=== PATIENT | male | born 1950 | race Caucasian/White ===

== ENCOUNTER 2016-08-27 07:52 | Inpatient (IN) | payer MEDICARE, MEDICAID ==
[2016-08-20 10:53] LABS: HEMATOCRIT 43.2 % (37.9-51.0); HEMOGLOBIN 13.9 g/dL (13.5-17.0); HGB HCT DIFFERENCE -1.5; MEAN CORPUSCULAR HEMOGLOBIN 24.1 pg (27.0-33.4); MEAN CORPUSCULAR HGB CONC 32.1 g/dL (32.0-36.0); MEAN CORPUSCULAR VOLUME 75 fl (80-97); RED BLOOD COUNT 5.76 10^6/uL (4.35-5.55); WHITE BLOOD COUNT 10.9 10^3/uL (4.0-10.5)
[2016-08-20 11:17] LABS: ALANINE AMINOTRANSFERASE 30 U/L (21-72); ALBUMIN 4.1 g/dL (3.5-5.0); ALKALINE PHOSPHATASE 130 U/L (38-126); ANION GAP 13 (5-19); ASPARTATE AMINO TRANSFERASE 19 U/L (17-59); BILIRUBIN,TOTAL 0.9 mg/dL (0.2-1.3); BLOOD UREA NITROGEN 13 mg/dL (7-20); CALCIUM 9.9 mg/dL (8.4-10.2); CARBON DIOXIDE 27 mmol/L (22-30); CHLORIDE 101 mmol/L (98-107); CREATININE RESULT 0.76 mg/dL (0.52-1.25); GLUCOSE 312 mg/dL (75-110); POTASSIUM 4.5 mmol/L (3.6-5.0); SODIUM 140.5 mmol/L (137-145)
[2016-08-20 11:37] LABS: CARCINOEMBRYONIC ANTIGEN 1.6 ng/mL (<3.0)
--- NOTE | 2016-08-20 12:02 | EKG REPORT ---
SEVERITY:- ABNORMAL ECG - SINUS RHYTHM NONSPECIFIC IVCD WITH LAD INFERIOR INFARCT, AGE INDETERMINATE : Confirmed by: Samantha Arndt MD 20-Aug-2016 12:00:49
[~2016-08-27 07:52] MED LIST: ERTAPENEM SODIUM 1 GM in NORMAL SALINE 50 ML IV PRN; LIDOCAINE 0.5% INJ-PF (5 MG/ML) 50 ML SDV INJ PRN; NORMAL SALINE 1000 ML 1,000 ML IV PRN
[2016-08-27] MEDS ORDERED: GLYCOPYRROLATE INJ 0.4 MG/2 ML VIAL ONE (08:18)
[2016-08-27] MEDS ORDERED: PHENYLEPHRINE HCL INJ/PF 10 MG/1 ML SDV ONE (08:18)
[2016-08-27] MEDS ORDERED: DEXAMETHASONE SOD PHOSPHATE INJ 4 MG/1 ML VIAL ONE (08:18)
[2016-08-27] MEDS ORDERED: VECURONIUM BROMIDE INJ 10 MG VIAL IV ONE (08:18)
[2016-08-27] MEDS ORDERED: NEOSTIGMINE METHYLSULFATE 10 MG/10 ML VIAL ONE (08:18)
[2016-08-27] MEDS ORDERED: ONDANSETRON HCL INJ/PF 4 MG/2 ML SDV ONE (08:18)
[2016-08-27] MEDS ORDERED: METOCLOPRAMIDE HCL INJ/PF 10 MG/2 ML SDV ONE (08:18)
[2016-08-27] MEDS ORDERED: LIDOCAINE 2% INJ-PF (20 MG/ML) 10 ML AMPUL ONE (08:18)
[2016-08-27] MEDS ORDERED: SUCCINYLCHOLINE CHLORIDE INJ 200 MG/10 ML VIAL ONE (08:18)
[2016-08-27] MEDS ORDERED: BUPIVACAINE HCL 0.25 % INJ/PF (2.5 MG/1 ML) 30 ML VIAL ONE (08:23)
[2016-08-27] MEDS ORDERED: GLUCAGON,HUMAN RECOMB 1 MG INJ ONE (08:23)
[2016-08-27 09:38] LABS: PROTHROMBIN TIME 12.9 SEC (11.4-15.4)
[2016-08-27 09:39] LABS: PARTIAL THROMBOPLASTIN TIME 27.7 SEC (23.5-35.8)
[2016-08-27] MEDS ORDERED: METOPROLOL TARTRATE 25 MG TABLET PO ONE (10:00)
[2016-08-27] MEDS ORDERED: FENTANYL CITRATE INJ/PF 250 MCG/5 ML AMPULE ONE (10:16)
[2016-08-27] MEDS ORDERED: MIDAZOLAM 2 MG/2 ML INJ ONE (10:17)
[2016-08-27] MEDS ORDERED: EPHEDRINE SULFATE INJ 50 MG/1 ML AMPULE ONE (10:17)
[2016-08-27] MEDS ORDERED: PROPOFOL INJ 200 MG/20 ML VIAL IV ONE (10:17)
[2016-08-27] MEDS ORDERED: ASPIRIN 81 MG TABLET, CHEWABLE PO ONE (11:00)
[2016-08-27] MEDS ORDERED: OXYCODONE-ACETAMINOPHEN 5-325 MG TABLET PO PRN ×2 (12:19)
[2016-08-27] MEDS ORDERED: MEPERIDINE HCL/PF INJ 25 MG/1 ML DISP.SYRIN IV PRN (12:19)
[2016-08-27] MEDS ORDERED: MORPHINE SULFATE 10 MG/ML INJ IV PRN (12:19)
[2016-08-27] MEDS ORDERED: FENTANYL CITRATE INJ/PF 100 MCG/2 ML AMPUL IV PRN ×3 (12:19)
[2016-08-27] MEDS ORDERED: ONDANSETRON HCL INJ/PF 4 MG/2 ML SDV IV PRN (12:19)
[2016-08-27] MEDS ORDERED: PROMETHAZINE HCL INJ 25 MG/1 ML VIAL IV PRN ×2 (12:19)
[2016-08-27] MEDS ORDERED: DIPHENHYDRAMINE HCL 50 MG/ML VIAL IV PRN (12:19)
[2016-08-27] MEDS ORDERED: HYDROMORPHONE HCL INJ/PF 2 MG/ML AMPULE ONE (13:45)
[2016-08-27] MEDS: NALOXONE HCL INJ/PF 0.4 MG/1 ML SDV ONE ×2 (15:02→15:35)
[2016-08-27] MEDS: METOPROLOL TARTRATE PF/INJ 5 MG/5 ML SDV IV ONE ×3 (15:42→16:09)
[2016-08-27] MEDS: CARBIDOPA/LEVODOPA 25-100 MG TABLET PO SCH (18:03)
[2016-08-27] MEDS: MORPHINE SULFATE 10 MG/ML INJ IV PRN ×2 (18:03→21:51)
[2016-08-27] MEDS: NORMAL SALINE 1000 ML 1,000 ML IV PRN (18:09)
[2016-08-27 19:28] LABS: HEMATOCRIT 41.6 % (37.9-51.0); HEMOGLOBIN 13.3 g/dL (13.5-17.0); HGB HCT DIFFERENCE -1.7; MEAN CORPUSCULAR HEMOGLOBIN 24.1 pg (27.0-33.4); MEAN CORPUSCULAR HGB CONC 31.9 g/dL (32.0-36.0); MEAN CORPUSCULAR VOLUME 75 fl (80-97); RED BLOOD COUNT 5.53 10^6/uL (4.35-5.55); RED CELL DISTRIBUTION WIDTH 17.4 % (11.5-14.0); WHITE BLOOD COUNT 22.4 10^3/uL (4.0-10.5)
[2016-08-27 19:39] LABS: ANION GAP 14 (5-19); BLOOD UREA NITROGEN 12 mg/dL (7-20); CALCIUM 9.2 mg/dL (8.4-10.2); CARBON DIOXIDE 24 mmol/L (22-30); CHLORIDE 103 mmol/L (98-107); CREATININE RESULT 0.84 mg/dL (0.52-1.25); GLUCOSE 224 mg/dL (75-110); POTASSIUM 5.1 mmol/L (3.6-5.0); SODIUM 140.8 mmol/L (137-145)
--- NOTE | 2016-08-27 19:41 | PDOC CONSULTATION ---
Consultation Consult Date: 08/27/16 Attending physician:: TAISHA KUHN Consult reason:: Preop cardiovascular clearance History of Present Illness Admission Date/PCP: 08/27/16 08:39 YOSEF DEL REAL MD Patient complains of: No complaints, patient for colon cancer surgery. History of Present Illness: AMI YOUSIF is a 66 year old male, with history of coronary artery disease , history of prior myocardial infarction, history of coronary intervention, cerebrovascular accident, resident of assisted living, who was admitted to the pre-op unit for undergoing colon cancer surgery. Patient has a complicated cardiac history. He underwent a heart catheterization and stent placement with bare metal approximately 2-3 months ago. Patient has completed 6 weeks of dual antiplatelet therapy. Patient's family claims that the circumflex artery was noted to be totally occluded and could not be revascularized. Patient has limited activity but is able to walk to the dining room without any significant symptoms. Patient denied any chest pain or any shortness of breath. Patient preop EKG shows sinus rhythm, abnormal Q waves in lead 3 and aVF suggestive of prior inferior myocardial infarction, but no acute ST-T wave changes noted. I was asked to evaluate patient and cleared him from cardiac standpoint. Past Medical History Cardiac Medical History: Reports: Myocardial Infarction - 1988, Hyperlipidema, Hypertension Denies: Atrial Fibrillation, Congestive Heart Failure, Coronary Artery Disease, Peripheral Vascular Disease, Heart Murmur Neurological Medical History: Denies: Seizures Endocrine Medical History: Reports: Diabetes Mellitus Type 2 Renal/ Medical History: Denies: End Stage Renal Disease GI Medical History: Reports: Gastroesophageal Reflux Disease - HX PEPCID Denies: Crohn's Disease, Hiatal Hernia Musculoskeltal Medical History: Denies: Arthritis, Fibromyalgia Psychiatric Medical History: Denies: Dementia Past Surgical History Past Surgical History: Reports: Cardiac Catheterization, Coronary Stent, Tonsillectomy Denies: Appendectomy, Cholecystectomy, Colostomy, Coronary Artery Bypass Graft, Gastric Bypass Surgery, Herniorrhaphy, Pacemaker Social History Information Source: Patient Smoking Status: Former Smoker Frequency of Alcohol Use: Rare Hx Recreational Drug Use: No Hx Prescription Drug Abuse: No - Advance Directive Resuscitation Status: Full Code Surrogate healthcare decision maker:: Patient's sister is the surrogate decision maker Family History Family History: Reviewed & Not Pertinent Parental Family History Reviewed: Yes Children Family History Reviewed: Yes Sibling(s) Family History Reviewed.: Yes Medication/Allergy Home Medications: Amlodipine Besylate 2.5 mg PO DAILY 01/12/15 Atorvastatin Calcium 40 mg PO DAILY 01/12/15 Alfuzosin HCl [Alfuzosin HCl ER] 1 tab PO DAILY 08/20/16 Aspirin [Aspirin 81 mg Chewable Tablet] 1 tab PO DAILY 08/20/16 Carbidopa/Levodopa [Sinemet 25-100 mg Tablet] 1 tab PO TID 08/20/16 Finasteride [Proscar 5 mg Tablet] 1 tab PO DAILY 08/20/16 Metoprolol Succinate 25 mg PO DAILY 08/20/16 Ranitidine HCl [Zantac] 1 tab PO DAILY 08/20/16 Allergies/Adverse Reactions: No Known Allergies Allergy (Verified 08/20/16 08:55) Review of Systems Review of Systems: Please see history of present illness and past medical history as wall. Constitutional: No fever or chills reported. Head : No recent chronic headaches, recent head injury. Eyes: No recent eye pain, diplopia, redness, discharge, acute visual changes. Ears: No recent chronic ear pain, acute hearing loss, ear discharge. Oral cavity: No recent ulcerations, bleeding, oral cavity discomfort. Neck: No recent acute neck pain reported. Hematologic: No recent easy bruising or bleeding or hematologic malignancy reported. Lymphatic: No recent lymphatic malignancy, chronic lymphadenopathy reported yet Cardiovascular system review: See history of present illness. Respiratory system review: No recent chronic cough, hemoptysis, blood clots in the lungs reported. Mild Shortness of breath on exertion Gastrointestinal system review: Active for recent hematemesis, melena, recent change in bowel habits. Elevation does have history of colon cancer and is going to have surgery today. Genitourinary system review: No recent acute or chronic hematuria, flank pain, UTI etc. reported. Skin system review: Negative for any recent abnormal bruising, no rash, no pruritus reported. Neurologic: No prior history of strokes, mini strokes, seizure disorder. Psychologic: No history of major psychosis or major depression reported. History of minor depression. Musculoskeletal: Minor aches and pains reported. No acute joint swelling reported. Endocrine: No recent polyuria, polydipsia, recent heat or cold intolerance. Physical Exam Vital Signs: Temp Pulse Resp BP Pulse Ox 97.4 F 83 16 151/82 H 93 08/27/16 08:45 08/27/16 08:45 08/27/16 08:45 08/27/16 08:45 08/27/16 08:45 Intake & Output 08/26/16 08/27/16 08/28/16 06:59 06:59 06:59 Intake Total 50 Output Total 0 Balance 50 Exam: GENERAL: well-nourished and in no acute distress. Alert and oriented x3 HEAD: Atraumatic, normocephalic. EYES: Pupils equal round and reactive to light, extraocular movements intact, sclera anicteric, conjunctiva are normal. ENT: TMs normal, nares patent, oropharynx clear without exudates. Moist mucous membranes. No oral ulcerations or bleeding gums noted NECK: supple without lymphadenopathy. Trachea is central. No cervical or axillary lymphadenopathy noted. Carotids are 2+, JVD WNL LUNGS: Respiration seems nonlabored, no significant accessory muscle action noted. Breath sounds clear to auscultation bilaterally and equal noted. No wheezes rales or rhonchi noted. No significant dullness noted on percussion. CHEST: Palpation of the chest wall shows no significant chest wall tenderness. No other significant abnormalities noted. HEART: [place] [employer], No PSH, 1/6 NAZIA aortic area, 1/6 younger systolic murmur mitral area, no rubs, no gallops. ABDOMEN: Soft, no significant tenderness appreciated, normoactive bowel sounds. No guarding, no rebound. No rigidity noted . No masses appreciated. EXTREMITIES: Pedal pulses are 1-2+, no calf tenderness noted. No clubbing or cyanosis.trace to 1+ pedal edema noted NEUROLOGICAL: Focused neurological exam showed no significant neurologic deficit , except for mild motor weakness left side. Normal speech, no facial asymmetry appreciated. PSYCH: Normal mood, normal affect. Judgment and insight within normal limits. SKIN: No significant ecchymosis, rash, ulcerations or signs of pruritus noted. MUSCULOSKELETAL EXAM: No significant joint swelling noted. Results Laboratory Results: 08/20/16 09:28 08/27/16 09:10 08/27/16 09:10 Glucose 164 H EKG Comments: Chest x-ray, pre-op from August 20 showed sinus rhythm, abnormal Q waves indicative of prior inferior myocardial infarction, no new changes when compared to prior EKG. Preop chest x-ray showed possible fluid in the major fissure. Impressions: Chest X-Ray 08/20/16 10:12 IMPRESSION: NO SIGNIFICANT RADIOGRAPHIC FINDING IN THE CHEST. Assessment & Plan - Diagnosis (1) Coronary artery disease Qualifiers: Coronary Disease-Associated Artery/Lesion type: [place] artery [place] vs. transplanted heart: [place] heart Associated angina: angina presence unspecified Qualified Code(s): I25.10 - Atherosclerotic heart disease of [place] coronary artery without angina pectoris Is this a current diagnosis for this admission?: Yes (2) Abnormal EKG Is this a current diagnosis for this admission?: Yes (3) CVA (cerebral infarction) Qualifiers: Laterality of affected vessel: unspecified Is this a current diagnosis for this admission?: Yes (4) Hypertension Qualifiers: Hypertension type: essential hypertension Qualified Code(s): I10 - Essential (primary) hypertension Is this a current diagnosis for this admission?: Yes (5) Hyperlipidemia Qualifiers: Hyperlipidemia type: other hyperlipidemia Qualified Code(s): E78.4 - Other hyperlipidemia Is this a current diagnosis for this admission?: Yes (6) Diabetes Qualifiers: Diabetes mellitus type: type 2 Diabetes mellitus complication status: with unspecified complications - Notes Notes: Patient was seen earlier this morning in preop evaluation. Coronary artery disease: Symptomatically stable. Resume aspirin, beta nic, HODAN inhibitor, statin. These can be resumed when feasible from surgical standpoint and when allowed by mouth. In the meantime may use intermittent IV beta nic, HODAN inhibitor etc. Abnormal electrocardiogram: This is unchanged from before. Suggest prior inferior myocardial infarction. Cerebrovascular accident: This is old. No new evidence. Hypertension: Currently stable. Continue to monitor blood pressure. Dyslipidemia: Recommend statin therapy, resume when stable. Diabetes: Recommend good control of blood sugar but avoid any hypo-or hyperglycemia. Preop cardiovascular evaluation: Patient was cleared from cardiac standpoint because of no new EKG changes, no clinical CHF and patient not having chest pain. Patient in need for colon surgery. - Time Time Spent: 30 to 50 Minutes - CODE STATUS was discussed, patient remains full code. Surrogate decision-maker patient's sister. Multiple medical problems were addressed.More than 50% of the time spent coordinating care, discussing management plans with involved caregivers. Management plans discussed with involved personnels. Medical decision making was of moderate complexity.
[2016-08-27] MEDS ORDERED: DEXTROSE 50%-WATER 25 GM/50 ML DISP.SYRIN IV PRN ×2 (19:47)
[2016-08-27] MEDS ORDERED: GLUCAGON,HUMAN RECOMB 1 MG INJ IM PRN (19:47)
[2016-08-27] MEDS ORDERED: DEXTROSE 40% GEL 15 GM TUBE PO PRN ×2 (19:47)
[2016-08-27] MEDS ORDERED: NORMAL SALINE 500 ML IV PRN (19:52)
--- NOTE | 2016-08-27 19:57 | PDOC PROGRESS REPORT ---
Subjective Progress Note for:: 08/27/16 Subjective:: poor pain control Physical Exam Vital Signs: Temp Pulse Resp BP Pulse Ox 97.5 F 99 13 141/103 H 96 08/27/16 18:13 08/27/16 18:13 08/27/16 19:00 08/27/16 18:57 08/27/16 19:00 Intake & Output 08/26/16 08/27/16 08/28/16 06:59 06:59 06:59 Intake Total 4150 Output Total 1425 Balance 2725 Weight 97.5 kg General appearance: PRESENT: no acute distress, cooperative Respiratory exam: PRESENT: clear to auscultation shelly Cardiovascular exam: PRESENT: tachycardia - hr 108 GI/Abdominal exam: PRESENT: other - distended, diffuse moderate tenderness. Results Laboratory Results: 08/27/16 19:20 08/27/16 19:20 08/27/16 08/27/16 08/27/16 09:10 19:20 19:20 WBC 22.4 H RBC 5.53 Hgb 13.3 L Hct 41.6 MCV 75 L MCH 24.1 L MCHC 31.9 L RDW 17.4 H Plt Count 457 H Sodium 140.8 Potassium 5.1 H Chloride 103 Carbon Dioxide 24 Anion Gap 14 BUN 12 Creatinine 0.84 Est GFR ( Amer) > 60 Est GFR (Non-Af Amer) > 60 Glucose 164 H 224 H Calcium 9.2 Impressions: Chest X-Ray 08/20/16 10:12 IMPRESSION: NO SIGNIFICANT RADIOGRAPHIC FINDING IN THE CHEST. Assessment & Plan - Diagnosis (1) Colonic mass Is this a current diagnosis for this admission?: YesPlan: s/p segmental resection of tx colon. poor pain control. will give additional morphine dose. restart all anti-htn meds. urine output ok but concentrated. will give small ivf bolus. start insulin ss.
[2016-08-27] MEDS ORDERED: MORPHINE SULFATE 10 MG/ML INJ IV ONE (20:30)
[2016-08-27] MEDS: FAMOTIDINE INJ/PF 20 MG/2 ML SDV IV SCH (20:38)
[2016-08-27] MEDS ORDERED: AMLODIPINE BESYLATE 2.5 MG TABLET PO ONE (20:45)
[2016-08-27] MEDS: ATORVASTATIN CALCIUM 40 MG TABLET PO SCH (21:34)
[2016-08-28] MEDS: MORPHINE SULFATE 10 MG/ML INJ IV PRN ×6 (00:39→23:42)
[2016-08-28 04:14] LABS: HEMATOCRIT 37.9 % (37.9-51.0); HGB HCT DIFFERENCE -1.9; MEAN CORPUSCULAR HEMOGLOBIN 23.7 pg (27.0-33.4); MEAN CORPUSCULAR HGB CONC 31.6 g/dL (32.0-36.0); MEAN CORPUSCULAR VOLUME 75 fl (80-97); RED BLOOD COUNT 5.06 10^6/uL (4.35-5.55); RED CELL DISTRIBUTION WIDTH 17.6 % (11.5-14.0); WHITE BLOOD COUNT 17.4 10^3/uL (4.0-10.5)
[2016-08-28 04:30] LABS: ANION GAP 13 (5-19); BLOOD UREA NITROGEN 12 mg/dL (7-20); CALCIUM 8.5 mg/dL (8.4-10.2); CARBON DIOXIDE 21 mmol/L (22-30); CHLORIDE 106 mmol/L (98-107); CREATININE RESULT 0.88 mg/dL (0.52-1.25); GLUCOSE 206 mg/dL (75-110); POTASSIUM 5.5 mmol/L (3.6-5.0); SODIUM 139.8 mmol/L (137-145)
[2016-08-28] MEDS ORDERED: METOPROLOL SUCCINATE 50 MG TAB.SR.24H PO SCH (10:00)
[2016-08-28] MEDS ORDERED: ATORVASTATIN CALCIUM 40 MG TABLET PO SCH (10:00)
[2016-08-28] MEDS ORDERED: ALFUZOSIN HCL PO SCH (10:00)
[2016-08-28] MEDS ORDERED: METOPROLOL SUCCINATE 25 MG TAB.SR.24H PO SCH (10:00)
[2016-08-28] MEDS ORDERED: AMLODIPINE BESYLATE 10 MG TABLET PO SCH (10:00)
[2016-08-28] MEDS: NORMAL SALINE 1000 ML 1,000 ML IV PRN ×2 (11:04→17:16)
--- NOTE | 2016-08-28 11:34 | Operative Report ---
Operative Report DATE OF SURGERY: 08/27/16 PREOPERATIVE DIAGNOSIS: Distal transverse colon mass POSTOPERATIVE DIAGNOSIS: Distal transverse colon mass OPERATION: Distal transverse colon segmental resection SURGEON: TAISHA KUHN ANESTHESIA: GA TISSUE REMOVED OR ALTERED: Distal transverse colon segment COMPLICATIONS: Splenic capsular tear ESTIMATED BLOOD LOSS: 300 mL INTRAOPERATIVE FINDINGS: Submucosal mass of the colon at the distal transverse colon. PROCEDURE: Informed consent was obtained. Patient was brought to the operating room placed on the operating room table in supine position. After satisfactory induction of general anesthesia patient's abdomen was prepped and draped in usual sterile fashion. A upper midline incision was made dissection carried out through the fascia and the peritoneal cavity entered without difficulty. A wound protractor was used during the case. Exploratory laparotomy was performed first. The liver felt smooth with no palpable masses the peritoneal surface felt smooth with no palpable masses the small bowel was run from the ligament of Treitz down to the ileocecal junction and it felt normal with the no masses. The right colon felt normal. The transverse colon demonstrated a palpable mass at the distal transverse colon. The mass felt the smooth about 4 cm in size. The sigmoid colon was devoid of any masses. The left colon felt normal as well. The anterior surface of the stomach felt normal. NG tube confirmation was made with palpation. Patient's the omentum was markedly fatty with the adhesions laterally making the procedure very difficult. The left colon was mobilized at the line of T[place]t with the mobilization progressing toward the splenic flexure. The splenic flexure was high and very deep making exposure extremely difficult. The transverse colon was dissected off of the fatty omentum extending the dissection toward the splenic flexure. The splenic flexure was approached from 2 sides. Again the posterior and high location of the splenic flexure made the the dissection extremely difficult. A small capsular tear was noted at the inferior edge of the spleen with some bleeding. The bleeding was controlled the with Surgicel. Bleeding appeared to have stopped at the end of the case. The splenic flexure of the colon was adhered to the spleen at this location. The mass laid several centimeters proximal to the splenic flexure therefore dissection was stopped at this point. The transverse colon was mobilized further proximally toward the hepatic flexure. This allowed sufficient mobility of the transverse colon to allow resection with anastomosis. The transverse colon was divided couple centimeters distal to the palpable mass using a EVETTE stapling device. And also divided couple centimeters proximal to the palpable mass. The mesentery of the resected the segment was taken using a LigaSure device taking the mesentery very close to the bowel. The 2 remaining ends of the bowel appear well vascularized with the triphasic Doppler signals. The specimen was submitted to pathology and pathology confirmed that the mass was excised with good margins. The mass appeared to be submucosal. Bowel continuity was then re-created performing a [id number] functional end-to-end anastomosis between the 2 ends of the transverse colon. The anastomosis came together well without tension. The enterotomies made to introduce the stapling device was closed with a TA stapling device. Anastomosis appeared secure. Omentum was draped over the anastomosis and the small bowel. Sponge needle instrument counts were all correct. Fascia was closed with running PDS suture. Skin was closed with tamia. Marcaine was injected at the operative site. Patient tolerated procedure well and was taken to the recovery area in stable condition.
--- NOTE | 2016-08-28 11:41 | PDOC PROGRESS REPORT ---
Subjective Progress Note for:: 08/28/16 Subjective:: abdominal pain. goes to sleep after morphine then wakes up with pain, stable from last night Physical Exam Vital Signs: Temp Pulse Resp BP Pulse Ox 97.5 F 119 H 17 145/84 H 94 08/28/16 11:00 08/28/16 08:00 08/28/16 11:00 08/28/16 10:58 08/28/16 11:00 Intake & Output 08/27/16 08/28/16 08/29/16 06:59 06:59 06:59 Intake Total 6205 Output Total 1875 175 Balance 4330 -175 Weight 98.8 kg General appearance: PRESENT: no acute distress, cooperative Respiratory exam: PRESENT: clear to auscultation shelly Cardiovascular exam: PRESENT: tachycardia GI/Abdominal exam: PRESENT: other - distended with moderate diffuse tenderness without peritoneal signs. Extremities exam: PRESENT: other - no swelling Results Laboratory Results: 08/28/16 03:40 08/28/16 03:40 08/27/16 08/27/16 08/28/16 19:20 19:20 03:40 WBC 22.4 H 17.4 H RBC 5.53 5.06 Hgb 13.3 L 12.0 L Hct 41.6 37.9 MCV 75 L 75 L MCH 24.1 L 23.7 L MCHC 31.9 L 31.6 L RDW 17.4 H 17.6 H Plt Count 457 H 412 Sodium 140.8 Potassium 5.1 H Chloride 103 Carbon Dioxide 24 Anion Gap 14 BUN 12 Creatinine 0.84 Est GFR ( Amer) > 60 Est GFR (Non-Af Amer) > 60 Glucose 224 H Calcium 9.2 08/28/16 03:40 WBC RBC Hgb Hct MCV MCH MCHC RDW Plt Count Sodium 139.8 Potassium 5.5 H Chloride 106 Carbon Dioxide 21 L Anion Gap 13 BUN 12 Creatinine 0.88 Est GFR ( Amer) > 60 Est GFR (Non-Af Amer) > 60 Glucose 206 H Calcium 8.5 Impressions: Chest X-Ray 08/20/16 10:12 IMPRESSION: NO SIGNIFICANT RADIOGRAPHIC FINDING IN THE CHEST. KUB X-Ray 08/28/16 00:00 IMPRESSION: Nasogastric tube noted with tip at the distal esophagus. The tube should be advanced approximately 10 to 12 cm to ensure that the sideholes within the lumen of the stomach. Overall position of the nasogastric tube is not significantly changed from the prior study. Assessment & Plan - Diagnosis (1) Colonic mass Is this a current diagnosis for this admission?: YesPlan: s/p segmental resection of tx colon. tachycardia and leukocytosis concerning. but good urine output and no peritoneal signs and wbc down from last night and no fever and pt does not appear toxic. cont close observation. try more frequent morphine at lower dose.
[2016-08-28] MEDS ORDERED: KETOROLAC TROMETHAMINE INJ/PF 30 MG/1 ML SDV ONE (12:39)
[2016-08-28] MEDS: AMLODIPINE BESYLATE 2.5 MG TABLET PO SCH (12:42)
[2016-08-28] MEDS: FAMOTIDINE INJ/PF 20 MG/2 ML SDV IV SCH ×2 (12:46→21:48)
[2016-08-28] MEDS: CARBIDOPA/LEVODOPA 25-100 MG TABLET PO SCH ×3 (14:14→17:08)
[2016-08-28] MEDS: FINASTERIDE 5 MG TABLET PO SCH (14:14)
[2016-08-28] MEDS: TAMSULOSIN HCL 0.4 MG CAP.SR.24H PO SCH (14:14)
[2016-08-28] MEDS ORDERED: KETOROLAC TROMETHAMINE INJ/PF 30 MG/1 ML SDV IV ONE (14:15)
--- NOTE | 2016-08-28 16:52 | PDOC PROGRESS REPORT ---
Subjective Progress Note for:: 08/28/16 Subjective:: pain better controlled on toradol. Physical Exam Vital Signs: Temp Pulse Resp BP Pulse Ox 98.8 F 78 15 145/117 H 92 08/28/16 12:00 08/28/16 12:00 08/28/16 14:28 08/28/16 14:28 08/28/16 14:28 Intake & Output 08/27/16 08/28/16 08/29/16 06:59 06:59 06:59 Intake Total 6205 Output Total 1875 425 Balance 4330 -425 Weight 98.8 kg General appearance: PRESENT: no acute distress Respiratory exam: PRESENT: clear to auscultation shelly Cardiovascular exam: PRESENT: tachycardia GI/Abdominal exam: PRESENT: other - distended, diffuse tenderness without peritoneal signs, less tender. Results Laboratory Results: 08/28/16 03:40 08/28/16 03:40 08/27/16 08/27/16 08/28/16 19:20 19:20 03:40 WBC 22.4 H 17.4 H RBC 5.53 5.06 Hgb 13.3 L 12.0 L Hct 41.6 37.9 MCV 75 L 75 L MCH 24.1 L 23.7 L MCHC 31.9 L 31.6 L RDW 17.4 H 17.6 H Plt Count 457 H 412 Sodium 140.8 Potassium 5.1 H Chloride 103 Carbon Dioxide 24 Anion Gap 14 BUN 12 Creatinine 0.84 Est GFR ( Amer) > 60 Est GFR (Non-Af Amer) > 60 Glucose 224 H Calcium 9.2 08/28/16 03:40 WBC RBC Hgb Hct MCV MCH MCHC RDW Plt Count Sodium 139.8 Potassium 5.5 H Chloride 106 Carbon Dioxide 21 L Anion Gap 13 BUN 12 Creatinine 0.88 Est GFR ( Amer) > 60 Est GFR (Non-Af Amer) > 60 Glucose 206 H Calcium 8.5 Impressions: Chest X-Ray 08/20/16 10:12 IMPRESSION: NO SIGNIFICANT RADIOGRAPHIC FINDING IN THE CHEST. KUB X-Ray 08/28/16 00:00 IMPRESSION: NG tube with its tip at the approximate level of the GE junction which should be advanced. Assessment & Plan - Diagnosis (1) Colonic mass Is this a current diagnosis for this admission?: YesPlan: s/p segmental resection of tx colon. pain better controlled. tachycardia less ( currently 114, hr 78 that was recorded above is in error). not sure that he is absorbing po anti hypertensives. d/w Dr Tao who has agreed to see him tomorrow. advised labetolol. will start iv.
[2016-08-28] MEDS: LABETALOL HCL INJ 20 MG/4 ML DISP.SYRIN IV PRN (17:13)
[2016-08-28] MEDS: KETOROLAC TROMETHAMINE INJ/PF 30 MG/1 ML SDV IV PRN (17:13)
[2016-08-28] MEDS ORDERED: ERTAPENEM SODIUM INJ 1 GM VIAL IV ONE (17:34)
[2016-08-28] MEDS: ERTAPENEM SODIUM 1 GM in NORMAL SALINE 50 ML IV SCH (20:14)
[2016-08-28] MEDS: ATORVASTATIN CALCIUM 40 MG TABLET PO SCH (21:48)
[2016-08-28] MEDS: ONDANSETRON HCL INJ/PF 4 MG/2 ML SDV IV PRN (22:12)
[2016-08-29] MEDS: NORMAL SALINE 1000 ML 1,000 ML IV PRN ×2 (02:56→14:27)
[2016-08-29] MEDS: MORPHINE SULFATE 10 MG/ML INJ IV PRN ×4 (03:02→23:09)
[2016-08-29 04:56] LABS: ANION GAP 10 (5-19); BLOOD UREA NITROGEN 12 mg/dL (7-20); CALCIUM 7.9 mg/dL (8.4-10.2); CARBON DIOXIDE 25 mmol/L (22-30); CHLORIDE 109 mmol/L (98-107); CREATININE RESULT 0.84 mg/dL (0.52-1.25); GLUCOSE 165 mg/dL (75-110); POTASSIUM 4.3 mmol/L (3.6-5.0); SODIUM 143.7 mmol/L (137-145)
[2016-08-29 06:11] LABS: ABSOLUTE BASOPHILS # (AUTO) 0.1 10^3/uL (0.0-0.2); ABSOLUTE EOSINOPHILS # (AUTO) 0.4 10^3/uL (0.0-0.6); ABSOLUTE LYMPHOCYTES (AUTO) 2.5 10^3/uL (0.5-4.7); ABSOLUTE MONOCYTES (AUTO) 1.7 10^3/uL (0.1-1.4); ABSOLUTE NEUT (AUTO) 8.2 10^3/uL (1.7-8.2); BASOPHILS % (AUTO) 0.5 % (0-2); EOSINOPHILS % (AUTO) 2.9 % (0-6); HEMATOCRIT 30.2 % (37.9-51.0); HGB HCT DIFFERENCE -0.8; LYMPHOCYTES % (AUTO) 19.4 % (13-45); MEAN CORPUSCULAR HEMOGLOBIN 24.5 pg (27.0-33.4); MEAN CORPUSCULAR HGB CONC 32.3 g/dL (32.0-36.0); MEAN CORPUSCULAR VOLUME 76 fl (80-97); MONOCYTES % (AUTO) 13.5 % (3-13); RED BLOOD COUNT 3.98 10^6/uL (4.35-5.55); RED CELL DISTRIBUTION WIDTH 17.7 % (11.5-14.0); SEGMENTED NEUTROPHILS % (AUTO) 63.7 % (42-78); WHITE BLOOD COUNT 12.8 10^3/uL (4.0-10.5)
[2016-08-29 06:21] LABS: HEMOGLOBIN 9.8 g/dL (13.5-17.0)
--- NOTE | 2016-08-29 07:38 | PDOC PROGRESS REPORT ---
Subjective Progress Note for:: 08/29/16 Subjective:: denies pain & dyspnea Physical Exam Vital Signs: Temp Pulse Resp BP Pulse Ox 99.2 F 107 H 17 148/89 H 95 08/29/16 06:00 08/28/16 20:00 08/29/16 06:00 08/29/16 05:38 08/29/16 06:00 Intake & Output 08/27/16 08/28/16 08/29/16 07:59 07:59 07:59 Intake Total 6205 1232 Output Total 1875 1250 Balance 4330 -18 Weight 217 lb 13.067 oz 218 lb 11.177 oz General appearance: PRESENT: no acute distress Respiratory exam: PRESENT: rhonchi Cardiovascular exam: PRESENT: +S1, +S2, tachycardia. ABSENT: clicks, diastolic murmur, gallop, irregular rhythm, systolic murmur GI/Abdominal exam: PRESENT: diminished bowel sounds, distended - nurse says slightly more than yesterday. ABSENT: guarding, mass, organolmegaly, tenderness Extremities exam: ABSENT: pedal edema Neurological exam: PRESENT: altered - lethargic after morphine Results Laboratory Results: 08/29/16 06:03 08/29/16 03:58 08/29/16 08/29/16 08/29/16 03:58 03:58 06:03 WBC Cancelled 12.8 H RBC Cancelled 3.98 L Hgb Cancelled 9.8 L D Hct Cancelled 30.2 L MCV Cancelled 76 L MCH Cancelled 24.5 L MCHC Cancelled 32.3 RDW Cancelled 17.7 H Plt Count Cancelled 349 Seg Neutrophils % Cancelled 63.7 Lymphocytes % Cancelled 19.4 Monocytes % Cancelled 13.5 H Eosinophils % Cancelled 2.9 Basophils % Cancelled 0.5 Absolute Neutrophils Cancelled 8.2 Absolute Lymphocytes Cancelled 2.5 Absolute Monocytes Cancelled 1.7 H Absolute Eosinophils Cancelled 0.4 Absolute Basophils Cancelled 0.1 Sodium 143.7 Potassium 4.3 Chloride 109 H Carbon Dioxide 25 Anion Gap 10 BUN 12 Creatinine 0.84 Est GFR ( Amer) > 60 Est GFR (Non-Af Amer) > 60 Glucose 165 H Calcium 7.9 L Impressions: Chest X-Ray 08/20/16 10:12 IMPRESSION: NO SIGNIFICANT RADIOGRAPHIC FINDING IN THE CHEST. KUB X-Ray 08/28/16 00:00 IMPRESSION: NG tube with its tip at the approximate level of the GE junction which should be advanced. Assessment & Plan - Diagnosis (1) Type 2 diabetes mellitus without complications Qualifiers: Diabetes mellitus halfway insulin use: without halfway use Qualified Code(s): E11.9 - Type 2 diabetes mellitus without complications Is this a current diagnosis for this admission?: YesPlan: continue sliding scale for now (2) Hypertension Qualifiers: Hypertension type: essential hypertension Qualified Code(s): I10 - Essential (primary) hypertension Is this a current diagnosis for this admission?: YesPlan: has scheduled metoprolol succinate & prn labetalol. Rate 110s. K was high. Will avoid IV hydralazine because of tachycardia and IV vasotec because of K. (3) Anemia, blood loss Is this a current diagnosis for this admission?: YesPlan: hct down from 38 to 30. BP ok. Observe. (4) Panlobular emphysema Is this a current diagnosis for this admission?: YesPlan: nov fev1=76%=mild. No wheeze now but has rhonchi from ineffective cough & lethargy. Consider holding morphine until more alert. (5) Colonic mass Is this a current diagnosis for this admission?: YesPlan: 8cm polyp gone. Suspect ileus. (6) Leukocytosis Qualifiers: Leukocytosis type: other Qualified Code(s): D72.828 - Other elevated white blood cell count Is this a current diagnosis for this admission?: YesPlan: down from 17 to 13. Afebrile on eripenem.
--- NOTE | 2016-08-29 08:31 | EKG REPORT ---
SEVERITY:- ABNORMAL ECG - SINUS TACHYCARDIA NONSPECIFIC INTRAVENTRICULAR CONDUCTION DELAY PROBABLE INFERIOR INFARCT, AGE INDETERMINATE : Confirmed by: Luis Jeffery MD 29-Aug-2016 08:29:47
[2016-08-29] MEDS: FAMOTIDINE INJ/PF 20 MG/2 ML SDV IV SCH ×2 (09:58→21:39)
[2016-08-29] MEDS: CARBIDOPA/LEVODOPA 25-100 MG TABLET PO SCH ×3 (10:00→16:59)
[2016-08-29] MEDS: AMLODIPINE BESYLATE 2.5 MG TABLET PO SCH (10:00)
[2016-08-29] MEDS: TAMSULOSIN HCL 0.4 MG CAP.SR.24H PO SCH (10:00)
[2016-08-29] MEDS: FINASTERIDE 5 MG TABLET PO SCH (10:00)
--- NOTE | 2016-08-29 15:04 | PROGRESS NOTE E ---
Progress Note NAME: AMI YOUSIF : 1950 AGE: 66Y DATE: 08/29/2016 ROOM: 607 SUBJECTIVE: Note that the patient was seen by Dr. Lindquist on 08/27/2016 for preoperative clearance for removal of left colonic mass, for which the patient did have surgery. The patient since yesterday has been having tachycardia and hypertension, and hence Cardiology consulted. The patient has slow mentation but can answer very slowly. He denies any chest pain or discomfort. He denies any palpitations. There is no PND or orthopnea. There is no leg edema. There is no recurrence of TIA or CVA symptoms. The patient denies any weakness or any anginal symptoms. OBJECTIVE: GENERAL: The patient is mildly obese but well groomed, in no acute distress. VITAL SIGNS: Patient is afebrile with a temperature of 98.7 degrees Fahrenheit. Pulse is 106 beats per minute. Earlier yesterday, it was 117 beats per minute. Blood pressure is 131/82. Respirations 15 per minute. O2 saturations are 95% on 5 L nasal cannula. HEENT: Head is atraumatic and normocephalic. Eyes: Pupils are equal, round, regular, reactive to light and accommodation. Extraocular movements are normal. There is no scleral icterus. There is mild conjunctival pallor. ENT is negative. Tongue is dry. Mucous membranes in the mouth are dry. There are no ulcers in the mouth. NECK: Supple. There is no JVD. Carotids are equal. There is no bruit. Trachea is central. LUNGS: Clear to auscultation and percussion. HEART: S1 and S2 are heard. There is no S3 gallop. There is no S4 gallop. There is systolic murmur at left sternal border and the apex. There is no rub. ABDOMEN: Soft. Bowel sounds are absent. The surgical dressing site is clean and dry. There is no hepatosplenomegaly. EXTREMITIES: Femorals are diminished. There are no femoral bruits. Leg pulses are slightly diminished. There is no pedal edema. There is no DVT or cellulitis. CENTRAL NERVOUS SYSTEM: The patient is of very slow mentation but does answer after awhile. He has no focal deficits. PSYCHIATRIC: The patient has a withdrawn affect, but the patient is not agitated. DIAGNOSTIC TEST RESULTS: The patient's EKG shows sinus tachycardia, nonspecific IVCD, old inferior wall TN. The patient's white count is 12,800. Hemoglobin is 9.8. Hematocrit is 30.2. His platelet count is 349,000. The patient's sodium is 143.7, potassium 4.3, chloride 109. His CO2 is 25. Patient's BUN is 12. Creatinine is 0.84. GFR is greater than 60. His glucose is 165. Calcium is 7.9. His lipase is less than 10. ASSESSMENT: 1. SINUS TACHYCARDIA SECONDARY TO DEHYDRATION AND POSTOPERATIVE PAIN. The patient has been transitioned to morphine now, and the pain control is better. His heart rate is coming down. 2. STATUS POST SURGERY FOR LEFT COLON MASS. 3. 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 4. ABNORMAL EKG SUGGESTIVE OF OLD INFERIOR WALL TN. 5. 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 6. HYPERTENSION. Blood pressure seems to be stable. 7. HYPERLIPIDEMIA. 8. DIABETES MELLITUS TYPE 2 WITH NO COMPLICATIONS WHICH SEEMS TO BE DIET CONTROLLED. RECOMMENDATIONS: Note that the patient's heart rate is coming down with hydration. Would continue hydrating the patient gently. Will recheck the patient's hemoglobin since it is 9.8. With hydration, it might fall down further. Also agree with giving the patient labetalol 10 mg IV q. 8 hours p.r.n. Note that the patient's medications have been reviewed. Discussed the patient with other caregiving providers on the case. Note that the patient is a FULL CODE. His sister, Tierra Gunter, is his surrogate healthcare decision maker. Note: Thirty minutes spent on this patient including reviewing the patient's medications and his old records, and also more than 50% of the time was spent in direct patient care. Will order hemoglobin in the morning. Will follow with you. The sinus tachycardia should resolve once the patient is back on his metoprolol by mouth, but the problem is that the patient removed his NG tube 3 times and it has been difficult to put the NG tube back in. Hence to continue labetalol until the time the patient is able to take by mouth. Note: More than 50% of the time was spent in direct patient care. DICTATING PHYSICIAN: FREDDY ALEXIS M.D. [id number] PHY#: [id number] ID: [id number] JOB#: [id number] ACCT: [id number] cc: >
--- NOTE | 2016-08-29 16:10 | PDOC PROGRESS REPORT ---
Subjective Progress Note for:: 08/29/16 Subjective:: much less pain today Physical Exam Vital Signs: Temp Pulse Resp BP Pulse Ox 99.5 F 107 H 17 148/89 H 95 08/29/16 08:00 08/28/16 20:00 08/29/16 06:00 08/29/16 05:38 08/29/16 06:00 Intake & Output 08/28/16 08/29/16 08/30/16 06:59 06:59 06:59 Intake Total 6205 1232 Output Total 1875 1250 275 Balance 4330 -18 -275 Weight 98.8 kg 99.2 kg General appearance: PRESENT: no acute distress, cooperative, disheveled Respiratory exam: PRESENT: clear to auscultation shelly Cardiovascular exam: PRESENT: tachycardia GI/Abdominal exam: PRESENT: other - Distended, soft, diffuse abdominal tenderness but less so than yesterday without peritoneal signs. Active bowel sounds heard. Extremities exam: PRESENT: other - No swelling and no tenderness. Results Laboratory Results: 08/29/16 06:03 08/29/16 03:58 08/29/16 08/29/16 08/29/16 03:58 03:58 06:03 WBC Cancelled 12.8 H RBC Cancelled 3.98 L Hgb Cancelled 9.8 L D Hct Cancelled 30.2 L MCV Cancelled 76 L MCH Cancelled 24.5 L MCHC Cancelled 32.3 RDW Cancelled 17.7 H Plt Count Cancelled 349 Seg Neutrophils % Cancelled 63.7 Lymphocytes % Cancelled 19.4 Monocytes % Cancelled 13.5 H Eosinophils % Cancelled 2.9 Basophils % Cancelled 0.5 Absolute Neutrophils Cancelled 8.2 Absolute Lymphocytes Cancelled 2.5 Absolute Monocytes Cancelled 1.7 H Absolute Eosinophils Cancelled 0.4 Absolute Basophils Cancelled 0.1 Sodium 143.7 Potassium 4.3 Chloride 109 H Carbon Dioxide 25 Anion Gap 10 BUN 12 Creatinine 0.84 Est GFR ( Amer) > 60 Est GFR (Non-Af Amer) > 60 Glucose 165 H Calcium 7.9 L Impressions: Chest X-Ray 08/20/16 10:12 IMPRESSION: NO SIGNIFICANT RADIOGRAPHIC FINDING IN THE CHEST. KUB X-Ray 08/28/16 00:00 IMPRESSION: NG tube with its tip at the approximate level of the GE junction which should be advanced. Assessment & Plan - Diagnosis (1) Colonic mass Is this a current diagnosis for this admission?: YesPlan: s/p segmental resection of tx colon. Patient still with tachycardia but he has less pain and less tenderness and decreased leukocytosis and good urine output. Patient with no chest pain. However we'll check EKG and the obtain consultation from cardiology. Will stop his Toradol in light of his decreased hematocrit. Continue to hold his Lovenox. Will try to get the patient out of bed today. NG tube output was minimal yesterday despite his distention. With the patient pulling out the NG tube on at least couple of occasions will not reinsert NG tube for now.
[2016-08-29] MEDS: ATORVASTATIN CALCIUM 40 MG TABLET PO SCH (21:44)
[2016-08-29] MEDS: ERTAPENEM SODIUM 1 GM in NORMAL SALINE 50 ML IV SCH (21:52)
[2016-08-30] MEDS: NORMAL SALINE 1000 ML 1,000 ML IV PRN (01:09)
[2016-08-30] MEDS: LABETALOL HCL INJ 20 MG/4 ML DISP.SYRIN IV PRN ×2 (01:13→09:32)
[2016-08-30 03:53] LABS: ABSOLUTE BASOPHILS # (AUTO) 0.1 10^3/uL (0.0-0.2); ABSOLUTE EOSINOPHILS # (AUTO) 0.5 10^3/uL (0.0-0.6); ABSOLUTE LYMPHOCYTES (AUTO) 1.8 10^3/uL (0.5-4.7); ABSOLUTE MONOCYTES (AUTO) 1.3 10^3/uL (0.1-1.4); ABSOLUTE NEUT (AUTO) 7.4 10^3/uL (1.7-8.2); BASOPHILS % (AUTO) 0.5 % (0-2); EOSINOPHILS % (AUTO) 4.2 % (0-6); HEMATOCRIT 33.4 % (37.9-51.0); HEMOGLOBIN 10.5 g/dL (13.5-17.0); HGB HCT DIFFERENCE -1.9; LYMPHOCYTES % (AUTO) 16.3 % (13-45); MEAN CORPUSCULAR HEMOGLOBIN 23.6 pg (27.0-33.4); MEAN CORPUSCULAR HGB CONC 31.3 g/dL (32.0-36.0); MEAN CORPUSCULAR VOLUME 76 fl (80-97); MONOCYTES % (AUTO) 12.1 % (3-13); RED BLOOD COUNT 4.42 10^6/uL (4.35-5.55); RED CELL DISTRIBUTION WIDTH 17.5 % (11.5-14.0); SEGMENTED NEUTROPHILS % (AUTO) 66.9 % (42-78)
[2016-08-30 04:16] LABS: ANION GAP 9 (5-19); BLOOD UREA NITROGEN 9 mg/dL (7-20); CALCIUM 8.3 mg/dL (8.4-10.2); CARBON DIOXIDE 25 mmol/L (22-30); CHLORIDE 110 mmol/L (98-107); GLUCOSE 148 mg/dL (75-110); POTASSIUM 4.2 mmol/L (3.6-5.0); SODIUM 144.4 mmol/L (137-145)
[2016-08-30] MEDS: MORPHINE SULFATE 10 MG/ML INJ IV PRN ×5 (06:34→20:45)
--- NOTE | 2016-08-30 07:30 | PDOC PROGRESS REPORT ---
Subjective Progress Note for:: 08/30/16 Subjective:: feels better. passing a little bit of flatus. much less pain. Physical Exam Vital Signs: Temp Pulse Resp BP Pulse Ox 98.3 F 81 16 165/92 H 98 08/30/16 04:00 08/29/16 20:00 08/30/16 06:09 08/30/16 06:09 08/30/16 06:09 Intake & Output 08/29/16 08/30/16 08/31/16 06:59 06:59 06:59 Intake Total 1232 3794 Output Total 1250 3160 Balance -18 634 Weight 99.2 kg 95.1 kg General appearance: PRESENT: no acute distress, cooperative Respiratory exam: PRESENT: clear to auscultation shelly Cardiovascular exam: PRESENT: RRR GI/Abdominal exam: PRESENT: other - soft, protruberant (pts body habitus was like this preop), mild diffuse tenderness continues to improve each day. active bs's Extremities exam: PRESENT: other - no swelling. Results Laboratory Results: 08/30/16 03:36 08/30/16 03:36 08/29/16 08/30/16 08/30/16 03:58 03:36 03:36 WBC 11.0 H RBC 4.42 Hgb 10.5 L Hct 33.4 L MCV 76 L MCH 23.6 L MCHC 31.3 L RDW 17.5 H Plt Count 385 Seg Neutrophils % 66.9 Lymphocytes % 16.3 Monocytes % 12.1 Eosinophils % 4.2 Basophils % 0.5 Absolute Neutrophils 7.4 Absolute Lymphocytes 1.8 Absolute Monocytes 1.3 Absolute Eosinophils 0.5 Absolute Basophils 0.1 Sodium 144.4 Potassium 4.2 Chloride 110 H Carbon Dioxide 25 Anion Gap 9 BUN 9 Creatinine 0.70 Est GFR ( Amer) > 60 Est GFR (Non-Af Amer) > 60 Glucose 148 H Calcium 8.3 L Lipase < 10.0 L Impressions: Chest X-Ray 08/20/16 10:12 IMPRESSION: NO SIGNIFICANT RADIOGRAPHIC FINDING IN THE CHEST. KUB X-Ray 08/28/16 00:00 IMPRESSION: NG tube with its tip at the approximate level of the GE junction which should be advanced. Assessment & Plan - Diagnosis (1) Colonic mass Is this a current diagnosis for this admission?: YesPlan: s/p segmental resection of tx colon. looks much better. tachycardia resolved, wbc decreased and hct increased, excellent urine output amd active bowel sounds. transfer to floor.PT consult for ambulation. continue cortez until better mobility. may start diet tomorrow.
[2016-08-30] MEDS: DEXTROSE 5%-1/2 NORMAL SALINE 1,000 ML IV PRN ×2 (07:47→20:39)
[2016-08-30] MEDS: FAMOTIDINE INJ/PF 20 MG/2 ML SDV IV SCH ×2 (09:31→21:11)
[2016-08-30] MEDS: CARBIDOPA/LEVODOPA 25-100 MG TABLET PO SCH ×3 (09:54→17:06)
[2016-08-30] MEDS: TAMSULOSIN HCL 0.4 MG CAP.SR.24H PO SCH (09:54)
[2016-08-30] MEDS: AMLODIPINE BESYLATE 2.5 MG TABLET PO SCH (09:54)
[2016-08-30] MEDS: FINASTERIDE 5 MG TABLET PO SCH (09:54)
--- NOTE | 2016-08-30 15:04 | PDOC PROGRESS REPORT ---
Subjective Progress Note for:: 08/30/16 Subjective:: better. No pain or dyspnea Physical Exam Vital Signs: Temp Pulse Resp BP Pulse Ox 98.3 F 94 16 147/77 H 94 08/30/16 12:00 08/30/16 08:00 08/30/16 14:25 08/30/16 14:25 08/30/16 14:25 Intake & Output 08/29/16 08/30/16 08/31/16 07:59 07:59 07:59 Intake Total 1232 3794 Output Total 1250 3160 580 Balance -18 634 -580 Weight 218 lb 11.177 oz 209 lb 10.554 oz General appearance: PRESENT: no acute distress Respiratory exam: PRESENT: rhonchi Cardiovascular exam: ABSENT: diastolic murmur, irregular rhythm, systolic murmur GI/Abdominal exam: ABSENT: hypoactive bowel sounds, mass, organolmegaly, tenderness Extremities exam: ABSENT: pedal edema Neurological exam: PRESENT: oriented to situation Psychiatric exam: PRESENT: appropriate affect Results Laboratory Results: 08/30/16 03:36 08/30/16 03:36 08/30/16 08/30/16 03:36 03:36 WBC 11.0 H RBC 4.42 Hgb 10.5 L Hct 33.4 L MCV 76 L MCH 23.6 L MCHC 31.3 L RDW 17.5 H Plt Count 385 Seg Neutrophils % 66.9 Lymphocytes % 16.3 Monocytes % 12.1 Eosinophils % 4.2 Basophils % 0.5 Absolute Neutrophils 7.4 Absolute Lymphocytes 1.8 Absolute Monocytes 1.3 Absolute Eosinophils 0.5 Absolute Basophils 0.1 Sodium 144.4 Potassium 4.2 Chloride 110 H Carbon Dioxide 25 Anion Gap 9 BUN 9 Creatinine 0.70 Est GFR ( Amer) > 60 Est GFR (Non-Af Amer) > 60 Glucose 148 H Calcium 8.3 L Impressions: Chest X-Ray 08/20/16 10:12 IMPRESSION: NO SIGNIFICANT RADIOGRAPHIC FINDING IN THE CHEST. KUB X-Ray 08/28/16 00:00 IMPRESSION: NG tube with its tip at the approximate level of the GE junction which should be advanced. 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 Continue incentive spirometry (5) Colonic mass Is this a current diagnosis for this admission?: YesPlan: benign lipoma (6) Leukocytosis Qualifiers: Leukocytosis type: other Qualified Code(s): D72.828 - Other elevated white blood cell count Is this a current diagnosis for this admission?: YesPlan: improving
[2016-08-30] MEDS ORDERED: CLONIDINE 0.2 MG/24 HR PATCH.TDWK TD ONE (16:00)
[2016-08-30] MEDS: ERTAPENEM SODIUM 1 GM in NORMAL SALINE 50 ML IV SCH (20:39)
[2016-08-30] MEDS: ATORVASTATIN CALCIUM 40 MG TABLET PO SCH (21:11)
[2016-08-31] MEDS: MORPHINE SULFATE 10 MG/ML INJ IV PRN ×5 (00:02→22:14)
[2016-08-31 05:37] LABS: ABSOLUTE BASOPHILS # (AUTO) 0.1 10^3/uL (0.0-0.2); ABSOLUTE EOSINOPHILS # (AUTO) 0.9 10^3/uL (0.0-0.6); ABSOLUTE LYMPHOCYTES (AUTO) 1.8 10^3/uL (0.5-4.7); ABSOLUTE MONOCYTES (AUTO) 1.6 10^3/uL (0.1-1.4); BASOPHILS % (AUTO) 0.5 % (0-2); EOSINOPHILS % (AUTO) 7.7 % (0-6); HEMATOCRIT 32.7 % (37.9-51.0); HEMOGLOBIN 10.3 g/dL (13.5-17.0); HGB HCT DIFFERENCE -1.8; LYMPHOCYTES % (AUTO) 15.5 % (13-45); MEAN CORPUSCULAR HEMOGLOBIN 23.4 pg (27.0-33.4); MEAN CORPUSCULAR HGB CONC 31.4 g/dL (32.0-36.0); MEAN CORPUSCULAR VOLUME 74 fl (80-97); MONOCYTES % (AUTO) 13.9 % (3-13); RED BLOOD COUNT 4.39 10^6/uL (4.35-5.55); RED CELL DISTRIBUTION WIDTH 17.6 % (11.5-14.0); SEGMENTED NEUTROPHILS % (AUTO) 62.4 % (42-78); WHITE BLOOD COUNT 11.3 10^3/uL (4.0-10.5)
[2016-08-31 06:03] LABS: ANION GAP 8 (5-19); BLOOD UREA NITROGEN 7 mg/dL (7-20); CALCIUM 8.6 mg/dL (8.4-10.2); CARBON DIOXIDE 27 mmol/L (22-30); CHLORIDE 107 mmol/L (98-107); GLUCOSE 171 mg/dL (75-110); POTASSIUM 4.2 mmol/L (3.6-5.0); SODIUM 142.3 mmol/L (137-145)
--- NOTE | 2016-08-31 08:03 | PDOC PROGRESS REPORT ---
Subjective Progress Note for:: 08/31/16 Subjective:: hungry. No pain, flatus Physical Exam Vital Signs: Temp Pulse Resp BP Pulse Ox 98.2 F 90 16 151/69 H 98 08/31/16 07:43 08/31/16 07:43 08/31/16 07:43 08/31/16 07:43 08/31/16 07:43 Intake & Output 08/30/16 08/31/16 09/01/16 07:59 07:59 07:59 Intake Total 3794 967 Output Total 3160 1420 Balance 634 -453 Weight 209 lb 10.554 oz General appearance: PRESENT: no acute distress Respiratory exam: PRESENT: clear to auscultation hselly Cardiovascular exam: ABSENT: diastolic murmur, irregular rhythm, systolic murmur GI/Abdominal exam: PRESENT: tenderness - mild. ABSENT: guarding, mass, organolmegaly Extremities exam: ABSENT: pedal edema Psychiatric exam: PRESENT: appropriate affect Results Laboratory Results: 08/31/16 04:56 08/31/16 04:56 08/31/16 08/31/16 04:56 04:56 WBC 11.3 H RBC 4.39 Hgb 10.3 L Hct 32.7 L MCV 74 L MCH 23.4 L MCHC 31.4 L RDW 17.6 H Plt Count 468 H Seg Neutrophils % 62.4 Lymphocytes % 15.5 Monocytes % 13.9 H Eosinophils % 7.7 H Basophils % 0.5 Absolute Neutrophils 7.0 Absolute Lymphocytes 1.8 Absolute Monocytes 1.6 H Absolute Eosinophils 0.9 H Absolute Basophils 0.1 Sodium 142.3 Potassium 4.2 Chloride 107 Carbon Dioxide 27 Anion Gap 8 BUN 7 Creatinine 0.60 Est GFR ( Amer) > 60 Est GFR (Non-Af Amer) > 60 Glucose 171 H Calcium 8.6 Impressions: Chest X-Ray 08/20/16 10:12 IMPRESSION: NO SIGNIFICANT RADIOGRAPHIC FINDING IN THE CHEST. KUB X-Ray 08/28/16 00:00 IMPRESSION: NG tube with its tip at the approximate level of the GE junction which should be advanced. Assessment & Plan - Diagnosis (1) Type 2 diabetes mellitus without complications Qualifiers: Diabetes mellitus mcfp insulin use: without terminal operator use Qualified Code(s): E11.9 - Type 2 diabetes mellitus without complications Is this a current diagnosis for this admission?: Yes (2) Hypertension Qualifiers: Hypertension type: essential hypertension Qualified Code(s): I10 - Essential (primary) hypertension Is this a current diagnosis for this admission?: YesPlan: add vasotec iv (3) Anemia, blood loss Is this a current diagnosis for this admission?: Yes (4) Panlobular emphysema Is this a current diagnosis for this admission?: Yes (5) Colonic mass Is this a current diagnosis for this admission?: Yes (6) Leukocytosis Qualifiers: Leukocytosis type: other Qualified Code(s): D72.828 - Other elevated white blood cell count Is this a current diagnosis for this admission?: Yes (7) Dysphagia Qualifiers: Dysphagia type: oral phase Qualified Code(s): R13.11 - Dysphagia, oral phase Is this a current diagnosis for this admission?: YesPlan: failed 2 evals. Related to cva & dementia. Continue NPO
--- NOTE | 2016-08-31 08:17 | PDOC PROGRESS REPORT ---
Subjective Progress Note for:: 08/31/16 Subjective:: Still not ambulating well. Patient has passed some gas. No nausea or vomiting. Physical Exam Vital Signs: Temp Pulse Resp BP Pulse Ox 98.2 F 90 16 151/69 H 98 08/31/16 07:43 08/31/16 07:43 08/31/16 07:43 08/31/16 07:43 08/31/16 07:43 Intake & Output 08/30/16 08/31/16 09/01/16 06:59 06:59 06:59 Intake Total 3794 967 Output Total 3160 1420 Balance 634 -453 Weight 95.1 kg General appearance: PRESENT: no acute distress, cooperative Respiratory exam: PRESENT: clear to auscultation shelly Cardiovascular exam: PRESENT: RRR GI/Abdominal exam: PRESENT: other - Soft with the active bowel sounds. Still protuberant. Mild diffuse tenderness. No peritoneal signs. Extremities exam: PRESENT: other - No swelling and no tenderness. Results Laboratory Results: 08/31/16 04:56 08/31/16 04:56 08/31/16 08/31/16 04:56 04:56 WBC 11.3 H RBC 4.39 Hgb 10.3 L Hct 32.7 L MCV 74 L MCH 23.4 L MCHC 31.4 L RDW 17.6 H Plt Count 468 H Seg Neutrophils % 62.4 Lymphocytes % 15.5 Monocytes % 13.9 H Eosinophils % 7.7 H Basophils % 0.5 Absolute Neutrophils 7.0 Absolute Lymphocytes 1.8 Absolute Monocytes 1.6 H Absolute Eosinophils 0.9 H Absolute Basophils 0.1 Sodium 142.3 Potassium 4.2 Chloride 107 Carbon Dioxide 27 Anion Gap 8 BUN 7 Creatinine 0.60 Est GFR ( Amer) > 60 Est GFR (Non-Af Amer) > 60 Glucose 171 H Calcium 8.6 Impressions: Chest X-Ray 08/20/16 10:12 IMPRESSION: NO SIGNIFICANT RADIOGRAPHIC FINDING IN THE CHEST. KUB X-Ray 08/28/16 00:00 IMPRESSION: NG tube with its tip at the approximate level of the GE junction which should be advanced. Assessment & Plan - Diagnosis (1) Colonic mass Is this a current diagnosis for this admission?: YesPlan: s/p segmental resection of tx colon. Looks okay. Bowel function appears to be returning. However concerned about the aspiration with the patient failing bedside swallow couple of times in the ICU. Will decrease his morphine and ambulate the patient more will hold off diet until patient's strength returns and there is better bowel function and reevaluate his swallow capability. Continue Miranda until he is able to get out of bed more.
[2016-08-31] MEDS ORDERED: BISACODYL 10 MG SUPP.RECT PR ONE (08:18)
[2016-08-31] MEDS: KETOROLAC TROMETHAMINE INJ/PF 30 MG/1 ML SDV IV PRN ×2 (08:39→23:16)
[2016-08-31] MEDS: TAMSULOSIN HCL 0.4 MG CAP.SR.24H PO SCH (09:56)
[2016-08-31] MEDS: CARBIDOPA/LEVODOPA 25-100 MG TABLET PO SCH ×3 (09:56→17:58)
[2016-08-31] MEDS: AMLODIPINE BESYLATE 2.5 MG TABLET PO SCH (09:56)
[2016-08-31] MEDS: FAMOTIDINE INJ/PF 20 MG/2 ML SDV IV SCH ×2 (09:57→21:24)
[2016-08-31] MEDS: DEXTROSE 5%-1/2 NORMAL SALINE 1,000 ML IV PRN (11:16)
[2016-08-31] MEDS: FINASTERIDE 5 MG TABLET PO SCH (11:35)
[2016-08-31] MEDS: ENALAPRILAT DIHYDRATE INJ/PF 2.5 MG/2 ML SDV IV SCH ×2 (11:35→17:58)
[2016-08-31] MEDS: ERTAPENEM SODIUM 1 GM in NORMAL SALINE 50 ML IV SCH (18:38)
[2016-08-31] MEDS: ATORVASTATIN CALCIUM 40 MG TABLET PO SCH (21:23)
[2016-09-01] MEDS: ENALAPRILAT DIHYDRATE INJ/PF 2.5 MG/2 ML SDV IV SCH ×4 (00:28→18:26)
--- NOTE | 2016-09-01 05:57 | PDOC PROGRESS REPORT ---
Subjective Progress Note for:: 09/01/16 Subjective:: hungry. Thinks cva was L hemiparesis. Physical Exam Vital Signs: Temp Pulse Resp BP Pulse Ox 98.8 F 68 18 141/66 H 97 09/01/16 04:00 09/01/16 04:00 09/01/16 04:00 09/01/16 04:00 09/01/16 04:00 Intake & Output 08/30/16 08/31/16 09/01/16 07:59 07:59 07:59 Intake Total 3794 967 1080 Output Total 3160 1420 350 Balance 634 -453 730 Weight 209 lb 10.554 oz 209 lb 7.026 oz General appearance: PRESENT: no acute distress Eye exam: PRESENT: EOMI Respiratory exam: PRESENT: clear to auscultation shelly Cardiovascular exam: ABSENT: diastolic murmur, irregular rhythm, systolic murmur GI/Abdominal exam: ABSENT: mass, organolmegaly, tenderness Extremities exam: ABSENT: pedal edema Neurological exam: PRESENT: altered, CN II-XII grossly intact, other - Follows commands slowly. OK cn2-12, ftn, hts. No dtr. R barre'+. [id number]. Cant heel to egan. PERRLA. Results Laboratory Results: 08/31/16 04:56 08/31/16 04:56 08/31/16 08/31/16 04:56 04:56 WBC 11.3 H RBC 4.39 Hgb 10.3 L Hct 32.7 L MCV 74 L MCH 23.4 L MCHC 31.4 L RDW 17.6 H Plt Count 468 H Seg Neutrophils % 62.4 Lymphocytes % 15.5 Monocytes % 13.9 H Eosinophils % 7.7 H Basophils % 0.5 Absolute Neutrophils 7.0 Absolute Lymphocytes 1.8 Absolute Monocytes 1.6 H Absolute Eosinophils 0.9 H Absolute Basophils 0.1 Sodium 142.3 Potassium 4.2 Chloride 107 Carbon Dioxide 27 Anion Gap 8 BUN 7 Creatinine 0.60 Est GFR ( Amer) > 60 Est GFR (Non-Af Amer) > 60 Glucose 171 H Calcium 8.6 Impressions: Chest X-Ray 08/20/16 10:12 IMPRESSION: NO SIGNIFICANT RADIOGRAPHIC FINDING IN THE CHEST. KUB X-Ray 08/28/16 00:00 IMPRESSION: NG tube with its tip at the approximate level of the GE junction which should be advanced. 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: without local company intermodal truck driver use Qualified Code(s): E11.9 - Type 2 diabetes mellitus without complications Is this a current diagnosis for this admission?: Yes (2) Hypertension Qualifiers: Hypertension type: essential hypertension Qualified Code(s): I10 - Essential (primary) hypertension Is this a current diagnosis for this admission?: YesPlan: better on vasotec & clonidine (3) Anemia, blood loss Is this a current diagnosis for this admission?: Yes (4) Panlobular emphysema Is this a current diagnosis for this admission?: Yes (5) Colonic mass Is this a current diagnosis for this admission?: Yes (6) Leukocytosis Qualifiers: Leukocytosis type: other Qualified Code(s): D72.828 - Other elevated white blood cell count Is this a current diagnosis for this admission?: Yes (7) Dysphagia Qualifiers: Dysphagia type: oral phase Qualified Code(s): R13.11 - Dysphagia, oral phase Is this a current diagnosis for this admission?: YesPlan: 2015 stroke with listing to Jesse Had B basal ganglia & R cerebellar infarcts old & new. History of dementia. Will consult speech therapy for swallowing evaluation.
[2016-09-01] MEDS: MORPHINE SULFATE 10 MG/ML INJ IV PRN ×4 (06:57→22:44)
[2016-09-01] MEDS: KETOROLAC TROMETHAMINE INJ/PF 30 MG/1 ML SDV IV PRN ×2 (06:57→18:25)
[2016-09-01] MEDS: DEXTROSE 5%-1/2 NORMAL SALINE 1,000 ML IV PRN ×2 (10:30→22:44)
[2016-09-01] MEDS: FINASTERIDE 5 MG TABLET PO SCH (11:29)
[2016-09-01] MEDS: TAMSULOSIN HCL 0.4 MG CAP.SR.24H PO SCH (11:29)
[2016-09-01] MEDS: FAMOTIDINE INJ/PF 20 MG/2 ML SDV IV SCH ×2 (11:29→21:34)
[2016-09-01] MEDS: CARBIDOPA/LEVODOPA 25-100 MG TABLET PO SCH ×3 (11:30→18:26)
[2016-09-01] MEDS: AMLODIPINE BESYLATE 2.5 MG TABLET PO SCH (11:30)
--- NOTE | 2016-09-01 11:48 | PROGRESS NOTE E ---
Progress Note NAME: AMI YOUSIF : 1950 AGE: 66Y DATE: 09/01/2016 ROOM: 416 SUBJECTIVE: The patient is status post distal transverse colon segmental resection on 08/27/2016. The patient has been transferred out of the ICU; however, today, he has a very obvious distention with ileus postoperatively. His mental status seems to be baseline. He is communicative and is able to understand the respiratory therapy instructions for the incentive spirometer and flutter valve, which I ordered this morning. OBJECTIVE: The patient's breath sounds are diminished in the bases and he has difficulty with chest expansion because of the marked distention of his abdomen. He is protuberant, tympanitic, and with increasing abdominal girth based upon reports from yesterday. Bowel sounds are few. He is not having a bowel movement, but yesterday did have one small response to Dulcolax suppository. Extremities are with mild edema. IMPRESSION: POSTOP ILEUS. PLAN: Recommend passage of a nasogastric tube to prevent vomiting and aspiration. This is being undertaken. Once the nasogastric tube is in place, Physical Therapy will continue to assist in trying to ambulate the patient and at least get the patient up out of bed and around the room. DICTATING PHYSICIAN: ANASTASIA PRUITT M.D. [id number] ADRIÁNY#: [id number] ID: [id number] JOB#: [id number] ACCT: [id number] cc: >
--- NOTE | 2016-09-01 12:53 | PROGRESS NOTE E ---
Progress Note NAME: AMI YOUSIF : 1950 AGE: 66Y DATE: 09/01/2016 ROOM: 416 SUBJECTIVE: Note that the patient's mentation is alright, but he still has difficulty swallowing. He also has distention of the abdomen with *------*, but denies any nausea or vomiting. He has not passed any flatus since yesterday. He has no abdominal pain. Note, that due to his abdominal distention, he is not able to expand his chest well for respiration, although his saturations are 98% on 2 L. There are also diminished breath sounds in the bases, most likely secondary to atelectasis. He denies any cough and there is no fever. There is no chest pain or discomfort. The patient remains in sinus rhythm at a rate of 91 beats per minute with a stable blood pressure. OBJECTIVE: GENERAL: On examination the patient is mildly obese, in some distress due to his inability to take a deep breath. VITAL SIGNS: He is afebrile with a temperature of 97.4 degrees Fahrenheit, pulse is 95 beats per minute, blood pressure is 135/74, respirations are 20 per minute, O2 sats are 98% on 2 L nasal cannula. HEENT: Head is atraumatic and normocephalic. Eyes: Pupils are equal, round, regular, reactive to light and accommodation. There is no conjunctival pallor. There is no scleral icterus. ENT is negative. NECK: Supple. There is no JVD. Carotids are equal. There is no bruit. There is no goiter. There is no lymphadenopathy. Trachea is central. LUNGS: There are diminished breath sounds in the bases and also, inadequate expansion of the lungs with each respiration. There are a few scattered rhonchi, but no rales of CHF. CARDIOVASCULAR: S1, S2 is heard. There is no S3 gallop. There is no S4 gallop. There is a systolic murmur in the left sternal border and the apex. There is no rub. ABDOMEN: Soft. Distended. Bowel sounds are absent. There is no hepatosplenomegaly. EXTREMITIES: Femorals are diminished. There are no femoral bruits. Leg pulses are slightly diminished. There is no pedal edema. There is no DVT or cellulitis. CENTRAL NERVOUS SYSTEM: The patient is conscious, awake, alert. His mentation is back to normal. He has no focal deficits. PSYCHIATRIC: The patient does not appear to be agitated. His affect today is normal. INTAKE/OUTPUT: His 24-hour intake is 2,070 mL and out is 350 mL. DIAGNOSTIC DATA: His blood sugars are 186 and 173. IMPRESSION: 1. SINUS TACHYCARDIA SECONDARY TO DEHYDRATION AND POSTOPERATIVE PAIN. THIS HAS NOW RESOLVED AND THE PATIENT IS IN SINUS RHYTHM. 2. STATUS POST SURGERY FOR LEFT COLON MASS. 3. MOST LIKELY, THE PATIENT HAS POSTOPERATIVE ILEUS WITH ABDOMINAL DISTENTION. 4. INADEQUATE EXPANSION OF THE LUNGS IN SPITE OF GOOD O2 SATURATION ON 2 L NASAL CANNULA. 5. CORONARY ARTERY DISEASE WITH HISTORY OF MA's IN THE PAST AND STENTS WITH NO ANGINAL SYMPTOMS. 6. ABNORMAL EKG SUGGESTIVE OF OLD INFERIOR WALL MA. 7. CVA WITH LEFT-SIDED WEAKNESS, WHICH IS VERY MILD. 8. HYPERTENSION, WHICH IS WELL CONTROLLED. 9. HYPERLIPIDEMIA. 10. DIABETES MELLITUS TYPE 2 WITH NO COMPLICATIONS, WHICH SEEMS TO BE DIET CONTROLLED. THE PATIENT WAS NOT ON ANY ANTIDIABETICS AT HOME. RECOMMENDATIONS: Note that his medications have been reviewed. The case was discussed with Dr. Pitt, the surgicalist following the patient. In view the patient's inability to swallow, would recommend to continue IV fluids, but would decrease the rate of IV fluids. Also, since the urine output is only 350, would recommend that he can an SMA-7 today, a magnesium level, and also CBC levels. Also, an NG tube has been ordered by the surgicalist, which I agree, but it was difficult to pass the NG tube as per the discussions with the ICU nurses when he was down there, and also he has a habit of pulling out the NG tubes, also agree with the inspiratory treatments. At present, I see no reason to start the patient on Xopenex or albuterol nebulizer treatments, since this may drive the heart rate up. I would continue the patient with clonidine 0.2 mg q. weekly patch since this seems to be working on his blood pressure control and especially in view of the patient's inability to swallow. Later, the patient should have a repeat swallow test analysis. We will order labs today. TIME SPENT: Note, 35 minutes were spent on this patient with more than 50% of the time spent on direct patient care, reviewing the patient's medications, and also ordering lab values on the patient for today, also discussions with the surgicalist, and also coordinating care. This is moderate complexity medical decision making. We will follow with you. Thanking you. DICTATING PHYSICIAN: FREDDY ALEXIS M.D. [id number] PHY#: [id number] ID: [id number] JOB#: [id number] ACCT: [id number] cc: >
[2016-09-01] MEDS ORDERED: BISACODYL 10 MG SUPP.RECT PR ONE (13:00)
[2016-09-01 14:47] LABS: ABSOLUTE BASOPHILS # (AUTO) 0.1 10^3/uL (0.0-0.2); ABSOLUTE EOSINOPHILS # (AUTO) 0.5 10^3/uL (0.0-0.6); ABSOLUTE LYMPHOCYTES (AUTO) 1.6 10^3/uL (0.5-4.7); ABSOLUTE MONOCYTES (AUTO) 1.7 10^3/uL (0.1-1.4); ABSOLUTE NEUT (AUTO) 9.3 10^3/uL (1.7-8.2); BASOPHILS % (AUTO) 0.5 % (0-2); EOSINOPHILS % (AUTO) 3.7 % (0-6); HEMATOCRIT 30.3 % (37.9-51.0); HEMOGLOBIN 9.8 g/dL (13.5-17.0); HGB HCT DIFFERENCE -0.9; LYMPHOCYTES % (AUTO) 12.1 % (13-45); MEAN CORPUSCULAR HEMOGLOBIN 23.9 pg (27.0-33.4); MEAN CORPUSCULAR HGB CONC 32.3 g/dL (32.0-36.0); MEAN CORPUSCULAR VOLUME 74 fl (80-97); MONOCYTES % (AUTO) 13.1 % (3-13); RED BLOOD COUNT 4.09 10^6/uL (4.35-5.55); RED CELL DISTRIBUTION WIDTH 17.2 % (11.5-14.0); SEGMENTED NEUTROPHILS % (AUTO) 70.6 % (42-78); WHITE BLOOD COUNT 13.1 10^3/uL (4.0-10.5)
[2016-09-01 15:07] LABS: ANION GAP 9 (5-19); BLOOD UREA NITROGEN 9 mg/dL (7-20); CALCIUM 8.3 mg/dL (8.4-10.2); CARBON DIOXIDE 25 mmol/L (22-30); CHLORIDE 106 mmol/L (98-107); CREATININE RESULT 0.63 mg/dL (0.52-1.25); GLUCOSE 177 mg/dL (75-110); MAGNESIUM 1.8 mg/dL (1.6-2.3); POTASSIUM 3.7 mmol/L (3.6-5.0); SODIUM 139.5 mmol/L (137-145)
[2016-09-01] MEDS: ERTAPENEM SODIUM 1 GM in NORMAL SALINE 50 ML IV SCH (18:27)
[2016-09-01] MEDS: ATORVASTATIN CALCIUM 40 MG TABLET PO SCH (21:34)
[2016-09-02] MEDS: ENALAPRILAT DIHYDRATE INJ/PF 2.5 MG/2 ML SDV IV SCH ×4 (00:19→20:00)
[2016-09-02] MEDS: KETOROLAC TROMETHAMINE INJ/PF 30 MG/1 ML SDV IV PRN (03:31)
--- NOTE | 2016-09-02 07:00 | PDOC PROGRESS REPORT ---
Subjective Progress Note for:: 09/02/16 Subjective:: pain in nose from NG Physical Exam Vital Signs: Temp Pulse Resp BP Pulse Ox 98.3 F 90 21 H 133/71 H 98 09/02/16 03:24 09/02/16 03:24 09/02/16 03:24 09/02/16 03:24 09/02/16 03:51 Intake & Output 08/31/16 09/01/16 09/02/16 07:59 07:59 07:59 Intake Total 967 2070 3151 Output Total 1420 350 125 Balance -453 1720 3026 Weight 209 lb 7.026 oz 207 lb 7.28 oz General appearance: PRESENT: no acute distress Respiratory exam: PRESENT: clear to auscultation shelly Cardiovascular exam: ABSENT: diastolic murmur, irregular rhythm, systolic murmur GI/Abdominal exam: PRESENT: diminished bowel sounds, distended, tenderness - moderate diffuse. ABSENT: mass, organolmegaly Extremities exam: ABSENT: pedal edema Neurological exam: PRESENT: altered - lethargic Psychiatric exam: PRESENT: appropriate affect Results Laboratory Results: 09/01/16 14:37 09/01/16 14:37 09/01/16 09/01/16 14:37 14:37 WBC 13.1 H RBC 4.09 L Hgb 9.8 L Hct 30.3 L MCV 74 L MCH 23.9 L MCHC 32.3 RDW 17.2 H Plt Count 467 H Seg Neutrophils % 70.6 Lymphocytes % 12.1 L Monocytes % 13.1 H Eosinophils % 3.7 Basophils % 0.5 Absolute Neutrophils 9.3 H Absolute Lymphocytes 1.6 Absolute Monocytes 1.7 H Absolute Eosinophils 0.5 Absolute Basophils 0.1 Sodium 139.5 Potassium 3.7 Chloride 106 Carbon Dioxide 25 Anion Gap 9 BUN 9 Creatinine 0.63 Est GFR ( Amer) > 60 Est GFR (Non-Af Amer) > 60 Glucose 177 H Calcium 8.3 L Magnesium 1.8 Impressions: Chest X-Ray 08/20/16 10:12 IMPRESSION: NO SIGNIFICANT RADIOGRAPHIC FINDING IN THE CHEST. KUB X-Ray 09/01/16 00:00 IMPRESSION: Nasogastric tube tip and side port in the stomach Assessment & Plan - Diagnosis (1) Type 2 diabetes mellitus without complications Qualifiers: Diabetes mellitus superintendent terminal insulin use: without superintendent terminal use Qualified Code(s): E11.9 - Type 2 diabetes mellitus without complications Is this a current diagnosis for this admission?: Yes (2) Hypertension Qualifiers: Hypertension type: essential hypertension Qualified Code(s): I10 - Essential (primary) hypertension Is this a current diagnosis for this admission?: Yes (3) Anemia, blood loss Is this a current diagnosis for this admission?: YesPlan: hct down2 to 30 (4) Panlobular emphysema Is this a current diagnosis for this admission?: Yes (5) Colonic mass Is this a current diagnosis for this admission?: Yes (6) Leukocytosis Qualifiers: Leukocytosis type: other Qualified Code(s): D72.828 - Other elevated white blood cell count Is this a current diagnosis for this admission?: Yes (7) Dysphagia Qualifiers: Dysphagia type: oral phase Qualified Code(s): R13.11 - Dysphagia, oral phase Is this a current diagnosis for this admission?: YesPlan: speech therapy pending (8) Paralytic ileus Is this a current diagnosis for this admission?: YesPlan: More distended. Air fluid levels throughout. NG 150 out. Cancelled plan for lovenox in case needs a procedure.
[2016-09-02] MEDS ORDERED: BISACODYL 10 MG SUPP.RECT PR ONE (08:00)
[2016-09-02] MEDS ORDERED: ENOXAPARIN SODIUM INJ 40 MG/0.4 ML DISP.SYRIN SUBCUT SCH (08:00)
[2016-09-02] MEDS: MORPHINE SULFATE 10 MG/ML INJ IV PRN ×3 (08:53→22:57)
--- NOTE | 2016-09-02 08:54 | PDOC PROGRESS REPORT ---
Subjective Progress Note for:: 09/02/16 Subjective:: irritable. alert and awake and cooperative but cannot promise that he wont remove ng. its irritating his nose he states Physical Exam Vital Signs: Temp Pulse Resp BP Pulse Ox 98.3 F 76 21 H 133/71 H 98 09/02/16 03:24 09/02/16 07:00 09/02/16 03:24 09/02/16 03:24 09/02/16 03:51 Intake & Output 09/01/16 09/02/16 09/03/16 06:59 06:59 06:59 Intake Total 2070 3151 Output Total 350 125 Balance 1720 3026 Weight 95 kg 94.1 kg General appearance: PRESENT: cooperative, disheveled Respiratory exam: PRESENT: clear to auscultation shelly Cardiovascular exam: PRESENT: RRR GI/Abdominal exam: PRESENT: other - distended, tight with mild diffuse tenderness. bowel sounds heard Results Laboratory Results: 09/01/16 14:37 09/01/16 14:37 09/01/16 09/01/16 14:37 14:37 WBC 13.1 H RBC 4.09 L Hgb 9.8 L Hct 30.3 L MCV 74 L MCH 23.9 L MCHC 32.3 RDW 17.2 H Plt Count 467 H Seg Neutrophils % 70.6 Lymphocytes % 12.1 L Monocytes % 13.1 H Eosinophils % 3.7 Basophils % 0.5 Absolute Neutrophils 9.3 H Absolute Lymphocytes 1.6 Absolute Monocytes 1.7 H Absolute Eosinophils 0.5 Absolute Basophils 0.1 Sodium 139.5 Potassium 3.7 Chloride 106 Carbon Dioxide 25 Anion Gap 9 BUN 9 Creatinine 0.63 Est GFR ( Amer) > 60 Est GFR (Non-Af Amer) > 60 Glucose 177 H Calcium 8.3 L Magnesium 1.8 Impressions: Chest X-Ray 08/20/16 10:12 IMPRESSION: NO SIGNIFICANT RADIOGRAPHIC FINDING IN THE CHEST. Assessment & Plan - Diagnosis (1) Colonic mass Is this a current diagnosis for this admission?: YesPlan: abdominal distension. check abdomen and pelvic ct. soft restraints to protect ng for now.
[2016-09-02] MEDS: AMLODIPINE BESYLATE 2.5 MG TABLET PO SCH (09:08)
[2016-09-02] MEDS: CARBIDOPA/LEVODOPA 25-100 MG TABLET PO SCH ×3 (09:09→19:55)
[2016-09-02] MEDS: FAMOTIDINE INJ/PF 20 MG/2 ML SDV IV SCH ×2 (09:10→21:41)
[2016-09-02] MEDS: DEXTROSE 5%-1/2 NORMAL SALINE 1,000 ML IV PRN ×2 (10:32→21:42)
[2016-09-02] MEDS: FINASTERIDE 5 MG TABLET PO SCH (10:34)
[2016-09-02] MEDS: TAMSULOSIN HCL 0.4 MG CAP.SR.24H PO SCH (10:34)
--- NOTE | 2016-09-02 12:45 | PROGRESS NOTE E ---
Progress Note NAME: AMI YOUSIF : 1950 AGE: 66Y DATE: 08/31/2016 ROOM: 416 THIS IS A DUPLICATE,THERE IS A SIGNED PN OF 08/31/16.DISCARD THIS. SUBJECTIVE: Note that the patient is much more alert and awake and oriented x3 today but still has difficulty swallowing. The patient remains in sinus rhythm. There is no chest pain or discomfort. There is no PND or orthopnea. OBJECTIVE: GENERAL: On examination, the patient is mildly obese, in no acute distress. He is well groomed. VITAL SIGNS: He is afebrile with a temperature of 97.4 degrees Fahrenheit. Pulse is 87 beats per minute, blood pressure is 154/74, respirations are 16 per minute, O2 saturations are 97% on 2 L nasal cannula. HEENT: Head is atraumatic and normocephalic. Eyes, pupils are equal, round, regular, reactive to light and accommodation. Extraocular movements are normal. There is no scleral icterus. There is mild conjunctival pallor. ENT negative. Tongue is moist and mucous membranes are moist. There are no ulcers in the mouth. DICTATING PHYSICIAN: FREDDY AELXIS M.D. [id number] Y#: [id number] ID: [id number] JOB#: [id number] ACCT: [id number] cc: > MTDD
--- NOTE | 2016-09-02 12:47 | PROGRESS NOTE E ---
Progress Note NAME: AMI YOUSIF : 1950 AGE: 66Y DATE: 08/30/2016 ROOM: 416 SUBJECTIVE: The patient is more verbal, but still has dysphagia and is not able to swallow. He denies any chest pain or discomfort. There is no PND or orthopnea. He has had no more tachycardia. His tongue at present is moist. There are no TIA or CVA symptoms. There are no arrhythmias seen on the monitor. OBJECTIVE: GENERAL: On examination, the patient is mildly obese, but seems to be well groomed in no acute distress. VITAL SIGNS: He is afebrile with a temperature of 98.4 degrees orally, pulse is 89 beats per minute, blood pressure is 166/88, respirations are 15 per minute, O2 saturation 95% on 1L nasal cannula. HEENT: Head is atraumatic and normocephalic. Eyes, pupils are equal, round, regular, reactive to light and accommodation. Extraocular movements are normal. There is no conjunctival pallor. There is no scleral icterus. ENT negative. NECK: Supple. There is no JVD. Carotids are equal. There is no bruit. There is no lymphadenopathy. There is no goiter. Trachea is central. LUNGS: Clear to auscultation and percussion. HEART: S1 and S2 are heard. There is no S3 gallop. There is no S4 gallop. There is a systolic murmur at the left sternal border at the apex. There is no rub. There are no gallops. ABDOMEN: Soft. Dressing is dry. There is no hepatosplenomegaly. Bowel sounds are absent. EXTREMITIES: Femorals are diminished. There are no femoral bruits. Leg pulses are diminished. There is no pedal edema. There is no DVT or cellulitis. There is no calf tenderness. There is no cyanosis or clubbing. CENTRAL NERVOUS SYSTEM: The patient has slightly better mentation than yesterday, but moves all 4 extremities and there are no focal deficits. PSYCHIATRIC: The patient has withdrawn affect still, but less so than yesterday. The patient does not appear to be agitated. INTAKE AND OUTPUT: The patient's 24-hour intake was 3794 mL and output 3160 mL. LABORATORY: White count 11,000, hemoglobin 10.5, hematocrit 33.4, platelet count 295,000. Sodium 144.4, potassium 4.2, chloride 110, CO2 of 25, BUN 9, creatinine 0.70, GFR greater than 60, glucose 148, calcium 8.3. IMPRESSION: 1. SINUS TACHYCARDIA, RESOLVED. SINUS TACHYCARDIA WAS SECONDARY TO THE PATIENT'S POSTOPERATIVE PAIN AND ALSO WITHDRAWAL FROM BETA BLOCKERS AND ALSO SECONDARY TO DEHYDRATION. THIS HAS RESOLVED. THE PATIENT AT PRESENT IS IN SINUS RHYTHM. 2. STATUS POST SURGERY FOR LEFT COLON MASS, AWAITING BIOPSY REPORT. 3. CORONARY ARTERY DISEASE WITH HISTORY OF VT IN THE PAST WITH STENTS WITH NO ANGINAL SYMPTOMS. ABNORMAL EKG SUGGESTIVE OF OLD INFERIOR WALL VT. 4. SEVERE MILD LEFT-SIDED WEAKNESS. 5. HYPERTENSION. BLOOD PRESSURE WAS FAIRLY WELL CONTROLLED BUT NOW HAS GONE UP. WOULD RECOMMEND THAT THE PATIENT IS N.P.O. WOULD PUT THE PATIENT ON TRANSDERMAL CLONIDINE PATCH 0.2 MG WEEKLY STARTING TODAY. NOTE THAT THE EFFECT WILL TAKE A WHILE AND ALSO CLONIDINE CAN PREVENT THE PATIENT BECOMING TACHYCARDIC. 6. HYPERLIPIDEMIA. 7. DIABETES MELLITUS TYPE 2 WITH NO COMPLICATIONS, SEEMS TO BE DIET CONTROLLED. RECOMMENDATIONS: 1. Would recommend decreasing the patient's IV fluids, keeping the patient n.p.o., continuing the patient on antibiotics, continuing the patient on anti-COPD treatment, continue the patient on Lasix and also continue the patient on p.r.n. levalbuterol. Once the patient starts taking by mouth, then we can put the patient back on metoprolol and aspirin and try those. Note, the patient's cardiac status is stable. TIME SPENT: Note, 25 minutes were spent on this patient with more than 50% of the time spent on direct patient care and also discussions with the patient and especially with the Attending to call me if any recurrence of atrial fibrillation. Will sign off the case. The patient's medications have been reviewed. Will follow up the patient as an outpatient. in our clinic. DICTATING PHYSICIAN: FREDDY ALEXIS M.D. [id number] PHY#: [id number] ID: [id number] JOB#: [id number] ACCT: [id number] cc: > MTDD
--- NOTE | 2016-09-02 13:21 | PROGRESS NOTE E ---
Progress Note NAME: AMI YOUSIF : 1950 AGE: 66Y DATE: 08/31/2016 ROOM: 416 SUBJECTIVE: The patient looks much more awake, alert, and oriented x3 today. He denies any chest pain or discomfort. There is no PND or orthopnea. There is no arrhythmia seen on the monitor. The patient has no leg edema. There are no TIA or CVA symptoms. The patient denies any palpitations. The patient states he still has difficulty swallowing and is n.p.o. but states he is passing a little flatus at a time. There is no pain at the site of surgery. OBJECTIVE: GENERAL: On examination the patient is mildly obese but well groomed, in no acute distress. VITAL SIGNS: He is afebrile with a temperature of 97.4 degrees Fahrenheit orally, pulse is 87 beats per minute, blood pressure is 154/76, respirations are 18 per minute, O2 saturation are 97% on 2 L nasal cannula. HEENT: Head is atraumatic and normocephalic. Eyes; pupils are equal, round, regular, reactive to light and accommodation. Extraocular movements are normal. There is no conjunctival pallor. There is no scleral icterus. ENT is negative. Tongue is moist. Mucous membranes are moist. There are no ulcers in the mouth. NECK: Supple. There is no JVD. Carotids are equal. There is no bruit. There is no lymphadenopathy. There is no goiter. Trachea is central. LUNGS: Clear to auscultation and percussion. HEART: S1 and S2 are heard. There is no S3 gallop. There is no S4 gallop. There is a systolic murmur at the left sternal border at the apex. There is no rub. There are no gallops. ABDOMEN: Soft. Dressing is dry. There is no hepatosplenomegaly. Bowel sounds are absent. EXTREMITIES: Femorals are diminished. There are no femoral bruits. Leg pulses are diminished. There is no pedal edema. There is no DVT or cellulitis. There is no calf tenderness. There is no cyanosis or clubbing. CENTRAL NERVOUS SYSTEM: The patient has slightly better mentation than yesterday, but moves all 4 extremities and there are no focal deficits. PSYCHIATRIC: The patient has withdrawn affect still, but less so than yesterday. The patient does not appear to be agitated. INTAKE AND OUTPUT: The patient's 24-hour intake was 3794 mL and output 3160 mL. LABORATORY: White count 11,000, hemoglobin 10.5, hematocrit 33.4, platelet count 295,000. Sodium 144.4, potassium 4.2, chloride 110, CO2 of 25, BUN 9, creatinine 0.70, GFR greater than 60, glucose 148, calcium 8.3. LABORATORY DATA: The patient's white count 11,300; hemoglobin 10.3, hematocrit is 32.7, and platelet count is 468,000. Sodium 142.3, potassium 4.2, chloride is 107, CO2 is 27. The patient's BUN is 7, creatinine 0.60, GFR is greater than 60, and his glucose is 171. His calcium is 8.6. IMPRESSION: 1. SINUS TACHYCARDIA SECONDARY DEHYDRATION AND POSTOPERATIVE PAIN, AT PRESENT RESOLVED. THE PATIENT IS IN SINUS RHYTHM. 2. STATUS POST SURGERY FOR LEFT COLON MASS, AWAITING BIOPSY. 3. 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 ABNORMAL EKG SUGGESTIVE OF OLD INFERIOR WALL MYOCARDIAL INFARCTION STILL. 4. SEVERE LEFT SIDED WEAKNESS, WHICH IS VERY MILD. 5. HYPERTENSION. BLOOD PRESSURE WELL CONTROLLED ON A CLONIDINE PATCH. 6. HYPERLIPIDEMIA. 7. DIABETES MELLITUS TYPE 2 WITH NO COMPLICATIONS, WHICH SEEMS TO BE DIET CONTROLLED. RECOMMENDATIONS: 1. Await to see if the patient can swallow. 2. Continue clonidine. 3. Would decrease the IV fluids. 4. Continue his pain medications. 5. Watch out for anginal symptoms or arrhythmias or heart failure. 6. Note that the patient's NG tube is out. The patient denies any nausea or vomiting. TIME SPENT: Note, 30 minutes were spent on this patient with more than 50% of the time spent on direct patient care and coordination of care with the other physicians, also the patient's medications have been reviewed. We will follow with you. DICTATING PHYSICIAN: FREDDY ALEXIS M.D. [id number] ADRIÁNY#: [id number] ID: [id number] JOB#: [id number] ACCT: [id number] cc: > MTDD
--- NOTE | 2016-09-02 17:23 | PDOC PROGRESS REPORT ---
Physical Exam Vital Signs: Temp Pulse Resp BP Pulse Ox 98.3 F 76 21 H 133/71 H 98 09/02/16 03:24 09/02/16 07:00 09/02/16 03:24 09/02/16 03:24 09/02/16 03:51 Intake & Output 09/01/16 09/02/16 09/03/16 06:59 06:59 06:59 Intake Total 2070 3151 Output Total 350 125 Balance 1720 3026 Weight 95 kg 94.1 kg Results Laboratory Results: 09/01/16 14:37 09/01/16 14:37 Impressions: Chest X-Ray 08/20/16 10:12 IMPRESSION: NO SIGNIFICANT RADIOGRAPHIC FINDING IN THE CHEST. Abdomen/Pelvis CT 09/02/16 00:00 IMPRESSION: Intact anastomosis distal transverse colon. Ileus or partial small bowel obstruction pattern with mesenteric vascular pattern suspicious for possible left periduodenal internal hernia. KUB X-Ray 09/02/16 08:00 IMPRESSION: Ileus versus partial bowel obstruction or pseudo-obstruction. Assessment & Plan - Diagnosis (1) Colonic mass Is this a current diagnosis for this admission?: YesPlan: ct shows distended sb loops with normal caliber distal bowel with air and fluid in colon. no evidence of abscess nor anastomotic leak. radiologist supects psbo but unsure. repeat ct in am. keep ng. I suspect an ileus.
[2016-09-02] MEDS: INSULIN REG, HUMAN 100 UNIT/ML 3 ML VIAL (PYX) SUBCUT PRN (19:57)
[2016-09-02] MEDS: ATORVASTATIN CALCIUM 40 MG TABLET PO SCH (21:42)
[2016-09-02] MEDS ORDERED: 1/2 NORMAL SALINE 1,000 ML IV PRN (23:39)
[2016-09-03] MEDS: ENALAPRILAT DIHYDRATE INJ/PF 2.5 MG/2 ML SDV IV SCH ×3 (01:59→16:26)
[2016-09-03 07:04] LABS: APPEARANCE,URINE SLIGHTLY-CLOUDY; BILIRUBIN,URINE NEGATIVE (NEGATIVE); GLUCOSE, URINE 50 mg/dL (NEGATIVE); KETONES,URINE TRACE mg/dL (NEGATIVE); LEUKOCYTE ESTERASE,URINE NEGATIVE (NEGATIVE); NITRITE,URINE NEGATIVE (NEGATIVE); PROTEIN,URINE 30 mg/dL (NEGATIVE); URINE SPECIFIC GRAVITY 1.051; UROBILINOGEN,URINE NEGATIVE mg/dL (<2.0)
[2016-09-03] MEDS ORDERED: PHENYLEPHRINE HCL INJ/PF 10 MG/1 ML SDV ONE (07:34)
[2016-09-03] MEDS ORDERED: LIDOCAINE 2% INJ-PF (20 MG/ML) 10 ML AMPUL ONE (07:34)
[2016-09-03] MEDS ORDERED: SUCCINYLCHOLINE CHLORIDE INJ 200 MG/10 ML VIAL ONE (07:34)
[2016-09-03] MEDS ORDERED: ROCURONIUM BROMIDE INJ 50 MG/5 ML VIAL IV ONE (07:34)
--- NOTE | 2016-09-03 08:17 | PDOC PROGRESS REPORT ---
Subjective Progress Note for:: 09/03/16 Subjective:: no pain, dyspnea Physical Exam Vital Signs: Temp Pulse Resp BP Pulse Ox 97.3 F 80 20 122/64 94 09/03/16 03:35 09/03/16 03:35 09/03/16 03:35 09/03/16 03:35 09/03/16 03:35 Intake & Output 09/02/16 09/03/16 09/04/16 07:59 07:59 07:59 Intake Total 3151 1080 Output Total 125 770 Balance 3026 310 Weight 207 lb 7.28 oz 207 lb 14.334 oz General appearance: PRESENT: no acute distress Respiratory exam: PRESENT: clear to auscultation shelly Cardiovascular exam: PRESENT: systolic murmur. ABSENT: diastolic murmur, irregular rhythm GI/Abdominal exam: PRESENT: distended, normal bowel sounds, tenderness - mild diffuse Extremities exam: ABSENT: pedal edema Results Laboratory Results: 09/01/16 14:37 09/01/16 14:37 09/03/16 06:15 Urine Color LEN Urine Appearance SLIGHTLY-CLOUDY Urine pH 5.0 Ur Specific [place] 1.051 Urine Protein 30 H Urine Glucose (UA) 50 H Urine Ketones TRACE H Urine Blood NEGATIVE Urine Nitrite NEGATIVE Ur Leukocyte Esterase NEGATIVE Urine WBC (Auto) 11 Urine RBC (Auto) 5 Impressions: Chest X-Ray 08/20/16 10:12 IMPRESSION: NO SIGNIFICANT RADIOGRAPHIC FINDING IN THE CHEST. Abdomen/Pelvis CT 09/02/16 00:00 IMPRESSION: Intact anastomosis distal transverse colon. Ileus or partial small bowel obstruction pattern with mesenteric vascular pattern suspicious for possible left periduodenal internal hernia. KUB X-Ray 09/02/16 08:00 IMPRESSION: Ileus versus partial bowel obstruction or pseudo-obstruction. Assessment & Plan - Diagnosis (1) Type 2 diabetes mellitus without complications Qualifiers: Diabetes mellitus halfway insulin use: without halfway use Qualified Code(s): E11.9 - Type 2 diabetes mellitus without complications Is this a current diagnosis for this admission?: Yes (2) Hypertension Qualifiers: Hypertension type: essential hypertension Qualified Code(s): I10 - Essential (primary) hypertension Is this a current diagnosis for this admission?: Yes (3) Anemia, blood loss Is this a current diagnosis for this admission?: Yes (4) Panlobular emphysema Is this a current diagnosis for this admission?: Yes (5) Colonic mass Is this a current diagnosis for this admission?: Yes (6) Leukocytosis Qualifiers: Leukocytosis type: other Qualified Code(s): D72.828 - Other elevated white blood cell count Is this a current diagnosis for this admission?: Yes (7) Dysphagia Qualifiers: Dysphagia type: oral phase Qualified Code(s): R13.11 - Dysphagia, oral phase Is this a current diagnosis for this admission?: Yes (8) Paralytic ileus Is this a current diagnosis for this admission?: YesPlan: ct partial small bowel obstruction. 1 stool. Urine 90ml overnight. Miranda replaced with little output. On IVF 90/h. Needs to walk. PT 3 steps yesterday.
[2016-09-03] MEDS: MORPHINE SULFATE 10 MG/ML INJ IV PRN (08:44)
[2016-09-03] MEDS: FINASTERIDE 5 MG TABLET PO SCH (09:37)
[2016-09-03] MEDS: CARBIDOPA/LEVODOPA 25-100 MG TABLET PO SCH ×2 (09:37→16:26)
[2016-09-03] MEDS: AMLODIPINE BESYLATE 2.5 MG TABLET PO SCH (09:37)
[2016-09-03] MEDS: FAMOTIDINE INJ/PF 20 MG/2 ML SDV IV SCH ×2 (09:37→23:37)
[2016-09-03] MEDS: TAMSULOSIN HCL 0.4 MG CAP.SR.24H PO SCH (09:37)
[2016-09-03] MEDS ORDERED: CLONIDINE 0.1 MG/24 HR PATCH.TDWK TD SCH (10:00)
[2016-09-03 11:35] LABS: ABSOLUTE EOSINOPHILS # (AUTO) 0.4 10^3/uL (0.0-0.6); ABSOLUTE LYMPHOCYTES (AUTO) 1.5 10^3/uL (0.5-4.7); ABSOLUTE MONOCYTES (AUTO) 1.7 10^3/uL (0.1-1.4); ABSOLUTE NEUT (AUTO) 12.3 10^3/uL (1.7-8.2); BASOPHILS % (AUTO) 0.1 % (0-2); EOSINOPHILS % (AUTO) 2.7 % (0-6); HEMOGLOBIN 10.2 g/dL (13.5-17.0); HGB HCT DIFFERENCE -1.4; LYMPHOCYTES % (AUTO) 9.4 % (13-45); MEAN CORPUSCULAR HEMOGLOBIN 23.7 pg (27.0-33.4); MEAN CORPUSCULAR HGB CONC 31.9 g/dL (32.0-36.0); MEAN CORPUSCULAR VOLUME 74 fl (80-97); MONOCYTES % (AUTO) 10.4 % (3-13); RED CELL DISTRIBUTION WIDTH 18.3 % (11.5-14.0); SEGMENTED NEUTROPHILS % (AUTO) 77.4 % (42-78); WHITE BLOOD COUNT 15.9 10^3/uL (4.0-10.5)
[2016-09-03 11:54] LABS: ANION GAP 11 (5-19); BLOOD UREA NITROGEN 9 mg/dL (7-20); CALCIUM 8.5 mg/dL (8.4-10.2); CARBON DIOXIDE 27 mmol/L (22-30); CHLORIDE 102 mmol/L (98-107); CREATININE RESULT 0.73 mg/dL (0.52-1.25); GLUCOSE 151 mg/dL (75-110); POTASSIUM 3.4 mmol/L (3.6-5.0); SODIUM 140.1 mmol/L (137-145)
--- NOTE | 2016-09-03 13:39 | PROGRESS NOTE E ---
Progress Note NAME: AMI YOUSIF : 1950 AGE: 66Y DATE: 09/02/2016 ROOM: 416 SUBJECTIVE: Note that the patient is oriented x3. He still states that he has some abdominal pain and he has not passed any flatus. In spite of his NG tube being placed and although there is some amount of NG tube suction fluid coming out, which is greenish in color, the patient's abdomen is still distended. He denies any chest pain or discomfort. He gets tachycardic only when his pain is not controlled well, but when his pain is controlled well, his heart rate is well below 90. He denies any chest pain or discomfort. There is no shortness of breath. There is no cough or sputum production. There is no arrhythmia seen on the monitor, ventricular or atrial. There is no PND or orthopnea. There is no leg edema. OBJECTIVE: GENERAL: On examination, the patient is mildly obese, in some distress due to his NG tube. His breathing seems to be better. VITAL SIGNS: He is afebrile with a temperature of 98 degrees Fahrenheit, pulse was 88 beats per minute, blood pressure 114/60, respirations 20 per minute, and O2 saturation 94% on 2 L nasal cannula. HEENT: Head is atraumatic and normocephalic. Eyes: Pupils are equal, round, regular, and reactive to light and accommodation. There is no conjunctival pallor. There is no scleral icterus. ENT is negative. NECK: Supple. There is no JVD. Carotids are equal. There is no bruit. There is no goiter. There is no lymphadenopathy. Trachea is central. LUNGS: There are diminished breath sounds on the bases and also some degree of inadequate excursion of the lungs with each respiration, but these are much better than yesterday. There are no rales of CHF. There are no rhonchi, rales, or wheezing. HEART: S1 and S2 are heard. There is no S3 gallop. There is no S4 gallop. There is a systolic murmur in the left sternal border and the apex. There is no rub. ABDOMEN: Soft and distended. Bowel sounds are absent. There is some mild tenderness at the site of surgery, but the surgical dressing is dry and clean. There is no hepatosplenomegaly. EXTREMITIES: Femorals are diminished. There are no femoral bruits. Leg pulses are diminished. There is no pedal edema. There is no DVT or cellulitis. CENTRAL NERVOUS SYSTEM: The patient is conscious, awake, alert, and oriented x3 with MILD LEFT SIDED WEAKNESS.. PSYCHIATRIC: The patient appears to be slightly agitated only when he has pain and also due to constant irritation due to the NG tube. INTAKE/OUTPUT: His 24-hour intake is 3151 mL and output is 3125 mL, which I am not sure is accurate. IMAGING: The CT of the abdomen shows small pleural effusion. 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 Ureter vessels no aneurysm. There is no retroperitoneal adenopathy, hemorrhages, or masses. Intact colonic anastomosis distal transverse colon, gas filled colon proximal and distal to the anastomosis. Mildly dilated loops of the jejunum without clear transfusion. However, the distal jejunum and terminal ileum are normal in caliber. There are prominent mesenteric vessels associated with small bowel mesenteric infusion lateral to the pole, appendix not visualized. There is no free fluid. No other abnormal findings. The impression is that intact anastomosis distal transverse colon, Ileus or partial small bowel obstruction pattern with mesenteric vascular pattern suspicious for possible periduodenal internal hernia. KUB shows IBS versus partial small bowel obstruction or pseudo-obstruction. The patient's glucose is 182. IMPRESSION: 1. ILEUS VERSUS SMALL BOWEL OBSTRUCTION. 2. SINUS TACHYCARDIA SECONDARY TO DEHYDRATION, POSTOPERATIVE PAIN, NOW THE SINUS TACHYCARDIA HAS RESOLVED. 3. STATUS POST SURGERY FOR LEFT COLON MASS. 4. MOST LIKELY, THE PATIENT HAS POSTOPERATIVE ILEUS WITH ABDOMINAL DISTENTION. 5. CORONARY ARTERY DISEASE WITH HISTORY OF DC IN THE PAST AND STENTS WITH NO ANGINAL SYMPTOMS. 6. ABNORMAL EKG SUGGESTIVE OF OLD INFERIOR WALL DC. 7. LEFT-SIDED WEAKNESS, WHICH IS VERY MILD. 8. HYPERTENSION, WHICH IS WELL CONTROLLED. 9. HYPERLIPIDEMIA. 10. DIABETES MELLITUS TYPE 2. NO COMPLICATIONS. PLAN: We will follow the patient's cardiac status, which seems to be stable. We will let the surgeon handle the abdominal pain. Continue clonidine patches of 0.2 mg q. weekly patch, which seems to have controlled the blood pressure. TIME SPENT: Note 30 minutes spent on this patient with more than 50% of the time spent on direct patient care. Medications reviewed and also discussed with the hospitalist taking care of the patient. We will follow with him. DICTATING PHYSICIAN: FREDDY ALEXIS M.D. [id number] PHY#: [id number] ID: [id number] JOB#: [id number] ACCT: [id number] cc: > [facility]
[2016-09-03] MEDS ORDERED: NORMAL SALINE 10 ML SDV (AFTER EACH USE) IV PRN (14:57)
[2016-09-03] MEDS ORDERED: ERTAPENEM SODIUM INJ 1 GM VIAL IV ONE (15:25)
[2016-09-03] MEDS ORDERED: POTASSI CL 20 MEQ/50 ML RIDER 50 ML IV ONE (15:26)
[2016-09-03 16:09] LABS: MAGNESIUM 1.8 mg/dL (1.6-2.3)
[2016-09-03 16:46] LABS: CREATINE KINASE MB 0.33 ng/mL (<4.55); TROPONIN I < 0.012 ng/mL
[2016-09-03 17:20] LABS: MAGNESIUM 1.7 mg/dL (1.6-2.3); PHOSPHORUS 3.2 mg/dL (2.5-4.5)
[2016-09-03] MEDS ORDERED: ERTAPENEM SODIUM 1 GM in NORMAL SALINE 50 ML IV ONE (17:30)
[2016-09-03] MEDS ORDERED: NORMAL SALINE 1000 ML 1,000 ML IV PRN (17:53)
[2016-09-03] MEDS ORDERED: PROPOFOL INJ 200 MG/20 ML VIAL IV ONE (18:01)
[2016-09-03] MEDS ORDERED: MIDAZOLAM 2 MG/2 ML INJ ONE (18:01)
[2016-09-03] MEDS ORDERED: DEXMEDETOMIDINE INJ 80 MCG/20 ML VIAL IV ONE (18:01)
[2016-09-03] MEDS ORDERED: FENTANYL CITRATE INJ/PF 250 MCG/5 ML AMPULE ONE (18:01)
[2016-09-03] MEDS ORDERED: MORPHINE SULFATE 10 MG/ML INJ ONE (18:02)
[2016-09-03] MEDS ORDERED: BUPIVACAINE HCL 0.25 % INJ/PF (2.5 MG/1 ML) 30 ML VIAL ONE (18:04)
--- NOTE | 2016-09-03 18:56 | Progress Note ---
Provider Note Provider Note: Patient is being followed by Dr. Tao as primary. The patient was admitted for a colon mass status post resection. This was complicated by ileus. The patient had a PICC line placement earlier done. Patient has underlying coronary artery disease, COPD , type II diabetes mellitus, hypertension, hyperlipidemia. Patient was transferred to the intensive care unit, noted with episodes of wide complex tachycardia. His primary care physician requested hospitalist to assume care as the patient was admitted to the intensive care unit. Surgery has consulted us for the wide complex tachycardia. Patient likewise being followed by cardiology. Reportedly recommendation was to proceed with the patient surgical need due to to underlying abdominal distention requiring nasogastric tube insertion. CT scan revealed ileus. His potassium was low which was replaced earlier. No reported magnesium level. We will obtain an electrolyte levels, and a chest x-ray to evaluate where the tip of the PICC line is. Case was discussed with cardiology service. We will assume care of the patient in the morning.
[2016-09-03] MEDS ORDERED: OXYCODONE-ACETAMINOPHEN 5-325 MG TABLET PO PRN ×2 (20:26)
[2016-09-03] MEDS ORDERED: DIPHENHYDRAMINE HCL 50 MG/ML VIAL IV PRN (20:26)
[2016-09-03] MEDS ORDERED: MORPHINE SULFATE 10 MG/ML INJ IV PRN (20:26)
[2016-09-03] MEDS ORDERED: MEPERIDINE HCL/PF INJ 25 MG/1 ML DISP.SYRIN IV PRN (20:26)
[2016-09-03] MEDS ORDERED: FENTANYL CITRATE INJ/PF 100 MCG/2 ML AMPUL IV PRN ×3 (20:26)
[2016-09-03] MEDS ORDERED: PROMETHAZINE HCL INJ 25 MG/1 ML VIAL IV PRN ×2 (20:26)
[2016-09-03] MEDS ORDERED: NORMAL SALINE 10 ML SDV (SCHEDULED) IV SCH (22:00)
--- NOTE | 2016-09-03 22:50 | EKG REPORT ---
SEVERITY:- ABNORMAL ECG - SINUS TACHYCARDIA NONSPECIFIC INTRAVENTRICULAR CONDUCTION DELAY INFERIOR INFARCT, AGE INDETERMINATE : Confirmed by: Dick Lindquist 03-Sep-2016 22:49:52
[2016-09-03] MEDS ORDERED: PROPOFOL 100 ML IV ONE (23:16)
[2016-09-03 23:32] LABS: ANION GAP 12 (5-19); BLOOD UREA NITROGEN 8 mg/dL (7-20); CARBON DIOXIDE 20 mmol/L (22-30); CHLORIDE 110 mmol/L (98-107); CREATININE RESULT 0.68 mg/dL (0.52-1.25); GLUCOSE 159 mg/dL (75-110); MAGNESIUM 1.3 mg/dL (1.6-2.3); POTASSIUM 3.3 mmol/L (3.6-5.0); SODIUM 141.7 mmol/L (137-145)
--- NOTE | 2016-09-03 23:32 | Operative Report ---
Operative Report DATE OF SURGERY: 09/03/16 PREOPERATIVE DIAGNOSIS: Abdominal sepsis POSTOPERATIVE DIAGNOSIS: Colonic ileus with cecal ischemia OPERATION: Exploratory laparotomy, Kayla gastrostomy tube placement, transverse colostomy and mucous fistula, decompressing colonoscopy. SURGEON: TAISHA KUHN 1ST ZUMBA INSTRUCTOR: LETICIA CASANOVA ANESTHESIA: GA TISSUE REMOVED OR ALTERED: none COMPLICATIONS: none ESTIMATED BLOOD LOSS: 300 mL INTRAOPERATIVE FINDINGS: markedly distended colon from cecum to sigmoid with ischemic changes of cecum. anastomosis intact. serous fluid in peritoneal cavity. distended small bowel. PROCEDURE: Informed consent was obtained. Patient was brought to the operating room and placed on the operating table in supine position. After satisfactory induction of general anesthesia patient's abdomen was prepped and draped in usual sterile fashion. Patient's abdominal tamia were removed and his wound was bluntly. His fascial sutures were cut and the fascia was reopened bluntly. Peritoneal cavity had the blood-tinged the serous fluid in copious amounts. The small bowel and large bowel was markedly distended, especially the large bowel. The large bowel was tightly distended from the cecum all the way to the the sigmoid colon. The omentum was lifted cephalad the small bowel was eviscerated gently teasing apart the adhesions. The anastomosis was difficult to visualize due to the location. Small amount of the blood clots were noted in this region which was the manually taken off. The anastomosis that was able to visualize appeared intact. No purulent fluid was noted in this area. No exudative fluid was noted in this area. The colon was markedly distended proximal to the anastomosis as well as distal to the anastomosis. The anastomosis was airtight. A decompressing colonoscopy was performed. Endoscope was passed via the patient's anus it was fed to the cecum. At the cecum there was patchy areas of ischemic changes. But the ischemia was not full thickness. There was fluid as well as air in the colon that were decompressed with the endoscope. Of note the anastomosis was visualized during the endoscopy and the anastomosis had exudative covering but appeared intact. And it was airtight. The colon was completely decompressed with the colonoscope. With the patient's profound the ileus, I felt strongly that he needed an ostomy procedure to prevent the recurrence of his colonic the distention. I had a long discussion with the patient's family about the intraoperative findings and my recommendations. I discussed with them a diverting ileostomy versus a permanent transverse colostomy with the advantages and disadvantages of both. The family wanted to proceed with a permanent transverse colostomy which I felt was the best solution for this patient with limited mobility. The transverse colon was divided near the midline. The transverse colon and the right colon was mobilized and the transverse colon was brought out in the patient's right mid abdomen as an end colostomy. The very distal portion of the colostomy appeared ischemic therefore it was resected to viable colon and it was matured at the end of the case. The distal end of the transverse colon was brought up as a mucous fistula in the patient's left the upper abdomen and again the ischemic end of it was resected to viable colon and it was matured at the end of the case. Kayla gastrostomy was performed in the standard fashion. The gastrostomy tube balloon was insufflated and the stomach was snugged up to the abdominal wall. The stomach was tacked to the abdominal wall at 4 quadrants around the gastrostomy tube. The gastrostomy tube external fixer device was applied. Sponge needle and instrument counts were all correct. The fascia was closed with running PDS suture. Skin was closed with tamia. Marcaine was injected at the operative site. Patient was taken to the intensive care unit in critical condition.
[2016-09-03] MEDS ORDERED: MAGNESIUM SULFATE/D5W 1 GM/100 ML RTUPB IV ONE (23:45)
[2016-09-03 23:46] LABS: CALCIUM 6.5 mg/dL (8.4-10.2)
[2016-09-03] MEDS ORDERED: MAGNESIUM SULFATE INJ 8 MEQ/2 ML IV ONE (23:55)
[2016-09-03] MEDS ORDERED: PROPOFOL 100 ML IV PRN (23:55)
[2016-09-04] MEDS: POTASSI CL 20 MEQ/50 ML RIDER 20 MEQ/50 ML RTUPB IV SCH ×2 (00:06→01:55)
[2016-09-04] MEDS ORDERED: RINGERS SOLUTION,LACTATED 1,000 ML IV ONE (00:45)
[2016-09-04] MEDS ORDERED: MAGNESIUM SULFATE/D5W 1 GM/100 ML RTUPB IV SCH (00:45)
[2016-09-04 01:19] LABS: HEMATOCRIT 25.9 % (37.9-51.0); MEAN CORPUSCULAR HEMOGLOBIN 23.6 pg (27.0-33.4); MEAN CORPUSCULAR HGB CONC 30.5 g/dL (32.0-36.0); MEAN CORPUSCULAR VOLUME 77 fl (80-97); RED BLOOD COUNT 3.35 10^6/uL (4.35-5.55); RED CELL DISTRIBUTION WIDTH 17.6 % (11.5-14.0); WHITE BLOOD COUNT 11.5 10^3/uL (4.0-10.5)
[2016-09-04 01:22] LABS: HEMOGLOBIN 7.9 g/dL (13.5-17.0); HGB HCT DIFFERENCE -2.2
[2016-09-04] MEDS ORDERED: PROPOFOL 100 ML IV PRN (01:47)
[2016-09-04] MEDS: POTASSI CL 20 MEQ/NS 1L 1,000 ML IV PRN ×3 (05:19→19:18)
[2016-09-04 06:40] LABS: HEMATOCRIT 29.6 % (37.9-51.0); HEMOGLOBIN 9.7 g/dL (13.5-17.0); HGB HCT DIFFERENCE -0.5; MEAN CORPUSCULAR HEMOGLOBIN 24.6 pg (27.0-33.4); MEAN CORPUSCULAR HGB CONC 32.8 g/dL (32.0-36.0); MEAN CORPUSCULAR VOLUME 75 fl (80-97); RED BLOOD COUNT 3.94 10^6/uL (4.35-5.55); RED CELL DISTRIBUTION WIDTH 17.7 % (11.5-14.0); WHITE BLOOD COUNT 12.7 10^3/uL (4.0-10.5)
[2016-09-04 07:01] LABS: BAND NEUTROPHILS % (MANUAL) 3 % (3-5); BASOPHILS % (MANUAL) 0 % (0-2); EOSINOPHILS % (MANUAL) 0 % (0-6); LYMPHOCYTES % (MANUAL) 9 % (13-45); TOTAL CELLS COUNTED 100
[2016-09-04 07:03] LABS: ANISOCYTOSIS 2+; MICROCYTOSIS SLIGHT; POLYCHROMASIA 1+; TOXIC GRANULATION SLIGHT
[2016-09-04 07:10] LABS: ANION GAP 6 (5-19); BLOOD UREA NITROGEN 10 mg/dL (7-20); CARBON DIOXIDE 21 mmol/L (22-30); CHLORIDE 113 mmol/L (98-107); CREATININE RESULT 0.65 mg/dL (0.52-1.25); GLUCOSE 150 mg/dL (75-110); MAGNESIUM 1.8 mg/dL (1.6-2.3); SODIUM 139.5 mmol/L (137-145); TRIGLYCERIDES 522 mg/dL (<150)
[2016-09-04 07:30] LABS: CALCIUM 6.1 mg/dL (8.4-10.2); POTASSIUM 6.1 mmol/L (3.6-5.0)
[2016-09-04] MEDS ORDERED: DEXTROSE 5%-WATER 250 ML with NOREPINEPHRINE BITARTRATE 4 MG IV PRN ×2 (08:20)
[2016-09-04] MEDS ORDERED: NOREPINEPHRINE BITARTRATE INJ/PF 4 MG/4 ML SDV IV ONE (08:23)
--- NOTE | 2016-09-04 08:44 | PDOC PROGRESS REPORT ---
Subjective Progress Note for:: 09/04/16 Subjective:: The patient went to OR last night. Patient maintained on the ventilator. No reported temperature spikes, respiratory distress. Reported some bowel ischemia but no resection was necessary as reported. Potassium was elevated today. Magnesium was replaced last night. No ventricular tachycardia noted at this time. Blood pressure is in the low normal side. Patient has a positive urine output balance. Physical Exam Vital Signs: Temp Pulse Resp BP Pulse Ox 99.3 F 95 19 96/67 L 94 09/04/16 08:00 09/04/16 08:00 09/04/16 08:00 09/04/16 08:00 09/04/16 08:00 Intake & Output 09/03/16 09/04/16 09/05/16 06:59 06:59 06:59 Intake Total 1080 3752 Output Total 770 1350 34 Balance 310 2402 -34 Weight 94.3 kg 99.7 kg General appearance: PRESENT: no acute distress, other - Sedated Head exam: PRESENT: normocephalic Eye exam: PRESENT: conjunctiva pale Mouth exam: PRESENT: moist, neck supple Neck exam: ABSENT: JVD Respiratory exam: PRESENT: clear to auscultation shelly. ABSENT: rhonchi, wheezes Cardiovascular exam: PRESENT: RRR. ABSENT: gallop GI/Abdominal exam: PRESENT: hypoactive bowel sounds, soft Extremities exam: ABSENT: pedal edema Psychiatric exam: ABSENT: agitated Focused psych exam: ABSENT: restlessness Skin exam: PRESENT: dry, warm. ABSENT: cyanosis Results Laboratory Results: 09/04/16 06:25 09/04/16 06:25 09/03/16 09/03/16 09/03/16 11:25 11:25 11:25 WBC 15.9 H RBC 4.30 L Hgb 10.2 L Hct 32.0 L MCV 74 L MCH 23.7 L MCHC 31.9 L RDW 18.3 H Plt Count 542 H Seg Neutrophils % 77.4 Lymphocytes % 9.4 L Monocytes % 10.4 Eosinophils % 2.7 Basophils % 0.1 Absolute Neutrophils 12.3 H Absolute Lymphocytes 1.5 Absolute Monocytes 1.7 H Absolute Eosinophils 0.4 Absolute Basophils 0.0 Sodium 140.1 Potassium 3.4 L Chloride 102 Carbon Dioxide 27 Anion Gap 11 BUN 9 Creatinine 0.73 Est GFR ( Amer) > 60 Est GFR (Non-Af Amer) > 60 Glucose 151 H Calcium 8.5 Phosphorus 3.0 Magnesium 1.8 Albumin Triglycerides Blood Type Antibody Screen 09/03/16 09/03/16 09/03/16 16:15 16:15 16:15 WBC RBC Hgb Hct MCV MCH MCHC RDW Plt Count Seg Neutrophils % Lymphocytes % Monocytes % Eosinophils % Basophils % Absolute Neutrophils Absolute Lymphocytes Absolute Monocytes Absolute Eosinophils Absolute Basophils Sodium Potassium 3.3 L Chloride Carbon Dioxide Anion Gap BUN Creatinine Est GFR ( Amer) Est GFR (Non-Af Amer) Glucose Calcium Phosphorus 3.2 Magnesium 1.7 Cancelled Albumin Triglycerides Blood Type O POSITIVE Antibody Screen NEGATIVE 09/03/16 09/03/16 09/04/16 23:05 23:05 00:58 WBC 11.5 H RBC 3.35 L Hgb 7.9 L D Hct 25.9 L MCV 77 L MCH 23.6 L MCHC 30.5 L RDW 17.6 H Plt Count 402 Seg Neutrophils % Lymphocytes % Monocytes % Eosinophils % Basophils % Absolute Neutrophils Absolute Lymphocytes Absolute Monocytes Absolute Eosinophils Absolute Basophils Sodium 141.7 Potassium 3.3 L Chloride 110 H Carbon Dioxide 20 L Anion Gap 12 BUN 8 Creatinine 0.68 Est GFR ( Amer) > 60 Est GFR (Non-Af Amer) > 60 Glucose 159 H Calcium 6.5 L* Phosphorus Magnesium 1.3 L Albumin 1.7 L Triglycerides Blood Type Antibody Screen 09/04/16 09/04/16 09/04/16 06:25 06:25 06:25 WBC 12.7 H RBC 3.94 L Hgb 9.7 L Hct 29.6 L MCV 75 L MCH 24.6 L MCHC 32.8 RDW 17.7 H Plt Count 446 Seg Neutrophils % Not Reportable Lymphocytes % Not Reportable Monocytes % Not Reportable Eosinophils % Not Reportable Basophils % Not Reportable Absolute Neutrophils Not Reportable Absolute Lymphocytes Not Reportable Absolute Monocytes Not Reportable Absolute Eosinophils Not Reportable Absolute Basophils Not Reportable Sodium 139.5 Potassium 6.1 H* D Chloride 113 H Carbon Dioxide 21 L Anion Gap 6 BUN 10 Creatinine 0.65 Est GFR ( Amer) > 60 Est GFR (Non-Af Amer) > 60 Glucose 150 H Calcium 6.1 L* Phosphorus Magnesium 1.8 Albumin 1.5 L Triglycerides 522 H Blood Type Antibody Screen 03/01/1309/03/16 09/04/16 16:15 16:15 07:00 Creatine Kinase 39 L CK-MB (CK-2) 0.33 Troponin I < 0.012 < 0.012 Impressions: KUB X-Ray 09/02/16 08:00 IMPRESSION: Ileus versus partial bowel obstruction or pseudo-obstruction. Chest X-Ray 09/03/16 00:00 IMPRESSION: Increased density is identified in the right upper lung field which has the appearance of atelectatic changes. Linear atelectasis in the left lung base. Other findings as noted above Guidance Fluoroscopy 09/03/16 00:00 IMPRESSION: SUCCESSFUL PLACEMENT OF A 5 FR DUAL LUMEN 41 CM PICC IN THE left basilic VEIN. Interventional Vascular Procedure 09/03/16 00:00 IMPRESSION: SUCCESSFUL PLACEMENT OF A 5 FR DUAL LUMEN 41 CM PICC IN THE left basilic VEIN. PICC Line Insertion 09/03/16 00:00 IMPRESSION: SUCCESSFUL PLACEMENT OF A 5 FR DUAL LUMEN 41 CM PICC IN THE left basilic VEIN. Abdomen/Pelvis CT 09/03/16 07:00 IMPRESSION: Probable ileus Small amount of fluid at the level of the colon anastomosis near the splenic flexure without well-circumscribed abscess. No extraluminal air. Findings discussed with Dr. Minor Assessment & Plan - Diagnosis (1) Paralytic ileus Is this a current diagnosis for this admission?: Yes (2) Acute respiratory failure with hypoxemia Is this a current diagnosis for this admission?: Yes (3) Leukocytosis Qualifiers: Leukocytosis type: other Qualified Code(s): D72.828 - Other elevated white blood cell count Is this a current diagnosis for this admission?: Yes (4) Ventricular tachycardia Is this a current diagnosis for this admission?: Yes (5) Anemia, blood loss Is this a current diagnosis for this admission?: Yes (6) Hyperkalemia Is this a current diagnosis for this admission?: Yes (7) Hypocalcemia Is this a current diagnosis for this admission?: Yes (8) Hypoalbuminemia Is this a current diagnosis for this admission?: Yes (9) Colonic mass Is this a current diagnosis for this admission?: Yes (10) Coronary artery disease Qualifiers: Coronary Disease-Associated Artery/Lesion type: [place] artery [place] vs. transplanted heart: [place] heart Associated angina: angina presence unspecified Qualified Code(s): I25.10 - Atherosclerotic heart disease of [place] coronary artery without angina pectoris Is this a current diagnosis for this admission?: Yes (11) Hyperlipidemia Qualifiers: Hyperlipidemia type: other hyperlipidemia Qualified Code(s): E78.4 - Other hyperlipidemia Is this a current diagnosis for this admission?: Yes (12) Hypertension Qualifiers: Hypertension type: essential hypertension Qualified Code(s): I10 - Essential (primary) hypertension Is this a current diagnosis for this admission?: Yes (13) Panlobular emphysema Is this a current diagnosis for this admission?: Yes (14) Type 2 diabetes mellitus without complications Qualifiers: Diabetes mellitus penitentiary insulin use: without penitentiary use Qualified Code(s): E11.9 - Type 2 diabetes mellitus without complications Is this a current diagnosis for this admission?: Yes - Time Time Spent with patient: 25-34 minutes - Plan Summary Plan Summary: We are going to consult pulmonary for ventilator management. We will give insulin intravenously, D50, sodium bicarbonate intravenously for the hyperkalemia and recheck the level in 6-8 hours. As needed Levophed for hypotension if present. We will begin intravenous antibiotics and sent cultures of the urine blood and sputum. Continue supportive care.
[2016-09-04] MEDS ORDERED: SODIUM BICARBONATE 8.4% INJ 50 MEQ/50 ML DISP.SYRIN IV ONE (09:00)
[2016-09-04] MEDS ORDERED: INSULIN REG, HUMAN 100 UNIT/ML 3 ML VIAL (PYX) IV ONE (09:00)
[2016-09-04] MEDS ORDERED: DEXTROSE 50%-WATER 25 GM/50 ML DISP.SYRIN IV ONE (09:00)
[2016-09-04] MEDS: FAMOTIDINE INJ/PF 20 MG/2 ML SDV IV SCH ×2 (09:32→21:51)
--- NOTE | 2016-09-04 09:35 | EKG REPORT ---
SEVERITY:- ABNORMAL ECG - SINUS RHYTHM NONSPECIFIC INTRAVENTRICULAR CONDUCTION DELAY INFERIOR INFARCT, AGE INDETERMINATE CONSIDER ANTERIOR INFARCT : Confirmed by: Dick Lindquist 04-Sep-2016 09:34:24
[2016-09-04] MEDS ORDERED: ALBUMIN HUMAN 50 ML IV ONE (10:00)
[2016-09-04] MEDS ORDERED: ERTAPENEM SODIUM INJ 1 GM VIAL IV SCH (10:00)
--- NOTE | 2016-09-04 10:07 | PDOC PROGRESS REPORT ---
Subjective Progress Note for:: 09/04/16 Subjective:: intubated, sedated Physical Exam Vital Signs: Temp Pulse Resp BP Pulse Ox 99.3 F 95 19 96/67 L 94 09/04/16 08:00 09/04/16 08:00 09/04/16 08:00 09/04/16 08:00 09/04/16 08:00 Intake & Output 09/03/16 09/04/16 09/05/16 06:59 06:59 06:59 Intake Total 1080 3752 Output Total 770 1350 34 Balance 310 2402 -34 Weight 94.3 kg 99.7 kg General appearance: PRESENT: no acute distress Respiratory exam: PRESENT: clear to auscultation shelly Cardiovascular exam: PRESENT: RRR GI/Abdominal exam: PRESENT: other - distended but soft. ostomies congested but viable. air in right ostomy bag. Results Laboratory Results: 09/04/16 06:25 09/04/16 06:25 09/03/16 09/03/16 09/03/16 11:25 11:25 11:25 WBC 15.9 H RBC 4.30 L Hgb 10.2 L Hct 32.0 L MCV 74 L MCH 23.7 L MCHC 31.9 L RDW 18.3 H Plt Count 542 H Seg Neutrophils % 77.4 Lymphocytes % 9.4 L Monocytes % 10.4 Eosinophils % 2.7 Basophils % 0.1 Absolute Neutrophils 12.3 H Absolute Lymphocytes 1.5 Absolute Monocytes 1.7 H Absolute Eosinophils 0.4 Absolute Basophils 0.0 Sodium 140.1 Potassium 3.4 L Chloride 102 Carbon Dioxide 27 Anion Gap 11 BUN 9 Creatinine 0.73 Est GFR ( Amer) > 60 Est GFR (Non-Af Amer) > 60 Glucose 151 H Calcium 8.5 Ionized Calcium Latonya Phosphorus 3.0 Magnesium 1.8 Albumin Triglycerides Blood Type Antibody Screen 09/03/16 09/03/16 09/03/16 16:15 16:15 16:15 WBC RBC Hgb Hct MCV MCH MCHC RDW Plt Count Seg Neutrophils % Lymphocytes % Monocytes % Eosinophils % Basophils % Absolute Neutrophils Absolute Lymphocytes Absolute Monocytes Absolute Eosinophils Absolute Basophils Sodium Potassium 3.3 L Chloride Carbon Dioxide Anion Gap BUN Creatinine Est GFR ( Amer) Est GFR (Non-Af Amer) Glucose Calcium Ionized Calcium Latonya Phosphorus 3.2 Magnesium 1.7 Cancelled Albumin Triglycerides Blood Type O POSITIVE Antibody Screen NEGATIVE 09/03/16 09/03/16 09/04/16 23:05 23:05 00:58 WBC 11.5 H RBC 3.35 L Hgb 7.9 L D Hct 25.9 L MCV 77 L MCH 23.6 L MCHC 30.5 L RDW 17.6 H Plt Count 402 Seg Neutrophils % Lymphocytes % Monocytes % Eosinophils % Basophils % Absolute Neutrophils Absolute Lymphocytes Absolute Monocytes Absolute Eosinophils Absolute Basophils Sodium 141.7 Potassium 3.3 L Chloride 110 H Carbon Dioxide 20 L Anion Gap 12 BUN 8 Creatinine 0.68 Est GFR ( Amer) > 60 Est GFR (Non-Af Amer) > 60 Glucose 159 H Calcium 6.5 L* Ionized Calcium Latonya Phosphorus Magnesium 1.3 L Albumin 1.7 L Triglycerides Blood Type Antibody Screen 09/04/16 09/04/16 09/04/16 06:25 06:25 06:25 WBC 12.7 H RBC 3.94 L Hgb 9.7 L Hct 29.6 L MCV 75 L MCH 24.6 L MCHC 32.8 RDW 17.7 H Plt Count 446 Seg Neutrophils % Not Reportable Lymphocytes % Not Reportable Monocytes % Not Reportable Eosinophils % Not Reportable Basophils % Not Reportable Absolute Neutrophils Not Reportable Absolute Lymphocytes Not Reportable Absolute Monocytes Not Reportable Absolute Eosinophils Not Reportable Absolute Basophils Not Reportable Sodium 139.5 Potassium 6.1 H* D Chloride 113 H Carbon Dioxide 21 L Anion Gap 6 BUN 10 Creatinine 0.65 Est GFR ( Amer) > 60 Est GFR (Non-Af Amer) > 60 Glucose 150 H Calcium 6.1 L* Ionized Calcium Latonya Phosphorus Magnesium 1.8 Albumin 1.5 L Triglycerides 522 H Blood Type Antibody Screen 09/04/16 09:22 WBC RBC Hgb Hct MCV MCH MCHC RDW Plt Count Seg Neutrophils % Lymphocytes % Monocytes % Eosinophils % Basophils % Absolute Neutrophils Absolute Lymphocytes Absolute Monocytes Absolute Eosinophils Absolute Basophils Sodium Potassium Chloride Carbon Dioxide Anion Gap BUN Creatinine Est GFR ( Amer) Est GFR (Non-Af Amer) Glucose Calcium Ionized Calcium Latonya 1.06 L Phosphorus Magnesium Albumin Triglycerides Blood Type Antibody Screen 09/03/16 09/03/16 09/04/16 16:15 16:15 07:00 Creatine Kinase 39 L CK-MB (CK-2) 0.33 Troponin I < 0.012 < 0.012 Impressions: KUB X-Ray 09/02/16 08:00 IMPRESSION: Ileus versus partial bowel obstruction or pseudo-obstruction. Chest X-Ray 09/03/16 00:00 IMPRESSION: Increased density is identified in the right upper lung field which has the appearance of atelectatic changes. Linear atelectasis in the left lung base. Other findings as noted above Guidance Fluoroscopy 09/03/16 00:00 IMPRESSION: SUCCESSFUL PLACEMENT OF A 5 FR DUAL LUMEN 41 CM PICC IN THE left basilic VEIN. Interventional Vascular Procedure 09/03/16 00:00 IMPRESSION: SUCCESSFUL PLACEMENT OF A 5 FR DUAL LUMEN 41 CM PICC IN THE left basilic VEIN. PICC Line Insertion 09/03/16 00:00 IMPRESSION: SUCCESSFUL PLACEMENT OF A 5 FR DUAL LUMEN 41 CM PICC IN THE left basilic VEIN. Abdomen/Pelvis CT 09/03/16 07:00 IMPRESSION: Probable ileus Small amount of fluid at the level of the colon anastomosis near the splenic flexure without well-circumscribed abscess. No extraluminal air. Findings discussed with Dr. Minor Assessment & Plan - Diagnosis (1) Colonic mass Is this a current diagnosis for this admission?: Yes (2) Ileus, postoperative Is this a current diagnosis for this admission?: YesPlan: with cecal ischemia due to distension. s/p xlap, decompression and end tx colostomy and mucous fistula and gtube. will require ivf boluses today. cont supportive care. correct lytes. start tpn. continue abx for possible bacterial translocation. greatly appreciate hospitalist assistance.
[2016-09-04] MEDS: MORPHINE SULFATE 10 MG/ML INJ IV PRN ×3 (10:29→20:14)
[2016-09-04 10:36] LABS: ARTERIAL BLOOD BASE EXCESS -0.2 mmol/L; ARTERIAL BLOOD O2 SATURATION 95.9 % (94-98)
[2016-09-04] MEDS ORDERED: LEVOFLOXACIN 500 MG/D5W RTU 500 MG/100 ML RTUPB IV ONE (11:00)
[2016-09-04] MEDS: METRONIDAZOLE 500 MG/NS RTU 100 ML IV SCH ×3 (11:46→23:11)
[2016-09-04] MEDS: ALBUMIN HUMAN 50 ML IV SCH ×2 (13:28→16:03)
[2016-09-04] MEDS ORDERED: FUROSEMIDE INJ/PF 20 MG/2 ML SDV ONE (14:31)
[2016-09-04] MEDS: FUROSEMIDE INJ/PF 20 MG/2 ML SDV IV PRN ×2 (16:04→17:15)
[2016-09-04] MEDS ORDERED: ERTAPENEM SODIUM 1 GM in NORMAL SALINE 50 ML IV SCH (18:00)
[2016-09-04] MEDS: MIDAZOLAM HCL 100 ML IV PRN (19:18)
--- NOTE | 2016-09-04 22:23 | OPERATIVE REPORT E ---
Operative Report NAME: AMI YOUSIF : 1950 AGE: 66Y DATE OF SURGERY: 09/04/2016 ROOM: 607 OPERATION: Placement of right internal jugular central venous line under ultrasound guidance. Informed consent, the risks and possible complications of the procedure have been explained to the patient's family. They accept the risks and wish to proceed. SURGEON: AMI CASANOVA M.D. PROCEDURE: The patient's right neck was then prepped and draped in the usual sterile fashion. Using ultrasound the right internal jugular vein was then identified. The skin overlying the vein was then injected with local anesthesia. An 18-gauge needle was then inserted through the skin and into the internal jugular vein under ultrasound guidance. There is a return of dark, nonpulsitile of blood. A guidewire was placed through the needle and needle was withdrawn. A guide dilator was placed over the guidewire and removed. A triple lumen catheter was then placed over the guidewire and the guidewire was removed. There is good aspiration of blood to all 3 ports with all 3 ports being flushed easily. The catheter was secured to skin using 3-0 silk suture. A dry dressing was then applied, stat chest x-ray was ordered. No immediate complications. Procedure is placement of right internal jugular central venous line using ultrasound guidance. DICTATING PHYSICIAN: AMI CASANOVA M.D. [id number] PHY#: [id number] ID: [id number] JOB#: [id number] ACCT: [id number] cc:AMI CASANOVA M.D. > [facility]
--- NOTE | 2016-09-05 01:38 | PROGRESS NOTE E ---
Progress Note NAME: AMI YOUSIF : 1950 AGE: 66Y DATE: 09/04/2016 ROOM: 607 SUBJECTIVE: Note, I was not able to see the patient yesterday. When I went to see the patient, he was in Radiology and subsequently they had to take him emergently to surgery and hence I did not see him yesterday, but today I spoke to the surgicalist who did the surgery yesterday and said that the patient had no infection and the patient is just postoperative ileus. As per the nurse, the patient intermittently drops his blood pressure, which comes up with fluids. The patient is clearly volume depleted. OBJECTIVE: GENERAL: On examination, the patient has no arrhythmias on the monitor. The patient is sedated and intubated. On examination, the patient is mildly obese, in no acute distress. He is not fighting the ventilator. VITAL SIGNS: His temperature is 100.5 degrees Fahrenheit, pulses 112 beats per minute, blood pressure is 126/81, respirations are 22 per minutes. O2 sats are 92% on a mechanical ventilator with a FiO2 of 49%. HEENT: Head is atraumatic, normocephalic. Eyes: Pupils are equal, round, regular, and reactive to light. ENT is negative. NECK: Supple. There is no JVD. Carotids are equal. There is no bruit. LUNGS: Show a few scattered rhonchi. Otherwise, no rales of CHF or pneumonia. HEART: S1 and S2 are heard. There is no S3 gallop. There is no S4 gallop. There is systolic murmur in the left sternal border and apex. There is no rub. ABDOMEN: Soft, nontender, but the patient is sedated. The dressing is dry. There is no hepatosplenomegaly. Bowel sounds are absent. EXTREMITIES: Femorals are diminished. Leg pulses are diminished. There is no pedal edema. There is no DVT or cellulitis. CENTRAL NERVOUS SYSTEM: Not examined. PSYCHIATRIC: Not examined. Note that the patient had a gastrostomy feeding tube placed also as per Dr. Rowe. DIAGNOSTIC DATA: The patient's white count is 12,700, hemoglobin is 9.7, hematocrit is 29.6, platelet count is 446,000. The patient's sodium is 139.5, potassium 6.1. The patient's chloride is 113. The patient's BUN is 10, creatinine 0.65, GFR is greater than 60. The glucose is 150. The patient's calcium is 6.1. The patient's magnesium is 1.8. The patient's albumin is 1.5. The patient's ABG showed a pH of 7.47, pCO2 is 32.7, the patient's pO2 is 75, FiO2 is 40%, O2 sats are 95.9. The patient is in sinus rhythm, nonspecific IVCD, old inferior wall infarct. Poor R-wave progression, positive lead placement. The patient's chest x-ray is negative. Endotracheal tube up 54 cm above the rafaela. IMPRESSION: 1. STATUS POST SURGERY, REEXPLORATION AND NO EVIDENCE OF BEING ANY ACUTE ABDOMINAL PROCESS EXCEPT FOR ILEUS. 2. STATUS POST GASTROSTOMY FEEDING TUBE PLACEMENT. 3. STATUS POST SURGERY OF THE LEFT COLON MASS. 4. CORONARY ARTERY DISEASE, HISTORY OF OLD INFERIOR MA IN THE PAST AND STENTS WITH NO ANGINAL SYMPTOMS. 5. ABNORMAL EKG SUGGESTIVE OF OLD INFERIOR WALL MA. 6. LEFT-SIDED WEAKNESS, WHICH IS VERY MILD BY EARLIER EXAM, BUT NOT EXAMINED TODAY SINCE THE PATIENT IS SEDATED. 7. HYPERTENSION. BLOOD PRESSURE AT PRESENT STABLE, BUT THERE IS INTERMITTENT DROP IN BLOOD PRESSURE DUE TO HYPOVOLEMIA. 8. HYPOVOLEMIA. 9. HYPOTENSION, INTERMITTENT, MOST LIKELY SECONDARY TO VOLUME DEPLETION. 10. DIABETES MELLITUS TYPE 2. NO COMPLICATIONS. 11. HYPERLIPIDEMIA. 12. DYSPHAGIA. PLAN: Continue respiratory ventilatory support. Continue IV fluids. Continue antibiotics. Hopefully, the patient will be extubated and once the gastrostomy tube is ready, the patient can be fed through that. We will follow with you. Note: 30 minutes spent on this patient reviewing the patient's medications and discussions with the attending physician and the hospitalist taking care of the patient. More than 50% of the time was spent on direct patient's care. DICTATING PHYSICIAN: FREDDY ALEXIS M.D. [id number] ELZBIETA#: [id number] ID: [id number] JOB#: [id number] ACCT: [id number] cc: > [facility]
[2016-09-05] MEDS: MIDAZOLAM HCL 100 ML IV PRN ×2 (03:31→14:28)
[2016-09-05] MEDS: POTASSI CL 20 MEQ/NS 1L 1,000 ML IV PRN ×2 (03:32→22:07)
[2016-09-05 04:28] LABS: HEMATOCRIT 28.4 % (37.9-51.0); HEMOGLOBIN 9.1 g/dL (13.5-17.0); HGB HCT DIFFERENCE -1.1; MEAN CORPUSCULAR HEMOGLOBIN 23.8 pg (27.0-33.4); MEAN CORPUSCULAR HGB CONC 31.9 g/dL (32.0-36.0); MEAN CORPUSCULAR VOLUME 75 fl (80-97); RED CELL DISTRIBUTION WIDTH 17.9 % (11.5-14.0); WHITE BLOOD COUNT 14.2 10^3/uL (4.0-10.5)
[2016-09-05 04:49] LABS: ANION GAP 8 (5-19); BLOOD UREA NITROGEN 12 mg/dL (7-20); CALCIUM 7.1 mg/dL (8.4-10.2); CARBON DIOXIDE 25 mmol/L (22-30); CHLORIDE 110 mmol/L (98-107); CREATININE RESULT 0.85 mg/dL (0.52-1.25); GLUCOSE 148 mg/dL (75-110); PHOSPHORUS 1.8 mg/dL (2.5-4.5); POTASSIUM 3.7 mmol/L (3.6-5.0); SODIUM 142.8 mmol/L (137-145)
[2016-09-05] MEDS: METRONIDAZOLE 500 MG/NS RTU 100 ML IV SCH ×4 (05:34→23:19)
[2016-09-05] MEDS ORDERED: DEXTROSE 10%-WATER 1,000 ML IV PRN (08:38)
[2016-09-05] MEDS ORDERED: DEXTROSE 40% GEL 15 GM TUBE PO PRN (08:38)
[2016-09-05] MEDS ORDERED: DEXTROSE 40% GEL 15 GM TUBE X 2 PO PRN (08:38)
[2016-09-05] MEDS ORDERED: POTASSIUM PHOS,M-BASIC-D-BASIC 15 MMOL in NORMAL SALINE 250 ML IV ONE (09:00)
[2016-09-05] MEDS: LEVOFLOXACIN 500 MG/D5W RTU 100 ML IV SCH (09:21)
[2016-09-05] MEDS: FUROSEMIDE INJ/PF 20 MG/2 ML SDV IV SCH ×2 (09:22→22:06)
--- NOTE | 2016-09-05 09:33 | PDOC PROGRESS REPORT ---
Subjective Progress Note for:: 09/05/16 Subjective:: Staff reports that the patient did fairly well. Patient however still has high FiO2 requirement. No reported temperature spikes, or respiratory distress. No nausea or vomiting. No noted increase on the ostomy bags. Patient remains on the ventilator. Physical Exam Vital Signs: Temp Pulse Resp BP Pulse Ox 101.6 F H 97 20 114/68 92 09/05/16 08:00 09/05/16 08:00 09/05/16 08:00 09/05/16 08:00 09/05/16 08:00 Intake & Output 09/04/16 09/05/16 09/06/16 06:59 06:59 06:59 Intake Total 3752 4978 Output Total 1350 3215 150 Balance 2402 1763 -150 Weight 99.7 kg 102.8 kg General appearance: PRESENT: no acute distress, other - Sedated intubated Head exam: PRESENT: normocephalic Eye exam: PRESENT: conjunctiva pale Mouth exam: PRESENT: moist, neck supple Neck exam: PRESENT: JVD Respiratory exam: PRESENT: rhonchi - Minimal bilateral. ABSENT: wheezes Cardiovascular exam: PRESENT: RRR. ABSENT: gallop GI/Abdominal exam: PRESENT: soft, other - Ileostomy and colostomy bag in place Extremities exam: ABSENT: pedal edema Psychiatric exam: ABSENT: agitated Focused psych exam: ABSENT: restlessness Skin exam: PRESENT: dry, warm. ABSENT: cyanosis Results Laboratory Results: 09/05/16 04:17 09/05/16 04:17 09/04/16 09/04/16 09/04/16 06:25 09:22 10:20 WBC RBC Hgb Hct MCV MCH MCHC RDW Plt Count Carbonic Acid 0.98 L HCO3/H2CO3 Ratio 23:1 ABG pH 7.47 H ABG pCO2 32.7 L ABG pO2 75.0 L ABG HCO3 23.0 ABG O2 Saturation 95.9 ABG Base Excess -0.2 FiO2 45% Sodium Potassium Chloride Carbon Dioxide Anion Gap BUN Creatinine Est GFR ( Amer) Est GFR (Non-Af Amer) Glucose Calcium Ionized Calcium Latonya 1.06 L Phosphorus Magnesium 1.7 09/04/16 09/05/16 09/05/16 18:35 04:17 04:17 WBC 14.2 H RBC 3.80 L Hgb 9.1 L Hct 28.4 L MCV 75 L MCH 23.8 L MCHC 31.9 L RDW 17.9 H Plt Count 377 Carbonic Acid HCO3/H2CO3 Ratio ABG pH ABG pCO2 ABG pO2 ABG HCO3 ABG O2 Saturation ABG Base Excess FiO2 Sodium 142.8 Potassium 3.4 L D 3.7 Chloride 110 H Carbon Dioxide 25 Anion Gap 8 BUN 12 Creatinine 0.85 Est GFR ( Amer) > 60 Est GFR (Non-Af Amer) > 60 Glucose 148 H Calcium 7.1 L Ionized Calcium Latonya Phosphorus 1.8 L Magnesium 09/03/16 09/03/16 09/04/16 16:15 16:15 07:00 Creatine Kinase 39 L CK-MB (CK-2) 0.33 Troponin I < 0.012 < 0.012 09/05/16 04:17 Creatine Kinase CK-MB (CK-2) Troponin I 0.013 Impressions: KUB X-Ray 09/02/16 08:00 IMPRESSION: Ileus versus partial bowel obstruction or pseudo-obstruction. Guidance Fluoroscopy 09/03/16 00:00 IMPRESSION: SUCCESSFUL PLACEMENT OF A 5 FR DUAL LUMEN 41 CM PICC IN THE left basilic VEIN. Interventional Vascular Procedure 09/03/16 00:00 IMPRESSION: SUCCESSFUL PLACEMENT OF A 5 FR DUAL LUMEN 41 CM PICC IN THE left basilic VEIN. PICC Line Insertion 09/03/16 00:00 IMPRESSION: SUCCESSFUL PLACEMENT OF A 5 FR DUAL LUMEN 41 CM PICC IN THE left basilic VEIN. Abdomen/Pelvis CT 09/03/16 07:00 IMPRESSION: Probable ileus Small amount of fluid at the level of the colon anastomosis near the splenic flexure without well-circumscribed abscess. No extraluminal air. Findings discussed with Dr. Minor Chest X-Ray 09/05/16 06:00 IMPRESSION: Interval improved aeration in the lung bases and decreased interstitial prominence. Assessment & Plan - Diagnosis (1) Paralytic ileus Is this a current diagnosis for this admission?: Yes (2) Acute respiratory failure with hypoxemia Is this a current diagnosis for this admission?: Yes (3) Leukocytosis Qualifiers: Leukocytosis type: other Qualified Code(s): D72.828 - Other elevated white blood cell count Is this a current diagnosis for this admission?: Yes (4) Ventricular tachycardia Is this a current diagnosis for this admission?: Yes (5) Anemia, blood loss Is this a current diagnosis for this admission?: Yes (6) Hyperkalemia Is this a current diagnosis for this admission?: Yes (7) Hypocalcemia Is this a current diagnosis for this admission?: Yes (8) Hypoalbuminemia Is this a current diagnosis for this admission?: Yes (9) Colonic mass Is this a current diagnosis for this admission?: Yes (10) Coronary artery disease Qualifiers: Coronary Disease-Associated Artery/Lesion type: robinson artery [place] vs. transplanted heart: robinson heart Associated angina: angina presence unspecified Qualified Code(s): I25.10 - Atherosclerotic heart disease of robinson coronary artery without angina pectoris Is this a current diagnosis for this admission?: Yes (11) Hyperlipidemia Qualifiers: Hyperlipidemia type: other hyperlipidemia Qualified Code(s): E78.4 - Other hyperlipidemia Is this a current diagnosis for this admission?: Yes (12) Hypertension Qualifiers: Hypertension type: essential hypertension Qualified Code(s): I10 - Essential (primary) hypertension Is this a current diagnosis for this admission?: Yes (13) Panlobular emphysema Is this a current diagnosis for this admission?: Yes (14) Type 2 diabetes mellitus without complications Qualifiers: Diabetes mellitus terminologist insulin use: without terminologist use Qualified Code(s): E11.9 - Type 2 diabetes mellitus without complications Is this a current diagnosis for this admission?: Yes - Time Time Spent with patient: 25-34 minutes - Plan Summary Plan Summary: We will discontinue Invanz, patient started on Levaquin and Flagyl by surgical service. We will add vancomycin and follow cultures. We will begin TPN. Replace electrolytes and monitor. Continue supportive care. Ventilator weaning as per pulmonary service.
--- NOTE | 2016-09-05 09:49 | PDOC PROGRESS REPORT ---
Subjective Progress Note for:: 09/05/16 Subjective:: Intubated and sedated Physical Exam Vital Signs: Temp Pulse Resp BP Pulse Ox 101.6 F H 97 20 114/68 92 09/05/16 08:00 09/05/16 08:00 09/05/16 08:00 09/05/16 08:00 09/05/16 08:00 Intake & Output 09/04/16 09/05/16 09/06/16 06:59 06:59 06:59 Intake Total 3752 4978 Output Total 1350 3215 150 Balance 2402 1763 -150 Weight 99.7 kg 102.8 kg General appearance: PRESENT: no acute distress, cooperative Respiratory exam: PRESENT: clear to auscultation shelly Cardiovascular exam: PRESENT: RRR GI/Abdominal exam: PRESENT: other - Soft, mildly distended, unable to determine tenderness. Ostomies appear congested but viable. Results Laboratory Results: 09/05/16 04:17 09/05/16 04:17 09/04/16 09/04/16 09/04/16 06:25 10:20 18:35 WBC RBC Hgb Hct MCV MCH MCHC RDW Plt Count Carbonic Acid 0.98 L HCO3/H2CO3 Ratio 23:1 ABG pH 7.47 H ABG pCO2 32.7 L ABG pO2 75.0 L ABG HCO3 23.0 ABG O2 Saturation 95.9 ABG Base Excess -0.2 FiO2 45% Sodium Potassium 3.4 L D Chloride Carbon Dioxide Anion Gap BUN Creatinine Est GFR ( Amer) Est GFR (Non-Af Amer) Glucose Calcium Phosphorus Magnesium 1.7 09/05/16 09/05/16 04:17 04:17 WBC 14.2 H RBC 3.80 L Hgb 9.1 L Hct 28.4 L MCV 75 L MCH 23.8 L MCHC 31.9 L RDW 17.9 H Plt Count 377 Carbonic Acid HCO3/H2CO3 Ratio ABG pH ABG pCO2 ABG pO2 ABG HCO3 ABG O2 Saturation ABG Base Excess FiO2 Sodium 142.8 Potassium 3.7 Chloride 110 H Carbon Dioxide 25 Anion Gap 8 BUN 12 Creatinine 0.85 Est GFR ( Amer) > 60 Est GFR (Non-Af Amer) > 60 Glucose 148 H Calcium 7.1 L Phosphorus 1.8 L Magnesium 09/03/16 09/03/1609/04/17 16:15 16:15 07:00 Creatine Kinase 39 L CK-MB (CK-2) 0.33 Troponin I < 0.012 < 0.012 09/05/16 04:17 Creatine Kinase CK-MB (CK-2) Troponin I 0.013 Impressions: KUB X-Ray 09/02/16 08:00 IMPRESSION: Ileus versus partial bowel obstruction or pseudo-obstruction. Guidance Fluoroscopy 09/03/16 00:00 IMPRESSION: SUCCESSFUL PLACEMENT OF A 5 FR DUAL LUMEN 41 CM PICC IN THE left basilic VEIN. Interventional Vascular Procedure 09/03/16 00:00 IMPRESSION: SUCCESSFUL PLACEMENT OF A 5 FR DUAL LUMEN 41 CM PICC IN THE left basilic VEIN. PICC Line Insertion 09/03/16 00:00 IMPRESSION: SUCCESSFUL PLACEMENT OF A 5 FR DUAL LUMEN 41 CM PICC IN THE left basilic VEIN. Abdomen/Pelvis CT 09/03/16 07:00 IMPRESSION: Probable ileus Small amount of fluid at the level of the colon anastomosis near the splenic flexure without well-circumscribed abscess. No extraluminal air. Findings discussed with Dr. Minor Chest X-Ray 09/05/16 06:00 IMPRESSION: Interval improved aeration in the lung bases and decreased interstitial prominence. Assessment & Plan - Diagnosis (1) Colonic mass Is this a current diagnosis for this admission?: Yes (2) Ileus, postoperative Is this a current diagnosis for this admission?: YesPlan: with cecal ischemia due to distension. s/p xlap, decompression and end tx colostomy and mucous fistula and gtube. Hemodynamics appears improved today. Back off of the aggressive fluid resuscitation today. Continue supportive care. Start TPN.
[2016-09-05] MEDS ORDERED: VANCOMYCIN HCL INJ 1000 MG VIAL IV SCH (10:00)
[2016-09-05] MEDS ORDERED: FAT EMULSIONS 250 ML IV SCH (10:00)
[2016-09-05 10:17] LABS: MAGNESIUM 1.9 mg/dL (1.6-2.3)
--- NOTE | 2016-09-05 10:22 | EKG REPORT ---
SEVERITY:- ABNORMAL ECG - SINUS RHYTHM NONSPECIFIC INTRAVENTRICULAR CONDUCTION DELAY INFERIOR INFARCT, AGE INDETERMINATE : Confirmed by: Dick Lindquist 05-Sep-2016 10:22:00
[2016-09-05 10:27] LABS: PREALBUMIN < 3.0 mg/dL (17.6-36.0)
[2016-09-05] MEDS: VANCOMYCIN HCL 1,000 MG in DEXTROSE 5%-WATER 250 ML IV SCH ×2 (14:03→22:05)
[2016-09-05] MEDS: MORPHINE SULFATE 10 MG/ML INJ IV PRN (14:27)
--- NOTE | 2016-09-05 15:51 | PDOC PROGRESS REPORT ---
Subjective Progress Note for:: 09/05/16 Subjective:: gtube displaced with leakage around g-tube. Physical Exam Vital Signs: Temp Pulse Resp BP Pulse Ox 102.2 F H 106 H 25 H 111/64 93 09/05/16 12:00 09/05/16 14:00 09/05/16 14:00 09/05/16 14:00 09/05/16 14:00 Intake & Output 09/04/16 09/05/16 09/06/16 06:59 06:59 06:59 Intake Total 3752 4978 Output Total 1350 3215 1625 Balance 2402 1763 -1625 Weight 99.7 kg 102.8 kg GI/Abdominal exam: PRESENT: soft - soft, distended, no apparent focal tenderness at gtube site but the g tube has pulled back 3 cm. when testing balloon, no air aspirated and the gtube completed displaced with no effort. dark fluid draining from tract. Results Laboratory Results: 09/05/16 04:17 09/05/16 04:17 09/04/16 09/05/16 09/05/16 18:35 04:17 04:17 WBC 14.2 H RBC 3.80 L Hgb 9.1 L Hct 28.4 L MCV 75 L MCH 23.8 L MCHC 31.9 L RDW 17.9 H Plt Count 377 Sodium 142.8 Potassium 3.4 L D 3.7 Chloride 110 H Carbon Dioxide 25 Anion Gap 8 BUN 12 Creatinine 0.85 Est GFR ( Amer) > 60 Est GFR (Non-Af Amer) > 60 Glucose 148 H Calcium 7.1 L Phosphorus 1.8 L Magnesium Prealbumin 09/05/16 04:17 WBC RBC Hgb Hct MCV MCH MCHC RDW Plt Count Sodium Potassium Chloride Carbon Dioxide Anion Gap BUN Creatinine Est GFR ( Amer) Est GFR (Non-Af Amer) Glucose Calcium Phosphorus Magnesium 1.9 Prealbumin < 3.0 L 09/03/16 09/03/16 09/04/16 16:15 16:15 07:00 Creatine Kinase 39 L CK-MB (CK-2) 0.33 Troponin I < 0.012 < 0.012 09/05/16 04:17 Creatine Kinase CK-MB (CK-2) Troponin I 0.013 Impressions: KUB X-Ray 09/02/16 08:00 IMPRESSION: Ileus versus partial bowel obstruction or pseudo-obstruction. Guidance Fluoroscopy 09/03/16 00:00 IMPRESSION: SUCCESSFUL PLACEMENT OF A 5 FR DUAL LUMEN 41 CM PICC IN THE left basilic VEIN. Interventional Vascular Procedure 09/03/16 00:00 IMPRESSION: SUCCESSFUL PLACEMENT OF A 5 FR DUAL LUMEN 41 CM PICC IN THE left basilic VEIN. PICC Line Insertion 09/03/16 00:00 IMPRESSION: SUCCESSFUL PLACEMENT OF A 5 FR DUAL LUMEN 41 CM PICC IN THE left basilic VEIN. Abdomen/Pelvis CT 09/03/16 07:00 IMPRESSION: Probable ileus Small amount of fluid at the level of the colon anastomosis near the splenic flexure without well-circumscribed abscess. No extraluminal air. Findings discussed with Dr. Minor Chest X-Ray 09/05/16 06:00 IMPRESSION: Interval improved aeration in the lung bases and decreased interstitial prominence. Assessment & Plan - Diagnosis (1) Colonic mass Is this a current diagnosis for this admission?: Yes (2) Ileus, postoperative Is this a current diagnosis for this admission?: YesPlan: with cecal ischemia due to distension. s/p xlap, decompression and end tx colostomy and mucous fistula and gtube. gtube balloon had desuflated and dislodged. it fed in easily thru the tract. position verified by injecting contrast via gtube and seeing contract flow thru the stomach into the duodenum. no peritoneal leakage. the gtube balloon inflated with 10 cc of contrast and tube snugged up with the external fixator device.
[2016-09-05] MEDS ORDERED: MAGNESIUM SULFATE/D5W 1 GM/100 ML RTUPB IV ONE ×2 (17:13→18:00)
[2016-09-05] MEDS ORDERED: POTASSI CL 20 MEQ/50 ML RIDER 20 MEQ/50 ML RTUPB IV ONE ×2 (17:25→23:57)
[2016-09-05] MEDS: AMINO ACIDS 5%/D25W 1,000 ML IV PRN (19:02)
[2016-09-05] MEDS: POTASSI CL 20 MEQ/50 ML RIDER 20 MEQ/50 ML RTUPB IV SCH ×2 (19:02→20:48)
[2016-09-05] MEDS: ACETAMINOPHEN 650 MG SUPP.RECT PR PRN (20:11)
[2016-09-05 22:46] LABS: MAGNESIUM 2.1 mg/dL (1.6-2.3); POTASSIUM 3.4 mmol/L (3.6-5.0)
--- NOTE | 2016-09-05 23:13 | PROGRESS NOTE E ---
Progress Note NAME: AMI YOUSIF : 1950 AGE: 66Y DATE: 09/05/2016 ROOM: 607 SUBJECTIVE: Note that the patient is intubated and sedated. Appears to be comfortable. Every now and then the patient does have a very sharp wide complex tachycardia. This may be because of central line is too far in and may be irritating the right atrium. Needs to be pulled back a little. The patient's magnesium and potassium done earlier this morning were normal. OBJECTIVE: GENERAL: On examination, the patient is sedated and intubated. VITAL SIGNS: His temperature is 102.2 degrees Fahrenheit, pulses 107 beats per minute, sinus tachycardia, blood pressure is 103/64, respirations are 25 per minute. O2 sats are 91% on a mechanical ventilator with a FiO2 of 50%. HEENT: Head is atraumatic, normocephalic. Eyes: Pupils are equal, round, regular, and reactive to light. ENT is negative. NECK: Supple. There is no JVD. Carotids are equal. There is no bruit. LUNGS: Clear to auscultation and percussion. HEART: S1 and S2 are heard. There is no S3 gallop. There is no S4 gallop. There is systolic murmur in the left sternal border of the apex. There is no rub. ABDOMEN: Soft, nontender, but the patient is sedated. The dressing is dry. There is no hepatosplenomegaly. Bowel sounds are absent. Note, there is a question about the gastrostomy tube being dislodged. EXTREMITIES: Femorals are diminished. Leg pulses are diminished. There is no pedal edema. There is no DVT or cellulitis. CENTRAL NERVOUS SYSTEM: Not examined. PSYCHIATRIC: Not examined. The patient's 24-hour intake has been 3,752 mL, output is 1,350 mL. DIAGNOSTIC DATA: The patient's white count is 14,200, hemoglobin is 3.8, hematocrit is 9.1, platelet count is 377,000. The patient's sodium is 142.8, potassium is 3.7, chloride is 110, CO2 is 25. The patient's BUN is 12, creatinine 0.85, GFR is greater than 60. The glucose is 148, potassium is 7.1. The patient's phosphorous is 1.8 which is being replenished. His magnesium is 1.9. The patient's troponin I is negative at 0.13. The patient's chest x-ray shows there is a left PICC line and there is a central venous catheter with tubes to be slightly in the right atrium. The patient's EKG shows sinus rhythm, borderline nonspecific IVCD, old inferior ND. IMPRESSION: 1. STATUS POST SURGERY, REEXPLORATION AND NO EVIDENCE OF BEING ANY ACUTE ABDOMINAL PROCESS EXCEPT FOR ILEUS. 2. STATUS POST GASTROSTOMY TUBE PLACEMENT. 3. VERY SHORT RUNS OF LONG SUSTAINED WIDE COMPLEX TACHYCARDIA MOST LIKELY SECONDARY TO ABERRANCY FROM A SUPRAVENTRICULAR TACHYCARDIA DUE TO THE CENTRAL LINE ON THE RIGHT SIDE. 4. CORONARY ARTERY DISEASE, HISTORY OF OLD INFERIOR ND IN THE PAST AND STENTS WITH NO ANGINAL SYMPTOMS AND NEGATIVE FOR ACUTE CHANGES IN THE EKG AND NO EVIDENCE OF ND THIS ADMISSION. 5. ABNORMAL EKG SUGGESTIVE OF OLD INFERIOR WALL ND. 6. LEFT-SIDED WEAKNESS, WHICH IS VERY MILD BY EARLIER EXAM, BUT NOT EXAMINED TODAY SINCE THE PATIENT IS SEDATED AND INTUBATED. 7. HYPERTENSION. BLOOD PRESSURE STABLE, BUT THERE SEEMS TO BE NO FURTHER DROPS IN BLOOD PRESSURE. BLOOD PRESSURE IS NORMAL MID 100 SYSTOLIC LEVELS. 8. HYPOVOLEMIA BEING CORRECTED. 9. DIABETES MELLITUS TYPE 2 WITH NO COMPLICATIONS. 10. HYPERLIPIDEMIA. 11. DYSPHAGIA. RECOMMENDATIONS: Continue antibiotics. Continue the patient getting lipids intravenously. Continue that. Continue parental nutrition. Continue antibiotics. Continue IV fluids. Would recommend pulling back the right interventional catheter a few cm to avoid taking the right atrium and causing SVT with wide complex. Discussed with the patient, discussed with the hospitalist taking care of the patient and also with Dr. Garcia, attending physician. Note: Thirty minutes spent on this patient with more than 50% of the time spent on direct patient care. Note that the patient is not on any inotropics. Will follow with you. DICTATING PHYSICIAN: FREDDY ALEXIS M.D. [id number] PHY#: [id number] ID: [id number] JOB#: [id number] ACCT: [id number] cc: > [facility]
[2016-09-05] MEDS: INSULIN REG, HUMAN 100 UNIT/ML 3 ML VIAL (PYX) SUBCUT PRN (23:20)
[2016-09-06] MEDS ORDERED: POTASSIUM CHLORIDE 20 MEQ/50 ML RTU IV ONE (00:30)
[2016-09-06] MEDS: MIDAZOLAM HCL 100 ML IV PRN ×2 (00:56→06:56)
[2016-09-06] MEDS: METRONIDAZOLE 500 MG/NS RTU 100 ML IV SCH ×4 (05:06→23:41)
[2016-09-06] MEDS: VANCOMYCIN HCL 1,000 MG in DEXTROSE 5%-WATER 250 ML IV SCH ×3 (05:07→21:58)
[2016-09-06 05:40] LABS: HEMATOCRIT 27.6 % (37.9-51.0); HGB HCT DIFFERENCE -0.6; MEAN CORPUSCULAR HEMOGLOBIN 24.4 pg (27.0-33.4); MEAN CORPUSCULAR HGB CONC 32.7 g/dL (32.0-36.0); MEAN CORPUSCULAR VOLUME 75 fl (80-97); WHITE BLOOD COUNT 10.4 10^3/uL (4.0-10.5)
[2016-09-06 05:41] LABS: ARTERIAL BLOOD O2 SATURATION 90.8 % (94-98)
[2016-09-06 05:54] LABS: ALANINE AMINOTRANSFERASE 25 U/L (21-72); ALBUMIN 1.9 g/dL (3.5-5.0); ALKALINE PHOSPHATASE 61 U/L (38-126); ANION GAP 8 (5-19); ASPARTATE AMINO TRANSFERASE 32 U/L (17-59); BILIRUBIN,DIRECT 0.1 mg/dL (0.0-0.3); BILIRUBIN,TOTAL 2.1 mg/dL (0.2-1.3); BLOOD UREA NITROGEN 12 mg/dL (7-20); CARBON DIOXIDE 26 mmol/L (22-30); CHLORIDE 108 mmol/L (98-107); GLUCOSE 247 mg/dL (75-110); MAGNESIUM 2.1 mg/dL (1.6-2.3); PHOSPHORUS 1.8 mg/dL (2.5-4.5); POTASSIUM 3.3 mmol/L (3.6-5.0); SODIUM 142.3 mmol/L (137-145); TOTAL PROTEIN 4.1 g/dL (6.3-8.2)
[2016-09-06 06:02] LABS: PREALBUMIN < 3.0 mg/dL (17.6-36.0)
--- NOTE | 2016-09-06 08:46 | PDOC PROGRESS REPORT ---
Subjective Progress Note for:: 09/06/16 Subjective:: Intubated and sedated. Physical Exam Vital Signs: Temp Pulse Resp BP Pulse Ox 98.1 F 86 26 H 103/59 L 92 09/06/16 07:40 09/06/16 08:00 09/06/16 07:40 09/06/16 07:40 09/06/16 07:40 Intake & Output 09/05/16 09/06/16 09/07/16 06:59 06:59 06:59 Intake Total 4978 3538 Output Total 3215 4565 275 Balance 1763 -1027 -275 Weight 102.8 kg 101.5 kg General appearance: PRESENT: no acute distress Respiratory exam: PRESENT: rhonchi Cardiovascular exam: PRESENT: RRR GI/Abdominal exam: PRESENT: other - Soft, less distended, ostomies the congested but viable. Liquid and air output via the right-sided the transverse colostomy. Wounds clean dry and intact. G-tube functioning well. Results Laboratory Results: 09/06/16 05:20 09/06/16 05:20 09/05/16 09/05/16 09/06/16 04:17 22:15 05:20 WBC RBC Hgb Hct MCV MCH MCHC RDW Plt Count Carbonic Acid 1.21 HCO3/H2CO3 Ratio 22:1 ABG pH 7.45 ABG pCO2 40.3 ABG pO2 56.8 L ABG HCO3 27.2 H ABG O2 Saturation 90.8 L ABG Base Excess 3.0 FiO2 55% Sodium Potassium 3.4 L Chloride Carbon Dioxide Anion Gap BUN Creatinine Est GFR ( Amer) Est GFR (Non-Af Amer) Glucose Calcium Phosphorus Magnesium 1.9 2.1 Total Bilirubin AST ALT Alkaline Phosphatase Total Protein Albumin Prealbumin < 3.0 L 09/06/16 09/06/16 05:20 05:20 WBC 10.4 RBC 3.70 L Hgb 9.0 L Hct 27.6 L MCV 75 L MCH 24.4 L MCHC 32.7 RDW 18.0 H Plt Count 336 Carbonic Acid HCO3/H2CO3 Ratio ABG pH ABG pCO2 ABG pO2 ABG HCO3 ABG O2 Saturation ABG Base Excess FiO2 Sodium 142.3 Potassium 3.3 L Chloride 108 H Carbon Dioxide 26 Anion Gap 8 BUN 12 Creatinine 0.90 Est GFR ( Amer) > 60 Est GFR (Non-Af Amer) > 60 Glucose 247 H Calcium 7.0 L* Phosphorus 1.8 L Magnesium 2.1 Total Bilirubin 2.1 H AST 32 ALT 25 Alkaline Phosphatase 61 Total Protein 4.1 L Albumin 1.9 L Prealbumin < 3.0 L 09/03/16 09/03/16 09/04/16 16:15 16:15 07:00 Creatine Kinase 39 L CK-MB (CK-2) 0.33 Troponin I < 0.012 < 0.012 09/05/16 04:17 Creatine Kinase CK-MB (CK-2) Troponin I 0.013 Impressions: Guidance Fluoroscopy 09/03/16 00:00 IMPRESSION: SUCCESSFUL PLACEMENT OF A 5 FR DUAL LUMEN 41 CM PICC IN THE left basilic VEIN. Interventional Vascular Procedure 09/03/16 00:00 IMPRESSION: SUCCESSFUL PLACEMENT OF A 5 FR DUAL LUMEN 41 CM PICC IN THE left basilic VEIN. PICC Line Insertion 09/03/16 00:00 IMPRESSION: SUCCESSFUL PLACEMENT OF A 5 FR DUAL LUMEN 41 CM PICC IN THE left basilic VEIN. Abdomen/Pelvis CT 09/03/16 07:00 IMPRESSION: Probable ileus Small amount of fluid at the level of the colon anastomosis near the splenic flexure without well-circumscribed abscess. No extraluminal air. Findings discussed with Dr. Iván THORNE X-Ray 09/05/16 00:00 IMPRESSION: Patent gastrostomy. Chest X-Ray 09/06/16 06:00 IMPRESSION: No significant interval change. PICC line as noted above. Other findings as noted above Assessment & Plan - Diagnosis (1) Colonic mass Is this a current diagnosis for this admission?: Yes (2) Ileus, postoperative Is this a current diagnosis for this admission?: YesPlan: with cecal ischemia due to distension. s/p xlap, decompression and end tx colostomy and mucous fistula and gtube. Abdomen looks better. However patient had a fever and decreased oxygenation and has rhonchi on exam today. Main problem appears to be pulmonary at this point. Defer to pulmonary medicine for management. Continue supportive care and TPN. May consider trickle tube feeds in the next couple days.
[2016-09-06] MEDS ORDERED: ENOXAPARIN SODIUM INJ 30 MG/0.3 ML DISP.SYRIN SUBCUT ONE (09:45)
--- NOTE | 2016-09-06 09:50 | PDOC PROGRESS REPORT ---
Subjective Progress Note for:: 09/06/16 Subjective:: Patient did have a negative balance urine output. No reported respiratory distress or temperature spikes. Has good bowel sounds. Patient has a central line and PICC line. However the PICC line reportedly not functioning. Started on TPN. Trial of small feedings would be attempted. Patient with a gastrostomy tube. Physical Exam Vital Signs: Temp Pulse Resp BP Pulse Ox 98.1 F 86 26 H 103/59 L 92 09/06/16 07:40 09/06/16 08:00 09/06/16 07:40 09/06/16 07:40 09/06/16 07:40 Intake & Output 09/05/16 09/06/16 09/07/16 06:59 06:59 06:59 Intake Total 4978 3538 Output Total 3215 4565 275 Balance 1763 -1027 -275 Weight 102.8 kg 101.5 kg General appearance: PRESENT: no acute distress, obese, other - Intubated and sedated Head exam: PRESENT: normocephalic Eye exam: PRESENT: EOMI Ear exam: PRESENT: normal external ear exam. ABSENT: drainage Mouth exam: PRESENT: moist, neck supple Neck exam: ABSENT: JVD Respiratory exam: PRESENT: clear to auscultation shelly Cardiovascular exam: PRESENT: irregular rhythm. ABSENT: gallop GI/Abdominal exam: PRESENT: hypoactive bowel sounds, soft. ABSENT: distended Extremities exam: ABSENT: pedal edema Skin exam: PRESENT: dry, warm. ABSENT: cyanosis Results Laboratory Results: 09/06/16 05:20 09/06/16 05:20 09/05/16 09/05/16 09/06/16 04:17 22:15 05:20 WBC RBC Hgb Hct MCV MCH MCHC RDW Plt Count Carbonic Acid 1.21 HCO3/H2CO3 Ratio 22:1 ABG pH 7.45 ABG pCO2 40.3 ABG pO2 56.8 L ABG HCO3 27.2 H ABG O2 Saturation 90.8 L ABG Base Excess 3.0 FiO2 55% Sodium Potassium 3.4 L Chloride Carbon Dioxide Anion Gap BUN Creatinine Est GFR ( Amer) Est GFR (Non-Af Amer) Glucose Calcium Phosphorus Magnesium 1.9 2.1 Total Bilirubin AST ALT Alkaline Phosphatase Total Protein Albumin Prealbumin < 3.0 L 09/06/16 09/06/16 05:20 05:20 WBC 10.4 RBC 3.70 L Hgb 9.0 L Hct 27.6 L MCV 75 L MCH 24.4 L MCHC 32.7 RDW 18.0 H Plt Count 336 Carbonic Acid HCO3/H2CO3 Ratio ABG pH ABG pCO2 ABG pO2 ABG HCO3 ABG O2 Saturation ABG Base Excess FiO2 Sodium 142.3 Potassium 3.3 L Chloride 108 H Carbon Dioxide 26 Anion Gap 8 BUN 12 Creatinine 0.90 Est GFR ( Amer) > 60 Est GFR (Non-Af Amer) > 60 Glucose 247 H Calcium 7.0 L* Phosphorus 1.8 L Magnesium 2.1 Total Bilirubin 2.1 H AST 32 ALT 25 Alkaline Phosphatase 61 Total Protein 4.1 L Albumin 1.9 L Prealbumin < 3.0 L 09/04/16 11:20 Tracheal Aspirate Gram Stain - Final 09/04/16 11:20 Tracheal Aspirate Sputum Culture - Final NO GROWTH 2 DAYS 09/03/16 09/03/16 09/04/16 16:15 16:15 07:00 Creatine Kinase 39 L CK-MB (CK-2) 0.33 Troponin I < 0.012 < 0.012 09/05/16 04:17 Creatine Kinase CK-MB (CK-2) Troponin I 0.013 Impressions: Guidance Fluoroscopy 09/03/16 00:00 IMPRESSION: SUCCESSFUL PLACEMENT OF A 5 FR DUAL LUMEN 41 CM PICC IN THE left basilic VEIN. Interventional Vascular Procedure 09/03/16 00:00 IMPRESSION: SUCCESSFUL PLACEMENT OF A 5 FR DUAL LUMEN 41 CM PICC IN THE left basilic VEIN. PICC Line Insertion 09/03/16 00:00 IMPRESSION: SUCCESSFUL PLACEMENT OF A 5 FR DUAL LUMEN 41 CM PICC IN THE left basilic VEIN. Abdomen/Pelvis CT 09/03/16 07:00 IMPRESSION: Probable ileus Small amount of fluid at the level of the colon anastomosis near the splenic flexure without well-circumscribed abscess. No extraluminal air. Findings discussed with Dr. Iván THORNE X-Ray 09/05/16 00:00 IMPRESSION: Patent gastrostomy. Chest X-Ray 09/06/16 06:00 IMPRESSION: No significant interval change. PICC line as noted above. Other findings as noted above Assessment & Plan - Diagnosis (1) Paralytic ileus Is this a current diagnosis for this admission?: Yes (2) Acute respiratory failure with hypoxemia Is this a current diagnosis for this admission?: Yes (3) Leukocytosis Qualifiers: Leukocytosis type: other Qualified Code(s): D72.828 - Other elevated white blood cell count Is this a current diagnosis for this admission?: Yes (4) Ventricular tachycardia Is this a current diagnosis for this admission?: Yes (5) Anemia, blood loss Is this a current diagnosis for this admission?: Yes (6) Hyperkalemia Is this a current diagnosis for this admission?: Yes (7) Hypocalcemia Is this a current diagnosis for this admission?: Yes (8) Hypoalbuminemia Is this a current diagnosis for this admission?: Yes (9) Colonic mass Is this a current diagnosis for this admission?: Yes (10) Coronary artery disease Qualifiers: Coronary Disease-Associated Artery/Lesion type: [place] artery [place] vs. transplanted heart: [place] heart Associated angina: angina presence unspecified Qualified Code(s): I25.10 - Atherosclerotic heart disease of [place] coronary artery without angina pectoris Is this a current diagnosis for this admission?: Yes (11) Hyperlipidemia Qualifiers: Hyperlipidemia type: other hyperlipidemia Qualified Code(s): E78.4 - Other hyperlipidemia Is this a current diagnosis for this admission?: Yes (12) Hypertension Qualifiers: Hypertension type: essential hypertension Qualified Code(s): I10 - Essential (primary) hypertension Is this a current diagnosis for this admission?: Yes (13) Panlobular emphysema Is this a current diagnosis for this admission?: Yes (14) Type 2 diabetes mellitus without complications Qualifiers: Diabetes mellitus [place] insulin use: without extermination inspector use Qualified Code(s): E11.9 - Type 2 diabetes mellitus without complications Is this a current diagnosis for this admission?: Yes - Time Time Spent with patient: 25-34 minutes - Plan Summary Plan Summary: Continue antibiotics. Continue TPN. Discontinue PICC line. Monitor electrolytes and replace accordingly. We will resume potassium phosphate this time. No more reported ventricular tachyarrhythmia since triple lumen is been adjusted. Continue current diuretics. Continue supportive care.
[2016-09-06] MEDS ORDERED: CLONIDINE 0.2 MG/24 HR PATCH.TDWK TD SCH (10:00)
[2016-09-06] MEDS: FUROSEMIDE INJ/PF 20 MG/2 ML SDV IV SCH ×2 (10:40→23:25)
[2016-09-06] MEDS: LEVOFLOXACIN 500 MG/D5W RTU 100 ML IV SCH (10:40)
[2016-09-06] MEDS ORDERED: POTASSIUM PHOS,M-BASIC-D-BASIC 30 MMOL in NORMAL SALINE 500 ML IV ONE (11:00)
[2016-09-06] MEDS: INSULIN REG, HUMAN 100 UNIT/ML 3 ML VIAL (PYX) SUBCUT PRN ×2 (12:16→18:22)
[2016-09-06] MEDS: AMINO ACIDS 5%/D25W 1,000 ML IV PRN (18:56)
--- NOTE | 2016-09-06 19:17 | PDOC PROGRESS REPORT ---
Subjective Progress Note for:: 09/06/16 Subjective:: intubated sedated Physical Exam Vital Signs: Temp Pulse Resp BP Pulse Ox 98.5 F 98 30 H 107/60 96 09/06/16 18:00 09/06/16 18:00 09/06/16 18:00 09/06/16 18:00 09/06/16 18:00 Intake & Output 09/05/16 09/06/16 09/07/16 06:59 06:59 06:59 Intake Total 4971 3538 1346 Output Total 3215 5806 2950 Balance 1763 1027 -1608 Weight 102.8 kg 101.5 kg General appearance: PRESENT: no acute distress Respiratory exam: PRESENT: rhonchi - but better breath sounds at bases. more clear vs this am. Cardiovascular exam: PRESENT: RRR GI/Abdominal exam: PRESENT: other - soft, mildly distended, ostomy viable. liquid and air output. non exudative output. Results Laboratory Results: 09/06/16 05:20 09/06/16 05:20 09/05/16 09/06/16 09/06/16 22:15 05:20 05:20 WBC 10.4 RBC 3.70 L Hgb 9.0 L Hct 27.6 L MCV 75 L MCH 24.4 L MCHC 32.7 RDW 18.0 H Plt Count 336 Carbonic Acid 1.21 HCO3/H2CO3 Ratio 22:1 ABG pH 7.45 ABG pCO2 40.3 ABG pO2 56.8 L ABG HCO3 27.2 H ABG O2 Saturation 90.8 L ABG Base Excess 3.0 FiO2 55% Sodium Potassium 3.4 L Chloride Carbon Dioxide Anion Gap BUN Creatinine Est GFR ( Amer) Est GFR (Non-Af Amer) Glucose Calcium Phosphorus Magnesium 2.1 Total Bilirubin AST ALT Alkaline Phosphatase Total Protein Albumin Prealbumin 09/06/16 05:20 WBC RBC Hgb Hct MCV MCH MCHC RDW Plt Count Carbonic Acid HCO3/H2CO3 Ratio ABG pH ABG pCO2 ABG pO2 ABG HCO3 ABG O2 Saturation ABG Base Excess FiO2 Sodium 142.3 Potassium 3.3 L Chloride 108 H Carbon Dioxide 26 Anion Gap 8 BUN 12 Creatinine 0.90 Est GFR ( Amer) > 60 Est GFR (Non-Af Amer) > 60 Glucose 247 H Calcium 7.0 L* Phosphorus 1.8 L Magnesium 2.1 Total Bilirubin 2.1 H AST 32 ALT 25 Alkaline Phosphatase 61 Total Protein 4.1 L Albumin 1.9 L Prealbumin < 3.0 L 09/04/16 11:20 Miranda Catheter Urine Culture - Final NO GROWTH 2 DAYS 09/04/16 11:20 Tracheal Aspirate Gram Stain - Final 09/04/16 11:20 Tracheal Aspirate Sputum Culture - Final NO GROWTH 2 DAYS 09/03/16 09/03/16 09/04/16 16:15 16:15 07:00 Creatine Kinase 39 L CK-MB (CK-2) 0.33 Troponin I < 0.012 < 0.012 09/05/16 04:17 Creatine Kinase CK-MB (CK-2) Troponin I 0.013 Impressions: Guidance Fluoroscopy 09/03/16 00:00 IMPRESSION: SUCCESSFUL PLACEMENT OF A 5 FR DUAL LUMEN 41 CM PICC IN THE left basilic VEIN. Interventional Vascular Procedure 09/03/16 00:00 IMPRESSION: SUCCESSFUL PLACEMENT OF A 5 FR DUAL LUMEN 41 CM PICC IN THE left basilic VEIN. PICC Line Insertion 09/03/16 00:00 IMPRESSION: SUCCESSFUL PLACEMENT OF A 5 FR DUAL LUMEN 41 CM PICC IN THE left basilic VEIN. Abdomen/Pelvis CT 09/03/16 07:00 IMPRESSION: Probable ileus Small amount of fluid at the level of the colon anastomosis near the splenic flexure without well-circumscribed abscess. No extraluminal air. Findings discussed with Dr. Iván THORNE X-Ray 09/05/16 00:00 IMPRESSION: Patent gastrostomy. Chest X-Ray 09/06/16 06:00 IMPRESSION: No significant interval change. PICC line as noted above. Other findings as noted above Assessment & Plan - Diagnosis (1) Colonic mass Is this a current diagnosis for this admission?: Yes (2) Ileus, postoperative Is this a current diagnosis for this admission?: YesPlan: with cecal ischemia due to distension. s/p xlap, decompression and end tx colostomy and mucous fistula and gtube. abdominal exam continues to improve. oxygenation and pulmonary exam improved. diuresing well. encouraging progress.
[2016-09-06 20:07] LABS: ARTERIAL BLOOD BASE EXCESS 1.4 mmol/L; ARTERIAL BLOOD O2 SATURATION 95.3 % (94-98)
[2016-09-06 21:42] LABS: ANION GAP 9 (5-19); BLOOD UREA NITROGEN 12 mg/dL (7-20); CALCIUM 7.3 mg/dL (8.4-10.2); CARBON DIOXIDE 28 mmol/L (22-30); CHLORIDE 105 mmol/L (98-107); CREATININE RESULT 0.86 mg/dL (0.52-1.25); GLUCOSE 289 mg/dL (75-110); POTASSIUM 3.3 mmol/L (3.6-5.0); SODIUM 142.3 mmol/L (137-145)
[2016-09-06] MEDS: ACETAMINOPHEN 650 MG SUPP.RECT PR PRN (21:57)
[2016-09-06] MEDS ORDERED: POTASSI CL 20 MEQ/50 ML RIDER 40 MEQ/100 ML RTUPB IV ONE (22:20)
[2016-09-06 22:54] LABS: ADD ON TESTING BLD IN LAB ACKNOWLEDGE
[2016-09-06] MEDS ORDERED: AMIODARONE HCL INJ 150 MG/3 ML VIAL IV ONE (22:58)
[2016-09-06 23:04] LABS: MAGNESIUM 1.9 mg/dL (1.6-2.3)
[2016-09-06] MEDS ORDERED: AMIODARONE HCL INJ 150 MG/3 ML VIAL IV PRN ×2 (23:04→23:05)
[2016-09-06] MEDS ORDERED: AMIODARONE HCL 150 MG in DEXTROSE 5%-WATER 100 ML IV ONE (23:15)
--- NOTE | 2016-09-06 23:18 | PROGRESS NOTE E ---
Progress Note NAME: AMI YOUSIF : 1950 AGE: 66Y DATE: 09/06/2016 ROOM: 607 SUBJECTIVE: Note that the patient's right triple lumen catheter was pulled back a little, but since then there has been no wide complex tachycardia. The patient is intubated and sedated. He is not on any antihypertensive agents and he is not on any pressor agents. There are no further arrhythmias seen. He remains in sinus rhythm. He is intubated and sedated. OBJECTIVE: VITAL SIGNS: On examination, the patient is afebrile with a temperature of 97.3 degrees Fahrenheit, pulse is 91 beats per minute, blood pressure is 115/65, respirations are 22 per minute. O2 sats are 93% on a mechanical ventilator with a FiO2 of 50%. HEENT: Head is atraumatic, normocephalic. Eyes: Pupils are equal, round, regular, and reactive to light. ENT is negative. NECK: Supple. There is no JVD. Carotids are equal. There is no bruit. LUNGS: Clear to auscultation and percussion. HEART: S1 and S2 are heard. There is no S3 gallop. There is no S4 gallop. There is systolic murmur in the left sternal border and the apex. There is no rub. ABDOMEN: Soft, nontender, but the patient is sedated. The dressing is dry. There is no hepatosplenomegaly. The patient has a gastrostomy tube which is draining. It seems to be in position. EXTREMITIES: Femorals are diminished. Leg pulses are diminished. There is no pedal edema. There is no DVT or cellulitis. There is no cyanosis or clubbing. CENTRAL NERVOUS SYSTEM: Not examined. PSYCHIATRIC: Not examined. DIAGNOSTIC DATA: The patient's 24-hour intake is 3538 mL and output is 4565 mL. The patient does have minimal residual bibasilar densities identified; otherwise, there is no congestive heart failure. The patient's white count is 10,400, hemoglobin is 9, hematocrit is 27.6, platelet count is 336,000. The patient's sodium is 142.3, potassium is 3.3, chloride is 105, CO2 is 28, the patient's BUN is 12, creatinine 0.86, GFR is greater than 60, and the patient's glucose is 289. The patient's calcium is 7.3 The patient's ABG showed pH 7.49, PCO2 33.1, PO2 69.5 and platelet count is 95.3% on FiO2 of 50%. IMPRESSION: 1. STATUS POST SURGERY, REEXPLORATION AND NO EVIDENCE OF THREE BEING ANY ACUTE ABDOMINAL PROCESS EXCEPT FOR ILEUS. 2. STATUS POST GASTROSTOMY TUBE PLACEMENT. 3. NO FURTHER RECURRENCE OF WIDE COMPLEX TACHYCARDIA AFTER RIGHT INTERNAL JUGULAR CATHETER WAS PULLED BACK. 4. CORONARY ARTERY DISEASE, HISTORY OF OLD INFERIOR MD IN THE PAST WITH NO EVIDENCE OF MD THIS ADMISSION. 5. ABNORMAL EKG SUGGESTIVE OF OLD INFERIOR MD. 6. LEFT-SIDED WEAKNESS, WHICH IS VERY MILD BY EARLIER EXAM, BUT NOT EXAMINED TODAY SINCE THE PATIENT IS INTUBATED AND SEDATED. 7. HYPERTENSION. Blood pressure stable. 8. HYPOKALEMIA, BEING CORRECTED. 9. HYPOVOLEMIA. Seems to have been corrected. 10. DIABETES MELLITUS TYPE 2 WITH NO COMPLICATIONS. 11. HYPERLIPIDEMIA. 12. DYSPHAGIA. RECOMMENDATIONS: Continue ventilator support. Continue antibiotics. Continue parental nutrition. Continue current medications. Continue IV fluids. Once the patient starts taking by mouth or patient started on gastrostomy tube feedings, then we will start the patient on beta-nic. At present, the patient remains stable. Will follow with you. DICTATING PHYSICIAN: FREDDY ALEXIS M.D. [id number] ELZBIETA#: [id number] ID: [id number] JOB#: [id number] ACCT: [id number] cc: >
[2016-09-06] MEDS: DEXTROSE 5%-WATER 500 ML with AMIODARONE HCL 900 MG IV PRN ×2 (23:28)
[2016-09-06] MEDS: POTASSI CL 20 MEQ/50 ML RIDER 20 MEQ/50 ML RTUPB IV SCH ×2 (23:36→23:39)
[2016-09-07 03:33] LABS: ANION GAP 9 (5-19); BLOOD UREA NITROGEN 12 mg/dL (7-20); CARBON DIOXIDE 26 mmol/L (22-30); CHLORIDE 106 mmol/L (98-107); CREATININE RESULT 0.83 mg/dL (0.52-1.25); GLUCOSE 351 mg/dL (75-110); POTASSIUM 3.4 mmol/L (3.6-5.0); SODIUM 140.9 mmol/L (137-145)
[2016-09-07 04:36] LABS: ADD ON TESTING BLD IN LAB ACKNOWLEDGE
[2016-09-07 04:39] LABS: HEMOGLOBIN 9.1 g/dL (13.5-17.0); HGB HCT DIFFERENCE -1.7; MEAN CORPUSCULAR HEMOGLOBIN 23.4 pg (27.0-33.4); MEAN CORPUSCULAR HGB CONC 31.3 g/dL (32.0-36.0); MEAN CORPUSCULAR VOLUME 75 fl (80-97); RED BLOOD COUNT 3.88 10^6/uL (4.35-5.55); RED CELL DISTRIBUTION WIDTH 18.1 % (11.5-14.0); WHITE BLOOD COUNT 11.5 10^3/uL (4.0-10.5)
[2016-09-07 04:43] LABS: ALBUMIN 1.8 g/dL (3.5-5.0)
[2016-09-07] MEDS: POTASSI CL 20 MEQ/50 ML RIDER 20 MEQ/50 ML RTUPB IV SCH ×5 (04:43→19:16)
[2016-09-07 04:54] LABS: ALANINE AMINOTRANSFERASE 24 U/L (21-72); ALBUMIN 1.9 g/dL (3.5-5.0); ALKALINE PHOSPHATASE 62 U/L (38-126); ANION GAP 8 (5-19); ASPARTATE AMINO TRANSFERASE 26 U/L (17-59); BILIRUBIN,TOTAL 1.1 mg/dL (0.2-1.3); BLOOD UREA NITROGEN 13 mg/dL (7-20); CALCIUM 7.3 mg/dL (8.4-10.2); CARBON DIOXIDE 28 mmol/L (22-30); CHLORIDE 106 mmol/L (98-107); CREATININE RESULT 0.85 mg/dL (0.52-1.25); GLUCOSE 355 mg/dL (75-110); MAGNESIUM 2.1 mg/dL (1.6-2.3); PHOSPHORUS 2.8 mg/dL (2.5-4.5); POTASSIUM 3.4 mmol/L (3.6-5.0); SODIUM 141.7 mmol/L (137-145); TOTAL PROTEIN 4.3 g/dL (6.3-8.2)
[2016-09-07 05:10] LABS: PREALBUMIN < 3.0 mg/dL (17.6-36.0)
[2016-09-07] MEDS: METRONIDAZOLE 500 MG/NS RTU 100 ML IV SCH ×4 (05:10→23:30)
[2016-09-07] MEDS: VANCOMYCIN HCL 1,000 MG in DEXTROSE 5%-WATER 250 ML IV SCH ×3 (05:11→21:49)
[2016-09-07 06:34] LABS: ARTERIAL BLOOD BASE EXCESS 1.6 mmol/L; ARTERIAL BLOOD O2 SATURATION 94.7 % (94-98)
--- NOTE | 2016-09-07 08:05 | PDOC PROGRESS REPORT ---
Subjective Progress Note for:: 09/07/16 Subjective:: Patient reportedly developed ventricular tachycardia again and amiodarone drip as to be started. Remained on ventilator and TPN. Surgical service has approved to start trickle NG tube feedings. Dietary recommended 2calHN. No reported temperature spikes, respiratory distress. Good bowel sounds. Off main IV fluid. Physical Exam Vital Signs: Temp Pulse Resp BP Pulse Ox 98.3 F 100 24 H 100/65 95 09/07/16 05:13 09/06/16 20:00 09/07/16 06:48 09/07/16 06:48 09/07/16 06:48 Intake & Output 09/06/16 09/07/16 09/08/16 06:59 06:59 07:59 Intake Total 3538 2837 Output Total 4568 6978 Balance -1027 -6375 Weight 101.5 kg 100.5 kg General appearance: PRESENT: no acute distress, other - Intubated and sedated Head exam: PRESENT: normocephalic Eye exam: PRESENT: conjunctiva pale Mouth exam: PRESENT: moist, neck supple Neck exam: ABSENT: JVD Respiratory exam: PRESENT: rhonchi - occasional Cardiovascular exam: PRESENT: RRR. ABSENT: gallop GI/Abdominal exam: PRESENT: normal bowel sounds, soft Extremities exam: ABSENT: pedal edema Skin exam: PRESENT: dry, warm. ABSENT: cyanosis Results Laboratory Results: 09/07/16 04:30 09/07/16 04:30 09/06/16 09/06/16 09/06/16 20:00 21:05 21:05 WBC RBC Hgb Hct MCV MCH MCHC RDW Plt Count Carbonic Acid 1.00 L HCO3/H2CO3 Ratio 24:1 ABG pH 7.49 H ABG pCO2 33.1 L ABG pO2 69.5 L ABG HCO3 24.5 ABG O2 Saturation 95.3 ABG Base Excess 1.4 FiO2 50% Sodium 142.3 Potassium 3.3 L Chloride 105 Carbon Dioxide 28 Anion Gap 9 BUN 12 Creatinine 0.86 Est GFR ( Amer) > 60 Est GFR (Non-Af Amer) > 60 Glucose 289 H Calcium 7.3 L Phosphorus Magnesium 1.9 Total Bilirubin AST ALT Alkaline Phosphatase Total Protein Albumin Prealbumin 09/07/16 09/07/16 09/07/16 03:05 03:05 04:30 WBC 11.5 H RBC 3.88 L Hgb 9.1 L Hct 29.0 L MCV 75 L MCH 23.4 L MCHC 31.3 L RDW 18.1 H Plt Count 326 Carbonic Acid HCO3/H2CO3 Ratio ABG pH ABG pCO2 ABG pO2 ABG HCO3 ABG O2 Saturation ABG Base Excess FiO2 Sodium 140.9 Cancelled Potassium 3.4 L Cancelled Chloride 106 Cancelled Carbon Dioxide 26 Cancelled Anion Gap 9 Cancelled BUN 12 Cancelled Creatinine 0.83 Cancelled Est GFR ( Amer) > 60 Cancelled Est GFR (Non-Af Amer) > 60 Cancelled Glucose 351 H Cancelled Calcium 7.0 L* Cancelled Phosphorus Magnesium Total Bilirubin AST ALT Alkaline Phosphatase Total Protein Albumin 1.8 L Prealbumin 09/07/16 09/07/16 04:30 06:05 WBC RBC Hgb Hct MCV MCH MCHC RDW Plt Count Carbonic Acid 1.23 HCO3/H2CO3 Ratio 21:1 ABG pH 7.42 ABG pCO2 41.0 ABG pO2 71.4 L ABG HCO3 26.2 H ABG O2 Saturation 94.7 ABG Base Excess 1.6 FiO2 45% Sodium 141.7 Potassium 3.4 L Chloride 106 Carbon Dioxide 28 Anion Gap 8 BUN 13 Creatinine 0.85 Est GFR ( Amer) > 60 Est GFR (Non-Af Amer) > 60 Glucose 355 H Calcium 7.3 L Phosphorus 2.8 Magnesium 2.1 Total Bilirubin 1.1 AST 26 ALT 24 Alkaline Phosphatase 62 Total Protein 4.3 L Albumin 1.9 L Prealbumin < 3.0 L 09/04/16 11:20 Miranda Catheter Urine Culture - Final NO GROWTH 2 DAYS 09/04/16 11:20 Tracheal Aspirate Gram Stain - Final 09/04/16 11:20 Tracheal Aspirate Sputum Culture - Final NO GROWTH 2 DAYS 09/03/16 09/03/16 09/04/16 16:15 16:15 07:00 Creatine Kinase 39 L CK-MB (CK-2) 0.33 Troponin I < 0.012 < 0.012 09/05/16 04:17 Creatine Kinase CK-MB (CK-2) Troponin I 0.013 Impressions: Guidance Fluoroscopy 09/03/16 00:00 IMPRESSION: SUCCESSFUL PLACEMENT OF A 5 FR DUAL LUMEN 41 CM PICC IN THE left basilic VEIN. Interventional Vascular Procedure 09/03/16 00:00 IMPRESSION: SUCCESSFUL PLACEMENT OF A 5 FR DUAL LUMEN 41 CM PICC IN THE left basilic VEIN. PICC Line Insertion 09/03/16 00:00 IMPRESSION: SUCCESSFUL PLACEMENT OF A 5 FR DUAL LUMEN 41 CM PICC IN THE left basilic VEIN. Abdomen/Pelvis CT 09/03/16 07:00 IMPRESSION: Probable ileus Small amount of fluid at the level of the colon anastomosis near the splenic flexure without well-circumscribed abscess. No extraluminal air. Findings discussed with Dr. Iván THORNE X-Ray 09/05/16 00:00 IMPRESSION: Patent gastrostomy. Chest X-Ray 09/07/16 06:00 IMPRESSION: 1. Support tubes and lines as above. Left arm PICC has been removed. 2. Stable appearance of the chest otherwise. Assessment & Plan - Diagnosis (1) Paralytic ileus Is this a current diagnosis for this admission?: Yes (2) Acute respiratory failure with hypoxemia Is this a current diagnosis for this admission?: Yes (3) Leukocytosis Qualifiers: Leukocytosis type: other Qualified Code(s): D72.828 - Other elevated white blood cell count Is this a current diagnosis for this admission?: Yes (4) Ventricular tachycardia Is this a current diagnosis for this admission?: Yes (5) Anemia, blood loss Is this a current diagnosis for this admission?: Yes (6) Hyperkalemia Is this a current diagnosis for this admission?: Yes (7) Hypocalcemia Is this a current diagnosis for this admission?: Yes (8) Hypoalbuminemia Is this a current diagnosis for this admission?: Yes (9) Colonic mass Is this a current diagnosis for this admission?: Yes (10) Coronary artery disease Qualifiers: Coronary Disease-Associated Artery/Lesion type: [place] artery [place] vs. transplanted heart: [place] heart Associated angina: angina presence unspecified Qualified Code(s): I25.10 - Atherosclerotic heart disease of [place] coronary artery without angina pectoris Is this a current diagnosis for this admission?: Yes (11) Hyperlipidemia Qualifiers: Hyperlipidemia type: other hyperlipidemia Qualified Code(s): E78.4 - Other hyperlipidemia Is this a current diagnosis for this admission?: Yes (12) Hypertension Qualifiers: Hypertension type: essential hypertension Qualified Code(s): I10 - Essential (primary) hypertension Is this a current diagnosis for this admission?: Yes (13) Panlobular emphysema Is this a current diagnosis for this admission?: Yes (14) Type 2 diabetes mellitus without complications Qualifiers: Diabetes mellitus keno terminal operator insulin use: without snf use Qualified Code(s): E11.9 - Type 2 diabetes mellitus without complications Is this a current diagnosis for this admission?: Yes - Time Time Spent with patient: 25-34 minutes - Plan Summary Plan Summary: Continue antibiotics, ventilator weaning per pulmonary service, begin gentle tube feedings as per nutrition's recommendation, monitor and replace electrolytes, follow chest x-ray. We will hold TPN once tube feedings started. Continue supportive care.
[2016-09-07] MEDS: ENOXAPARIN SODIUM INJ 30 MG/0.3 ML DISP.SYRIN SUBCUT SCH (09:38)
[2016-09-07] MEDS: FUROSEMIDE INJ/PF 20 MG/2 ML SDV IV SCH (09:38)
[2016-09-07] MEDS: LEVOFLOXACIN 500 MG/D5W RTU 100 ML IV SCH (09:38)
[2016-09-07] MEDS: INSULIN REG, HUMAN 100 UNIT/ML 3 ML VIAL (PYX) SUBCUT PRN ×3 (12:03→23:42)
--- NOTE | 2016-09-07 15:23 | PDOC PROGRESS REPORT ---
Subjective Progress Note for:: 09/07/16 Physical Exam Vital Signs: Temp Pulse Resp BP Pulse Ox 98.6 F 94 31 H 119/71 95 09/07/16 14:00 09/07/16 14:00 09/07/16 15:17 09/07/16 15:17 09/07/16 15:17 Intake & Output 09/06/16 09/07/16 09/08/16 06:59 06:59 07:59 Intake Total 2139 2832 Output Total 1528 4580 2830 Balance -1027 -1758 -2830 Weight 101.5 kg 100.5 kg GI/Abdominal exam: PRESENT: other - aBDOMEN soft non tender colostomy active Results Laboratory Results: 09/07/16 04:30 09/06/16 09/06/16 09/06/16 20:00 21:05 21:05 WBC RBC Hgb Hct MCV MCH MCHC RDW Plt Count Carbonic Acid 1.00 L HCO3/H2CO3 Ratio 24:1 ABG pH 7.49 H ABG pCO2 33.1 L ABG pO2 69.5 L ABG HCO3 24.5 ABG O2 Saturation 95.3 ABG Base Excess 1.4 FiO2 50% Sodium 142.3 Potassium 3.3 L Chloride 105 Carbon Dioxide 28 Anion Gap 9 BUN 12 Creatinine 0.86 Est GFR ( Amer) > 60 Est GFR (Non-Af Amer) > 60 Glucose 289 H Calcium 7.3 L Phosphorus Magnesium 1.9 Total Bilirubin AST ALT Alkaline Phosphatase Total Protein Albumin Prealbumin 09/07/16 09/07/16 09/07/16 03:05 03:05 04:30 WBC 11.5 H RBC 3.88 L Hgb 9.1 L Hct 29.0 L MCV 75 L MCH 23.4 L MCHC 31.3 L RDW 18.1 H Plt Count 326 Carbonic Acid HCO3/H2CO3 Ratio ABG pH ABG pCO2 ABG pO2 ABG HCO3 ABG O2 Saturation ABG Base Excess FiO2 Sodium 140.9 Cancelled Potassium 3.4 L Cancelled Chloride 106 Cancelled Carbon Dioxide 26 Cancelled Anion Gap 9 Cancelled BUN 12 Cancelled Creatinine 0.83 Cancelled Est GFR ( Amer) > 60 Cancelled Est GFR (Non-Af Amer) > 60 Cancelled Glucose 351 H Cancelled Calcium 7.0 L* Cancelled Phosphorus Magnesium Total Bilirubin AST ALT Alkaline Phosphatase Total Protein Albumin 1.8 L Prealbumin 09/07/16 09/07/16 04:30 06:05 WBC RBC Hgb Hct MCV MCH MCHC RDW Plt Count Carbonic Acid 1.23 HCO3/H2CO3 Ratio 21:1 ABG pH 7.42 ABG pCO2 41.0 ABG pO2 71.4 L ABG HCO3 26.2 H ABG O2 Saturation 94.7 ABG Base Excess 1.6 FiO2 45% Sodium 141.7 Potassium 3.4 L Chloride 106 Carbon Dioxide 28 Anion Gap 8 BUN 13 Creatinine 0.85 Est GFR ( Amer) > 60 Est GFR (Non-Af Amer) > 60 Glucose 355 H Calcium 7.3 L Phosphorus 2.8 Magnesium 2.1 Total Bilirubin 1.1 AST 26 ALT 24 Alkaline Phosphatase 62 Total Protein 4.3 L Albumin 1.9 L Prealbumin < 3.0 L 09/04/16 11:20 Miranda Catheter Urine Culture - Final NO GROWTH 2 DAYS 09/03/16 09/03/16 09/04/16 16:15 16:15 07:00 Creatine Kinase 39 L CK-MB (CK-2) 0.33 Troponin I < 0.012 < 0.012 09/05/16 04:17 Creatine Kinase CK-MB (CK-2) Troponin I 0.013 Impressions: Guidance Fluoroscopy 09/03/16 00:00 IMPRESSION: SUCCESSFUL PLACEMENT OF A 5 FR DUAL LUMEN 41 CM PICC IN THE left basilic VEIN. Interventional Vascular Procedure 09/03/16 00:00 IMPRESSION: SUCCESSFUL PLACEMENT OF A 5 FR DUAL LUMEN 41 CM PICC IN THE left basilic VEIN. PICC Line Insertion 09/03/16 00:00 IMPRESSION: SUCCESSFUL PLACEMENT OF A 5 FR DUAL LUMEN 41 CM PICC IN THE left basilic VEIN. Abdomen/Pelvis CT 09/03/16 07:00 IMPRESSION: Probable ileus Small amount of fluid at the level of the colon anastomosis near the splenic flexure without well-circumscribed abscess. No extraluminal air. Findings discussed with Dr. Iván THORNE X-Ray 09/05/16 00:00 IMPRESSION: Patent gastrostomy. Chest X-Ray 09/07/16 06:00 IMPRESSION: 1. Support tubes and lines as above. Left arm PICC has been removed. 2. Stable appearance of the chest otherwise. Assessment & Plan - Plan Summary Plan Summary: Vent care nutrition by feeding tube
[2016-09-07 15:51] LABS: ANION GAP 10 (5-19); BLOOD UREA NITROGEN 12 mg/dL (7-20); CALCIUM 7.4 mg/dL (8.4-10.2); CARBON DIOXIDE 26 mmol/L (22-30); CHLORIDE 104 mmol/L (98-107); CREATININE RESULT 0.77 mg/dL (0.52-1.25); GLUCOSE 379 mg/dL (75-110); POTASSIUM 3.8 mmol/L (3.6-5.0); SODIUM 139.6 mmol/L (137-145)
--- NOTE | 2016-09-07 20:12 | PDOC CONSULTATION ---
Consultation Consult Date: 09/04/16 Attending physician:: AIDE LARES Consult reason:: resp failure History of Present Illness Admission Date/PCP: 08/27/16 08:39 YOSEF DEL REAL MD History of Present Illness: all information from chart as patient intubated and sedated underwent multiple surgigal interventions for obstruction poor nutritional status patient very weakAYSHA YOUSIF is a 66 year old male, with history of coronary artery disease, history of prior myocardial infarction, history of coronary intervention, cerebrovascular accident, resident of assisted living, who was admitted to the pre-op unit for undergoing colon cancer surgery. Patient has a complicated cardiac history. He underwent a heart catheterization and stent placement with bare metal approximately 2-3 months ago. sign. Patient preop EKG shows sinus rhythm, abnormal Q waves in lead 3 and aVF suggestive of prior inferior myocardial infarction, but no acute ST-T wave changes noted. Past Medical History Cardiac Medical History: Reports: Myocardial Infarction - 1988, Hyperlipidema, Hypertension Denies: Atrial Fibrillation, Congestive Heart Failure, Coronary Artery Disease, Peripheral Vascular Disease, Heart Murmur Neurological Medical History: Denies: Seizures Endocrine Medical History: Reports: Diabetes Mellitus Type 2 Renal/ Medical History: Denies: End Stage Renal Disease GI Medical History: Reports: Gastroesophageal Reflux Disease - HX PEPCID Denies: Crohn's Disease, Hiatal Hernia Musculoskeltal Medical History: Denies: Arthritis, Fibromyalgia Psychiatric Medical History: Reports: Depression Denies: Dementia Past Surgical History Past Surgical History: Reports: Cardiac Catheterization, Coronary Stent, Tonsillectomy Denies: Appendectomy, Cholecystectomy, Colostomy, Coronary Artery Bypass Graft, Gastric Bypass Surgery, Herniorrhaphy, Pacemaker Social History Information Source: [facility] Records Smoking Status: Former Smoker Frequency of Alcohol Use: Rare Hx Recreational Drug Use: No Hx Prescription Drug Abuse: No - Advance Directive Resuscitation Status: Full Code Family History Family History: Reviewed & Not Pertinent Parental Family History Reviewed: No Children Family History Reviewed: No Sibling(s) Family History Reviewed.: No Medication/Allergy Home Medications: Amlodipine Besylate 2.5 mg PO DAILY 01/12/15 Atorvastatin Calcium 40 mg PO DAILY 01/12/15 Alfuzosin HCl [Alfuzosin HCl ER] 1 tab PO DAILY 08/20/16 Aspirin [Aspirin 81 mg Chewable Tablet] 1 tab PO DAILY 08/20/16 Carbidopa/Levodopa [Sinemet 25-100 mg Tablet] 1 tab PO TID 08/20/16 Finasteride [Proscar 5 mg Tablet] 1 tab PO DAILY 08/20/16 Metoprolol Succinate 25 mg PO DAILY 08/20/16 Ranitidine HCl [Zantac] 1 tab PO DAILY 08/20/16 Allergies/Adverse Reactions: No Known Allergies Allergy (Verified 08/20/16 08:55) Review of Systems ROS unobtainable: Due to endotracheal tube Physical Exam Vital Signs: Temp Pulse Resp BP Pulse Ox 99.3 F 95 19 96/67 L 94 09/04/16 08:00 09/04/16 08:00 09/04/16 08:00 09/04/16 08:00 09/04/16 08:00 Intake & Output 09/03/16 09/04/16 09/05/16 06:59 06:59 06:59 Intake Total 1080 3752 Output Total 770 1350 34 Balance 310 2402 -34 Weight 94.3 kg 99.7 kg General appearance: PRESENT: no acute distress, disheveled, thin, well-developed Head exam: PRESENT: normocephalic Eye exam: PRESENT: conjunctiva pale Mouth exam: PRESENT: dry mucosa, neck supple, other - ET tube in place Neck exam: ABSENT: carotid bruit, JVD, lymphadenopathy, thyromegaly Respiratory exam: PRESENT: decreased breath sounds, rales, rhonchi, symmetrical , unlabored Cardiovascular exam: PRESENT: RRR, +S1, +S2 Pulses: PRESENT: normal radial pulses GI/Abdominal exam: PRESENT: other - s/p surgery ostomy Rectal exam: PRESENT: deferred Gentrourinary exam: PRESENT: indwelling catheter Musculoskeletal exam: PRESENT: normal inspection Skin exam: PRESENT: dry, pallor Results Laboratory Results: 09/04/16 06:25 09/04/16 06:25 09/03/16 09/03/16 09/03/16 11:25 11:25 11:25 WBC 15.9 H RBC 4.30 L Hgb 10.2 L Hct 32.0 L MCV 74 L MCH 23.7 L MCHC 31.9 L RDW 18.3 H Plt Count 542 H Seg Neutrophils % 77.4 Lymphocytes % 9.4 L Monocytes % 10.4 Eosinophils % 2.7 Basophils % 0.1 Absolute Neutrophils 12.3 H Absolute Lymphocytes 1.5 Absolute Monocytes 1.7 H Absolute Eosinophils 0.4 Absolute Basophils 0.0 Sodium 140.1 Potassium 3.4 L Chloride 102 Carbon Dioxide 27 Anion Gap 11 BUN 9 Creatinine 0.73 Est GFR ( Amer) > 60 Est GFR (Non-Af Amer) > 60 Glucose 151 H Calcium 8.5 Phosphorus 3.0 Magnesium 1.8 Albumin Triglycerides Blood Type Antibody Screen 09/03/16 09/03/16 09/03/16 16:15 16:15 16:15 WBC RBC Hgb Hct MCV MCH MCHC RDW Plt Count Seg Neutrophils % Lymphocytes % Monocytes % Eosinophils % Basophils % Absolute Neutrophils Absolute Lymphocytes Absolute Monocytes Absolute Eosinophils Absolute Basophils Sodium Potassium 3.3 L Chloride Carbon Dioxide Anion Gap BUN Creatinine Est GFR ( Amer) Est GFR (Non-Af Amer) Glucose Calcium Phosphorus 3.2 Magnesium 1.7 Cancelled Albumin Triglycerides Blood Type O POSITIVE Antibody Screen NEGATIVE 09/03/16 09/03/16 09/04/16 23:05 23:05 00:58 WBC 11.5 H RBC 3.35 L Hgb 7.9 L D Hct 25.9 L MCV 77 L MCH 23.6 L MCHC 30.5 L RDW 17.6 H Plt Count 402 Seg Neutrophils % Lymphocytes % Monocytes % Eosinophils % Basophils % Absolute Neutrophils Absolute Lymphocytes Absolute Monocytes Absolute Eosinophils Absolute Basophils Sodium 141.7 Potassium 3.3 L Chloride 110 H Carbon Dioxide 20 L Anion Gap 12 BUN 8 Creatinine 0.68 Est GFR ( Amer) > 60 Est GFR (Non-Af Amer) > 60 Glucose 159 H Calcium 6.5 L* Phosphorus Magnesium 1.3 L Albumin 1.7 L Triglycerides Blood Type Antibody Screen 09/04/16 09/04/16 09/04/16 06:25 06:25 06:25 WBC 12.7 H RBC 3.94 L Hgb 9.7 L Hct 29.6 L MCV 75 L MCH 24.6 L MCHC 32.8 RDW 17.7 H Plt Count 446 Seg Neutrophils % Not Reportable Lymphocytes % Not Reportable Monocytes % Not Reportable Eosinophils % Not Reportable Basophils % Not Reportable Absolute Neutrophils Not Reportable Absolute Lymphocytes Not Reportable Absolute Monocytes Not Reportable Absolute Eosinophils Not Reportable Absolute Basophils Not Reportable Sodium 139.5 Potassium 6.1 H* D Chloride 113 H Carbon Dioxide 21 L Anion Gap 6 BUN 10 Creatinine 0.65 Est GFR ( Amer) > 60 Est GFR (Non-Af Amer) > 60 Glucose 150 H Calcium 6.1 L* Phosphorus Magnesium 1.8 Albumin 1.5 L Triglycerides 522 H Blood Type Antibody Screen 09/03/16 09/03/16 09/04/16 16:15 16:15 07:00 Creatine Kinase 39 L CK-MB (CK-2) 0.33 Troponin I < 0.012 < 0.012 Impressions: KUB X-Ray 09/02/16 08:00 IMPRESSION: Ileus versus partial bowel obstruction or pseudo-obstruction. Chest X-Ray 09/03/16 00:00 IMPRESSION: Increased density is identified in the right upper lung field which has the appearance of atelectatic changes. Linear atelectasis in the left lung base. Other findings as noted above Guidance Fluoroscopy 09/03/16 00:00 IMPRESSION: SUCCESSFUL PLACEMENT OF A 5 FR DUAL LUMEN 41 CM PICC IN THE left basilic VEIN. Interventional Vascular Procedure 09/03/16 00:00 IMPRESSION: SUCCESSFUL PLACEMENT OF A 5 FR DUAL LUMEN 41 CM PICC IN THE left basilic VEIN. PICC Line Insertion 09/03/16 00:00 IMPRESSION: SUCCESSFUL PLACEMENT OF A 5 FR DUAL LUMEN 41 CM PICC IN THE left basilic VEIN. Abdomen/Pelvis CT 09/03/16 07:00 IMPRESSION: Probable ileus Small amount of fluid at the level of the colon anastomosis near the splenic flexure without well-circumscribed abscess. No extraluminal air. Findings discussed with Dr. Minor Assessment & Plan - Diagnosis (1) Acute respiratory failure with hypoxemia Is this a current diagnosis for this admission?: YesPlan: assume all work of breathing patient has not had nourishment for extended period of time (2) Colonic mass Is this a current diagnosis for this admission?: YesPlan: post op resolution (3) Hyperkalemia Is this a current diagnosis for this admission?: Yes (4) Hypoalbuminemia Is this a current diagnosis for this admission?: Yes (5) Hypocalcemia Is this a current diagnosis for this admission?: Yes (6) Hypomagnesemia Is this a current diagnosis for this admission?: Yes (7) Leukocytosis Qualifiers: Leukocytosis type: bandemia Qualified Code(s): D72.825 - Bandemia Is this a current diagnosis for this admission?: Yes (8) Panlobular emphysema Is this a current diagnosis for this admission?: YesPlan: bronchodilators - Time Critical Time spent with patient: 35 or more minutes - 70 min
[2016-09-07] MEDS: AMINO ACIDS 5%/D25W 1,000 ML IV PRN (20:38)
--- NOTE | 2016-09-07 20:53 | PROGRESS NOTE E ---
Progress Note NAME: AMI YOUSIF : 1950 AGE: 66Y DATE: 09/07/2016 ROOM: 607 SUBJECTIVE: Note that the patient is awake and gestures that he has no chest pain or discomfort. He is still intubated, and the sedation is less. He denies any shortness of breath. The patient does not appear to be fighting the ventilator. There is no further wide-complex tachycardia while the patient has been on amiodarone at 0.5 mg per minute. There is no leg edema. OBJECTIVE: VITAL SIGNS: On examination the patient is afebrile with a temperature of 97.3 degrees Fahrenheit. Pulse is 87 beats per minute. Blood pressure 110/57. Respirations are 22 per minute on a mechanical ventilator with an O2 saturation of 90% and an FIO2 of 40%. HEAD: On examination head is atraumatic/normocephalic. EYES: Pupils are equal, round, regular, reactive to light and accommodation. EARS, NOSE, AND THROAT: Negative. NECK: Supple. There is no JVD. Carotids are equal. There is no bruit. LUNGS: Clear to auscultation and percussion. HEART: S1, S2 are heard. There is no S3 gallop. There is no S4 gallop. There is a systolic murmur in the left sternal border and the apex. There is no rub. ABDOMEN: Soft, nontender. Bowel sounds are heard. There is no hepatosplenomegaly. The dressing at the site of surgery is clean and dry. EXTREMITIES: Femorals are diminished. Leg pulses are diminished. There is no pedal edema. There is no DVT or cellulitis. There is no cyanosis, clubbing. CENTRAL NERVOUS SYSTEM: The patient opens his eyes when called by name and seems to be appropriate, but full PROCESS CONTROL SPECIALIST and psychiatric exams are not done. FLUID BALANCE: The patient's 24-hour intake is 2837 mL, output is 4595 mL. DIAGNOSTIC DATA: The patient's sodium is 141.7, potassium is still low at 3.4. The patient is getting K-rider. The patient's chloride is 106, CO2 is 28. The patient's BUN is 18, creatinine is 0.85, GFR is greater than 60. The patient's glucose is 355. The patient's calcium is 7.3, phosphorous 2.8, magnesium is 2.1. The patient's liver function tests are normal. The patient's albumin is 1, the total protein is 4.3. The patient's white count is 11,500, hemoglobin is 9.1, hematocrit is 29, the patient's platelet count is 326,000. IMPRESSION: 1. STATUS POST SURGERY, EXPLORATORY LAPAROTOMY. A RE-EXPLORATION SHOWS NO EVIDENCE OF THERE BEING ANY ACUTE ABNORMAL PROCESS EXCEPT FOR ILEUS. 2. STATUS POST GASTROSTOMY TUBE PLACEMENT, PER THE NURSE THE PATIENT IS READY FOR FEEDINGS THROUGH THE GASTROSTOMY TUBE. 3. NO FURTHER EVIDENCE OF WIDE-COMPLEX TACHYCARDIA ON IV AMIODARONE. NOTE, LAST NIGHT THE PATIENT HAD RUNS OF NONSUSTAINED VENTRICULAR TACHYCARDIA AND THE PATIENT WAS PLACED ON IV AMIODARONE WITHOUT A BOLUS, AND THIS SEEMS TO HAVE CONTROLLED. 4. HYPOKALEMIA, POTASSIUM BEING REPLETED. 5. ABNORMAL EKG SUGGESTIVE OF OLD INFERIOR MYOCARDIAL INFARCTION. 6. LEFT-SIDED WEAKNESS WHICH IS VERY MILD BY EARLY EXAM BUT NOT EXAMINED TODAY BECAUSE THE PATIENT IS INTUBATED. 7. HYPERTENSION, BLOOD PRESSURE WELL CONTROLLED. 8. HYPOVOLEMIA SEEMS TO HAVE BEEN CORRECTED. NOTE THAT THE PATIENT IS ON LASIX, AND WE WILL HOLD THE LASIX. 9. DIABETES MELLITUS TYPE 2 WITH NO COMPLICATIONS. 10. HYPERLIPIDEMIA. 11. DYSPHAGIA. 12, CAD ,NO ANGINAL SYMPTOMS. RECOMMENDATIONS: The patient's medications have been reviewed. We will stop the amiodarone in the a.m. once the potassium is normal and start the patient on metoprolol 25 mg via the NG tube q.12 h. Will stop the patient's Lasix. Note, of this 40 minutes spent on this patient, more than 50% was spent on direct patient care and also coordinating care. We will check an echocardiogram on Friday. Note that this is a case with moderate complexity medical decision making. DICTATING PHYSICIAN: FREDDY ALEXIS M.D. [id number] PHY#: [id number] ID: [id number] JOB#: [id number] ACCT: [id number] cc:FREDDY ALEXIS M.D. > MTDD
[2016-09-07] MEDS: MORPHINE SULFATE 10 MG/ML INJ IV PRN (21:49)
[2016-09-07] MEDS: DEXTROSE 5%-WATER 500 ML with AMIODARONE HCL 900 MG IV PRN ×2 (23:42)
[2016-09-08 00:42] LABS: ANION GAP 7 (5-19); BLOOD UREA NITROGEN 13 mg/dL (7-20); CALCIUM 7.5 mg/dL (8.4-10.2); CARBON DIOXIDE 28 mmol/L (22-30); CHLORIDE 105 mmol/L (98-107); CREATININE RESULT 0.85 mg/dL (0.52-1.25); POTASSIUM 3.9 mmol/L (3.6-5.0); SODIUM 140.3 mmol/L (137-145)
[2016-09-08 00:47] LABS: GLUCOSE 393 mg/dL (75-110)
[2016-09-08] MEDS: MORPHINE SULFATE 10 MG/ML INJ IV PRN ×5 (04:28→20:20)
[2016-09-08] MEDS: VANCOMYCIN HCL 1,000 MG in DEXTROSE 5%-WATER 250 ML IV SCH (05:08)
[2016-09-08] MEDS: METRONIDAZOLE 500 MG/NS RTU 100 ML IV SCH ×3 (05:08→17:56)
[2016-09-08 05:38] LABS: HEMATOCRIT 30.9 % (37.9-51.0); HEMOGLOBIN 9.6 g/dL (13.5-17.0); HGB HCT DIFFERENCE -2.1; MEAN CORPUSCULAR HEMOGLOBIN 23.3 pg (27.0-33.4); MEAN CORPUSCULAR HGB CONC 31.3 g/dL (32.0-36.0); MEAN CORPUSCULAR VOLUME 75 fl (80-97); RED BLOOD COUNT 4.13 10^6/uL (4.35-5.55); RED CELL DISTRIBUTION WIDTH 18.6 % (11.5-14.0); WHITE BLOOD COUNT 16.9 10^3/uL (4.0-10.5)
[2016-09-08 05:43] LABS: ARTERIAL BLOOD BASE EXCESS 1.4 mmol/L; ARTERIAL BLOOD O2 SATURATION 95.6 % (94-98)
[2016-09-08 06:11] LABS: ANION GAP 8 (5-19); BLOOD UREA NITROGEN 14 mg/dL (7-20); CALCIUM 7.4 mg/dL (8.4-10.2); CARBON DIOXIDE 27 mmol/L (22-30); CHLORIDE 105 mmol/L (98-107); CREATININE RESULT 0.83 mg/dL (0.52-1.25); GLUCOSE 389 mg/dL (75-110); MAGNESIUM 2.1 mg/dL (1.6-2.3); PHOSPHORUS 2.3 mg/dL (2.5-4.5); POTASSIUM 3.9 mmol/L (3.6-5.0); SODIUM 140.4 mmol/L (137-145)
[2016-09-08] MEDS: INSULIN REG, HUMAN 100 UNIT/ML 3 ML VIAL (PYX) SUBCUT PRN ×3 (06:17→18:02)
[2016-09-08] MEDS: ENOXAPARIN SODIUM INJ 30 MG/0.3 ML DISP.SYRIN SUBCUT SCH (07:55)
--- NOTE | 2016-09-08 09:55 | PDOC PROGRESS REPORT ---
Subjective Progress Note for:: 09/08/16 Subjective:: The patient being weaned, off sedation, urine output negative balance of 2 L at least, off diuretics however. No reported ectopies this time. No temperature spikes, no respiratory distress, no agitation reported however the patient gets as needed morphine intravenously. Physical Exam Vital Signs: Temp Pulse Resp BP Pulse Ox 97.9 F 86 21 H 113/66 97 09/08/16 08:00 09/08/16 08:10 09/08/16 08:00 09/08/16 08:00 09/08/16 08:00 Intake & Output 09/07/16 09/08/16 09/09/16 05:59 06:59 06:59 Intake Total Output Total 200 Balance -200 Weight General appearance: PRESENT: no acute distress, other - Sedated Head exam: PRESENT: normocephalic Eye exam: PRESENT: EOMI Mouth exam: PRESENT: moist, neck supple Neck exam: ABSENT: JVD Respiratory exam: PRESENT: clear to auscultation shelly, unlabored. ABSENT: wheezes Cardiovascular exam: PRESENT: RRR. ABSENT: gallop GI/Abdominal exam: PRESENT: hypoactive bowel sounds, soft Extremities exam: PRESENT: pedal edema Neurological exam: PRESENT: awake Skin exam: PRESENT: dry, warm. ABSENT: cyanosis Results Laboratory Results: 09/08/16 05:15 09/08/16 05:15 09/07/16 09/08/16 09/08/16 15:00 00:20 05:15 WBC RBC Hgb Hct MCV MCH MCHC RDW Plt Count Carbonic Acid 1.15 HCO3/H2CO3 Ratio 22:1 ABG pH 7.44 ABG pCO2 38.3 ABG pO2 75.1 L ABG HCO3 25.5 ABG O2 Saturation 95.6 ABG Base Excess 1.4 FiO2 35% Sodium 139.6 140.3 Potassium 3.8 3.9 Chloride 104 105 Carbon Dioxide 26 28 Anion Gap 10 7 BUN 12 13 Creatinine 0.77 0.85 Est GFR ( Amer) > 60 > 60 Est GFR (Non-Af Amer) > 60 > 60 Glucose 379 H 393 H Calcium 7.4 L 7.5 L Phosphorus Magnesium 09/08/16 09/08/16 05:15 05:15 WBC 16.9 H RBC 4.13 L Hgb 9.6 L Hct 30.9 L MCV 75 L MCH 23.3 L MCHC 31.3 L RDW 18.6 H Plt Count 361 Carbonic Acid HCO3/H2CO3 Ratio ABG pH ABG pCO2 ABG pO2 ABG HCO3 ABG O2 Saturation ABG Base Excess FiO2 Sodium 140.4 Potassium 3.9 Chloride 105 Carbon Dioxide 27 Anion Gap 8 BUN 14 Creatinine 0.83 Est GFR ( Amer) > 60 Est GFR (Non-Af Amer) > 60 Glucose 389 H Calcium 7.4 L Phosphorus 2.3 L Magnesium 2.1 09/04/16 09:22 Blood Blood Culture - Final Staphylococcus Hominis 09/03/16 09/03/16 09/04/16 16:15 16:15 07:00 Creatine Kinase 39 L CK-MB (CK-2) 0.33 Troponin I < 0.012 < 0.012 09/05/16 04:17 Creatine Kinase CK-MB (CK-2) Troponin I 0.013 Impressions: Guidance Fluoroscopy 09/03/16 00:00 IMPRESSION: SUCCESSFUL PLACEMENT OF A 5 FR DUAL LUMEN 41 CM PICC IN THE left basilic VEIN. Interventional Vascular Procedure 09/03/16 00:00 IMPRESSION: SUCCESSFUL PLACEMENT OF A 5 FR DUAL LUMEN 41 CM PICC IN THE left basilic VEIN. PICC Line Insertion 09/03/16 00:00 IMPRESSION: SUCCESSFUL PLACEMENT OF A 5 FR DUAL LUMEN 41 CM PICC IN THE left basilic VEIN. Abdomen/Pelvis CT 09/03/16 07:00 IMPRESSION: Probable ileus Small amount of fluid at the level of the colon anastomosis near the splenic flexure without well-circumscribed abscess. No extraluminal air. Findings discussed with Dr. Iván THORNE X-Ray 09/05/16 00:00 IMPRESSION: Patent gastrostomy. Chest X-Ray 09/08/16 06:00 IMPRESSION: 1. Support tubes and lines as above. 2. There is been interval improvement in the basilar densities comparison the prior study. Otherwise no significant change. Assessment & Plan - Diagnosis (1) Paralytic ileus Is this a current diagnosis for this admission?: Yes (2) Acute respiratory failure with hypoxemia Is this a current diagnosis for this admission?: Yes (3) Leukocytosis Qualifiers: Leukocytosis type: bandemia Qualified Code(s): D72.825 - Bandemia Is this a current diagnosis for this admission?: Yes (4) Ventricular tachycardia Is this a current diagnosis for this admission?: Yes (5) Anemia, blood loss Is this a current diagnosis for this admission?: Yes (6) Hyperkalemia Is this a current diagnosis for this admission?: Yes (7) Hypocalcemia Is this a current diagnosis for this admission?: Yes (8) Hypoalbuminemia Is this a current diagnosis for this admission?: Yes (9) Colonic mass Is this a current diagnosis for this admission?: Yes (10) Coronary artery disease Qualifiers: Coronary Disease-Associated Artery/Lesion type: [place] artery [place] vs. transplanted heart: [place] heart Associated angina: angina presence unspecified Qualified Code(s): I25.10 - Atherosclerotic heart disease of [place] coronary artery without angina pectoris Is this a current diagnosis for this admission?: Yes (11) Hyperlipidemia Qualifiers: Hyperlipidemia type: other hyperlipidemia Qualified Code(s): E78.4 - Other hyperlipidemia Is this a current diagnosis for this admission?: Yes (12) Hypertension Qualifiers: Hypertension type: essential hypertension Qualified Code(s): I10 - Essential (primary) hypertension Is this a current diagnosis for this admission?: Yes (13) Panlobular emphysema Is this a current diagnosis for this admission?: Yes (14) Type 2 diabetes mellitus without complications Qualifiers: Diabetes mellitus nursing home insulin use: without nursing home use Qualified Code(s): E11.9 - Type 2 diabetes mellitus without complications Is this a current diagnosis for this admission?: Yes - Time Time Spent with patient: 15-24 minutes - Plan Summary Plan Summary: Weaning and extubation as per pulmonary service. Continue tube feedings and titrate to goal. Discontinue TPN. Monitor electrolytes. Discontinue vancomycin as culture seems to be contaminant. Continue Levaquin and Flagyl.
[2016-09-08] MEDS: LEVOFLOXACIN 500 MG/D5W RTU 100 ML IV SCH (10:08)
[2016-09-08] MEDS ORDERED: METOPROLOL TARTRATE 25 MG TABLET GT ONE (13:00)
--- NOTE | 2016-09-08 17:38 | PDOC PROGRESS REPORT ---
Subjective Progress Note for:: 09/08/16 Subjective:: Awake and responsive Physical Exam Vital Signs: Temp Pulse Resp BP Pulse Ox 97.9 F 88 19 132/74 H 96 09/08/16 08:00 09/08/16 09:56 09/08/16 09:56 09/08/16 09:56 09/08/16 09:56 Intake & Output 09/07/16 09/08/16 09/09/16 05:59 06:59 06:59 Intake Total Output Total 400 Balance -400 Weight General appearance: PRESENT: no acute distress, disheveled, obese Eye exam: PRESENT: conjunctiva pale, EOMI Mouth exam: PRESENT: other - ET tube in place Neck exam: ABSENT: carotid bruit, JVD, lymphadenopathy, thyromegaly Respiratory exam: PRESENT: decreased breath sounds, rhonchi, symmetrical, unlabored Cardiovascular exam: PRESENT: RRR, +S1, +S2 Pulses: PRESENT: normal radial pulses GI/Abdominal exam: PRESENT: other - Status post gastrointestinal surgery Rectal exam: PRESENT: deferred Gentrourinary exam: PRESENT: indwelling catheter Extremities exam: PRESENT: +1 edema Neurological exam: PRESENT: awake Psychiatric exam: PRESENT: flat affect Skin exam: PRESENT: dry, warm Results Laboratory Results: 09/08/16 05:15 09/08/16 05:15 09/07/16 09/08/16 09/08/16 15:00 00:20 05:15 WBC RBC Hgb Hct MCV MCH MCHC RDW Plt Count Carbonic Acid 1.15 HCO3/H2CO3 Ratio 22:1 ABG pH 7.44 ABG pCO2 38.3 ABG pO2 75.1 L ABG HCO3 25.5 ABG O2 Saturation 95.6 ABG Base Excess 1.4 FiO2 35% Sodium 139.6 140.3 Potassium 3.8 3.9 Chloride 104 105 Carbon Dioxide 26 28 Anion Gap 10 7 BUN 12 13 Creatinine 0.77 0.85 Est GFR ( Amer) > 60 > 60 Est GFR (Non-Af Amer) > 60 > 60 Glucose 379 H 393 H Calcium 7.4 L 7.5 L Phosphorus Magnesium 09/08/16 09/08/16 05:15 05:15 WBC 16.9 H RBC 4.13 L Hgb 9.6 L Hct 30.9 L MCV 75 L MCH 23.3 L MCHC 31.3 L RDW 18.6 H Plt Count 361 Carbonic Acid HCO3/H2CO3 Ratio ABG pH ABG pCO2 ABG pO2 ABG HCO3 ABG O2 Saturation ABG Base Excess FiO2 Sodium 140.4 Potassium 3.9 Chloride 105 Carbon Dioxide 27 Anion Gap 8 BUN 14 Creatinine 0.83 Est GFR ( Amer) > 60 Est GFR (Non-Af Amer) > 60 Glucose 389 H Calcium 7.4 L Phosphorus 2.3 L Magnesium 2.1 09/04/16 09:22 Blood Blood Culture - Final Staphylococcus Hominis 09/03/16 09/03/16 09/04/16 16:15 16:15 07:00 Creatine Kinase 39 L CK-MB (CK-2) 0.33 Troponin I < 0.012 < 0.012 09/05/16 04:17 Creatine Kinase CK-MB (CK-2) Troponin I 0.013 Impressions: Guidance Fluoroscopy 09/03/16 00:00 IMPRESSION: SUCCESSFUL PLACEMENT OF A 5 FR DUAL LUMEN 41 CM PICC IN THE left basilic VEIN. Interventional Vascular Procedure 09/03/16 00:00 IMPRESSION: SUCCESSFUL PLACEMENT OF A 5 FR DUAL LUMEN 41 CM PICC IN THE left basilic VEIN. PICC Line Insertion 09/03/16 00:00 IMPRESSION: SUCCESSFUL PLACEMENT OF A 5 FR DUAL LUMEN 41 CM PICC IN THE left basilic VEIN. Abdomen/Pelvis CT 09/03/16 07:00 IMPRESSION: Probable ileus Small amount of fluid at the level of the colon anastomosis near the splenic flexure without well-circumscribed abscess. No extraluminal air. Findings discussed with Dr. Iván THORNE X-Ray 09/05/16 00:00 IMPRESSION: Patent gastrostomy. Chest X-Ray 09/08/16 06:00 IMPRESSION: 1. Support tubes and lines as above. 2. There is been interval improvement in the basilar densities comparison the prior study. Otherwise no significant change. Assessment & Plan - Diagnosis (1) Acute respiratory failure with hypoxemia Is this a current diagnosis for this admission?: YesPlan: FiO2, respiratory rate, minute volume, airway pressures, suggesting a successful extubation somewhat concerned about long-term strength but will proceed with extubate (2) Colonic mass Is this a current diagnosis for this admission?: YesPlan: post op resolution (3) Hyperkalemia Is this a current diagnosis for this admission?: No (4) Hypoalbuminemia Is this a current diagnosis for this admission?: YesPlan: TPN has been discontinued and patient is on enteral feeds (5) Hypocalcemia Is this a current diagnosis for this admission?: Yes (6) Hypomagnesemia Is this a current diagnosis for this admission?: Yes (7) Leukocytosis Qualifiers: Leukocytosis type: bandemia Qualified Code(s): D72.825 - Bandemia Is this a current diagnosis for this admission?: No (8) Panlobular emphysema Is this a current diagnosis for this admission?: YesPlan: bronchodilators - Time Critical Time spent with patient: 35 or more minutes - 55 minutes extubation and discussion with family
--- NOTE | 2016-09-08 17:44 | PDOC PROGRESS REPORT ---
Subjective Progress Note for:: 09/07/16 Subjective:: Intubated and sedated Physical Exam Vital Signs: Temp Pulse Resp BP Pulse Ox 98.3 F 100 24 H 100/65 95 09/07/16 05:13 09/06/16 20:00 09/07/16 06:48 09/07/16 06:48 09/07/16 06:48 Intake & Output 09/06/16 09/07/16 09/08/16 06:59 06:59 07:59 Intake Total 3538 2837 Output Total 456 4556 Balance -1025 -0648 Weight 101.5 kg 100.5 kg General appearance: PRESENT: no acute distress, disheveled, obese Head exam: PRESENT: atraumatic, normocephalic Eye exam: PRESENT: conjunctiva pale Mouth exam: PRESENT: other - Endotracheal tube in place Neck exam: ABSENT: carotid bruit, JVD, lymphadenopathy, thyromegaly Respiratory exam: PRESENT: decreased breath sounds, rhonchi, symmetrical, unlabored Cardiovascular exam: PRESENT: RRR, +S1, +S2 Pulses: ABSENT: normal radial pulses GI/Abdominal exam: PRESENT: other Rectal exam: PRESENT: deferred Gentrourinary exam: PRESENT: indwelling catheter Extremities exam: PRESENT: +1 edema Skin exam: PRESENT: dry, warm Results Laboratory Results: 09/07/16 04:30 09/07/16 04:30 09/06/16 09/06/16 09/06/16 20:00 21:05 21:05 WBC RBC Hgb Hct MCV MCH MCHC RDW Plt Count Carbonic Acid 1.00 L HCO3/H2CO3 Ratio 24:1 ABG pH 7.49 H ABG pCO2 33.1 L ABG pO2 69.5 L ABG HCO3 24.5 ABG O2 Saturation 95.3 ABG Base Excess 1.4 FiO2 50% Sodium 142.3 Potassium 3.3 L Chloride 105 Carbon Dioxide 28 Anion Gap 9 BUN 12 Creatinine 0.86 Est GFR ( Amer) > 60 Est GFR (Non-Af Amer) > 60 Glucose 289 H Calcium 7.3 L Phosphorus Magnesium 1.9 Total Bilirubin AST ALT Alkaline Phosphatase Total Protein Albumin Prealbumin 09/07/16 09/07/16 09/07/16 03:05 03:05 04:30 WBC 11.5 H RBC 3.88 L Hgb 9.1 L Hct 29.0 L MCV 75 L MCH 23.4 L MCHC 31.3 L RDW 18.1 H Plt Count 326 Carbonic Acid HCO3/H2CO3 Ratio ABG pH ABG pCO2 ABG pO2 ABG HCO3 ABG O2 Saturation ABG Base Excess FiO2 Sodium 140.9 Cancelled Potassium 3.4 L Cancelled Chloride 106 Cancelled Carbon Dioxide 26 Cancelled Anion Gap 9 Cancelled BUN 12 Cancelled Creatinine 0.83 Cancelled Est GFR ( Amer) > 60 Cancelled Est GFR (Non-Af Amer) > 60 Cancelled Glucose 351 H Cancelled Calcium 7.0 L* Cancelled Phosphorus Magnesium Total Bilirubin AST ALT Alkaline Phosphatase Total Protein Albumin 1.8 L Prealbumin 09/07/16 09/07/16 04:30 06:05 WBC RBC Hgb Hct MCV MCH MCHC RDW Plt Count Carbonic Acid 1.23 HCO3/H2CO3 Ratio 21:1 ABG pH 7.42 ABG pCO2 41.0 ABG pO2 71.4 L ABG HCO3 26.2 H ABG O2 Saturation 94.7 ABG Base Excess 1.6 FiO2 45% Sodium 141.7 Potassium 3.4 L Chloride 106 Carbon Dioxide 28 Anion Gap 8 BUN 13 Creatinine 0.85 Est GFR ( Amer) > 60 Est GFR (Non-Af Amer) > 60 Glucose 355 H Calcium 7.3 L Phosphorus 2.8 Magnesium 2.1 Total Bilirubin 1.1 AST 26 ALT 24 Alkaline Phosphatase 62 Total Protein 4.3 L Albumin 1.9 L Prealbumin < 3.0 L 09/04/16 11:20 Miranda Catheter Urine Culture - Final NO GROWTH 2 DAYS 09/04/16 11:20 Tracheal Aspirate Gram Stain - Final 09/04/16 11:20 Tracheal Aspirate Sputum Culture - Final NO GROWTH 2 DAYS 09/03/16 09/03/16 09/04/16 16:15 16:15 07:00 Creatine Kinase 39 L CK-MB (CK-2) 0.33 Troponin I < 0.012 < 0.012 09/05/16 04:17 Creatine Kinase CK-MB (CK-2) Troponin I 0.013 Impressions: Guidance Fluoroscopy 09/03/16 00:00 IMPRESSION: SUCCESSFUL PLACEMENT OF A 5 FR DUAL LUMEN 41 CM PICC IN THE left basilic VEIN. Interventional Vascular Procedure 09/03/16 00:00 IMPRESSION: SUCCESSFUL PLACEMENT OF A 5 FR DUAL LUMEN 41 CM PICC IN THE left basilic VEIN. PICC Line Insertion 09/03/16 00:00 IMPRESSION: SUCCESSFUL PLACEMENT OF A 5 FR DUAL LUMEN 41 CM PICC IN THE left basilic VEIN. Abdomen/Pelvis CT 09/03/16 07:00 IMPRESSION: Probable ileus Small amount of fluid at the level of the colon anastomosis near the splenic flexure without well-circumscribed abscess. No extraluminal air. Findings discussed with Dr. Iván THORNE X-Ray 09/05/16 00:00 IMPRESSION: Patent gastrostomy. Chest X-Ray 09/07/16 06:00 IMPRESSION: 1. Support tubes and lines as above. Left arm PICC has been removed. 2. Stable appearance of the chest otherwise. Assessment & Plan - Diagnosis (1) Acute respiratory failure with hypoxemia Is this a current diagnosis for this admission?: YesPlan: Improving FiO2, minute ventilation decreasing respiratory rate stable (2) Colonic mass Is this a current diagnosis for this admission?: YesPlan: post op resolution (3) Hypoalbuminemia Is this a current diagnosis for this admission?: YesPlan: TPN has been discontinued and patient is on enteral feeds (4) Hypocalcemia Is this a current diagnosis for this admission?: Yes - Time Critical Time spent with patient: 35 or more minutes - 35 min
--- NOTE | 2016-09-08 17:54 | PDOC PROGRESS REPORT ---
Subjective Progress Note for:: 09/06/16 Subjective:: Intubated and sedated Physical Exam Vital Signs: Temp Pulse Resp BP Pulse Ox 100.2 F 96 29 H 118/68 93 09/06/16 12:00 09/06/16 12:00 09/06/16 13:00 09/06/16 12:20 09/06/16 13:00 Intake & Output 09/05/16 09/06/16 09/07/16 06:59 06:59 06:59 Intake Total 4976 9228 Output Total 3214 9403 1571 Balance 1763 -1027 -1570 Weight 102.8 kg 101.5 kg General appearance: PRESENT: no acute distress, disheveled, obese Head exam: PRESENT: atraumatic, normocephalic Eye exam: PRESENT: conjunctiva pale Mouth exam: PRESENT: other - Endotracheal tube in place Neck exam: ABSENT: carotid bruit, JVD, lymphadenopathy, thyromegaly Respiratory exam: PRESENT: crackles, decreased breath sounds, rhonchi, symmetrical, unlabored Cardiovascular exam: PRESENT: RRR, +S1, +S2 Pulses: PRESENT: normal radial pulses GI/Abdominal exam: PRESENT: other - Status post recent abdominal surgeries Extremities exam: PRESENT: +1 edema Skin exam: PRESENT: dry, warm Results Laboratory Results: 09/06/16 05:20 09/06/16 05:20 09/05/16 09/06/16 09/06/16 22:15 05:20 05:20 WBC 10.4 RBC 3.70 L Hgb 9.0 L Hct 27.6 L MCV 75 L MCH 24.4 L MCHC 32.7 RDW 18.0 H Plt Count 336 Carbonic Acid 1.21 HCO3/H2CO3 Ratio 22:1 ABG pH 7.45 ABG pCO2 40.3 ABG pO2 56.8 L ABG HCO3 27.2 H ABG O2 Saturation 90.8 L ABG Base Excess 3.0 FiO2 55% Sodium Potassium 3.4 L Chloride Carbon Dioxide Anion Gap BUN Creatinine Est GFR ( Amer) Est GFR (Non-Af Amer) Glucose Calcium Phosphorus Magnesium 2.1 Total Bilirubin AST ALT Alkaline Phosphatase Total Protein Albumin Prealbumin 09/06/16 05:20 WBC RBC Hgb Hct MCV MCH MCHC RDW Plt Count Carbonic Acid HCO3/H2CO3 Ratio ABG pH ABG pCO2 ABG pO2 ABG HCO3 ABG O2 Saturation ABG Base Excess FiO2 Sodium 142.3 Potassium 3.3 L Chloride 108 H Carbon Dioxide 26 Anion Gap 8 BUN 12 Creatinine 0.90 Est GFR ( Amer) > 60 Est GFR (Non-Af Amer) > 60 Glucose 247 H Calcium 7.0 L* Phosphorus 1.8 L Magnesium 2.1 Total Bilirubin 2.1 H AST 32 ALT 25 Alkaline Phosphatase 61 Total Protein 4.1 L Albumin 1.9 L Prealbumin < 3.0 L 09/04/16 11:20 Miranda Catheter Urine Culture - Final NO GROWTH 2 DAYS 09/04/16 11:20 Tracheal Aspirate Gram Stain - Final 09/04/16 11:20 Tracheal Aspirate Sputum Culture - Final NO GROWTH 2 DAYS 09/03/16 09/03/16 09/04/16 16:15 16:15 07:00 Creatine Kinase 39 L CK-MB (CK-2) 0.33 Troponin I < 0.012 < 0.012 09/05/16 04:17 Creatine Kinase CK-MB (CK-2) Troponin I 0.013 Impressions: Guidance Fluoroscopy 09/03/16 00:00 IMPRESSION: SUCCESSFUL PLACEMENT OF A 5 FR DUAL LUMEN 41 CM PICC IN THE left basilic VEIN. Interventional Vascular Procedure 09/03/16 00:00 IMPRESSION: SUCCESSFUL PLACEMENT OF A 5 FR DUAL LUMEN 41 CM PICC IN THE left basilic VEIN. PICC Line Insertion 09/03/16 00:00 IMPRESSION: SUCCESSFUL PLACEMENT OF A 5 FR DUAL LUMEN 41 CM PICC IN THE left basilic VEIN. Abdomen/Pelvis CT 09/03/16 07:00 IMPRESSION: Probable ileus Small amount of fluid at the level of the colon anastomosis near the splenic flexure without well-circumscribed abscess. No extraluminal air. Findings discussed with Dr. Iván THORNE X-Ray 09/05/16 00:00 IMPRESSION: Patent gastrostomy. Chest X-Ray 09/06/16 06:00 IMPRESSION: No significant interval change. PICC line as noted above. Other findings as noted above Assessment & Plan - Diagnosis (1) Acute respiratory failure with hypoxemia Is this a current diagnosis for this admission?: YesPlan: Slowly improving oxygenation (2) Colonic mass Is this a current diagnosis for this admission?: YesPlan: post op resolution (3) Hypertension Qualifiers: Hypertension type: essential hypertension Qualified Code(s): I10 - Essential (primary) hypertension Is this a current diagnosis for this admission?: YesPlan: Stable at this time (4) Hypoalbuminemia Is this a current diagnosis for this admission?: YesPlan: TPN (5) Hypocalcemia Is this a current diagnosis for this admission?: YesPlan: TPN (6) Hypomagnesemia Is this a current diagnosis for this admission?: YesPlan: TPN (7) Panlobular emphysema Is this a current diagnosis for this admission?: YesPlan: bronchodilators - Time Critical Time spent with patient: 35 or more minutes
--- NOTE | 2016-09-08 17:55 | PDOC PROGRESS REPORT ---
Subjective Progress Note for:: 09/08/16 Subjective:: Extubated looks comfortable Physical Exam Vital Signs: Temp Pulse Resp BP Pulse Ox 96.7 F L 76 13 109/58 L 97 09/08/16 16:00 09/08/16 16:00 09/08/16 16:00 09/08/16 16:00 09/08/16 16:00 Intake & Output 09/07/16 09/08/16 09/09/16 05:59 06:59 06:59 Intake Total 1177 Output Total 600 Balance 577 Weight GI/Abdominal exam: PRESENT: other - Abdomen - soft Colostomy functioning Tube feeds Results Laboratory Results: 09/08/16 05:15 09/08/16 05:15 09/08/16 09/08/16 09/08/16 00:20 05:15 05:15 WBC RBC Hgb Hct MCV MCH MCHC RDW Plt Count Carbonic Acid 1.15 HCO3/H2CO3 Ratio 22:1 ABG pH 7.44 ABG pCO2 38.3 ABG pO2 75.1 L ABG HCO3 25.5 ABG O2 Saturation 95.6 ABG Base Excess 1.4 FiO2 35% Sodium 140.3 140.4 Potassium 3.9 3.9 Chloride 105 105 Carbon Dioxide 28 27 Anion Gap 7 8 BUN 13 14 Creatinine 0.85 0.83 Est GFR ( Amer) > 60 > 60 Est GFR (Non-Af Amer) > 60 > 60 Glucose 393 H 389 H Calcium 7.5 L 7.4 L Phosphorus 2.3 L Magnesium 2.1 09/08/16 05:15 WBC 16.9 H RBC 4.13 L Hgb 9.6 L Hct 30.9 L MCV 75 L MCH 23.3 L MCHC 31.3 L RDW 18.6 H Plt Count 361 Carbonic Acid HCO3/H2CO3 Ratio ABG pH ABG pCO2 ABG pO2 ABG HCO3 ABG O2 Saturation ABG Base Excess FiO2 Sodium Potassium Chloride Carbon Dioxide Anion Gap BUN Creatinine Est GFR ( Amer) Est GFR (Non-Af Amer) Glucose Calcium Phosphorus Magnesium 09/04/16 09:22 Blood Blood Culture - Final Staphylococcus Hominis 09/03/16 09/03/16 09/04/16 16:15 16:15 07:00 Creatine Kinase 39 L CK-MB (CK-2) 0.33 Troponin I < 0.012 < 0.012 09/05/16 04:17 Creatine Kinase CK-MB (CK-2) Troponin I 0.013 Impressions: Guidance Fluoroscopy 09/03/16 00:00 IMPRESSION: SUCCESSFUL PLACEMENT OF A 5 FR DUAL LUMEN 41 CM PICC IN THE left basilic VEIN. Interventional Vascular Procedure 09/03/16 00:00 IMPRESSION: SUCCESSFUL PLACEMENT OF A 5 FR DUAL LUMEN 41 CM PICC IN THE left basilic VEIN. PICC Line Insertion 09/03/16 00:00 IMPRESSION: SUCCESSFUL PLACEMENT OF A 5 FR DUAL LUMEN 41 CM PICC IN THE left basilic VEIN. Abdomen/Pelvis CT 09/03/16 07:00 IMPRESSION: Probable ileus Small amount of fluid at the level of the colon anastomosis near the splenic flexure without well-circumscribed abscess. No extraluminal air. Findings discussed with Dr. Iván THORNE X-Ray 09/05/16 00:00 IMPRESSION: Patent gastrostomy. Chest X-Ray 09/08/16 06:00 IMPRESSION: 1. Support tubes and lines as above. 2. There is been interval improvement in the basilar densities comparison the prior study. Otherwise no significant change.
--- NOTE | 2016-09-08 17:59 | PDOC PROGRESS REPORT ---
Subjective Progress Note for:: 09/05/16 Subjective:: Intubated and sedated Physical Exam Vital Signs: Temp Pulse Resp BP Pulse Ox 101.6 F H 97 20 114/68 92 09/05/16 08:00 09/05/16 08:00 09/05/16 08:00 09/05/16 08:00 09/05/16 08:00 Intake & Output 09/04/16 09/05/16 09/06/16 06:59 06:59 06:59 Intake Total 3752 4978 Output Total 1350 3215 150 Balance 2402 1763 -150 Weight 99.7 kg 102.8 kg General appearance: PRESENT: no acute distress, disheveled, obese Eye exam: PRESENT: conjunctiva pale Mouth exam: PRESENT: other - Endotracheal tube in place Respiratory exam: PRESENT: decreased breath sounds, rales, rhonchi, unlabored Cardiovascular exam: PRESENT: RRR, +S1, +S2 Pulses: PRESENT: normal radial pulses GI/Abdominal exam: PRESENT: other - Status post surgery Rectal exam: PRESENT: deferred Gentrourinary exam: PRESENT: indwelling catheter Skin exam: PRESENT: dry Results Laboratory Results: 09/05/16 04:17 09/05/16 04:17 09/04/16 09/04/16 09/04/16 06:25 09:22 10:20 WBC RBC Hgb Hct MCV MCH MCHC RDW Plt Count Carbonic Acid 0.98 L HCO3/H2CO3 Ratio 23:1 ABG pH 7.47 H ABG pCO2 32.7 L ABG pO2 75.0 L ABG HCO3 23.0 ABG O2 Saturation 95.9 ABG Base Excess -0.2 FiO2 45% Sodium Potassium Chloride Carbon Dioxide Anion Gap BUN Creatinine Est GFR ( Amer) Est GFR (Non-Af Amer) Glucose Calcium Ionized Calcium Latonya 1.06 L Phosphorus Magnesium 1.7 09/04/16 09/05/16 09/05/16 18:35 04:17 04:17 WBC 14.2 H RBC 3.80 L Hgb 9.1 L Hct 28.4 L MCV 75 L MCH 23.8 L MCHC 31.9 L RDW 17.9 H Plt Count 377 Carbonic Acid HCO3/H2CO3 Ratio ABG pH ABG pCO2 ABG pO2 ABG HCO3 ABG O2 Saturation ABG Base Excess FiO2 Sodium 142.8 Potassium 3.4 L D 3.7 Chloride 110 H Carbon Dioxide 25 Anion Gap 8 BUN 12 Creatinine 0.85 Est GFR ( Amer) > 60 Est GFR (Non-Af Amer) > 60 Glucose 148 H Calcium 7.1 L Ionized Calcium Latonya Phosphorus 1.8 L Magnesium 09/03/16 09/03/16 09/04/16 16:15 16:15 07:00 Creatine Kinase 39 L CK-MB (CK-2) 0.33 Troponin I < 0.012 < 0.012 09/05/16 04:17 Creatine Kinase CK-MB (CK-2) Troponin I 0.013 Impressions: KUB X-Ray 09/02/16 08:00 IMPRESSION: Ileus versus partial bowel obstruction or pseudo-obstruction. Guidance Fluoroscopy 09/03/16 00:00 IMPRESSION: SUCCESSFUL PLACEMENT OF A 5 FR DUAL LUMEN 41 CM PICC IN THE left basilic VEIN. Interventional Vascular Procedure 09/03/16 00:00 IMPRESSION: SUCCESSFUL PLACEMENT OF A 5 FR DUAL LUMEN 41 CM PICC IN THE left basilic VEIN. PICC Line Insertion 09/03/16 00:00 IMPRESSION: SUCCESSFUL PLACEMENT OF A 5 FR DUAL LUMEN 41 CM PICC IN THE left basilic VEIN. Abdomen/Pelvis CT 09/03/16 07:00 IMPRESSION: Probable ileus Small amount of fluid at the level of the colon anastomosis near the splenic flexure without well-circumscribed abscess. No extraluminal air. Findings discussed with Dr. Minor Chest X-Ray 09/05/16 06:00 IMPRESSION: Interval improved aeration in the lung bases and decreased interstitial prominence. Assessment & Plan - Diagnosis (1) Acute respiratory failure with hypoxemia Is this a current diagnosis for this admission?: YesPlan: Unchanged over the last 24 hours (2) Colonic mass Is this a current diagnosis for this admission?: YesPlan: post op resolution (3) Dysphagia Qualifiers: Dysphagia type: oral phase Qualified Code(s): R13.11 - Dysphagia, oral phase Is this a current diagnosis for this admission?: No (4) Hypoalbuminemia Is this a current diagnosis for this admission?: YesPlan: Malnutrition (5) Hypocalcemia Is this a current diagnosis for this admission?: YesPlan: Malnutrition has not eaten within the last 10 days (6) Hypomagnesemia Is this a current diagnosis for this admission?: Yes (7) Panlobular emphysema Is this a current diagnosis for this admission?: YesPlan: bronchodilators - Time Critical Time spent with patient: 35 or more minutes
--- NOTE | 2016-09-08 20:38 | PROGRESS NOTE E ---
Progress Note NAME: AMI YOUSIF : 1950 AGE: 66Y DATE: 09/08/2016 ROOM: 607 SUBJECTIVE: Note the patient has been extubated. He is awake, but does not verbal. He answers questions by shaking his head. He denies chest pain or discomfort. There is no PND or orthopnea. There is no leg edema. There is no further wide complex tachycardia. The patient's gastrotomy tube feedings have started without any problems. The patient denies any abdominal pain. There is no TIA or CVA symptoms. OBJECTIVE: VITAL SIGNS: Temperature is 99.2 degrees Fahrenheit, pulse is 75 beats/minute, blood pressure is 152/75, respirations are 18 per minute, O2 sats are 96% on 3L nasal cannula. GENERAL: The patient is mildly obese in no acute distress. HEENT: Head is normocephalic, atraumatic. Eyes: Pupils are equal, round, and reactive to light and accommodation. Extraocular movements are normal. There is no conjunctival pallor. There is no scleral icterus. ENT is negative. NECK: Supple. There is no JVD. Carotids are equal. There is no bruit. LUNGS: Clear to auscultation and percussion. HEART: S1 and S2 is heard. There is no S3 gallop. There is no S4 gallop. There is systolic murmur at the left sternal border of the apex. There is no rub. ABDOMEN: Soft, nontender. There is no hepatosplenomegaly. Bowel sounds are well heard. There is a dressing at the site of surgery, which is clean and dry. EXTREMITIES: Femorals are diminished. Leg pulses are diminished. There is no pedal edema. There is no DVT or cellulitis. There is no calf tenderness. There is no cyanosis or clubbing. CENTRAL NERVOUS SYSTEM: The patient is conscious, awake, alert, but does not verbal. There are no focal deficits. PSYCHIATRIC: The patient's affect is not normal, but the patient does not appear to be agitated or depressed. LABORATORY DATA: The patient's white count is 16,900, hemoglobin 9.6, hematocrit is 30.9, platelet count is 361,000. Sodium 140.4, potassium 3.9, chloride 105, CO2 is 27, BUN 14, creatinine 0.83. GFR is greater than 60. Glucose is 389. Calcium 11.4, phosphorus 2.3, magnesium is normal at 2.1. The patient's ABG shows pH of 7.44, pCO2 is 38.3, pO2 is 75.1, O2 sats are 95.6% on 35% FIO2. The chest x-ray shows improvement in the basilar densities. There is no heart failure. ASSESSMENT: 1. THE PATIENT IS STATUS POST SURGERY OF EXPLORATORY LAPAROTOMY AND REEXPLORATION. NO EVIDENCE OF THERE BEING ANY ACUTE ABNORMAL PROCESS EXCEPT FOR ILEUS. 2. STATUS POST EXTUBATION, POST SURGERY. At present stable. 3. STATUS POST GASTROSTOMY TUBE PLACEMENT AT PRESENT ON GASTROSTOMY FEEDINGS. 4. NO FURTHER EVIDENCE OF WIDE COMPLEX TACHYCARDIA ON IV AMIODARONE. 5. HYPOKALEMIA, CORRECTED. At present potassium is normal. 6. ABNORMAL EKG SUGGESTED OF OLD INFERIOR WALL DC. 7. LEFT-SIDED WEAKNESS, WHICH IS VERY MILD BY EARLY EXAM BUT AT PRESENT SEEMS TO BE OF NORMAL STRENGTH. 8. HYPERTENSION, BLOOD PRESSURE IS WELL CONTROLLED. 9. DIABETES MELLITUS TYPE 2 WITH NO COMPLICATIONS. 10. HYPERLIPIDEMIA. 11. DYSPHAGIA. 12. CAD: NO ANGINAL SYMPTOMS. RECOMMENDATIONS: Would stop the patient's IV amiodarone and start the patient on metoprolol 25 mg p.o. q.12 h. while on the G-tube. We will restart other medications slowly. We will also get an echocardiogram to make sure in view of the wide complex tachycardia that the patient does not have depressed LV ejection fraction. Note that the patient's medications were reviewed and the case was discussed with other care giving providers on this case. Note 40 minutes spent on the patient with more than 50% of the time spent on direct patient care and also adjusting such as stopping amiodarone and starting his new prescription. We will follow with you. We will check the patient's echocardiogram when done. DICTATING PHYSICIAN: FREDDY ALEXIS M.D. [id number] PHY#: [id number] ID: [id number] JOB#: [id number] ACCT: [id number] cc: > [facility]
[2016-09-08] MEDS: METOPROLOL TARTRATE 25 MG TABLET GT SCH (21:15)
[2016-09-09] MEDS: METRONIDAZOLE 500 MG/NS RTU 100 ML IV SCH ×4 (00:01→18:28)
[2016-09-09] MEDS: INSULIN REG, HUMAN 100 UNIT/ML 3 ML VIAL (PYX) SUBCUT PRN ×5 (00:02→18:53)
[2016-09-09] MEDS: MORPHINE SULFATE 10 MG/ML INJ IV PRN ×2 (01:50→23:03)
[2016-09-09 04:56] LABS: APPEARANCE,URINE SLIGHTLY-CLOUDY; BILIRUBIN,URINE NEGATIVE (NEGATIVE); GLUCOSE, URINE 50 mg/dL (NEGATIVE); KETONES,URINE NEGATIVE (NEGATIVE); LEUKOCYTE ESTERASE,URINE SMALL (NEGATIVE); NITRITE,URINE NEGATIVE (NEGATIVE); PROTEIN,URINE 30 mg/dL (NEGATIVE); URINE SPECIFIC GRAVITY 1.021; UROBILINOGEN,URINE NEGATIVE mg/dL (<2.0)
[2016-09-09 04:57] LABS: ANION GAP 5 (5-19); BLOOD UREA NITROGEN 17 mg/dL (7-20); CALCIUM 7.9 mg/dL (8.4-10.2); CARBON DIOXIDE 32 mmol/L (22-30); CHLORIDE 108 mmol/L (98-107); GLUCOSE 237 mg/dL (75-110); MAGNESIUM 2.1 mg/dL (1.6-2.3); POTASSIUM 4.1 mmol/L (3.6-5.0); SODIUM 145.1 mmol/L (137-145)
[2016-09-09 05:00] LABS: HEMATOCRIT 29.9 % (37.9-51.0); HEMOGLOBIN 9.5 g/dL (13.5-17.0); HGB HCT DIFFERENCE -1.4; MEAN CORPUSCULAR HEMOGLOBIN 23.6 pg (27.0-33.4); MEAN CORPUSCULAR HGB CONC 31.8 g/dL (32.0-36.0); MEAN CORPUSCULAR VOLUME 74 fl (80-97); RED BLOOD COUNT 4.02 10^6/uL (4.35-5.55); RED CELL DISTRIBUTION WIDTH 19.1 % (11.5-14.0); WHITE BLOOD COUNT 20.4 10^3/uL (4.0-10.5)
[2016-09-09] MEDS: ENOXAPARIN SODIUM INJ 30 MG/0.3 ML DISP.SYRIN SUBCUT SCH (07:57)
--- NOTE | 2016-09-09 09:16 | PDOC PROGRESS REPORT ---
Subjective Progress Note for:: 09/09/16 Subjective:: Patient is now extubated. Tolerating off the ventilator. He is awake and alert and responsive. Noted increase output on the colostomy bag. The patient is on Levaquin and Flagyl. WBC reportedly elevated today. No temperature spikes however. No respiratory distress or coughing noted. Likewise no nausea or vomiting. Tolerating tube feedings well. Off amiodarone and currently on beta nic. Physical Exam Vital Signs: Temp Pulse Resp BP Pulse Ox 97.9 F 89 22 H 125/69 94 09/09/16 08:00 09/09/16 08:00 09/09/16 08:00 09/09/16 08:00 09/09/16 08:00 Intake & Output 09/08/16 09/09/16 09/10/16 06:59 06:59 06:59 Intake Total 2234 Output Total 2235 125 Balance -1 -125 Weight 97.3 kg General appearance: PRESENT: no acute distress, cooperative, other - Appropriately responds to questions Head exam: PRESENT: normocephalic Eye exam: PRESENT: EOMI Mouth exam: PRESENT: moist, neck supple Neck exam: ABSENT: JVD Respiratory exam: PRESENT: clear to auscultation shelly. ABSENT: rhonchi, wheezes Cardiovascular exam: PRESENT: RRR. ABSENT: gallop GI/Abdominal exam: PRESENT: soft, other - Feeding tube in place, colostomy and ileostomy bag in place.. ABSENT: distended Extremities exam: ABSENT: pedal edema Neurological exam: PRESENT: alert, awake, oriented to situation Skin exam: PRESENT: dry, warm. ABSENT: cyanosis Results Laboratory Results: 09/09/16 04:30 09/09/16 04:30 09/09/16 09/09/16 09/09/16 04:30 04:30 04:30 WBC 20.4 H RBC 4.02 L Hgb 9.5 L Hct 29.9 L MCV 74 L MCH 23.6 L MCHC 31.8 L RDW 19.1 H Plt Count 388 Sodium 145.1 H Potassium 4.1 Chloride 108 H Carbon Dioxide 32 H Anion Gap 5 BUN 17 Creatinine 0.70 Est GFR ( Amer) > 60 Est GFR (Non-Af Amer) > 60 Glucose 237 H Calcium 7.9 L Magnesium 2.1 Urine Color Urine Appearance Urine pH Ur Specific [place] Urine Protein Urine Glucose (UA) Urine Ketones Urine Blood Urine Nitrite Ur Leukocyte Esterase Urine WBC (Auto) Urine RBC (Auto) Stool Occult Blood NEGATIVE 09/09/16 04:30 WBC RBC Hgb Hct MCV MCH MCHC RDW Plt Count Sodium Potassium Chloride Carbon Dioxide Anion Gap BUN Creatinine Est GFR ( Amer) Est GFR (Non-Af Amer) Glucose Calcium Magnesium Urine Color DARK YELLOW Urine Appearance SLIGHTLY-CLOUDY Urine pH 6.0 Ur Specific [place] 1.021 Urine Protein 30 H Urine Glucose (UA) 50 H Urine Ketones NEGATIVE Urine Blood NEGATIVE Urine Nitrite NEGATIVE Ur Leukocyte Esterase SMALL H Urine WBC (Auto) 3 Urine RBC (Auto) 8 Stool Occult Blood 09/03/16 09/03/16 09/04/16 16:15 16:15 07:00 Creatine Kinase 39 L CK-MB (CK-2) 0.33 Troponin I < 0.012 < 0.012 09/05/16 04:17 Creatine Kinase CK-MB (CK-2) Troponin I 0.013 Impressions: Guidance Fluoroscopy 09/03/16 00:00 IMPRESSION: SUCCESSFUL PLACEMENT OF A 5 FR DUAL LUMEN 41 CM PICC IN THE left basilic VEIN. Interventional Vascular Procedure 09/03/16 00:00 IMPRESSION: SUCCESSFUL PLACEMENT OF A 5 FR DUAL LUMEN 41 CM PICC IN THE left basilic VEIN. PICC Line Insertion 09/03/16 00:00 IMPRESSION: SUCCESSFUL PLACEMENT OF A 5 FR DUAL LUMEN 41 CM PICC IN THE left basilic VEIN. Abdomen/Pelvis CT 09/03/16 07:00 IMPRESSION: Probable ileus Small amount of fluid at the level of the colon anastomosis near the splenic flexure without well-circumscribed abscess. No extraluminal air. Findings discussed with Dr. Iván THORNE X-Ray 09/05/16 00:00 IMPRESSION: Patent gastrostomy. Chest X-Ray 09/09/16 06:00 IMPRESSION: Status post removal of the endotracheal tube. No other significant interval change Assessment & Plan - Diagnosis (1) Paralytic ileus Is this a current diagnosis for this admission?: Yes (2) Acute respiratory failure with hypoxemia Is this a current diagnosis for this admission?: Yes (3) Leukocytosis Qualifiers: Leukocytosis type: bandemia Qualified Code(s): D72.825 - Bandemia Is this a current diagnosis for this admission?: No (4) Ventricular tachycardia Is this a current diagnosis for this admission?: Yes (5) Anemia, blood loss Is this a current diagnosis for this admission?: Yes (6) Hyperkalemia Is this a current diagnosis for this admission?: No (7) Hypocalcemia Is this a current diagnosis for this admission?: Yes (8) Hypoalbuminemia Is this a current diagnosis for this admission?: Yes (9) Colonic mass Is this a current diagnosis for this admission?: Yes (10) Coronary artery disease Qualifiers: Coronary Disease-Associated Artery/Lesion type: [place] artery [place] vs. transplanted heart: [place] heart Associated angina: angina presence unspecified Qualified Code(s): I25.10 - Atherosclerotic heart disease of [place] coronary artery without angina pectoris Is this a current diagnosis for this admission?: Yes (11) Hyperlipidemia Qualifiers: Hyperlipidemia type: other hyperlipidemia Qualified Code(s): E78.4 - Other hyperlipidemia Is this a current diagnosis for this admission?: Yes (12) Hypertension Qualifiers: Hypertension type: essential hypertension Qualified Code(s): I10 - Essential (primary) hypertension Is this a current diagnosis for this admission?: Yes (13) Panlobular emphysema Is this a current diagnosis for this admission?: Yes (14) Type 2 diabetes mellitus without complications Qualifiers: Diabetes mellitus [facility] insulin use: without terminologist use Qualified Code(s): E11.9 - Type 2 diabetes mellitus without complications Is this a current diagnosis for this admission?: Yes - Time Time Spent with patient: 25-34 minutes - Plan Summary Plan Summary: Patient improved. Continue current antibiotics for now. WBCs elevated, we will check a urinalysis and a culture and Clostridium difficile toxin . Add lactobacillus. CT of abd/pelvis ordered by Surgical service. Begin physical therapy. Monitor electrolytes. Transferred to [facility]. Dr. Tao will assume primary care consultation in the morning.
--- NOTE | 2016-09-09 09:20 | PDOC PROGRESS REPORT ---
Subjective Progress Note for:: 09/09/16 Subjective:: awake, alert, no complaints Physical Exam Vital Signs: Temp Pulse Resp BP Pulse Ox 97.9 F 89 22 H 125/69 94 09/09/16 08:00 09/09/16 08:00 09/09/16 08:00 09/09/16 08:00 09/09/16 08:00 Intake & Output 09/08/16 09/09/16 09/10/16 06:59 06:59 06:59 Intake Total 2234 Output Total 2235 125 Balance -1 -125 Weight 97.3 kg General appearance: PRESENT: no acute distress, cooperative Respiratory exam: PRESENT: clear to auscultation shelly Cardiovascular exam: PRESENT: RRR GI/Abdominal exam: PRESENT: other - soft, mildly distended, semisolid stool output via ostomy. Extremities exam: PRESENT: other - no swellling, no tenderness Results Laboratory Results: 09/09/16 04:30 09/09/16 04:30 09/09/16 09/09/16 09/09/16 04:30 04:30 04:30 WBC 20.4 H RBC 4.02 L Hgb 9.5 L Hct 29.9 L MCV 74 L MCH 23.6 L MCHC 31.8 L RDW 19.1 H Plt Count 388 Sodium 145.1 H Potassium 4.1 Chloride 108 H Carbon Dioxide 32 H Anion Gap 5 BUN 17 Creatinine 0.70 Est GFR ( Amer) > 60 Est GFR (Non-Af Amer) > 60 Glucose 237 H Calcium 7.9 L Magnesium 2.1 Urine Color Urine Appearance Urine pH Ur Specific [place] Urine Protein Urine Glucose (UA) Urine Ketones Urine Blood Urine Nitrite Ur Leukocyte Esterase Urine WBC (Auto) Urine RBC (Auto) Stool Occult Blood NEGATIVE 09/09/16 04:30 WBC RBC Hgb Hct MCV MCH MCHC RDW Plt Count Sodium Potassium Chloride Carbon Dioxide Anion Gap BUN Creatinine Est GFR ( Amer) Est GFR (Non-Af Amer) Glucose Calcium Magnesium Urine Color DARK YELLOW Urine Appearance SLIGHTLY-CLOUDY Urine pH 6.0 Ur Specific [place] 1.021 Urine Protein 30 H Urine Glucose (UA) 50 H Urine Ketones NEGATIVE Urine Blood NEGATIVE Urine Nitrite NEGATIVE Ur Leukocyte Esterase SMALL H Urine WBC (Auto) 3 Urine RBC (Auto) 8 Stool Occult Blood 09/03/16 09/03/16 09/04/16 16:15 16:15 07:00 Creatine Kinase 39 L CK-MB (CK-2) 0.33 Troponin I < 0.012 < 0.012 09/05/16 04:17 Creatine Kinase CK-MB (CK-2) Troponin I 0.013 Impressions: Guidance Fluoroscopy 09/03/16 00:00 IMPRESSION: SUCCESSFUL PLACEMENT OF A 5 FR DUAL LUMEN 41 CM PICC IN THE left basilic VEIN. Interventional Vascular Procedure 09/03/16 00:00 IMPRESSION: SUCCESSFUL PLACEMENT OF A 5 FR DUAL LUMEN 41 CM PICC IN THE left basilic VEIN. PICC Line Insertion 09/03/16 00:00 IMPRESSION: SUCCESSFUL PLACEMENT OF A 5 FR DUAL LUMEN 41 CM PICC IN THE left basilic VEIN. Abdomen/Pelvis CT 09/03/16 07:00 IMPRESSION: Probable ileus Small amount of fluid at the level of the colon anastomosis near the splenic flexure without well-circumscribed abscess. No extraluminal air. Findings discussed with Dr. Iván THORNE X-Ray 09/05/16 00:00 IMPRESSION: Patent gastrostomy. Chest X-Ray 09/09/16 06:00 IMPRESSION: Status post removal of the endotracheal tube. No other significant interval change Assessment & Plan - Diagnosis (1) Colonic mass Is this a current diagnosis for this admission?: Yes (2) Ileus, postoperative Is this a current diagnosis for this admission?: YesPlan: with cecal ischemia due to distension. s/p xlap, decompression and end tx colostomy and mucous fistula and gtube.much improved. extubated without problems. only concerning thing is leukocytosis. get picc line and d/c central line. check u/a, check ct abd for abscess. cont tube feeds via gtube. get him up out of bed. speech path eval for swallowing.
[2016-09-09 09:48] LABS: APPEARANCE,URINE CLEAR; BILIRUBIN,URINE NEGATIVE (NEGATIVE); GLUCOSE, URINE 150 mg/dL (NEGATIVE); KETONES,URINE NEGATIVE (NEGATIVE); LEUKOCYTE ESTERASE,URINE SMALL (NEGATIVE); NITRITE,URINE NEGATIVE (NEGATIVE); PROTEIN,URINE NEGATIVE (NEGATIVE); UROBILINOGEN,URINE NEGATIVE mg/dL (<2.0)
[2016-09-09] MEDS: LACTOBACILLUS ACIDOPHILUS 250 MG TAB PEG SCH ×2 (10:23→18:28)
[2016-09-09] MEDS: LEVOFLOXACIN 500 MG/D5W RTU 100 ML IV SCH (10:23)
[2016-09-09] MEDS: METOPROLOL TARTRATE 25 MG TABLET GT SCH ×2 (10:24→22:52)
--- NOTE | 2016-09-09 10:51 | XCELERA REPORT ---
[address] [address] Transthoracic Echocardiogram Report Name: AMI YOUSIF Age: 66 yrs Gender: Male : 1950 Patient Status: Inpatient Patient Location: ICU\S\607\S\A Study Date: 09/09/2016 08:28 AM Height: 70 in Weight: 216 lb BSA: 2.2 m2 Procedure: A two-dimensional transthoracic echocardiogram with color flow and Doppler was performed. The study was technically difficult with many images being suboptimal in quality. Images were not obtained from all of the standard acoustic windows due to the limited scope of the study. Reason For Study: CAD /post op /wct History: CAD /post op /wct. Ordering Physician: SAMANTHA ALEXIS Performed By: Arpan Rodarte Interpretation Summary The left ventricle is normal in size. There is normal left ventricular wall thickness. LV EF is 60% Left ventricular systolic function is normal. Doppler measurements suggest impaired left ventricular relaxation, which is associated with grade I/IV or mild diastolic dysfunction There is no thrombus. The left atrial size is normal. There is no evidence of mitral valve prolapse. There is no mitral valve stenosis. There is a trace to mild amount of mitral regurgitation There is no aortic valve stenosis There is no LVOT obstruction. There is Aortic Sclerosis without stenosis. There is a mild amount of aortic regurgitation There is no tricuspid stenosis. There is a trace amount of tricuspid regurgitation Right ventricular systolic pressure is normal. RVSP is 29 mm of Hg , with RA mean of 10. There is no pericardial effusion. MMode/2D Measurements \T\ Calculations RVDd: 2.5 cm LVIDd: 5.5 cm FS: 29.8 % Ao root diam: 3.9 cm IVSd: 0.85 cm LVIDs: 3.8 cm EDV(Teich): 145.0 ml LVPWd: 0.88 cm ESV(Teich): 63.2 ml Ao root area: 11.9 cm2 EF(Teich): 56.4 % LA dimension: 4.0 cm Doppler Measurements \T\ Calculations MV E max oscar: MV P1/2t max oscar: Ao V2 max: AI max oscar: 77.3 cm/sec 81.2 cm/sec 165.1 cm/sec 328.2 cm/sec MV A max oscar: MV P1/2t: 38.4 msec Ao max PG: AI max P.3 cm/sec 10.9 mmHg 43.1 mmHg MV E/A: 0.78 MVA(P1/2t): 5.7 cm2 AI dec slope: MV dec slope: 618.8 cm/sec2 190.4 cm/sec2 MV dec time: AI P1/2t: 0.13 sec 504.9 msec LV V1 max PG: PA V2 max: TR max oscar: RAP systole: 5.1 mmHg 71.6 cm/sec 215.0 cm/sec 10.0 mmHg LV V1 max: PA max P.0 mmHg TR max P.0 cm/sec 18.5 mmHg RVSP(TR): 28.5 mmHg Left Ventricle The left ventricle is normal in size. There is normal left ventricular wall thickness. LV EF is 60%. Left ventricular systolic function is normal. Doppler measurements suggest impaired left ventricular relaxation, which is associated with grade I/IV or mild diastolic dysfunction. The left ventricular wall motion is normal. There is no thrombus. Right Ventricle The right ventricle is normal in size and function. Atria The right atrium is normal. The left atrial size is normal. Mitral Valve There is no evidence of mitral valve prolapse. There is no vegetation seen on the mitral valve. There is no mitral valve stenosis. There is a trace to mild amount of mitral regurgitation. Aortic Valve There is no aortic valve stenosis. There is no LVOT obstruction. There is Aortic Sclerosis without stenosis. There is a mild amount of aortic regurgitation. Tricuspid Valve There is no tricuspid stenosis. There is a trace amount of tricuspid regurgitation. Right ventricular systolic pressure is normal. RVSP is 29 mm of Hg , with RA mean of 10. Pulmonic Valve There is no pulmonic valvular stenosis. There is no pulmonic valvular regurgitation. Great Vessels The aortic root is not well visualized. Effusions There is no pericardial effusion. : SAMANTHA ALEXIS > Samantha Alexis
[2016-09-09] MEDS: ONDANSETRON HCL INJ/PF 4 MG/2 ML SDV IV PRN (23:03)
[2016-09-10] MEDS: METRONIDAZOLE 500 MG/NS RTU 100 ML IV SCH ×4 (00:24→18:16)
[2016-09-10 04:32] LABS: HEMATOCRIT 31.2 % (37.9-51.0); HEMOGLOBIN 9.8 g/dL (13.5-17.0); HGB HCT DIFFERENCE -1.8; MEAN CORPUSCULAR HEMOGLOBIN 23.5 pg (27.0-33.4); MEAN CORPUSCULAR HGB CONC 31.4 g/dL (32.0-36.0); MEAN CORPUSCULAR VOLUME 75 fl (80-97); RED BLOOD COUNT 4.18 10^6/uL (4.35-5.55); WHITE BLOOD COUNT 21.5 10^3/uL (4.0-10.5)
[2016-09-10 04:33] LABS: ANION GAP 9 (5-19); BLOOD UREA NITROGEN 17 mg/dL (7-20); CARBON DIOXIDE 30 mmol/L (22-30); CHLORIDE 107 mmol/L (98-107); CREATININE RESULT 0.73 mg/dL (0.52-1.25); GLUCOSE 316 mg/dL (75-110); PHOSPHORUS 3.5 mg/dL (2.5-4.5); POTASSIUM 4.1 mmol/L (3.6-5.0); SODIUM 146.3 mmol/L (137-145)
[2016-09-10 04:35] LABS: CALCIUM 7.8 mg/dL (8.4-10.2); MAGNESIUM 2.2 mg/dL (1.6-2.3)
--- NOTE | 2016-09-10 06:51 | PDOC PROGRESS REPORT ---
Subjective Progress Note for:: 09/10/16 Subjective:: wants food Physical Exam Vital Signs: Temp Pulse Resp BP Pulse Ox 98.2 F 87 22 H 122/71 94 09/10/16 03:59 09/09/16 20:00 09/10/16 02:30 09/10/16 02:01 09/10/16 02:30 Intake & Output 09/08/16 09/09/16 09/10/16 07:59 07:59 07:59 Intake Total 2234 486 Output Total 2235 1660 Balance -1 -1174 Weight 214 lb 8.156 oz General appearance: PRESENT: no acute distress Respiratory exam: PRESENT: wheezes - mild left Cardiovascular exam: ABSENT: diastolic murmur, irregular rhythm, systolic murmur GI/Abdominal exam: ABSENT: mass, organolmegaly, tenderness Extremities exam: ABSENT: pedal edema Results Laboratory Results: 09/10/16 04:10 09/10/16 04:10 09/09/16 09/10/16 09/10/16 09:30 04:10 04:10 WBC 21.5 H RBC 4.18 L Hgb 9.8 L Hct 31.2 L MCV 75 L MCH 23.5 L MCHC 31.4 L RDW 19.0 H Plt Count 486 H Sodium 146.3 H Potassium 4.1 Chloride 107 Carbon Dioxide 30 Anion Gap 9 BUN 17 Creatinine 0.73 Est GFR ( Amer) > 60 Est GFR (Non-Af Amer) > 60 Glucose 316 H Calcium 7.8 L Phosphorus 3.5 Magnesium 2.2 Urine Color YELLOW Urine Appearance CLEAR Urine pH 5.0 Ur Specific [place] 1.020 Urine Protein NEGATIVE Urine Glucose (UA) 150 H Urine Ketones NEGATIVE Urine Blood SMALL H Urine Nitrite NEGATIVE Ur Leukocyte Esterase SMALL H Urine WBC (Auto) 2 Urine RBC (Auto) 29 09/03/16 20:35 Colonic Wash (Surgical) Ova and Parasite Concentrate Exam - Final 09/03/16 20:35 Colonic Wash (Surgical) Ova and Parasites - Final 09/03/16 20:35 Colonic Wash (Surgical) Ova and Parasites - Final 09/04/16 10:05 Blood Blood Culture - Final NO GROWTH IN 5 DAYS 09/03/16 09/03/16 09/04/16 16:15 16:15 07:00 Creatine Kinase 39 L CK-MB (CK-2) 0.33 Troponin I < 0.012 < 0.012 09/05/16 04:17 Creatine Kinase CK-MB (CK-2) Troponin I 0.013 Impressions: KUB X-Ray 09/05/16 00:00 IMPRESSION: Patent gastrostomy. Abdomen/Pelvis CT 09/09/16 00:00 IMPRESSION: Postsurgical changes without evidence of abscess or bowel obstruction. Guidance Fluoroscopy 09/09/16 00:00 IMPRESSION: SUCCESSFUL PLACEMENT OF A 5 FR DUAL LUMEN 39 CM PICC IN THE basilic VEIN. Interventional Vascular Procedure 09/09/16 00:00 IMPRESSION: SUCCESSFUL PLACEMENT OF A 5 FR DUAL LUMEN 39 CM PICC IN THE basilic VEIN. PICC Line Insertion 09/09/16 00:00 IMPRESSION: SUCCESSFUL PLACEMENT OF A 5 FR DUAL LUMEN 39 CM PICC IN THE basilic VEIN. Chest X-Ray 09/09/16 06:00 IMPRESSION: Status post removal of the endotracheal tube. 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 treater helper insulin use: without fdc use Qualified Code(s): E11.9 - Type 2 diabetes mellitus without complications Is this a current diagnosis for this admission?: YesPlan: add lantus 10u (2) Hypertension Qualifiers: Hypertension type: essential hypertension Qualified Code(s): I10 - Essential (primary) hypertension Is this a current diagnosis for this admission?: Yes (3) Anemia, blood loss Is this a current diagnosis for this admission?: Yes (4) Panlobular emphysema Is this a current diagnosis for this admission?: Yes (5) Colonic mass Is this a current diagnosis for this admission?: Yes (6) Leukocytosis Qualifiers: Leukocytosis type: bandemia Qualified Code(s): D72.825 - Bandemia Is this a current diagnosis for this admission?: YesPlan: ct no abscess (7) Dysphagia Qualifiers: Dysphagia type: oral phase Qualified Code(s): R13.11 - Dysphagia, oral phase Is this a current diagnosis for this admission?: NoPlan: Gtube feeding 45/h. Try speech therapy swallow eval that was interruped by return to [place]. (8) Paralytic ileus Is this a current diagnosis for this admission?: Yes
[2016-09-10] MEDS: INSULIN REG, HUMAN 100 UNIT/ML 3 ML VIAL (PYX) SUBCUT PRN ×2 (07:37→14:09)
[2016-09-10] MEDS: ENOXAPARIN SODIUM INJ 40 MG/0.4 ML DISP.SYRIN SUBCUT SCH (09:10)
[2016-09-10] MEDS: MORPHINE SULFATE 10 MG/ML INJ IV PRN (09:11)
[2016-09-10] MEDS ORDERED: INSULIN GLARGINE,HUM.REC.ANLOG 300 UNIT/3 ML INSULN.PEN SUBCUT SCH (10:00)
[2016-09-10] MEDS: LACTOBACILLUS ACIDOPHILUS 250 MG TAB PEG SCH ×2 (10:44→18:17)
[2016-09-10] MEDS: METOPROLOL TARTRATE 25 MG TABLET GT SCH ×2 (10:45→22:18)
[2016-09-10] MEDS: LEVOFLOXACIN 500 MG/D5W RTU 100 ML IV SCH (10:45)
[2016-09-10] MEDS: NORMAL SALINE 10 ML SDV (SCHEDULED) IV SCH ×2 (10:46→22:19)
--- NOTE | 2016-09-10 10:47 | PDOC PROGRESS REPORT ---
Subjective Progress Note for:: 09/10/16 Subjective:: feels well. hungry. no complaints Physical Exam Vital Signs: Temp Pulse Resp BP Pulse Ox 97.1 F 90 20 127/64 H 92 09/10/16 07:20 09/10/16 08:00 09/10/16 07:20 09/10/16 07:20 09/10/16 07:20 Intake & Output 09/09/16 09/10/16 09/11/16 06:59 06:59 06:59 Intake Total 2234 1070 Output Total 2235 1660 Balance -1 -590 Weight 97.3 kg 110.6 kg General appearance: PRESENT: no acute distress, cooperative Respiratory exam: PRESENT: clear to auscultation shelly Cardiovascular exam: PRESENT: RRR GI/Abdominal exam: PRESENT: other - soft, ostomy fx well with liquid stool. ostomies all viable. c/d/i. minimal tenderness Extremities exam: PRESENT: other - no swelling. Results Laboratory Results: 09/10/16 04:10 09/10/16 04:10 09/10/16 09/10/16 04:10 04:10 WBC 21.5 H RBC 4.18 L Hgb 9.8 L Hct 31.2 L MCV 75 L MCH 23.5 L MCHC 31.4 L RDW 19.0 H Plt Count 486 H Sodium 146.3 H Potassium 4.1 Chloride 107 Carbon Dioxide 30 Anion Gap 9 BUN 17 Creatinine 0.73 Est GFR ( Amer) > 60 Est GFR (Non-Af Amer) > 60 Glucose 316 H Calcium 7.8 L Phosphorus 3.5 Magnesium 2.2 09/03/16 20:35 Colonic Wash (Surgical) Ova and Parasite Concentrate Exam - Final 09/03/16 20:35 Colonic Wash (Surgical) Ova and Parasites - Final 09/03/16 20:35 Colonic Wash (Surgical) Ova and Parasites - Final 09/04/16 10:05 Blood Blood Culture - Final NO GROWTH IN 5 DAYS 09/03/16 09/03/16 09/04/16 16:15 16:15 07:00 Creatine Kinase 39 L CK-MB (CK-2) 0.33 Troponin I < 0.012 < 0.012 09/05/16 04:17 Creatine Kinase CK-MB (CK-2) Troponin I 0.013 Impressions: KUB X-Ray 09/05/16 00:00 IMPRESSION: Patent gastrostomy. Abdomen/Pelvis CT 09/09/16 00:00 IMPRESSION: Postsurgical changes without evidence of abscess or bowel obstruction. Guidance Fluoroscopy 09/09/16 00:00 IMPRESSION: SUCCESSFUL PLACEMENT OF A 5 FR DUAL LUMEN 39 CM PICC IN THE basilic VEIN. Interventional Vascular Procedure 09/09/16 00:00 IMPRESSION: SUCCESSFUL PLACEMENT OF A 5 FR DUAL LUMEN 39 CM PICC IN THE basilic VEIN. PICC Line Insertion 09/09/16 00:00 IMPRESSION: SUCCESSFUL PLACEMENT OF A 5 FR DUAL LUMEN 39 CM PICC IN THE basilic VEIN. Assessment & Plan - Diagnosis (1) Colonic mass Is this a current diagnosis for this admission?: Yes (2) Ileus, postoperative Is this a current diagnosis for this admission?: YesPlan: with cecal ischemia due to distension. s/p xlap, decompression and end tx colostomy and mucous fistula and gtube.much improved. extubated without problems. only concerning thing is leukocytosis. no source identified. central line out. will d/c cortez. ucx pending. ct neg for abscess. will check cxr. passed speech path eval for swallow. start po diet. main problem is mobility at this point. needs intensive physical therapy.
[2016-09-10] MEDS: OXYCODONE-ACETAMINOPHEN 5-325 MG TABLET PO PRN ×2 (11:11→18:18)
--- NOTE | 2016-09-10 14:21 | PDOC PROGRESS REPORT ---
Subjective Progress Note for:: 09/10/16 Subjective:: Patient seems to be doing better with gradual improvement. Pt is denying any chest arm or neck discomfort. Patient denying any PND, orthopnea. Patient denied any sustained palpitations, dizziness, syncope, near syncope. Patient denying any fever chills. Patient denying any other significant discomfort. Patient is maintaining sinus rhythm. Frequent APCs and VPCs are noted. Patient being seen by occupational therapist for bedside swallowing evaluation Review of systems: Rest review of systems negative. Medications: Medications have been reviewed. Physical Exam Vital Signs: Temp Pulse Resp BP Pulse Ox 97.1 F 90 20 127/64 H 92 09/10/16 07:20 09/10/16 08:00 09/10/16 07:20 09/10/16 07:20 09/10/16 07:20 Intake & Output 09/09/16 09/10/16 09/11/16 06:59 06:59 06:59 Intake Total 2234 1070 Output Total 2235 1660 Balance -1 -590 Weight 97.3 kg 110.6 kg Exam: GENERAL: well-nourished and in no acute distress. Alert and oriented x3 HEAD: Atraumatic, normocephalic. EYES: Pupils equal round and reactive to light, extraocular movements intact, sclera anicteric, conjunctiva are normal. ENT: TMs normal, nares patent, oropharynx clear without exudates. Moist mucous membranes. No oral ulcerations or bleeding gums noted NECK: supple without lymphadenopathy. Trachea is central. No cervical or axillary lymphadenopathy noted. Carotids are 2+, JVD WNL LUNGS: Respiration seems nonlabored, no significant accessory muscle action noted. Bibasal a fine crackles are noted. No wheezes rales or rhonchi noted. No significant dullness noted on percussion. CHEST: Palpation of the chest wall shows no significant chest wall tenderness. No other significant abnormalities noted. HEART: [place] [employer]CH, No PSH, 1/6 NAZIA aortic area, 1/6 younger systolic murmur mitral area, no rubs, no gallops. ABDOMEN: Soft, no significant tenderness appreciated, normoactive bowel sounds. No guarding, no rebound. No rigidity noted . No masses appreciated. Gastrostomy tube noted. EXTREMITIES: Pedal pulses are 1-2+, no calf tenderness noted. No clubbing or cyanosis.trace to 1+ pedal edema noted NEUROLOGICAL: Focused neurological exam showed no significant neurologic deficit. Normal speech, no focal weakness appreciated. PSYCH: Normal mood, normal affect. Judgment and insight within normal limits. SKIN: No significant ecchymosis, rash, ulcerations or signs of pruritus noted. MUSCULOSKELETAL EXAM: No significant joint swelling noted. Results Laboratory Results: 09/10/16 04:10 09/10/16 04:10 09/10/16 09/10/16 04:10 04:10 WBC 21.5 H RBC 4.18 L Hgb 9.8 L Hct 31.2 L MCV 75 L MCH 23.5 L MCHC 31.4 L RDW 19.0 H Plt Count 486 H Sodium 146.3 H Potassium 4.1 Chloride 107 Carbon Dioxide 30 Anion Gap 9 BUN 17 Creatinine 0.73 Est GFR ( Amer) > 60 Est GFR (Non-Af Amer) > 60 Glucose 316 H Calcium 7.8 L Phosphorus 3.5 Magnesium 2.2 09/03/16 20:35 Colonic Wash (Surgical) Ova and Parasite Concentrate Exam - Final 09/03/16 20:35 Colonic Wash (Surgical) Ova and Parasites - Final 09/03/16 20:35 Colonic Wash (Surgical) Ova and Parasites - Final 09/04/16 10:05 Blood Blood Culture - Final NO GROWTH IN 5 DAYS 09/03/16 09/03/16 09/04/16 16:15 16:15 07:00 Creatine Kinase 39 L CK-MB (CK-2) 0.33 Troponin I < 0.012 < 0.012 09/05/16 04:17 Creatine Kinase CK-MB (CK-2) Troponin I 0.013 Impressions: KUB X-Ray 09/05/16 00:00 IMPRESSION: Patent gastrostomy. Abdomen/Pelvis CT 09/09/16 00:00 IMPRESSION: Postsurgical changes without evidence of abscess or bowel obstruction. Guidance Fluoroscopy 09/09/16 00:00 IMPRESSION: SUCCESSFUL PLACEMENT OF A 5 FR DUAL LUMEN 39 CM PICC IN THE basilic VEIN. Interventional Vascular Procedure 09/09/16 00:00 IMPRESSION: SUCCESSFUL PLACEMENT OF A 5 FR DUAL LUMEN 39 CM PICC IN THE basilic VEIN. PICC Line Insertion 09/09/16 00:00 IMPRESSION: SUCCESSFUL PLACEMENT OF A 5 FR DUAL LUMEN 39 CM PICC IN THE basilic VEIN. Chest X-Ray 09/10/16 00:00 IMPRESSION: Trace bilateral pleural effusions in the posterior costophrenic sulci Minimal bibasilar airspace disease in the posterior costophrenic sulci atelectasis versus pneumonia Assessment & Plan - Diagnosis (1) Coronary artery disease Qualifiers: Coronary Disease-Associated Artery/Lesion type: [place] artery [place] vs. transplanted heart: [place] heart Associated angina: angina presence unspecified Qualified Code(s): I25.10 - Atherosclerotic heart disease of [place] coronary artery without angina pectoris Is this a current diagnosis for this admission?: Yes (2) Abnormal EKG Is this a current diagnosis for this admission?: Yes (3) CVA (cerebral infarction) Qualifiers: Laterality of affected vessel: unspecified Is this a current diagnosis for this admission?: Yes (4) Hypertension Qualifiers: Hypertension type: essential hypertension Qualified Code(s): I10 - Essential (primary) hypertension Is this a current diagnosis for this admission?: Yes (5) Hyperlipidemia Qualifiers: Hyperlipidemia type: other hyperlipidemia Qualified Code(s): E78.4 - Other hyperlipidemia Is this a current diagnosis for this admission?: Yes (6) Diabetes Qualifiers: Diabetes mellitus type: type 2 Diabetes mellitus complication status: with unspecified complications - Notes Notes: CAD: Patient has CAD. Currently stable without any angina or angina equivalent symptoms. Aggressive risk factor modification advised. Abnormal electrocardiogram: This was evaluated by a 2-D echocardiogram. It showed normal LVEF. Cerebrovascular accident: Patient currently stable. He is getting a swallowing evaluation. Blood pressure goal in this patient is 140/90 or less. This was discussed with the patient. Dyslipidemia: LDL goal is less than 70. Recommend statin therapy at least intermediate or high dose, of high potency status. Diabetes: Recommend good control of blood sugar. However should avoid any hypoglycemia. Patient being expertly managed by primary care M.D. - Time Time with patient: 15-25 minutes - CODE STATUS was discussed, patient remains full code. Surrogate decision-maker unchanged. Multiple medical problems were addressed.More than 50% of the time spent coordinating care, discussing management plans with involved caregivers. Management plans discussed with involved personnels. Medical decision making was of moderate complexity.
[2016-09-11] MEDS: METRONIDAZOLE 500 MG/NS RTU 100 ML IV SCH ×2 (02:42→06:10)
[2016-09-11 05:32] LABS: HEMATOCRIT 29.8 % (37.9-51.0); HEMOGLOBIN 9.2 g/dL (13.5-17.0); HGB HCT DIFFERENCE -2.2; MEAN CORPUSCULAR HEMOGLOBIN 23.3 pg (27.0-33.4); MEAN CORPUSCULAR VOLUME 75 fl (80-97); RED BLOOD COUNT 3.96 10^6/uL (4.35-5.55); RED CELL DISTRIBUTION WIDTH 19.2 % (11.5-14.0); WHITE BLOOD COUNT 20.5 10^3/uL (4.0-10.5)
[2016-09-11] MEDS: OXYCODONE-ACETAMINOPHEN 5-325 MG TABLET PO PRN ×4 (07:20→18:48)
[2016-09-11] MEDS: ENOXAPARIN SODIUM INJ 40 MG/0.4 ML DISP.SYRIN SUBCUT SCH (07:23)
--- NOTE | 2016-09-11 08:40 | PDOC PROGRESS REPORT ---
Subjective Progress Note for:: 09/11/16 Subjective:: wants real food not ground up Physical Exam Vital Signs: Temp Pulse Resp BP Pulse Ox 97.6 F 77 22 H 125/79 90 L 09/11/16 07:23 09/11/16 07:23 09/11/16 07:23 09/11/16 07:23 09/11/16 07:23 Intake & Output 09/10/16 09/11/16 09/12/16 07:59 07:59 07:59 Intake Total 1070 860 Output Total 1660 1650 Balance -590 -790 Weight 243 lb 13.3 oz 251 lb 12.286 oz General appearance: PRESENT: no acute distress Respiratory exam: PRESENT: clear to auscultation shelly Cardiovascular exam: ABSENT: diastolic murmur, irregular rhythm, systolic murmur GI/Abdominal exam: ABSENT: tenderness Extremities exam: ABSENT: pedal edema Neurological exam: PRESENT: awake Psychiatric exam: PRESENT: appropriate affect Skin exam: PRESENT: erythema - LUQ nontender Results Laboratory Results: 09/11/16 04:15 09/10/16 04:10 09/11/16 04:15 WBC 20.5 H RBC 3.96 L Hgb 9.2 L Hct 29.8 L MCV 75 L MCH 23.3 L MCHC 31.0 L RDW 19.2 H Plt Count 568 H 09/03/16 09/03/16 09/04/16 16:15 16:15 07:00 Creatine Kinase 39 L CK-MB (CK-2) 0.33 Troponin I < 0.012 < 0.012 09/05/16 04:17 Creatine Kinase CK-MB (CK-2) Troponin I 0.013 Impressions: KUB X-Ray 09/05/16 00:00 IMPRESSION: Patent gastrostomy. Abdomen/Pelvis CT 09/09/16 00:00 IMPRESSION: Postsurgical changes without evidence of abscess or bowel obstruction. Guidance Fluoroscopy 09/09/16 00:00 IMPRESSION: SUCCESSFUL PLACEMENT OF A 5 FR DUAL LUMEN 39 CM PICC IN THE basilic VEIN. Interventional Vascular Procedure 09/09/16 00:00 IMPRESSION: SUCCESSFUL PLACEMENT OF A 5 FR DUAL LUMEN 39 CM PICC IN THE basilic VEIN. PICC Line Insertion 09/09/16 00:00 IMPRESSION: SUCCESSFUL PLACEMENT OF A 5 FR DUAL LUMEN 39 CM PICC IN THE basilic VEIN. Chest X-Ray 09/10/16 00:00 IMPRESSION: Trace bilateral pleural effusions in the posterior costophrenic sulci Minimal bibasilar airspace disease in the posterior costophrenic sulci atelectasis versus pneumonia Assessment & Plan - Diagnosis (1) Type 2 diabetes mellitus without complications Qualifiers: Diabetes mellitus oil heaterman insulin use: without oil heaterman use Qualified Code(s): E11.9 - Type 2 diabetes mellitus without complications Is this a current diagnosis for this admission?: YesPlan: eating pudding. BS around 200. Increase lantus to 30u (2) Hypertension Qualifiers: Hypertension type: essential hypertension Qualified Code(s): I10 - Essential (primary) hypertension Is this a current diagnosis for this admission?: Yes (3) Anemia, blood loss Is this a current diagnosis for this admission?: Yes (4) Panlobular emphysema Is this a current diagnosis for this admission?: Yes (5) Colonic mass Is this a current diagnosis for this admission?: YesPlan: percocet wears off and he shuts down cooperation. Added fentanyl 25mcg/h (6) Leukocytosis Qualifiers: Leukocytosis type: bandemia Qualified Code(s): D72.825 - Bandemia Is this a current diagnosis for this admission?: YesPlan: Tmax 100. WBC20. Urine culture negative at 24h. Bibasal atalectasis vs pneumonia. Still on levaquin & flagyl. (7) Dysphagia Qualifiers: Dysphagia type: oral phase Qualified Code(s): R13.11 - Dysphagia, oral phase Is this a current diagnosis for this admission?: No (8) Paralytic ileus Is this a current diagnosis for this admission?: Yes (9) Parkinson disease Is this a current diagnosis for this admission?: YesPlan: In 2014 Kadi Coffman started him on Sinemet for shuffling gait. Resume
[2016-09-11] MEDS ORDERED: INSULIN GLARGINE,HUM.REC.ANLOG 300 UNIT/3 ML INSULN.PEN SUBCUT SCH (10:00)
[2016-09-11] MEDS: LACTOBACILLUS ACIDOPHILUS 250 MG TAB PEG SCH ×2 (10:31→18:48)
[2016-09-11] MEDS: METOPROLOL TARTRATE 25 MG TABLET GT SCH ×2 (10:31→22:38)
[2016-09-11] MEDS: LEVOFLOXACIN 500 MG/D5W RTU 100 ML IV SCH (10:31)
[2016-09-11] MEDS: FENTANYL 25 MCG/HR PATCH.TD72 TD SCH (10:33)
[2016-09-11] MEDS: NORMAL SALINE 10 ML SDV (SCHEDULED) IV SCH ×2 (10:33→22:37)
--- NOTE | 2016-09-11 10:40 | PDOC PROGRESS REPORT ---
Subjective Progress Note for:: 09/11/16 Subjective:: feels well. toleratiing diet. working with speech path. Physical Exam Vital Signs: Temp Pulse Resp BP Pulse Ox 97.6 F 77 22 H 125/79 90 L 09/11/16 07:23 09/11/16 08:00 09/11/16 07:23 09/11/16 07:23 09/11/16 07:23 Intake & Output 09/10/16 09/11/16 09/12/16 06:59 06:59 06:59 Intake Total 1070 860 Output Total 1660 1650 Balance -590 -790 Weight 110.6 kg 114.2 kg General appearance: PRESENT: no acute distress, cooperative Respiratory exam: PRESENT: clear to auscultation shelly Cardiovascular exam: PRESENT: RRR GI/Abdominal exam: PRESENT: other - ostomy functioning, abdomen more full today but minimal tenderness. c/d/i. Extremities exam: PRESENT: other - no swelling, no tenderness Results Laboratory Results: 09/11/16 04:15 09/10/16 04:10 09/11/16 04:15 WBC 20.5 H RBC 3.96 L Hgb 9.2 L Hct 29.8 L MCV 75 L MCH 23.3 L MCHC 31.0 L RDW 19.2 H Plt Count 568 H 09/09/16 09:30 Catheterized Urine Urine Culture - Final NO GROWTH 2 DAYS 09/03/16 09/03/16 09/04/16 16:15 16:15 07:00 Creatine Kinase 39 L CK-MB (CK-2) 0.33 Troponin I < 0.012 < 0.012 09/05/16 04:17 Creatine Kinase CK-MB (CK-2) Troponin I 0.013 Impressions: KUB X-Ray 09/05/16 00:00 IMPRESSION: Patent gastrostomy. Abdomen/Pelvis CT 09/09/16 00:00 IMPRESSION: Postsurgical changes without evidence of abscess or bowel obstruction. Guidance Fluoroscopy 09/09/16 00:00 IMPRESSION: SUCCESSFUL PLACEMENT OF A 5 FR DUAL LUMEN 39 CM PICC IN THE basilic VEIN. Interventional Vascular Procedure 09/09/16 00:00 IMPRESSION: SUCCESSFUL PLACEMENT OF A 5 FR DUAL LUMEN 39 CM PICC IN THE basilic VEIN. PICC Line Insertion 09/09/16 00:00 IMPRESSION: SUCCESSFUL PLACEMENT OF A 5 FR DUAL LUMEN 39 CM PICC IN THE basilic VEIN. Chest X-Ray 09/10/16 00:00 IMPRESSION: Trace bilateral pleural effusions in the posterior costophrenic sulci Minimal bibasilar airspace disease in the posterior costophrenic sulci atelectasis versus pneumonia Assessment & Plan - Diagnosis (1) Colonic mass Is this a current diagnosis for this admission?: Yes (2) Ileus, postoperative Is this a current diagnosis for this admission?: YesPlan: with cecal ischemia due to distension. s/p xlap, decompression and end tx colostomy and mucous fistula and gtube.much improved. extubated without problems. only concerning thing is leukocytosis. no source identified. pt looks good. PT working with pt. possible d/c later this week.
[2016-09-11 11:25] LABS: APPEARANCE,URINE TURBID; BILIRUBIN,URINE NEGATIVE (NEGATIVE); GLUCOSE, URINE 50 mg/dL (NEGATIVE); KETONES,URINE NEGATIVE (NEGATIVE); LEUKOCYTE ESTERASE,URINE TRACE (NEGATIVE); NITRITE,URINE NEGATIVE (NEGATIVE); PROTEIN,URINE 30 mg/dL (NEGATIVE); URIC ACID CRYSTALS,URINE RARE /HPF; URINE SPECIFIC GRAVITY 1.027; UROBILINOGEN,URINE NEGATIVE mg/dL (<2.0)
[2016-09-11] MEDS: INSULIN REG, HUMAN 100 UNIT/ML 3 ML VIAL (PYX) SUBCUT PRN ×2 (14:04→22:44)
[2016-09-11] MEDS: CARBIDOPA/LEVODOPA 25-100 MG TABLET PO SCH ×2 (14:05→22:40)
--- NOTE | 2016-09-11 14:40 | PDOC PROGRESS REPORT ---
Subjective Progress Note for:: 09/11/16 Subjective:: Awake alert but somewhat confused very weak Physical Exam Vital Signs: Temp Pulse Resp BP Pulse Ox 98.0 F 72 18 121/58 L 96 09/11/16 11:27 09/11/16 11:27 09/11/16 11:27 09/11/16 11:27 09/11/16 11:27 Intake & Output 09/10/16 09/11/16 09/12/16 06:59 06:59 06:59 Intake Total 1070 860 Output Total 1660 1650 Balance -590 -790 Weight 110.6 kg 114.2 kg General appearance: PRESENT: no acute distress, disheveled, obese Head exam: PRESENT: atraumatic, normocephalic Eye exam: PRESENT: conjunctiva pale, EOMI Mouth exam: PRESENT: neck supple, tongue midline Neck exam: ABSENT: carotid bruit, JVD, lymphadenopathy, thyromegaly Respiratory exam: PRESENT: decreased breath sounds, prolonged expiratory phas, rhonchi, symmetrical, unlabored Cardiovascular exam: PRESENT: RRR, +S1, +S2 Pulses: PRESENT: normal radial pulses GI/Abdominal exam: PRESENT: diminished bowel sounds Rectal exam: PRESENT: deferred Gentrourinary exam: PRESENT: other Extremities exam: PRESENT: +1 edema Neurological exam: PRESENT: awake Psychiatric exam: PRESENT: normal mood Skin exam: PRESENT: dry, warm Results Laboratory Results: 09/11/16 04:15 09/10/16 04:10 09/11/16 09/11/16 04:15 07:40 WBC 20.5 H RBC 3.96 L Hgb 9.2 L Hct 29.8 L MCV 75 L MCH 23.3 L MCHC 31.0 L RDW 19.2 H Plt Count 568 H Urine Color LEN Urine Appearance TURBID Urine pH 6.0 Ur Specific [place] 1.027 Urine Protein 30 H Urine Glucose (UA) 50 H Urine Ketones NEGATIVE Urine Blood NEGATIVE Urine Nitrite NEGATIVE Ur Leukocyte Esterase TRACE H Urine WBC (Auto) 3 Urine RBC (Auto) 7 09/09/16 09:30 Catheterized Urine Urine Culture - Final NO GROWTH 2 DAYS 09/03/16 09/03/16 09/04/16 16:15 16:15 07:00 Creatine Kinase 39 L CK-MB (CK-2) 0.33 Troponin I < 0.012 < 0.012 09/05/16 04:17 Creatine Kinase CK-MB (CK-2) Troponin I 0.013 Impressions: KUB X-Ray 09/05/16 00:00 IMPRESSION: Patent gastrostomy. Abdomen/Pelvis CT 09/09/16 00:00 IMPRESSION: Postsurgical changes without evidence of abscess or bowel obstruction. Guidance Fluoroscopy 09/09/16 00:00 IMPRESSION: SUCCESSFUL PLACEMENT OF A 5 FR DUAL LUMEN 39 CM PICC IN THE basilic VEIN. Interventional Vascular Procedure 09/09/16 00:00 IMPRESSION: SUCCESSFUL PLACEMENT OF A 5 FR DUAL LUMEN 39 CM PICC IN THE basilic VEIN. PICC Line Insertion 09/09/16 00:00 IMPRESSION: SUCCESSFUL PLACEMENT OF A 5 FR DUAL LUMEN 39 CM PICC IN THE basilic VEIN. Chest X-Ray 09/10/16 00:00 IMPRESSION: Trace bilateral pleural effusions in the posterior costophrenic sulci Minimal bibasilar airspace disease in the posterior costophrenic sulci atelectasis versus pneumonia Assessment & Plan - Diagnosis (1) Acute respiratory failure with hypoxemia Is this a current diagnosis for this admission?: No (2) Colonic mass Is this a current diagnosis for this admission?: YesPlan: post op resolution (3) Dysphagia Qualifiers: Dysphagia type: oral phase Qualified Code(s): R13.11 - Dysphagia, oral phase Is this a current diagnosis for this admission?: No (4) Hypoalbuminemia Is this a current diagnosis for this admission?: YesPlan: Malnutrition continue p.o. intake consider calorie count (5) Hypocalcemia Is this a current diagnosis for this admission?: No (6) Hypomagnesemia Is this a current diagnosis for this admission?: No (7) Panlobular emphysema Is this a current diagnosis for this admission?: YesPlan: bronchodilators - Plan Summary Plan Summary: Discussed with staff long-term plans are incomplete due to his poor p.o. intake and weakness
[2016-09-11 16:57] LABS: APPEARANCE,URINE CLEAR; BILIRUBIN,URINE NEGATIVE (NEGATIVE); GLUCOSE, URINE 50 mg/dL (NEGATIVE); KETONES,URINE TRACE mg/dL (NEGATIVE); LEUKOCYTE ESTERASE,URINE SMALL (NEGATIVE); NITRITE,URINE NEGATIVE (NEGATIVE); PROTEIN,URINE 30 mg/dL (NEGATIVE); URINE SPECIFIC GRAVITY 1.028; UROBILINOGEN,URINE NEGATIVE mg/dL (<2.0)
--- NOTE | 2016-09-11 20:21 | PDOC PROGRESS REPORT ---
Subjective Progress Note for:: 09/11/16 Subjective:: Patient seems to be doing about the same. He is noted to be intermittently confused. On direct questioning denying any chest arm or neck discomfort. Patient denying any PND, orthopnea. Patient denied any sustained palpitations, dizziness, syncope, near syncope. Patient denying any fever chills. Patient denying any other significant discomfort. Review of systems: Rest review of systems negative. Medications: Medications have been reviewed. Physical Exam Vital Signs: Temp Pulse Resp BP Pulse Ox 98.0 F 85 22 H 132/67 H 96 09/11/16 19:38 09/11/16 20:00 09/11/16 19:38 09/11/16 19:38 09/11/16 19:38 Intake & Output 09/10/16 09/11/16 09/12/16 06:59 06:59 06:59 Intake Total 1070 860 700 Output Total 1660 1650 1650 Balance -590 -790 -950 Weight 110.6 kg 114.2 kg Exam: GENERAL: well-nourished and in no acute distress. Alert and oriented 2 HEAD: Atraumatic, normocephalic. EYES: Pupils equal round and reactive to light, extraocular movements intact, sclera anicteric, conjunctiva are normal. ENT: TMs normal, nares patent, oropharynx clear without exudates. Moist mucous membranes. No oral ulcerations or bleeding gums noted NECK: supple without lymphadenopathy. Trachea is central. No cervical or axillary lymphadenopathy noted. Carotids are 2+, JVD WNL LUNGS: Respiration seems nonlabored, no significant accessory muscle action noted. Bibasal a fine crackles are noted. No wheezes rales or rhonchi noted. No significant dullness noted on percussion. CHEST: Palpation of the chest wall shows no significant chest wall tenderness. No other significant abnormalities noted. HEART: [place] [employer], No PSH, 1/6 NAZAI aortic area, 1/6 younger systolic murmur mitral area, no rubs, no gallops. ABDOMEN: Soft, no significant tenderness appreciated, normoactive bowel sounds. No guarding, no rebound. No rigidity noted . No masses appreciated. Gastrostomy tube noted. EXTREMITIES: Pedal pulses are 1-2+, no calf tenderness noted. No clubbing or cyanosis.trace to 1+ pedal edema noted NEUROLOGICAL: Focused neurological exam showed no significant neurologic deficit., Swallowing difficulty and slight speech difficulty noted. PSYCH: Normal mood, normal affect. Judgment and insight not checked today due to confusion. SKIN: No significant ecchymosis, rash, ulcerations or signs of pruritus noted. MUSCULOSKELETAL EXAM: No significant joint swelling noted. Results Laboratory Results: 09/11/16 04:15 09/10/16 04:10 09/11/16 09/11/16 09/11/16 04:15 07:40 16:20 WBC 20.5 H RBC 3.96 L Hgb 9.2 L Hct 29.8 L MCV 75 L MCH 23.3 L MCHC 31.0 L RDW 19.2 H Plt Count 568 H Urine Color LEN YELLOW Urine Appearance TURBID CLEAR Urine pH 6.0 5.0 Ur Specific [place] 1.027 1.028 Urine Protein 30 H 30 H Urine Glucose (UA) 50 H 50 H Urine Ketones NEGATIVE TRACE H Urine Blood NEGATIVE SMALL H Urine Nitrite NEGATIVE NEGATIVE Ur Leukocyte Esterase TRACE H SMALL H Urine WBC (Auto) 3 2 Urine RBC (Auto) 7 25 09/09/16 09:30 Catheterized Urine Urine Culture - Final NO GROWTH 2 DAYS 09/03/16 09/03/16 09/04/16 16:15 16:15 07:00 Creatine Kinase 39 L CK-MB (CK-2) 0.33 Troponin I < 0.012 < 0.012 09/05/16 04:17 Creatine Kinase CK-MB (CK-2) Troponin I 0.013 Impressions: KUB X-Ray 09/05/16 00:00 IMPRESSION: Patent gastrostomy. Abdomen/Pelvis CT 09/09/16 00:00 IMPRESSION: Postsurgical changes without evidence of abscess or bowel obstruction. Guidance Fluoroscopy 09/09/16 00:00 IMPRESSION: SUCCESSFUL PLACEMENT OF A 5 FR DUAL LUMEN 39 CM PICC IN THE basilic VEIN. Interventional Vascular Procedure 09/09/16 00:00 IMPRESSION: SUCCESSFUL PLACEMENT OF A 5 FR DUAL LUMEN 39 CM PICC IN THE basilic VEIN. PICC Line Insertion 09/09/16 00:00 IMPRESSION: SUCCESSFUL PLACEMENT OF A 5 FR DUAL LUMEN 39 CM PICC IN THE basilic VEIN. Chest X-Ray 09/10/16 00:00 IMPRESSION: Trace bilateral pleural effusions in the posterior costophrenic sulci Minimal bibasilar airspace disease in the posterior costophrenic sulci atelectasis versus pneumonia Assessment & Plan - Diagnosis (1) Coronary artery disease Qualifiers: Coronary Disease-Associated Artery/Lesion type: [place] artery [place] vs. transplanted heart: [place] heart Associated angina: angina presence unspecified Qualified Code(s): I25.10 - Atherosclerotic heart disease of [place] coronary artery without angina pectoris Is this a current diagnosis for this admission?: Yes (2) Abnormal EKG Is this a current diagnosis for this admission?: Yes (3) CVA (cerebral infarction) Qualifiers: Laterality of affected vessel: unspecified Is this a current diagnosis for this admission?: Yes (4) Hypertension Qualifiers: Hypertension type: essential hypertension Qualified Code(s): I10 - Essential (primary) hypertension Is this a current diagnosis for this admission?: Yes (5) Hyperlipidemia Qualifiers: Hyperlipidemia type: other hyperlipidemia Qualified Code(s): E78.4 - Other hyperlipidemia Is this a current diagnosis for this admission?: Yes (6) Diabetes Qualifiers: Diabetes mellitus type: type 2 Diabetes mellitus complication status: with unspecified complications - Notes Notes: CAD: Patient has CAD. Currently stable without any angina or angina equivalent symptoms. Medications reviewed. Abnormal electrocardiogram: This was evaluated by a 2-D echocardiogram. It showed normal LVEF. Patient to report any chest pain Cerebrovascular accident: Patient currently stable. Elevation noted to be confused today which is of some concern. Hypertension: Blood pressure goal in this patient is 140/90 or less. This was discussed with the patient. Dyslipidemia: LDL goal is less than 70. Recommend statin therapy at least intermediate or high dose, of high potency status. Diabetes: Recommend good control of blood sugar. However should avoid any hypoglycemia. Patient being expertly managed by primary care M.D. - Time Time with patient: 15-25 minutes - CODE STATUS was discussed, patient remains full code. Surrogate decision-maker unchanged. Multiple medical problems were addressed.More than 50% of the time spent coordinating care, discussing management plans with involved caregivers. Management plans discussed with involved personnels. Medical decision making was of moderate complexity.
[2016-09-12] MEDS: CARBIDOPA/LEVODOPA 25-100 MG TABLET PO SCH ×3 (05:12→22:42)
[2016-09-12] MEDS: OXYCODONE-ACETAMINOPHEN 5-325 MG TABLET PO PRN ×4 (06:00→17:06)
--- NOTE | 2016-09-12 07:27 | PDOC PROGRESS REPORT ---
Subjective Subjective:: denies pain but nurse noted lbp on movement. She removed fentanyl patch a few hours after application for a transient red macular rash from thighs up. She replaced cortez for 250ml when he didnt void. Physical Exam Vital Signs: Temp Pulse Resp BP Pulse Ox 98.5 F 71 20 125/65 97 09/12/16 04:21 09/12/16 04:21 09/12/16 04:21 09/12/16 04:21 09/12/16 04:43 Intake & Output 09/10/16 09/11/16 09/12/16 07:59 07:59 07:59 Intake Total 1070 860 800 Output Total 1660 1650 1650 Balance -590 -790 -850 Weight 243 lb 13.3 oz 251 lb 12.286 oz General appearance: PRESENT: no acute distress Respiratory exam: PRESENT: clear to auscultation shelly Cardiovascular exam: ABSENT: diastolic murmur, irregular rhythm, systolic murmur GI/Abdominal exam: ABSENT: tenderness Extremities exam: ABSENT: pedal edema Neurological exam: PRESENT: alert, other - increased tone R paretic arm. No tremor. Psychiatric exam: PRESENT: appropriate affect Results Laboratory Results: 09/11/16 04:15 09/10/16 04:10 09/11/16 09/11/16 07:40 16:20 Urine Color LEN YELLOW Urine Appearance TURBID CLEAR Urine pH 6.0 5.0 Ur Specific [place] 1.027 1.028 Urine Protein 30 H 30 H Urine Glucose (UA) 50 H 50 H Urine Ketones NEGATIVE TRACE H Urine Blood NEGATIVE SMALL H Urine Nitrite NEGATIVE NEGATIVE Ur Leukocyte Esterase TRACE H SMALL H Urine WBC (Auto) 3 2 Urine RBC (Auto) 7 25 09/09/16 09:30 Catheterized Urine Urine Culture - Final NO GROWTH 2 DAYS 09/03/16 09/03/16 09/04/16 16:15 16:15 07:00 Creatine Kinase 39 L CK-MB (CK-2) 0.33 Troponin I < 0.012 < 0.012 09/05/16 04:17 Creatine Kinase CK-MB (CK-2) Troponin I 0.013 Abnormal - 24 hr 09/11/16 09/11/16 09/11/16 02:33 06:27 07:40 POC Glucose 210 H 226 H Urine Protein 30 H Urine Glucose (UA) 50 H Urine Ketones Urine Blood Ur Leukocyte Esterase TRACE H 09/11/16 09/11/16 09/11/16 10:52 16:09 16:20 POC Glucose 256 H 235 H Urine Protein 30 H Urine Glucose (UA) 50 H Urine Ketones TRACE H Urine Blood SMALL H Ur Leukocyte Esterase SMALL H 09/11/16 09/12/16 22:41 06:58 POC Glucose 183 H 178 H Urine Protein Urine Glucose (UA) Urine Ketones Urine Blood Ur Leukocyte Esterase Impressions: KUB X-Ray 09/05/16 00:00 IMPRESSION: Patent gastrostomy. Abdomen/Pelvis CT 09/09/16 00:00 IMPRESSION: Postsurgical changes without evidence of abscess or bowel obstruction. Guidance Fluoroscopy 09/09/16 00:00 IMPRESSION: SUCCESSFUL PLACEMENT OF A 5 FR DUAL LUMEN 39 CM PICC IN THE basilic VEIN. Interventional Vascular Procedure 09/09/16 00:00 IMPRESSION: SUCCESSFUL PLACEMENT OF A 5 FR DUAL LUMEN 39 CM PICC IN THE basilic VEIN. PICC Line Insertion 09/09/16 00:00 IMPRESSION: SUCCESSFUL PLACEMENT OF A 5 FR DUAL LUMEN 39 CM PICC IN THE basilic VEIN. 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 Qualified Code(s): E11.9 - Type 2 diabetes mellitus without complications Is this a current diagnosis for this admission?: YesPlan: increase lantus 40u (2) Hypertension Qualifiers: Hypertension type: essential hypertension Qualified Code(s): I10 - Essential (primary) hypertension Is this a current diagnosis for this admission?: Yes (3) Anemia, blood loss Is this a current diagnosis for this admission?: Yes (4) Panlobular emphysema Is this a current diagnosis for this admission?: Yes (5) Colonic mass Is this a current diagnosis for this admission?: Yes (6) Leukocytosis Qualifiers: Leukocytosis type: bandemia Qualified Code(s): D72.825 - Bandemia Is this a current diagnosis for this admission?: Yes (7) Dysphagia Qualifiers: Dysphagia type: oral phase Qualified Code(s): R13.11 - Dysphagia, oral phase Is this a current diagnosis for this admission?: No (8) Paralytic ileus Is this a current diagnosis for this admission?: Yes (9) Parkinson disease Is this a current diagnosis for this admission?: Yes (10) Enlarged prostate with lower urinary tract symptoms (LUTS) Qualifiers: Prostatic enlargement morphology: non-nodular Qualified Code(s): N40.1 - Benign prostatic hyperplasia with lower urinary tract symptoms Is this a current diagnosis for this admission?: YesPlan: resume finasteride. Use tamsulosin since alfuzosin nonformulary.
[2016-09-12] MEDS: FINASTERIDE 5 MG TABLET PO SCH (09:26)
[2016-09-12] MEDS: METOPROLOL TARTRATE 25 MG TABLET GT SCH ×2 (09:26→22:42)
[2016-09-12] MEDS: LACTOBACILLUS ACIDOPHILUS 250 MG TAB PEG SCH ×2 (09:27→17:05)
[2016-09-12] MEDS: NORMAL SALINE 10 ML SDV (SCHEDULED) IV SCH ×2 (09:28→22:42)
[2016-09-12] MEDS: INSULIN GLARGINE,HUM.REC.ANLOG 300 UNIT/3 ML INSULN.PEN SUBCUT SCH (09:28)
[2016-09-12] MEDS: ENOXAPARIN SODIUM INJ 40 MG/0.4 ML DISP.SYRIN SUBCUT SCH (09:30)
--- NOTE | 2016-09-12 09:35 | PDOC PROGRESS REPORT ---
Subjective Progress Note for:: 09/12/16 Subjective:: Feels well. Tolerating a diet. Physical Exam Vital Signs: Temp Pulse Resp BP Pulse Ox 97.3 F 80 22 H 162/81 H 99 09/12/16 08:09 09/12/16 08:09 09/12/16 08:09 09/12/16 08:09 09/12/16 08:09 Intake & Output 09/11/16 09/12/16 09/13/16 06:59 06:59 06:59 Intake Total 860 1280 Output Total 1650 2365 Balance -790 -1085 Weight 114.2 kg 113.1 kg General appearance: PRESENT: no acute distress, cooperative Respiratory exam: PRESENT: clear to auscultation shelly Cardiovascular exam: PRESENT: RRR GI/Abdominal exam: PRESENT: other - Soft, minimal tenderness. Wound clean dry and intact. Ostomy is pink. Right-sided ostomy functioning well with the liquid stool. G-tube in place. Extremities exam: PRESENT: other - No swelling and no tenderness Results Laboratory Results: 09/11/16 04:15 09/10/16 04:10 09/11/16 09/11/16 07:40 16:20 Urine Color LEN YELLOW Urine Appearance TURBID CLEAR Urine pH 6.0 5.0 Ur Specific [place] 1.027 1.028 Urine Protein 30 H 30 H Urine Glucose (UA) 50 H 50 H Urine Ketones NEGATIVE TRACE H Urine Blood NEGATIVE SMALL H Urine Nitrite NEGATIVE NEGATIVE Ur Leukocyte Esterase TRACE H SMALL H Urine WBC (Auto) 3 2 Urine RBC (Auto) 7 25 09/09/16 09:30 Catheterized Urine Urine Culture - Final NO GROWTH 2 DAYS 09/03/16 09/03/16 09/04/16 16:15 16:15 07:00 Creatine Kinase 39 L CK-MB (CK-2) 0.33 Troponin I < 0.012 < 0.012 09/05/16 04:17 Creatine Kinase CK-MB (CK-2) Troponin I 0.013 Impressions: KUB X-Ray 09/05/16 00:00 IMPRESSION: Patent gastrostomy. Abdomen/Pelvis CT 09/09/16 00:00 IMPRESSION: Postsurgical changes without evidence of abscess or bowel obstruction. Guidance Fluoroscopy 09/09/16 00:00 IMPRESSION: SUCCESSFUL PLACEMENT OF A 5 FR DUAL LUMEN 39 CM PICC IN THE basilic VEIN. Interventional Vascular Procedure 09/09/16 00:00 IMPRESSION: SUCCESSFUL PLACEMENT OF A 5 FR DUAL LUMEN 39 CM PICC IN THE basilic VEIN. PICC Line Insertion 09/09/16 00:00 IMPRESSION: SUCCESSFUL PLACEMENT OF A 5 FR DUAL LUMEN 39 CM PICC IN THE basilic VEIN. Chest X-Ray 09/10/16 00:00 IMPRESSION: Trace bilateral pleural effusions in the posterior costophrenic sulci Minimal bibasilar airspace disease in the posterior costophrenic sulci atelectasis versus pneumonia Assessment & Plan - Diagnosis (1) Colonic mass Is this a current diagnosis for this admission?: Yes (2) Ileus, postoperative Is this a current diagnosis for this admission?: YesPlan: with cecal ischemia due to distension. s/p xlap, decompression and end tx colostomy and mucous fistula and gtube.other than leukocytosis patient looks great. Will do a calorie count and get nutrition consult. He may need additional nutritional support via his G-tube. Will check the bilateral lower extremity venous duplex for possible DVT since no other source for leukocytosis is found. Continue to work with physical therapy and speech pathology. Anticipate discharge to skilled nursing early next week.
--- NOTE | 2016-09-12 11:21 | PDOC PROGRESS REPORT ---
Subjective Progress Note for:: 09/12/16 Subjective:: Awake alert but somewhat confused very weak Physical Exam Vital Signs: Temp Pulse Resp BP Pulse Ox 97.3 F 80 22 H 162/81 H 99 09/12/16 08:09 09/12/16 08:09 09/12/16 08:09 09/12/16 08:09 09/12/16 08:09 Intake & Output 09/11/16 09/12/16 09/13/16 06:59 06:59 06:59 Intake Total 860 1280 Output Total 1650 2365 Balance -790 -1085 Weight 114.2 kg 113.1 kg General appearance: PRESENT: no acute distress, disheveled, obese Head exam: PRESENT: atraumatic, normocephalic Eye exam: PRESENT: conjunctiva pale Mouth exam: PRESENT: neck supple Neck exam: ABSENT: carotid bruit, JVD, lymphadenopathy, thyromegaly Respiratory exam: PRESENT: decreased breath sounds, prolonged expiratory phas, rhonchi, symmetrical, unlabored, wheezes Cardiovascular exam: PRESENT: RRR, +S1, +S2 Pulses: PRESENT: normal radial pulses Rectal exam: PRESENT: deferred Musculoskeletal exam: PRESENT: normal inspection Neurological exam: PRESENT: awake Skin exam: PRESENT: dry, warm Results Laboratory Results: 09/11/16 04:15 09/10/16 04:10 09/11/16 09/11/16 07:40 16:20 Urine Color LEN YELLOW Urine Appearance TURBID CLEAR Urine pH 6.0 5.0 Ur Specific [place] 1.027 1.028 Urine Protein 30 H 30 H Urine Glucose (UA) 50 H 50 H Urine Ketones NEGATIVE TRACE H Urine Blood NEGATIVE SMALL H Urine Nitrite NEGATIVE NEGATIVE Ur Leukocyte Esterase TRACE H SMALL H Urine WBC (Auto) 3 2 Urine RBC (Auto) 7 25 09/09/16 09:30 Catheterized Urine Urine Culture - Final NO GROWTH 2 DAYS 09/03/16 09/03/16 09/04/16 16:15 16:15 07:00 Creatine Kinase 39 L CK-MB (CK-2) 0.33 Troponin I < 0.012 < 0.012 09/05/16 04:17 Creatine Kinase CK-MB (CK-2) Troponin I 0.013 Impressions: KUB X-Ray 09/05/16 00:00 IMPRESSION: Patent gastrostomy. Abdomen/Pelvis CT 09/09/16 00:00 IMPRESSION: Postsurgical changes without evidence of abscess or bowel obstruction. Guidance Fluoroscopy 09/09/16 00:00 IMPRESSION: SUCCESSFUL PLACEMENT OF A 5 FR DUAL LUMEN 39 CM PICC IN THE basilic VEIN. Interventional Vascular Procedure 09/09/16 00:00 IMPRESSION: SUCCESSFUL PLACEMENT OF A 5 FR DUAL LUMEN 39 CM PICC IN THE basilic VEIN. PICC Line Insertion 09/09/16 00:00 IMPRESSION: SUCCESSFUL PLACEMENT OF A 5 FR DUAL LUMEN 39 CM PICC IN THE basilic VEIN. Chest X-Ray 09/10/16 00:00 IMPRESSION: Trace bilateral pleural effusions in the posterior costophrenic sulci Minimal bibasilar airspace disease in the posterior costophrenic sulci atelectasis versus pneumonia Assessment & Plan - Diagnosis (1) Acute respiratory failure with hypoxemia Is this a current diagnosis for this admission?: No (2) Colonic mass Is this a current diagnosis for this admission?: YesPlan: post op resolution Unfortunately patient has elevated white count (3) Dysphagia Qualifiers: Dysphagia type: oral phase Qualified Code(s): R13.11 - Dysphagia, oral phase Is this a current diagnosis for this admission?: Yes (4) Hypoalbuminemia Is this a current diagnosis for this admission?: Yes (5) Hypocalcemia Is this a current diagnosis for this admission?: No (6) Hypomagnesemia Is this a current diagnosis for this admission?: No (7) Panlobular emphysema Is this a current diagnosis for this admission?: YesPlan: bronchodilators
[2016-09-12] MEDS: TAMSULOSIN HCL 0.4 MG CAP.SR.24H PO SCH (17:05)
[2016-09-12] MEDS: INSULIN REG, HUMAN 100 UNIT/ML 3 ML VIAL (PYX) SUBCUT PRN (17:12)
--- NOTE | 2016-09-12 18:53 | PDOC PROGRESS REPORT ---
Subjective Progress Note for:: 09/12/16 Subjective:: Patient seems to be doing about the same. He is noted to be intermittently confused. On direct questioning denying any chest arm or neck discomfort. Patient denying any PND, orthopnea. Patient denied any sustained palpitations, dizziness, syncope, near syncope. Patient denying any fever chills. Patient denying any other significant discomfort. Review of systems: Rest review of systems negative. Medications: Medications have been reviewed. Physical Exam Vital Signs: Temp Pulse Resp BP Pulse Ox 98.4 F 73 22 H 111/43 L 100 09/12/16 11:56 09/12/16 14:00 09/12/16 11:56 09/12/16 11:56 09/12/16 11:56 Intake & Output 09/11/16 09/12/16 09/13/16 06:59 06:59 06:59 Intake Total 860 1280 1080 Output Total 1650 2365 1050 Balance -790 -1085 30 Weight 114.2 kg 113.1 kg Exam: GENERAL: well-nourished and in no acute distress. Alert and oriented 2, HEAD: Atraumatic, normocephalic. EYES: Pupils equal round and reactive to light, extraocular movements intact, sclera anicteric, conjunctiva are normal. ENT: TMs normal, nares patent, oropharynx clear without exudates. Moist mucous membranes. No oral ulcerations or bleeding gums noted NECK: supple without lymphadenopathy. Trachea is central. No cervical or axillary lymphadenopathy noted. Carotids are 2+, JVD WNL LUNGS: Respiration seems nonlabored, no significant accessory muscle action noted. Bibasal fine crackles are noted. No wheezes rales or rhonchi noted. No significant dullness noted on percussion. CHEST: Palpation of the chest wall shows no significant chest wall tenderness. No other significant abnormalities noted. 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 ABDOMEN: Soft, no significant tenderness appreciated, normoactive bowel sounds. No guarding, no rebound. No rigidity noted . No masses appreciated. Gastrostomy tube noted. EXTREMITIES: Pedal pulses are 1-2+, no calf tenderness noted. No clubbing or cyanosis.trace to 1+ pedal edema noted NEUROLOGICAL: Focused neurological exam showed no significant neurologic deficit. Normal speech, no focal weakness appreciated on quick neurological exam. PSYCH: Normal mood, normal affect. Judgment and insight seems impaired. SKIN: No significant ecchymosis, rash, ulcerations or signs of pruritus noted. MUSCULOSKELETAL EXAM: No significant joint swelling noted. Results Laboratory Results: 09/11/16 04:15 09/10/16 04:10 09/03/16 09/03/16 09/04/16 16:15 16:15 07:00 Creatine Kinase 39 L CK-MB (CK-2) 0.33 Troponin I < 0.012 < 0.012 09/05/16 04:17 Creatine Kinase CK-MB (CK-2) Troponin I 0.013 Impressions: KUB X-Ray 09/05/16 00:00 IMPRESSION: Patent gastrostomy. Abdomen/Pelvis CT 09/09/16 00:00 IMPRESSION: Postsurgical changes without evidence of abscess or bowel obstruction. Guidance Fluoroscopy 09/09/16 00:00 IMPRESSION: SUCCESSFUL PLACEMENT OF A 5 FR DUAL LUMEN 39 CM PICC IN THE basilic VEIN. Interventional Vascular Procedure 09/09/16 00:00 IMPRESSION: SUCCESSFUL PLACEMENT OF A 5 FR DUAL LUMEN 39 CM PICC IN THE basilic VEIN. PICC Line Insertion 09/09/16 00:00 IMPRESSION: SUCCESSFUL PLACEMENT OF A 5 FR DUAL LUMEN 39 CM PICC IN THE basilic VEIN. Chest X-Ray 09/10/16 00:00 IMPRESSION: Trace bilateral pleural effusions in the posterior costophrenic sulci Minimal bibasilar airspace disease in the posterior costophrenic sulci atelectasis versus pneumonia Venous Doppler Study 09/12/16 00:00 IMPRESSION: NO EVIDENCE DVT OR SVT IN EITHER LEG. Assessment & Plan - Diagnosis (1) Coronary artery disease Qualifiers: Coronary Disease-Associated Artery/Lesion type: [place] artery [place] vs. transplanted heart: [place] heart Associated angina: angina presence unspecified Qualified Code(s): I25.10 - Atherosclerotic heart disease of [place] coronary artery without angina pectoris Is this a current diagnosis for this admission?: Yes (2) Abnormal EKG Is this a current diagnosis for this admission?: Yes (3) CVA (cerebral infarction) Qualifiers: Laterality of affected vessel: unspecified Is this a current diagnosis for this admission?: Yes (4) Hypertension Qualifiers: Hypertension type: essential hypertension Qualified Code(s): I10 - Essential (primary) hypertension Is this a current diagnosis for this admission?: Yes (5) Hyperlipidemia Qualifiers: Hyperlipidemia type: other hyperlipidemia Qualified Code(s): E78.4 - Other hyperlipidemia Is this a current diagnosis for this admission?: Yes (6) Diabetes Qualifiers: Diabetes mellitus type: type 2 Diabetes mellitus complication status: with unspecified complications - Notes Notes: There is no significant change in patient condition. He remains confused. Venous duplex was negative for DVT. He was noted to be otherwise comfortable. Patient was noted to be somewhat diaphoretic this morning. Will recommend obtaining multiple blood cultures. CAD: Patient has CAD. Currently stable without any angina or angina equivalent symptoms. Aggressive risk factor modification advised. Abnormal electrocardiogram: This was evaluated by a 2-D echocardiogram. It showed normal LVEF. Cerebrovascular accident: Patient currently stable. He is getting a swallowing evaluation. Blood pressure goal in this patient is 140/90 or less. This was discussed with the patient. Dyslipidemia: LDL goal is less than 70. Recommend statin therapy at least intermediate or high dose, of high potency status. Diabetes: Recommend good control of blood sugar. However should avoid any hypoglycemia. Patient being expertly managed by primary care M.D. - Time Time with patient: 15-25 minutes - CODE STATUS was discussed, patient remains full code. Surrogate decision-maker unchanged. Multiple medical problems were addressed.More than 50% of the time spent coordinating care, discussing management plans with involved caregivers. Management plans discussed with involved personnels. Medical decision making was of moderate complexity.
[2016-09-12] MEDS: ATORVASTATIN CALCIUM 40 MG TABLET PO SCH (22:41)
[2016-09-13 06:02] LABS: HEMATOCRIT 27.4 % (37.9-51.0); HEMOGLOBIN 8.7 g/dL (13.5-17.0); HGB HCT DIFFERENCE -1.3; MEAN CORPUSCULAR HEMOGLOBIN 23.6 pg (27.0-33.4); MEAN CORPUSCULAR HGB CONC 31.6 g/dL (32.0-36.0); MEAN CORPUSCULAR VOLUME 75 fl (80-97); RED BLOOD COUNT 3.68 10^6/uL (4.35-5.55); WHITE BLOOD COUNT 16.4 10^3/uL (4.0-10.5)
[2016-09-13 06:14] LABS: ANION GAP 6 (5-19); BLOOD UREA NITROGEN 11 mg/dL (7-20); CALCIUM 7.8 mg/dL (8.4-10.2); CARBON DIOXIDE 29 mmol/L (22-30); CHLORIDE 106 mmol/L (98-107); CREATININE RESULT 0.69 mg/dL (0.52-1.25); GLUCOSE 143 mg/dL (75-110); POTASSIUM 3.3 mmol/L (3.6-5.0); SODIUM 140.6 mmol/L (137-145)
[2016-09-13 06:24] LABS: BAND NEUTROPHILS % (MANUAL) 2 % (3-5); BASOPHILS % (MANUAL) 0 % (0-2); EOSINOPHILS % (MANUAL) 4 % (0-6); LYMPHOCYTES % (MANUAL) 12 % (13-45); TOTAL CELLS COUNTED 100
[2016-09-13 06:28] LABS: ANISOCYTOSIS 2+; POLYCHROMASIA SLIGHT; TOXIC GRANULATION SLIGHT
[2016-09-13 06:29] LABS: HYPOCHROMASIA SLIGHT; PLATELET CLUMPS PRESENT; POIKILOCYTOSIS SLIGHT; STOMATOCYTES SLIGHT
[2016-09-13] MEDS: CARBIDOPA/LEVODOPA 25-100 MG TABLET PO SCH ×3 (06:46→23:29)
--- NOTE | 2016-09-13 07:55 | PDOC PROGRESS REPORT ---
Subjective Progress Note for:: 09/13/16 Subjective:: no pain Physical Exam Vital Signs: Temp Pulse Resp BP Pulse Ox 98.5 F 71 16 106/68 93 09/13/16 04:03 09/13/16 07:00 09/13/16 04:03 09/13/16 04:03 09/13/16 04:03 Intake & Output 09/11/16 09/12/16 09/13/16 07:59 07:59 07:59 Intake Total 860 1280 1120 Output Total 1650 2365 1800 Balance -790 -1085 -680 Weight 251 lb 12.286 oz 249 lb 5.485 oz 251 lb 15.814 oz General appearance: PRESENT: no acute distress Respiratory exam: PRESENT: clear to auscultation shelly Cardiovascular exam: ABSENT: diastolic murmur, irregular rhythm, systolic murmur GI/Abdominal exam: ABSENT: mass, organolmegaly, tenderness Extremities exam: ABSENT: pedal edema Neurological exam: PRESENT: oriented to situation, other - no drift on barre' Psychiatric exam: PRESENT: appropriate affect Results Laboratory Results: 09/13/16 04:30 09/13/16 04:30 09/13/16 09/13/16 04:30 04:30 WBC 16.4 H RBC 3.68 L Hgb 8.7 L Hct 27.4 L MCV 75 L MCH 23.6 L MCHC 31.6 L RDW 19.0 H Plt Count 709 H Seg Neutrophils % Not Reportable Lymphocytes % Not Reportable Monocytes % Not Reportable Eosinophils % Not Reportable Basophils % Not Reportable Absolute Neutrophils Not Reportable Absolute Lymphocytes Not Reportable Absolute Monocytes Not Reportable Absolute Eosinophils Not Reportable Absolute Basophils Not Reportable Sodium 140.6 Potassium 3.3 L Chloride 106 Carbon Dioxide 29 Anion Gap 6 BUN 11 Creatinine 0.69 Est GFR ( Amer) > 60 Est GFR (Non-Af Amer) > 60 Glucose 143 H Calcium 7.8 L 09/03/16 09/03/16 09/04/16 16:15 16:15 07:00 Creatine Kinase 39 L CK-MB (CK-2) 0.33 Troponin I < 0.012 < 0.012 09/05/16 04:17 Creatine Kinase CK-MB (CK-2) Troponin I 0.013 Impressions: KUB X-Ray 09/05/16 00:00 IMPRESSION: Patent gastrostomy. Abdomen/Pelvis CT 09/09/16 00:00 IMPRESSION: Postsurgical changes without evidence of abscess or bowel obstruction. Guidance Fluoroscopy 09/09/16 00:00 IMPRESSION: SUCCESSFUL PLACEMENT OF A 5 FR DUAL LUMEN 39 CM PICC IN THE basilic VEIN. Interventional Vascular Procedure 09/09/16 00:00 IMPRESSION: SUCCESSFUL PLACEMENT OF A 5 FR DUAL LUMEN 39 CM PICC IN THE basilic VEIN. PICC Line Insertion 09/09/16 00:00 IMPRESSION: SUCCESSFUL PLACEMENT OF A 5 FR DUAL LUMEN 39 CM PICC IN THE basilic VEIN. Chest X-Ray 09/10/16 00:00 IMPRESSION: Trace bilateral pleural effusions in the posterior costophrenic sulci Minimal bibasilar airspace disease in the posterior costophrenic sulci atelectasis versus pneumonia Venous Doppler Study 09/12/16 00:00 IMPRESSION: NO EVIDENCE DVT OR SVT IN EITHER LEG. Assessment & Plan - Diagnosis (1) Type 2 diabetes mellitus without complications Qualifiers: Diabetes mellitus care home insulin use: without care home use Qualified Code(s): E11.9 - Type 2 diabetes mellitus without complications Is this a current diagnosis for this admission?: YesPlan: sugar lower on 40u + slide (2) Hypertension Qualifiers: Hypertension type: essential hypertension Qualified Code(s): I10 - Essential (primary) hypertension Is this a current diagnosis for this admission?: YesPlan: ok off meds (3) Anemia, blood loss Is this a current diagnosis for this admission?: Yes (4) Panlobular emphysema Is this a current diagnosis for this admission?: Yes (5) Colonic mass Is this a current diagnosis for this admission?: Yes (6) Leukocytosis Qualifiers: Leukocytosis type: bandemia Qualified Code(s): D72.825 - Bandemia Is this a current diagnosis for this admission?: YesPlan: down to 16k. Venous doppler normal. More blood cultures pending (7) Dysphagia Qualifiers: Dysphagia type: oral phase Qualified Code(s): R13.11 - Dysphagia, oral phase Is this a current diagnosis for this admission?: Yes (8) Paralytic ileus Is this a current diagnosis for this admission?: Yes (9) Parkinson disease Is this a current diagnosis for this admission?: Yes (10) Enlarged prostate with lower urinary tract symptoms (LUTS) Qualifiers: Prostatic enlargement morphology: non-nodular Qualified Code(s): N40.1 - Benign prostatic hyperplasia with lower urinary tract symptoms Is this a current diagnosis for this admission?: YesPlan: may be able to wean cortez now back on alpha nic (11) Hypokalemia Is this a current diagnosis for this admission?: YesPlan: replacing
[2016-09-13 09:24] LABS: APPEARANCE,URINE CLEAR; BILIRUBIN,URINE NEGATIVE (NEGATIVE); GLUCOSE, URINE 50 mg/dL (NEGATIVE); KETONES,URINE NEGATIVE (NEGATIVE); LEUKOCYTE ESTERASE,URINE SMALL (NEGATIVE); NITRITE,URINE NEGATIVE (NEGATIVE); PROTEIN,URINE 30 mg/dL (NEGATIVE); URINE SPECIFIC GRAVITY 1.017; UROBILINOGEN,URINE NEGATIVE mg/dL (<2.0)
[2016-09-13] MEDS: FENTANYL 25 MCG/HR PATCH.TD72 TD SCH (10:13)
[2016-09-13] MEDS: METOPROLOL TARTRATE 25 MG TABLET GT SCH ×2 (10:15→23:27)
[2016-09-13] MEDS: FINASTERIDE 5 MG TABLET PO SCH (10:15)
[2016-09-13] MEDS: LACTOBACILLUS ACIDOPHILUS 250 MG TAB PEG SCH ×2 (10:15→17:23)
[2016-09-13] MEDS: POTASSIUM CHLORIDE 20 MEQ/15 ML UDCUP PO SCH ×2 (10:15→23:30)
[2016-09-13] MEDS: ENOXAPARIN SODIUM INJ 40 MG/0.4 ML DISP.SYRIN SUBCUT SCH (10:16)
[2016-09-13] MEDS: NORMAL SALINE 10 ML SDV (SCHEDULED) IV SCH (10:16)
[2016-09-13] MEDS: INSULIN GLARGINE,HUM.REC.ANLOG 300 UNIT/3 ML INSULN.PEN SUBCUT SCH (10:22)
--- NOTE | 2016-09-13 11:48 | PROGRESS NOTE E ---
Progress Note NAME: AMI YOUSIF : 1950 AGE: 66Y DATE: 09/13/2016 ROOM: [facility] SUBJECTIVE: A 66-year-old male post exploratory laparotomy and double-barrel colostomy. He is tolerating his diet well, afebrile. His white count is trending down from 20.5 on 09/11/2016 to 16.4 today. His incision is slightly erythematous in 2 areas with a little fluctuation. If this remains erythematous the tamia may need to be removed and see if there is any drainage. His jejunostomy tube has some whitish drainage around it and I just told him he has to keep it dry. Dr. Minor will re-evaluate it Friday and may need to have it removed if he is tolerating his diet well. Also waiting for placement for him and hopefully we can get it by Friday. DICTATING PHYSICIAN: BLADE WARD M.D. [id number] PHY#: [id number] ID: [id number] JOB#: [id number] ACCT: [id number] cc: >
[2016-09-13] MEDS: TAMSULOSIN HCL 0.4 MG CAP.SR.24H PO SCH (17:23)
[2016-09-13] MEDS: INSULIN REG, HUMAN 100 UNIT/ML 3 ML VIAL (PYX) SUBCUT PRN (17:24)
[2016-09-13] MEDS: OXYCODONE-ACETAMINOPHEN 5-325 MG TABLET PO PRN (18:04)
--- NOTE | 2016-09-13 18:50 | PDOC PROGRESS REPORT ---
Subjective Progress Note for:: 09/13/16 Subjective:: Patient seems to be somewhat better. He is noted to be intermittently confused. On direct questioning denying any chest arm or neck discomfort. Patient denying any PND, orthopnea. Patient denied any sustained palpitations, dizziness, syncope, near syncope. Patient denying any fever chills. Patient denying any other significant discomfort. Patient does have a colostomy tube which seems to be draining adequately. His white cell count has come down. His hemoglobin is slightly down. Review of systems: Rest review of systems negative. Medications: Medications have been reviewed. Physical Exam Vital Signs: Temp Pulse Resp BP Pulse Ox 98.0 F 82 20 136/78 H 98 09/13/16 11:19 09/13/16 14:00 09/13/16 11:19 09/13/16 11:19 09/13/16 11:19 Intake & Output 09/12/16 09/13/16 09/14/16 06:59 06:59 06:59 Intake Total 1280 1120 820 Output Total 2365 1800 650 Balance -1085 -680 170 Weight 113.1 kg 114.3 kg Exam: GENERAL: well-nourished and in no acute distress. Alert and oriented 2 HEAD: Atraumatic, normocephalic. EYES: Pupils equal round and reactive to light, extraocular movements intact, sclera anicteric, conjunctiva are normal. ENT: TMs normal, nares patent, oropharynx clear without exudates. Moist mucous membranes. No oral ulcerations or bleeding gums noted NECK: supple without lymphadenopathy. Trachea is central. No cervical or axillary lymphadenopathy noted. Carotids are 2+, JVD WNL LUNGS: Respiration seems nonlabored, no significant accessory muscle action noted. Breath sounds clear to auscultation bilaterally and equal noted. No wheezes rales or rhonchi noted. No significant dullness noted on percussion. CHEST: Palpation of the chest wall shows no significant chest wall tenderness. No other significant abnormalities noted. 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 ABDOMEN: Soft, no significant tenderness appreciated, normoactive bowel sounds. No guarding, no rebound. No rigidity noted . No masses appreciated. Colostomy tube is noted it seems to be draining well. EXTREMITIES: Pedal pulses are 1-2+, no calf tenderness noted. No clubbing or cyanosis.1+ pedal edema noted NEUROLOGICAL: Focused neurological exam showed no significant neurologic deficit. Normal speech, no focal weakness appreciated. PSYCH: Normal mood, normal affect. Judgment and insight not checked. SKIN: No significant ecchymosis, rash, ulcerations or signs of pruritus noted. MUSCULOSKELETAL EXAM: No significant joint swelling noted. Results Laboratory Results: 09/13/16 04:30 09/13/16 04:30 09/13/16 09/13/16 09/13/16 04:30 04:30 04:30 WBC 16.4 H RBC 3.68 L Hgb 8.7 L Hct 27.4 L MCV 75 L MCH 23.6 L MCHC 31.6 L RDW 19.0 H Plt Count 709 H Seg Neutrophils % Not Reportable Lymphocytes % Not Reportable Monocytes % Not Reportable Eosinophils % Not Reportable Basophils % Not Reportable Absolute Neutrophils Not Reportable Absolute Lymphocytes Not Reportable Absolute Monocytes Not Reportable Absolute Eosinophils Not Reportable Absolute Basophils Not Reportable Sodium 140.6 Potassium 3.3 L Chloride 106 Carbon Dioxide 29 Anion Gap 6 BUN 11 Creatinine 0.69 Est GFR ( Amer) > 60 Est GFR (Non-Af Amer) > 60 Glucose 143 H Calcium 7.8 L Magnesium 2.2 Urine Color Urine Appearance Urine pH Ur Specific [place] Urine Protein Urine Glucose (UA) Urine Ketones Urine Blood Urine Nitrite Ur Leukocyte Esterase Urine WBC (Auto) Urine RBC (Auto) Stool Occult Blood 09/13/16 09/13/16 08:30 08:36 WBC RBC Hgb Hct MCV MCH MCHC RDW Plt Count Seg Neutrophils % Lymphocytes % Monocytes % Eosinophils % Basophils % Absolute Neutrophils Absolute Lymphocytes Absolute Monocytes Absolute Eosinophils Absolute Basophils Sodium Potassium Chloride Carbon Dioxide Anion Gap BUN Creatinine Est GFR ( Amer) Est GFR (Non-Af Amer) Glucose Calcium Magnesium Urine Color YELLOW Urine Appearance CLEAR Urine pH 6.0 Ur Specific [place] 1.017 Urine Protein 30 H Urine Glucose (UA) 50 H Urine Ketones NEGATIVE Urine Blood NEGATIVE Urine Nitrite NEGATIVE Ur Leukocyte Esterase SMALL H Urine WBC (Auto) 16 Urine RBC (Auto) 4 Stool Occult Blood NEGATIVE 09/11/16 16:20 Catheterized Urine Urine Culture - Final NO GROWTH 2 DAYS 09/03/16 09/03/16 09/04/16 16:15 16:15 07:00 Creatine Kinase 39 L CK-MB (CK-2) 0.33 Troponin I < 0.012 < 0.012 09/05/16 04:17 Creatine Kinase CK-MB (CK-2) Troponin I 0.013 Impressions: KUB X-Ray 09/05/16 00:00 IMPRESSION: Patent gastrostomy. Abdomen/Pelvis CT 09/09/16 00:00 IMPRESSION: Postsurgical changes without evidence of abscess or bowel obstruction. Guidance Fluoroscopy 09/09/16 00:00 IMPRESSION: SUCCESSFUL PLACEMENT OF A 5 FR DUAL LUMEN 39 CM PICC IN THE basilic VEIN. Interventional Vascular Procedure 09/09/16 00:00 IMPRESSION: SUCCESSFUL PLACEMENT OF A 5 FR DUAL LUMEN 39 CM PICC IN THE basilic VEIN. PICC Line Insertion 09/09/16 00:00 IMPRESSION: SUCCESSFUL PLACEMENT OF A 5 FR DUAL LUMEN 39 CM PICC IN THE basilic VEIN. Chest X-Ray 09/10/16 00:00 IMPRESSION: Trace bilateral pleural effusions in the posterior costophrenic sulci Minimal bibasilar airspace disease in the posterior costophrenic sulci atelectasis versus pneumonia Venous Doppler Study 09/12/16 00:00 IMPRESSION: NO EVIDENCE DVT OR SVT IN EITHER LEG. Assessment & Plan - Diagnosis (1) Coronary artery disease Qualifiers: Coronary Disease-Associated Artery/Lesion type: [place] artery [place] vs. transplanted heart: [place] heart Associated angina: angina presence unspecified Qualified Code(s): I25.10 - Atherosclerotic heart disease of [place] coronary artery without angina pectoris Is this a current diagnosis for this admission?: Yes (2) Abnormal EKG Is this a current diagnosis for this admission?: Yes (3) CVA (cerebral infarction) Qualifiers: Laterality of affected vessel: unspecified Is this a current diagnosis for this admission?: Yes (4) Hypertension Qualifiers: Hypertension type: essential hypertension Qualified Code(s): I10 - Essential (primary) hypertension Is this a current diagnosis for this admission?: Yes (5) Hyperlipidemia Qualifiers: Hyperlipidemia type: other hyperlipidemia Qualified Code(s): E78.4 - Other hyperlipidemia Is this a current diagnosis for this admission?: Yes (6) Diabetes Qualifiers: Diabetes mellitus type: type 2 Diabetes mellitus complication status: with unspecified complications - Notes Notes: CAD: Patient has CAD. Currently stable without any angina or angina equivalent symptoms. Medications reviewed. Abnormal electrocardiogram: This was evaluated by a 2-D echocardiogram. It showed normal LVEF. Patient to report any chest pain Cerebrovascular accident: Patient currently stable. Confusion is better today.. Hypertension: Blood pressure goal in this patient is 140/90 or less. This was discussed with the patient. Dyslipidemia: LDL goal is less than 70. Recommend statin therapy at least intermediate or high dose, of high potency status. Diabetes: Recommend good control of blood sugar. However should avoid any hypoglycemia. Patient being expertly managed by primary care MRosario Leukocytosis: Exact etiology not clear. Venous duplex negative for DVT. Blood cultures were obtained yesterday results are pending. - Time Time with patient: 15-25 minutes - CODE STATUS was discussed, patient remains full code. Surrogate decision-maker unchanged. Multiple medical problems were addressed.More than 50% of the time spent coordinating care, discussing management plans with involved caregivers. Management plans discussed with involved personnels. Medical decision making was of moderate complexity.
[2016-09-13] MEDS: ATORVASTATIN CALCIUM 40 MG TABLET PO SCH (23:45)
[2016-09-14 06:49] LABS: ANION GAP 9 (5-19); BLOOD UREA NITROGEN 9 mg/dL (7-20); CALCIUM 7.7 mg/dL (8.4-10.2); CARBON DIOXIDE 26 mmol/L (22-30); CHLORIDE 106 mmol/L (98-107); CREATININE RESULT 0.67 mg/dL (0.52-1.25); GLUCOSE 194 mg/dL (75-110); POTASSIUM 3.4 mmol/L (3.6-5.0); SODIUM 140.6 mmol/L (137-145)
[2016-09-14 06:50] LABS: HEMATOCRIT 28.5 % (37.9-51.0); HEMOGLOBIN 9.3 g/dL (13.5-17.0); HGB HCT DIFFERENCE -0.6; MEAN CORPUSCULAR HEMOGLOBIN 24.3 pg (27.0-33.4); MEAN CORPUSCULAR HGB CONC 32.7 g/dL (32.0-36.0); MEAN CORPUSCULAR VOLUME 74 fl (80-97); RED BLOOD COUNT 3.83 10^6/uL (4.35-5.55); WHITE BLOOD COUNT 18.4 10^3/uL (4.0-10.5)
[2016-09-14] MEDS: CARBIDOPA/LEVODOPA 25-100 MG TABLET PO SCH ×3 (07:23→22:24)
[2016-09-14 07:25] LABS: BAND NEUTROPHILS % (MANUAL) 1 % (3-5); BASOPHILS % (MANUAL) 0 % (0-2); EOSINOPHILS % (MANUAL) 1 % (0-6); LYMPHOCYTES % (MANUAL) 7 % (13-45); TOTAL CELLS COUNTED 100
[2016-09-14] MEDS: NORMAL SALINE 10 ML SDV (SCHEDULED) IV SCH ×3 (07:26→22:26)
[2016-09-14 07:27] LABS: ANISOCYTOSIS 2+; HYPOCHROMASIA SLIGHT; MICROCYTOSIS 1+; POLYCHROMASIA SLIGHT
[2016-09-14] MEDS: POTASSI CL 20 MEQ/50 ML RIDER 20 MEQ/50 ML RTUPB IV SCH ×2 (08:55→11:00)
[2016-09-14] MEDS: ENOXAPARIN SODIUM INJ 40 MG/0.4 ML DISP.SYRIN SUBCUT SCH (08:57)
[2016-09-14] MEDS: INSULIN GLARGINE,HUM.REC.ANLOG 300 UNIT/3 ML INSULN.PEN SUBCUT SCH (09:45)
[2016-09-14] MEDS: INSULIN REG, HUMAN 100 UNIT/ML 3 ML VIAL (PYX) SUBCUT PRN (09:45)
[2016-09-14] MEDS: FENTANYL 25 MCG/HR PATCH.TD72 TD SCH (09:45)
[2016-09-14] MEDS: FINASTERIDE 5 MG TABLET PO SCH (09:46)
[2016-09-14] MEDS: LACTOBACILLUS ACIDOPHILUS 250 MG TAB PEG SCH ×2 (09:46→18:02)
[2016-09-14] MEDS: METOPROLOL TARTRATE 25 MG TABLET GT SCH ×2 (09:47→22:24)
[2016-09-14] MEDS: POTASSIUM CHLORIDE 20 MEQ/15 ML UDCUP PO SCH ×2 (09:56→22:25)
--- NOTE | 2016-09-14 11:59 | PDOC PROGRESS REPORT ---
Subjective Progress Note for:: 09/14/16 Subjective:: Patient seems to be somewhat better. He is still noted to be intermittently confused as reported by the nurses. On direct questioning denying any chest arm or neck discomfort. Patient denying any PND, orthopnea. Patient denied any sustained palpitations, dizziness, syncope, near syncope. Patient denying any fever chills. Patient denying any other significant discomfort. Patient does have a colostomy tube which seems to be draining adequately. His white cell count has come on up again. The nurses tell me that he seems to have a wound infection. Blood cultures have been negative in the last 24 hours. Review of systems: Rest review of systems negative. Medications: Medications have been reviewed. Physical Exam Vital Signs: Temp Pulse Resp BP Pulse Ox 97.1 F 83 20 135/70 H 100 09/14/16 07:22 09/14/16 07:22 09/14/16 07:22 09/14/16 07:22 09/14/16 07:22 Intake & Output 09/13/16 09/14/16 09/15/16 06:59 06:59 06:59 Intake Total 1120 1030 Output Total 1800 1825 Balance -680 -795 Weight 114.3 kg 94.4 kg Exam: GENERAL: well-nourished and in no acute distress. Alert and oriented x3 HEAD: Atraumatic, normocephalic. EYES: Pupils equal round and reactive to light, extraocular movements intact, sclera anicteric, conjunctiva are normal. ENT: TMs normal, nares patent, oropharynx clear without exudates. Moist mucous membranes. No oral ulcerations or bleeding gums noted NECK: supple without lymphadenopathy. Trachea is central. No cervical or axillary lymphadenopathy noted. Carotids are 2+, JVD WNL LUNGS: Respiration seems nonlabored, no significant accessory muscle action noted. Breath sounds clear to auscultation bilaterally and equal noted. No wheezes rales or rhonchi noted. No significant dullness noted on percussion. CHEST: Palpation of the chest wall shows no significant chest wall tenderness. No other significant abnormalities noted. 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 ABDOMEN: Soft, no significant tenderness appreciated, normoactive bowel sounds. No guarding, no rebound. No rigidity noted . No masses appreciated. Colostomy tube noted. EXTREMITIES: Pedal pulses are 1-2+, no calf tenderness noted. No clubbing or cyanosis.trace to 1+ pedal edema noted NEUROLOGICAL: Focused neurological exam showed no significant neurologic deficit. Normal speech, no focal weakness appreciated. PSYCH: Normal mood, normal affect. Judgment and insight within normal limits. SKIN: No significant ecchymosis, rash, ulcerations or signs of pruritus noted. MUSCULOSKELETAL EXAM: No significant joint swelling noted. Results Laboratory Results: 09/14/16 06:15 09/14/16 06:15 09/14/16 09/14/16 06:15 06:15 WBC 18.4 H RBC 3.83 L Hgb 9.3 L Hct 28.5 L MCV 74 L MCH 24.3 L MCHC 32.7 RDW 19.0 H Plt Count 807 H Seg Neutrophils % Not Reportable Lymphocytes % Not Reportable Monocytes % Not Reportable Eosinophils % Not Reportable Basophils % Not Reportable Absolute Neutrophils Not Reportable Absolute Lymphocytes Not Reportable Absolute Monocytes Not Reportable Absolute Eosinophils Not Reportable Absolute Basophils Not Reportable Sodium 140.6 Potassium 3.4 L Chloride 106 Carbon Dioxide 26 Anion Gap 9 BUN 9 Creatinine 0.67 Est GFR ( Amer) > 60 Est GFR (Non-Af Amer) > 60 Glucose 194 H Calcium 7.7 L 09/11/16 16:20 Catheterized Urine Urine Culture - Final NO GROWTH 2 DAYS 09/03/16 09/03/16 09/04/16 16:15 16:15 07:00 Creatine Kinase 39 L CK-MB (CK-2) 0.33 Troponin I < 0.012 < 0.012 09/05/16 04:17 Creatine Kinase CK-MB (CK-2) Troponin I 0.013 Impressions: KUB X-Ray 09/05/16 00:00 IMPRESSION: Patent gastrostomy. Abdomen/Pelvis CT 09/09/16 00:00 IMPRESSION: Postsurgical changes without evidence of abscess or bowel obstruction. Guidance Fluoroscopy 09/09/16 00:00 IMPRESSION: SUCCESSFUL PLACEMENT OF A 5 FR DUAL LUMEN 39 CM PICC IN THE basilic VEIN. Interventional Vascular Procedure 09/09/16 00:00 IMPRESSION: SUCCESSFUL PLACEMENT OF A 5 FR DUAL LUMEN 39 CM PICC IN THE basilic VEIN. PICC Line Insertion 09/09/16 00:00 IMPRESSION: SUCCESSFUL PLACEMENT OF A 5 FR DUAL LUMEN 39 CM PICC IN THE basilic VEIN. Chest X-Ray 09/10/16 00:00 IMPRESSION: Trace bilateral pleural effusions in the posterior costophrenic sulci Minimal bibasilar airspace disease in the posterior costophrenic sulci atelectasis versus pneumonia Venous Doppler Study 09/12/16 00:00 IMPRESSION: NO EVIDENCE DVT OR SVT IN EITHER LEG. Assessment & Plan - Diagnosis (1) Coronary artery disease Qualifiers: Coronary Disease-Associated Artery/Lesion type: [place] artery [place] vs. transplanted heart: [place] heart Associated angina: angina presence unspecified Qualified Code(s): I25.10 - Atherosclerotic heart disease of [place] coronary artery without angina pectoris Is this a current diagnosis for this admission?: Yes (2) Abnormal EKG Is this a current diagnosis for this admission?: Yes (3) CVA (cerebral infarction) Qualifiers: Laterality of affected vessel: unspecified Is this a current diagnosis for this admission?: Yes (4) Hypertension Qualifiers: Hypertension type: essential hypertension Qualified Code(s): I10 - Essential (primary) hypertension Is this a current diagnosis for this admission?: Yes (5) Hyperlipidemia Qualifiers: Hyperlipidemia type: other hyperlipidemia Qualified Code(s): E78.4 - Other hyperlipidemia Is this a current diagnosis for this admission?: Yes (6) Diabetes Qualifiers: Diabetes mellitus type: type 2 Diabetes mellitus complication status: with unspecified complications - Notes Notes: Patient seems to have been stable from cardiac standpoint. Blood cultures have been negative. Patient has white cell count elevation which is being evaluated. Patient blood pressure has been reasonably stable. Blood sugars has been reasonably well controlled. At this point will sign out. Please reconsult if if needed or if any cardiovascular issues arises. - Time Time with patient: 15-25 minutes - CODE STATUS was discussed, patient remains full code. Surrogate decision-maker unchanged. Multiple medical problems were addressed.More than 50% of the time spent coordinating care, discussing management plans with involved caregivers. Management plans discussed with involved personnels. Medical decision making was of moderate complexity.
--- NOTE | 2016-09-14 13:13 | PDOC PROGRESS REPORT ---
Subjective Progress Note for:: 09/14/16 Subjective:: Patient has complaints of mild abdominal discomfort. Physical Exam Vital Signs: Temp Pulse Resp BP Pulse Ox 97.6 F 87 24 H 137/92 H 100 09/14/16 11:09 09/14/16 11:09 09/14/16 11:09 09/14/16 11:09 09/14/16 11:09 Intake & Output 09/13/16 09/14/16 09/15/16 06:59 06:59 06:59 Intake Total 1120 1030 473 Output Total 1800 1825 790 Balance -680 -795 -317 Weight 114.3 kg 94.4 kg General appearance: PRESENT: no acute distress Eye exam: PRESENT: conjunctiva pink. ABSENT: scleral icterus Mouth exam: PRESENT: moist, tongue midline Neck exam: ABSENT: JVD Respiratory exam: PRESENT: clear to auscultation shel[place]. ABSENT: rales, rhonchi, wheezes Cardiovascular exam: PRESENT: RRR. ABSENT: diastolic murmur, rubs, systolic murmur GI/Abdominal exam: PRESENT: soft, tenderness - Minimal lower abdominal tenderness but no guarding or rebound.. ABSENT: distended, guarding, mass, organolmegaly, rebound Extremities exam: ABSENT: calf tenderness, clubbing, pedal edema Neurological exam: PRESENT: alert, awake, oriented to person, oriented to place , oriented to time Psychiatric exam: PRESENT: flat affect Skin exam: PRESENT: other - Patient has a small amount of drainage from around his tamia on his abdominal surgical wound. Results Laboratory Results: 09/14/16 06:15 09/14/16 06:15 09/14/16 09/14/16 06:15 06:15 WBC 18.4 H RBC 3.83 L Hgb 9.3 L Hct 28.5 L MCV 74 L MCH 24.3 L MCHC 32.7 RDW 19.0 H Plt Count 807 H Seg Neutrophils % Not Reportable Lymphocytes % Not Reportable Monocytes % Not Reportable Eosinophils % Not Reportable Basophils % Not Reportable Absolute Neutrophils Not Reportable Absolute Lymphocytes Not Reportable Absolute Monocytes Not Reportable Absolute Eosinophils Not Reportable Absolute Basophils Not Reportable Sodium 140.6 Potassium 3.4 L Chloride 106 Carbon Dioxide 26 Anion Gap 9 BUN 9 Creatinine 0.67 Est GFR ( Amer) > 60 Est GFR (Non-Af Amer) > 60 Glucose 194 H Calcium 7.7 L 09/11/16 16:20 Catheterized Urine Urine Culture - Final NO GROWTH 2 DAYS 09/03/16 09/03/16 09/04/16 16:15 16:15 07:00 Creatine Kinase 39 L CK-MB (CK-2) 0.33 Troponin I < 0.012 < 0.012 09/05/16 04:17 Creatine Kinase CK-MB (CK-2) Troponin I 0.013 Impressions: KUB X-Ray 09/05/16 00:00 IMPRESSION: Patent gastrostomy. Abdomen/Pelvis CT 09/09/16 00:00 IMPRESSION: Postsurgical changes without evidence of abscess or bowel obstruction. Guidance Fluoroscopy 09/09/16 00:00 IMPRESSION: SUCCESSFUL PLACEMENT OF A 5 FR DUAL LUMEN 39 CM PICC IN THE basilic VEIN. Interventional Vascular Procedure 09/09/16 00:00 IMPRESSION: SUCCESSFUL PLACEMENT OF A 5 FR DUAL LUMEN 39 CM PICC IN THE basilic VEIN. PICC Line Insertion 09/09/16 00:00 IMPRESSION: SUCCESSFUL PLACEMENT OF A 5 FR DUAL LUMEN 39 CM PICC IN THE basilic VEIN. Chest X-Ray 09/10/16 00:00 IMPRESSION: Trace bilateral pleural effusions in the posterior costophrenic sulci Minimal bibasilar airspace disease in the posterior costophrenic sulci atelectasis versus pneumonia Venous Doppler Study 09/12/16 00:00 IMPRESSION: NO EVIDENCE DVT OR SVT IN EITHER LEG. Assessment & Plan - Diagnosis (1) Diabetes Qualifiers: Diabetes mellitus type: type 2 Diabetes mellitus complication status: with unspecified complications Is this a current diagnosis for this admission?: YesPlan: Blood sugars have ranged from 150-270. We'll continue with Lantus and sliding scale insulin. (2) Coronary artery disease Qualifiers: Coronary Disease-Associated Artery/Lesion type: [place] artery [place] vs. transplanted heart: [place] heart Associated angina: angina presence unspecified Qualified Code(s): I25.10 - Atherosclerotic heart disease of [place] coronary artery without angina pectoris Is this a current diagnosis for this admission?: YesPlan: Patient denies any chest pain. Patient is being followed by cardiology. (3) Hyperlipidemia Qualifiers: Hyperlipidemia type: other hyperlipidemia Qualified Code(s): E78.4 - Other hyperlipidemia Is this a current diagnosis for this admission?: Yes (4) Hypertension Qualifiers: Hypertension type: essential hypertension Qualified Code(s): I10 - Essential (primary) hypertension Is this a current diagnosis for this admission?: YesPlan: Continue with metoprolol. (5) Panlobular emphysema Is this a current diagnosis for this admission?: YesPlan: Patient has no wheezing on exam today. (6) Parkinson disease Is this a current diagnosis for this admission?: YesPlan: Continue with Sinemet. (7) Type 2 diabetes mellitus without complications Qualifiers: Diabetes mellitus prison insulin use: without watermelon inspector use Qualified Code(s): E11.9 - Type 2 diabetes mellitus without complications Is this a current diagnosis for this admission?: Yes (8) Diastolic CHF Is this a current diagnosis for this admission?: YesPlan: Patient is euvolemic on exam. (9) Colonic mass Is this a current diagnosis for this admission?: YesPlan: Patient has had surgical removal of the mass. He has 2 ostomy sites. - Time Time Spent with patient: 25-34 minutes - Inpatient Certification Medical Necessity: Need Close Monitoring Due to Risk of Patient Decompensation
--- NOTE | 2016-09-14 13:49 | Operative Report ---
Nonrecallable Operative Report DATE OF SURGERY: 09/14/16 PREOPERATIVE DIAGNOSIS: Localized, limited superficial surgical site wound infection POSTOPERATIVE DIAGNOSIS: Same OPERATION: 1. Removal of multiple tamia from midline wound, irrigation, and packing of superior portion of midline Wound SURGEON: ALESSANDRA LING ANESTHESIA: Other - none TISSUE REMOVED OR ALTERED: drainage COMPLICATIONS: none ESTIMATED BLOOD LOSS: none INTRAOPERATIVE FINDINGS: See below PROCEDURE: Patient midline incision was exposed. 4 tamia from the central aspect of the incision above the umbilicus were removed. Seropurulent discharge and melted fat were evacuated. The wound tracked superficially up underneath the intact tamia. The fascia appeared to be intact. Wound irrigated peroxide, and packed with a 2 x 2. Purulent discharge around the G-tube. The bolster was released new millimeters to ensure adequate relaxation on the abdominal wall tissue. Patient tolerated procedure well. Wound care orders written
[2016-09-14] MEDS: NORMAL SALINE 10 ML SDV (AFTER EACH USE) IV PRN ×2 (14:19→14:20)
[2016-09-14] MEDS: TAMSULOSIN HCL 0.4 MG CAP.SR.24H PO SCH (18:02)
[2016-09-14] MEDS: ATORVASTATIN CALCIUM 40 MG TABLET PO SCH (19:51)
[2016-09-15 04:53] LABS: HEMATOCRIT 29.2 % (37.9-51.0); HEMOGLOBIN 9.3 g/dL (13.5-17.0); HGB HCT DIFFERENCE -1.3; MEAN CORPUSCULAR HEMOGLOBIN 23.9 pg (27.0-33.4); MEAN CORPUSCULAR VOLUME 75 fl (80-97); RED CELL DISTRIBUTION WIDTH 19.2 % (11.5-14.0); WHITE BLOOD COUNT 18.3 10^3/uL (4.0-10.5)
[2016-09-15 05:14] LABS: BAND NEUTROPHILS % (MANUAL) 1 % (3-5); BASOPHILS % (MANUAL) 1 % (0-2); EOSINOPHILS % (MANUAL) 3 % (0-6); LYMPHOCYTES % (MANUAL) 7 % (13-45); TOTAL CELLS COUNTED 100
[2016-09-15 05:18] LABS: ANION GAP 9 (5-19); BLOOD UREA NITROGEN 8 mg/dL (7-20); CARBON DIOXIDE 25 mmol/L (22-30); CHLORIDE 109 mmol/L (98-107); CREATININE RESULT 0.68 mg/dL (0.52-1.25); GLUCOSE 124 mg/dL (75-110); POTASSIUM 4.3 mmol/L (3.6-5.0); SODIUM 143.4 mmol/L (137-145)
[2016-09-15 05:19] LABS: ANISOCYTOSIS 2+; MICROCYTOSIS 1+; POLYCHROMASIA SLIGHT; TOXIC GRANULATION 1+
[2016-09-15 05:20] LABS: POIKILOCYTOSIS 1+; STOMATOCYTES 1+
[2016-09-15] MEDS: CARBIDOPA/LEVODOPA 25-100 MG TABLET PO SCH ×3 (06:23→22:05)
[2016-09-15] MEDS: ENOXAPARIN SODIUM INJ 40 MG/0.4 ML DISP.SYRIN SUBCUT SCH (08:34)
[2016-09-15] MEDS: FINASTERIDE 5 MG TABLET PO SCH (08:34)
[2016-09-15] MEDS: INSULIN GLARGINE,HUM.REC.ANLOG 300 UNIT/3 ML INSULN.PEN SUBCUT SCH (09:31)
[2016-09-15] MEDS: POTASSIUM CHLORIDE 20 MEQ/15 ML UDCUP PO SCH ×2 (09:33→22:06)
[2016-09-15] MEDS: LACTOBACILLUS ACIDOPHILUS 250 MG TAB PEG SCH ×2 (09:33→17:35)
[2016-09-15] MEDS: METOPROLOL TARTRATE 25 MG TABLET GT SCH ×2 (09:34→22:05)
[2016-09-15] MEDS: NORMAL SALINE 10 ML SDV (SCHEDULED) IV SCH ×2 (09:35→22:06)
[2016-09-15] MEDS: NORMAL SALINE 10 ML SDV (AFTER EACH USE) IV PRN (09:35)
[2016-09-15] MEDS: OXYCODONE-ACETAMINOPHEN 5-325 MG TABLET PO PRN (10:45)
--- NOTE | 2016-09-15 11:16 | PDOC PROGRESS REPORT ---
Subjective Progress Note for:: 09/15/16 Subjective:: Patient has no complaints. Continues to eat, and had excellent output from his colostomy. His midline wound is being changed twice a day Physical Exam Vital Signs: Temp Pulse Resp BP Pulse Ox 98.0 F 89 16 123/73 96 09/15/16 07:16 09/15/16 07:16 09/15/16 07:16 09/15/16 07:16 09/15/16 07:16 Intake & Output 09/14/16 09/15/16 09/16/16 06:59 06:59 06:59 Intake Total 1030 1667 Output Total 1825 1860 Balance -795 -193 Weight 94.4 kg 94.5 kg General appearance: PRESENT: no acute distress GI/Abdominal exam: PRESENT: other - Generalized edema of the abdominal wall. Colostomy with significant amount of stool. Mucous fistula with mucus only. Erythema edema and purulent discharge around the gastrostomy tube diminished Midline wound open area aiming up; no tracking or pockets identified; one half of remaining tamia removed. Results Laboratory Results: 09/15/16 03:30 09/15/16 03:30 09/15/16 09/15/16 03:30 03:30 WBC 18.3 H RBC 3.90 L Hgb 9.3 L Hct 29.2 L MCV 75 L MCH 23.9 L MCHC 32.0 RDW 19.2 H Plt Count 770 H Seg Neutrophils % Not Reportable Lymphocytes % Not Reportable Monocytes % Not Reportable Eosinophils % Not Reportable Basophils % Not Reportable Absolute Neutrophils Not Reportable Absolute Lymphocytes Not Reportable Absolute Monocytes Not Reportable Absolute Eosinophils Not Reportable Absolute Basophils Not Reportable Sodium 143.4 Potassium 4.3 Chloride 109 H Carbon Dioxide 25 Anion Gap 9 BUN 8 Creatinine 0.68 Est GFR ( Amer) > 60 Est GFR (Non-Af Amer) > 60 Glucose 124 H Calcium 8.0 L 09/03/16 09/03/16 09/04/16 16:15 16:15 07:00 Creatine Kinase 39 L CK-MB (CK-2) 0.33 Troponin I < 0.012 < 0.012 09/05/16 04:17 Creatine Kinase CK-MB (CK-2) Troponin I 0.013 Impressions: KUB X-Ray 09/05/16 00:00 IMPRESSION: Patent gastrostomy. Abdomen/Pelvis CT 09/09/16 00:00 IMPRESSION: Postsurgical changes without evidence of abscess or bowel obstruction. Guidance Fluoroscopy 09/09/16 00:00 IMPRESSION: SUCCESSFUL PLACEMENT OF A 5 FR DUAL LUMEN 39 CM PICC IN THE basilic VEIN. Interventional Vascular Procedure 09/09/16 00:00 IMPRESSION: SUCCESSFUL PLACEMENT OF A 5 FR DUAL LUMEN 39 CM PICC IN THE basilic VEIN. PICC Line Insertion 09/09/16 00:00 IMPRESSION: SUCCESSFUL PLACEMENT OF A 5 FR DUAL LUMEN 39 CM PICC IN THE basilic VEIN. Chest X-Ray 09/10/16 00:00 IMPRESSION: Trace bilateral pleural effusions in the posterior costophrenic sulci Minimal bibasilar airspace disease in the posterior costophrenic sulci atelectasis versus pneumonia Venous Doppler Study 09/12/16 00:00 IMPRESSION: NO EVIDENCE DVT OR SVT IN EITHER LEG. Assessment & Plan - Plan Summary Plan Summary: Impression: Status post exploratory laparotomy, transverse colostomy mucous fistula. Superficial wound infection stable, no need for further debridement at this time; localized infection around gastrostomy tube site controlled with no need for debridement at this time Persisting leukocytosis of unclear etiology. This was discussed with Dr. Pope. Given the patient's stable clinical condition, we will manage nonoperatively for now. We will continue dressing changes and local wound care.
--- NOTE | 2016-09-15 11:26 | PDOC PROGRESS REPORT ---
Subjective Progress Note for:: 09/15/16 Subjective:: Denies any complaints. Physical Exam Vital Signs: Temp Pulse Resp BP Pulse Ox 98.0 F 89 16 123/73 96 09/15/16 07:16 09/15/16 07:16 09/15/16 07:16 09/15/16 07:16 09/15/16 07:16 Intake & Output 09/14/16 09/15/16 09/16/16 06:59 06:59 06:59 Intake Total 1030 1667 Output Total 1825 1860 Balance -795 -193 Weight 94.4 kg 94.5 kg General appearance: PRESENT: no acute distress Eye exam: PRESENT: conjunctiva pink. ABSENT: scleral icterus Mouth exam: PRESENT: moist, tongue midline Neck exam: ABSENT: JVD Respiratory exam: PRESENT: clear to auscultation shelly. ABSENT: rales, rhonchi, wheezes Cardiovascular exam: PRESENT: RRR. ABSENT: diastolic murmur, rubs, systolic murmur GI/Abdominal exam: PRESENT: normal bowel sounds, soft, tenderness, other - Patient has 2 colostomies present as well as a G-tube in the midline surgical wound was tamia. Dressings in place.. ABSENT: distended, guarding, mass, organolmegaly, rebound Extremities exam: ABSENT: calf tenderness, clubbing, pedal edema Neurological exam: PRESENT: alert, awake, oriented to person, oriented to place , oriented to time, oriented to situation Psychiatric exam: PRESENT: appropriate affect Skin exam: PRESENT: other - Dressings in place on his abdominal surgical wound Results Laboratory Results: 09/15/16 03:30 09/15/16 03:30 09/15/16 09/15/16 03:30 03:30 WBC 18.3 H RBC 3.90 L Hgb 9.3 L Hct 29.2 L MCV 75 L MCH 23.9 L MCHC 32.0 RDW 19.2 H Plt Count 770 H Seg Neutrophils % Not Reportable Lymphocytes % Not Reportable Monocytes % Not Reportable Eosinophils % Not Reportable Basophils % Not Reportable Absolute Neutrophils Not Reportable Absolute Lymphocytes Not Reportable Absolute Monocytes Not Reportable Absolute Eosinophils Not Reportable Absolute Basophils Not Reportable Sodium 143.4 Potassium 4.3 Chloride 109 H Carbon Dioxide 25 Anion Gap 9 BUN 8 Creatinine 0.68 Est GFR ( Amer) > 60 Est GFR (Non-Af Amer) > 60 Glucose 124 H Calcium 8.0 L 09/03/16 09/03/16 09/04/16 16:15 16:15 07:00 Creatine Kinase 39 L CK-MB (CK-2) 0.33 Troponin I < 0.012 < 0.012 09/05/16 04:17 Creatine Kinase CK-MB (CK-2) Troponin I 0.013 Impressions: KUB X-Ray 09/05/16 00:00 IMPRESSION: Patent gastrostomy. Abdomen/Pelvis CT 09/09/16 00:00 IMPRESSION: Postsurgical changes without evidence of abscess or bowel obstruction. Guidance Fluoroscopy 09/09/16 00:00 IMPRESSION: SUCCESSFUL PLACEMENT OF A 5 FR DUAL LUMEN 39 CM PICC IN THE basilic VEIN. Interventional Vascular Procedure 09/09/16 00:00 IMPRESSION: SUCCESSFUL PLACEMENT OF A 5 FR DUAL LUMEN 39 CM PICC IN THE basilic VEIN. PICC Line Insertion 09/09/16 00:00 IMPRESSION: SUCCESSFUL PLACEMENT OF A 5 FR DUAL LUMEN 39 CM PICC IN THE basilic VEIN. Chest X-Ray 09/10/16 00:00 IMPRESSION: Trace bilateral pleural effusions in the posterior costophrenic sulci Minimal bibasilar airspace disease in the posterior costophrenic sulci atelectasis versus pneumonia Venous Doppler Study 09/12/16 00:00 IMPRESSION: NO EVIDENCE DVT OR SVT IN EITHER LEG. Assessment & Plan - Diagnosis (1) Diabetes Qualifiers: Diabetes mellitus type: type 2 Diabetes mellitus complication status: with unspecified complications Is this a current diagnosis for this admission?: YesPlan: Blood sugars have ranged from 100-190. We'll continue with Lantus and sliding scale insulin. (2) Coronary artery disease Qualifiers: Coronary Disease-Associated Artery/Lesion type: [place] artery [place] vs. transplanted heart: [place] heart Associated angina: angina presence unspecified Qualified Code(s): I25.10 - Atherosclerotic heart disease of [place] coronary artery without angina pectoris Is this a current diagnosis for this admission?: YesPlan: Patient denies any chest pain. Patient is being followed by cardiology. (3) Hyperlipidemia Qualifiers: Hyperlipidemia type: other hyperlipidemia Qualified Code(s): E78.4 - Other hyperlipidemia Is this a current diagnosis for this admission?: Yes (4) Hypertension Qualifiers: Hypertension type: essential hypertension Qualified Code(s): I10 - Essential (primary) hypertension Is this a current diagnosis for this admission?: YesPlan: Continue with metoprolol. (5) Panlobular emphysema Is this a current diagnosis for this admission?: YesPlan: Patient has no wheezing on exam today. (6) Parkinson disease Is this a current diagnosis for this admission?: YesPlan: Continue with Sinemet. (7) Diastolic CHF Is this a current diagnosis for this admission?: YesPlan: Patient is euvolemic on exam. (8) Colonic mass Is this a current diagnosis for this admission?: YesPlan: Patient has had surgical removal of the mass. He has 2 ostomy sites. (9) Leukocytosis Qualifiers: Leukocytosis type: bandemia Qualified Code(s): D72.825 - Bandemia Is this a current diagnosis for this admission?: YesPlan: The patient's surgical wound has been opened up to allow drainage. His white count has improved slightly. There is no other obvious infection and we will hold off on starting any antibiotics at this time. - Time Time Spent with patient: 25-34 minutes - Inpatient Certification Medical Necessity: Need Close Monitoring Due to Risk of Patient Decompensation
[2016-09-15] MEDS: INSULIN REG, HUMAN 100 UNIT/ML 3 ML VIAL (PYX) SUBCUT PRN (12:33)
[2016-09-15] MEDS: TAMSULOSIN HCL 0.4 MG CAP.SR.24H PO SCH (17:36)
[2016-09-15] MEDS: ATORVASTATIN CALCIUM 40 MG TABLET PO SCH (22:05)
[2016-09-16 05:15] LABS: ABSOLUTE BASOPHILS # (AUTO) 0.1 10^3/uL (0.0-0.2); ABSOLUTE EOSINOPHILS # (AUTO) 0.4 10^3/uL (0.0-0.6); ABSOLUTE LYMPHOCYTES (AUTO) 1.6 10^3/uL (0.5-4.7); ABSOLUTE MONOCYTES (AUTO) 2.2 10^3/uL (0.1-1.4); ABSOLUTE NEUT (AUTO) 13.3 10^3/uL (1.7-8.2); APPEARANCE,URINE SLIGHTLY-CLOUDY; BASOPHILS % (AUTO) 0.5 % (0-2); BILIRUBIN,URINE NEGATIVE (NEGATIVE); GLUCOSE, URINE NEGATIVE (NEGATIVE); HEMATOCRIT 27.3 % (37.9-51.0); HEMOGLOBIN 8.6 g/dL (13.5-17.0); HGB HCT DIFFERENCE -1.5; KETONES,URINE NEGATIVE (NEGATIVE); LEUKOCYTE ESTERASE,URINE SMALL (NEGATIVE); LYMPHOCYTES % (AUTO) 9.3 % (13-45); MEAN CORPUSCULAR HEMOGLOBIN 23.5 pg (27.0-33.4); MEAN CORPUSCULAR HGB CONC 31.4 g/dL (32.0-36.0); MEAN CORPUSCULAR VOLUME 75 fl (80-97); MONOCYTES % (AUTO) 12.5 % (3-13); NITRITE,URINE NEGATIVE (NEGATIVE); PROTEIN,URINE 30 mg/dL (NEGATIVE); RED BLOOD COUNT 3.66 10^6/uL (4.35-5.55); RED CELL DISTRIBUTION WIDTH 19.2 % (11.5-14.0); SEGMENTED NEUTROPHILS % (AUTO) 75.7 % (42-78); URINE SPECIFIC GRAVITY 1.014; UROBILINOGEN,URINE NEGATIVE mg/dL (<2.0); WHITE BLOOD COUNT 17.6 10^3/uL (4.0-10.5)
[2016-09-16 05:20] LABS: ANION GAP 8 (5-19); BLOOD UREA NITROGEN 7 mg/dL (7-20); CARBON DIOXIDE 28 mmol/L (22-30); CHLORIDE 105 mmol/L (98-107); CREATININE RESULT 0.71 mg/dL (0.52-1.25); GLUCOSE 130 mg/dL (75-110); POTASSIUM 4.1 mmol/L (3.6-5.0); SODIUM 140.5 mmol/L (137-145)
[2016-09-16] MEDS: CARBIDOPA/LEVODOPA 25-100 MG TABLET PO SCH ×3 (05:51→21:48)
[2016-09-16] MEDS: INSULIN REG, HUMAN 100 UNIT/ML 3 ML VIAL (PYX) SUBCUT PRN ×2 (07:46→11:49)
[2016-09-16] MEDS: FINASTERIDE 5 MG TABLET PO SCH (07:47)
[2016-09-16] MEDS: ENOXAPARIN SODIUM INJ 40 MG/0.4 ML DISP.SYRIN SUBCUT SCH (07:47)
--- NOTE | 2016-09-16 08:54 | PDOC PROGRESS REPORT ---
Subjective Progress Note for:: 09/16/16 Subjective:: Patient tolerated diet by mouth, and have excellent ostomy output. Physical Exam Vital Signs: Temp Pulse Resp BP Pulse Ox 98.3 F 85 18 118/68 97 09/16/16 07:05 09/16/16 07:05 09/16/16 07:05 09/16/16 07:05 09/16/16 07:05 Intake & Output 09/15/16 09/16/16 09/17/16 06:59 06:59 06:59 Intake Total 1667 778 Output Total 1860 2070 Balance -193 -1292 Weight 94.5 kg 89.2 kg General appearance: PRESENT: no acute distress GI/Abdominal exam: PRESENT: other - Ostomy pink with stool in bag; midline incision open area superiorly with minimal discharge. We'll have remaining tamia removed. Drainage around gastrostomy site reduced Results Laboratory Results: 09/16/16 04:20 09/16/16 04:20 09/16/16 09/16/16 09/16/16 04:20 04:20 04:20 WBC 17.6 H RBC 3.66 L Hgb 8.6 L Hct 27.3 L MCV 75 L MCH 23.5 L MCHC 31.4 L RDW 19.2 H Plt Count 798 H Seg Neutrophils % 75.7 Lymphocytes % 9.3 L Monocytes % 12.5 Eosinophils % 2.0 Basophils % 0.5 Absolute Neutrophils 13.3 H Absolute Lymphocytes 1.6 Absolute Monocytes 2.2 H Absolute Eosinophils 0.4 Absolute Basophils 0.1 Sodium 140.5 Potassium 4.1 Chloride 105 Carbon Dioxide 28 Anion Gap 8 BUN 7 Creatinine 0.71 Est GFR ( Amer) > 60 Est GFR (Non-Af Amer) > 60 Glucose 130 H Calcium 8.0 L Urine Color Urine Appearance Urine pH Ur Specific [place] Urine Protein Urine Glucose (UA) Urine Ketones Urine Blood Urine Nitrite Ur Leukocyte Esterase Urine WBC (Auto) Urine RBC (Auto) Stool Occult Blood NEGATIVE 09/16/16 04:20 WBC RBC Hgb Hct MCV MCH MCHC RDW Plt Count Seg Neutrophils % Lymphocytes % Monocytes % Eosinophils % Basophils % Absolute Neutrophils Absolute Lymphocytes Absolute Monocytes Absolute Eosinophils Absolute Basophils Sodium Potassium Chloride Carbon Dioxide Anion Gap BUN Creatinine Est GFR ( Amer) Est GFR (Non-Af Amer) Glucose Calcium Urine Color YELLOW Urine Appearance SLIGHTLY-CLOUDY Urine pH 6.0 Ur Specific [place] 1.014 Urine Protein 30 H Urine Glucose (UA) NEGATIVE Urine Ketones NEGATIVE Urine Blood SMALL H Urine Nitrite NEGATIVE Ur Leukocyte Esterase SMALL H Urine WBC (Auto) 96 Urine RBC (Auto) 43 Stool Occult Blood 09/03/16 09/03/16 09/04/16 16:15 16:15 07:00 Creatine Kinase 39 L CK-MB (CK-2) 0.33 Troponin I < 0.012 < 0.012 09/05/16 04:17 Creatine Kinase CK-MB (CK-2) Troponin I 0.013 Impressions: KUB X-Ray 09/05/16 00:00 IMPRESSION: Patent gastrostomy. Abdomen/Pelvis CT 09/09/16 00:00 IMPRESSION: Postsurgical changes without evidence of abscess or bowel obstruction. Guidance Fluoroscopy 09/09/16 00:00 IMPRESSION: SUCCESSFUL PLACEMENT OF A 5 FR DUAL LUMEN 39 CM PICC IN THE basilic VEIN. Interventional Vascular Procedure 09/09/16 00:00 IMPRESSION: SUCCESSFUL PLACEMENT OF A 5 FR DUAL LUMEN 39 CM PICC IN THE basilic VEIN. PICC Line Insertion 09/09/16 00:00 IMPRESSION: SUCCESSFUL PLACEMENT OF A 5 FR DUAL LUMEN 39 CM PICC IN THE basilic VEIN. Chest X-Ray 09/10/16 00:00 IMPRESSION: Trace bilateral pleural effusions in the posterior costophrenic sulci Minimal bibasilar airspace disease in the posterior costophrenic sulci atelectasis versus pneumonia Venous Doppler Study 09/12/16 00:00 IMPRESSION: NO EVIDENCE DVT OR SVT IN EITHER LEG. Assessment & Plan - Diagnosis (1) Abdominal wall abscess at site of surgical wound Plan: 1. There are aspect midline wound superficial infection, sufficiently drained and being packed by nursing staff. 2. Suggest removing tamia. 3. Continue local wound care.
[2016-09-16] MEDS: POTASSIUM CHLORIDE 20 MEQ/15 ML UDCUP PO SCH ×2 (09:43→21:49)
[2016-09-16] MEDS: NORMAL SALINE 10 ML SDV (SCHEDULED) IV SCH ×2 (09:44→21:49)
[2016-09-16] MEDS: METOPROLOL TARTRATE 25 MG TABLET GT SCH ×2 (09:45→21:49)
[2016-09-16] MEDS: INSULIN GLARGINE,HUM.REC.ANLOG 300 UNIT/3 ML INSULN.PEN SUBCUT SCH (09:45)
[2016-09-16] MEDS: LACTOBACILLUS ACIDOPHILUS 250 MG TAB PEG SCH ×2 (10:01→17:21)
--- NOTE | 2016-09-16 10:18 | PDOC PROGRESS REPORT ---
Subjective Progress Note for:: 09/16/16 Subjective:: Denies any complaints. Physical Exam Vital Signs: Temp Pulse Resp BP Pulse Ox 98.3 F 85 18 118/68 97 09/16/16 07:05 09/16/16 07:05 09/16/16 07:05 09/16/16 07:05 09/16/16 07:05 Intake & Output 09/15/16 09/16/16 09/17/16 06:59 06:59 06:59 Intake Total 1667 778 Output Total 3314 0230 Balance -193 -1292 Weight 94.5 kg 89.2 kg General appearance: PRESENT: no acute distress Head exam: PRESENT: atraumatic, normocephalic Eye exam: PRESENT: conjunctiva pink. ABSENT: scleral icterus Mouth exam: PRESENT: moist, tongue midline Neck exam: ABSENT: JVD Respiratory exam: PRESENT: clear to auscultation shelly. ABSENT: rales, rhonchi, wheezes Cardiovascular exam: PRESENT: RRR. ABSENT: diastolic murmur, rubs, systolic murmur GI/Abdominal exam: PRESENT: normal bowel sounds, soft, other - Midline surgical tamia with dressing in place. Patient has 2 colostomy site.. ABSENT: distended, guarding, mass, organolmegaly, rebound, tenderness Extremities exam: ABSENT: calf tenderness, clubbing, pedal edema Neurological exam: PRESENT: alert, awake, oriented to person, oriented to place , oriented to time Psychiatric exam: PRESENT: appropriate affect Skin exam: PRESENT: other - Dressing in place on the surgical midline abdominal wound. Results Laboratory Results: 09/16/16 04:20 09/16/16 04:20 09/16/16 09/16/16 09/16/16 04:20 04:20 04:20 WBC 17.6 H RBC 3.66 L Hgb 8.6 L Hct 27.3 L MCV 75 L MCH 23.5 L MCHC 31.4 L RDW 19.2 H Plt Count 798 H Seg Neutrophils % 75.7 Lymphocytes % 9.3 L Monocytes % 12.5 Eosinophils % 2.0 Basophils % 0.5 Absolute Neutrophils 13.3 H Absolute Lymphocytes 1.6 Absolute Monocytes 2.2 H Absolute Eosinophils 0.4 Absolute Basophils 0.1 Sodium 140.5 Potassium 4.1 Chloride 105 Carbon Dioxide 28 Anion Gap 8 BUN 7 Creatinine 0.71 Est GFR ( Amer) > 60 Est GFR (Non-Af Amer) > 60 Glucose 130 H Calcium 8.0 L Urine Color Urine Appearance Urine pH Ur Specific [place] Urine Protein Urine Glucose (UA) Urine Ketones Urine Blood Urine Nitrite Ur Leukocyte Esterase Urine WBC (Auto) Urine RBC (Auto) Stool Occult Blood NEGATIVE 09/16/16 04:20 WBC RBC Hgb Hct MCV MCH MCHC RDW Plt Count Seg Neutrophils % Lymphocytes % Monocytes % Eosinophils % Basophils % Absolute Neutrophils Absolute Lymphocytes Absolute Monocytes Absolute Eosinophils Absolute Basophils Sodium Potassium Chloride Carbon Dioxide Anion Gap BUN Creatinine Est GFR ( Amer) Est GFR (Non-Af Amer) Glucose Calcium Urine Color YELLOW Urine Appearance SLIGHTLY-CLOUDY Urine pH 6.0 Ur Specific [place] 1.014 Urine Protein 30 H Urine Glucose (UA) NEGATIVE Urine Ketones NEGATIVE Urine Blood SMALL H Urine Nitrite NEGATIVE Ur Leukocyte Esterase SMALL H Urine WBC (Auto) 96 Urine RBC (Auto) 43 Stool Occult Blood 09/03/16 09/03/16 09/04/16 16:15 16:15 07:00 Creatine Kinase 39 L CK-MB (CK-2) 0.33 Troponin I < 0.012 < 0.012 09/05/16 04:17 Creatine Kinase CK-MB (CK-2) Troponin I 0.013 Impressions: KUB X-Ray 09/05/16 00:00 IMPRESSION: Patent gastrostomy. Abdomen/Pelvis CT 09/09/16 00:00 IMPRESSION: Postsurgical changes without evidence of abscess or bowel obstruction. Guidance Fluoroscopy 09/09/16 00:00 IMPRESSION: SUCCESSFUL PLACEMENT OF A 5 FR DUAL LUMEN 39 CM PICC IN THE basilic VEIN. Interventional Vascular Procedure 09/09/16 00:00 IMPRESSION: SUCCESSFUL PLACEMENT OF A 5 FR DUAL LUMEN 39 CM PICC IN THE basilic VEIN. PICC Line Insertion 09/09/16 00:00 IMPRESSION: SUCCESSFUL PLACEMENT OF A 5 FR DUAL LUMEN 39 CM PICC IN THE basilic VEIN. Chest X-Ray 09/10/16 00:00 IMPRESSION: Trace bilateral pleural effusions in the posterior costophrenic sulci Minimal bibasilar airspace disease in the posterior costophrenic sulci atelectasis versus pneumonia Venous Doppler Study 09/12/16 00:00 IMPRESSION: NO EVIDENCE DVT OR SVT IN EITHER LEG. Assessment & Plan - Diagnosis (1) Diabetes Qualifiers: Diabetes mellitus type: type 2 Diabetes mellitus complication status: with unspecified complications Is this a current diagnosis for this admission?: YesPlan: Blood sugars have ranged from 112-225. We'll continue with Lantus and sliding scale insulin. (2) Coronary artery disease Qualifiers: Coronary Disease-Associated Artery/Lesion type: [place] artery [place] vs. transplanted heart: [place] heart Associated angina: angina presence unspecified Qualified Code(s): I25.10 - Atherosclerotic heart disease of [place] coronary artery without angina pectoris Is this a current diagnosis for this admission?: YesPlan: Patient denies any chest pain. Patient is being followed by cardiology. (3) Hyperlipidemia Qualifiers: Hyperlipidemia type: other hyperlipidemia Qualified Code(s): E78.4 - Other hyperlipidemia Is this a current diagnosis for this admission?: Yes (4) Hypertension Qualifiers: Hypertension type: essential hypertension Qualified Code(s): I10 - Essential (primary) hypertension Is this a current diagnosis for this admission?: YesPlan: Continue with metoprolol. (5) Panlobular emphysema Is this a current diagnosis for this admission?: YesPlan: Patient has no wheezing on exam today. (6) Parkinson disease Is this a current diagnosis for this admission?: YesPlan: Continue with Sinemet. (7) Diastolic CHF Is this a current diagnosis for this admission?: YesPlan: Patient is euvolemic on exam. (8) Colonic mass Is this a current diagnosis for this admission?: YesPlan: Patient has had surgical removal of the mass. He has 2 ostomy sites. One is the usual ostomy, the other one is from what would usually be made into a Hartmans pouch however was brought to the surface because of the recent sigmoid resection and that would be too long of a section for a Argenis's pouch. (9) Leukocytosis Qualifiers: Leukocytosis type: bandemia Qualified Code(s): D72.825 - Bandemia Is this a current diagnosis for this admission?: YesPlan: The patient's surgical wound has been opened up to allow drainage. His white count has improved slightly. There is no other obvious infection and we will hold off on starting any antibiotics at this time. - Time Time Spent with patient: 25-34 minutes - Inpatient Certification Medical Necessity: Need Close Monitoring Due to Risk of Patient Decompensation - Plan Summary Plan Summary: His sister would like for him to go to rehabilitation when he is finished with this hospitalization.
[2016-09-16] MEDS: TAMSULOSIN HCL 0.4 MG CAP.SR.24H PO SCH (17:21)
[2016-09-16] MEDS: ATORVASTATIN CALCIUM 40 MG TABLET PO SCH (21:48)
[2016-09-16] MEDS: OXYCODONE-ACETAMINOPHEN 5-325 MG TABLET PO PRN (22:14)
[2016-09-17] MEDS: CARBIDOPA/LEVODOPA 25-100 MG TABLET PO SCH ×3 (05:41→21:09)
[2016-09-17 06:07] LABS: ABSOLUTE BASOPHILS # (AUTO) 0.1 10^3/uL (0.0-0.2); ABSOLUTE EOSINOPHILS # (AUTO) 0.4 10^3/uL (0.0-0.6); ABSOLUTE MONOCYTES (AUTO) 2.1 10^3/uL (0.1-1.4); ABSOLUTE NEUT (AUTO) 11.3 10^3/uL (1.7-8.2); BASOPHILS % (AUTO) 0.7 % (0-2); EOSINOPHILS % (AUTO) 2.7 % (0-6); HEMATOCRIT 26.6 % (37.9-51.0); HEMOGLOBIN 8.8 g/dL (13.5-17.0); HGB HCT DIFFERENCE -0.2; LYMPHOCYTES % (AUTO) 12.5 % (13-45); MEAN CORPUSCULAR HEMOGLOBIN 24.6 pg (27.0-33.4); MEAN CORPUSCULAR HGB CONC 33.2 g/dL (32.0-36.0); MEAN CORPUSCULAR VOLUME 74 fl (80-97); MONOCYTES % (AUTO) 13.1 % (3-13); RED BLOOD COUNT 3.59 10^6/uL (4.35-5.55); RED CELL DISTRIBUTION WIDTH 19.3 % (11.5-14.0); WHITE BLOOD COUNT 15.9 10^3/uL (4.0-10.5)
[2016-09-17 06:17] LABS: ANION GAP 9 (5-19); BLOOD UREA NITROGEN 7 mg/dL (7-20); CALCIUM 8.3 mg/dL (8.4-10.2); CARBON DIOXIDE 28 mmol/L (22-30); CHLORIDE 106 mmol/L (98-107); CREATININE RESULT 0.67 mg/dL (0.52-1.25); GLUCOSE 102 mg/dL (75-110); POTASSIUM 4.3 mmol/L (3.6-5.0); SODIUM 142.8 mmol/L (137-145)
[2016-09-17] MEDS: ENOXAPARIN SODIUM INJ 40 MG/0.4 ML DISP.SYRIN SUBCUT SCH (09:01)
[2016-09-17] MEDS: FINASTERIDE 5 MG TABLET PO SCH (09:02)
[2016-09-17] MEDS: POTASSIUM CHLORIDE 20 MEQ/15 ML UDCUP PO SCH ×2 (10:44→21:07)
[2016-09-17] MEDS: LACTOBACILLUS ACIDOPHILUS 250 MG TAB PEG SCH ×2 (10:45→17:20)
[2016-09-17] MEDS: METOPROLOL TARTRATE 25 MG TABLET GT SCH ×2 (10:46→21:08)
[2016-09-17] MEDS: NORMAL SALINE 10 ML SDV (AFTER EACH USE) IV PRN (10:47)
[2016-09-17] MEDS: INSULIN GLARGINE,HUM.REC.ANLOG 300 UNIT/3 ML INSULN.PEN SUBCUT SCH (10:51)
[2016-09-17] MEDS: NORMAL SALINE 10 ML SDV (SCHEDULED) IV SCH ×2 (10:52→21:08)
[2016-09-17] MEDS: FENTANYL 25 MCG/HR PATCH.TD72 TD SCH (10:56)
[2016-09-17] MEDS: INSULIN REG, HUMAN 100 UNIT/ML 3 ML VIAL (PYX) SUBCUT PRN (11:47)
[2016-09-17] MEDS: OXYCODONE-ACETAMINOPHEN 5-325 MG TABLET PO PRN (11:47)
--- NOTE | 2016-09-17 12:29 | PDOC PROGRESS REPORT ---
Subjective Progress Note for:: 09/17/16 Subjective:: Patient on how to be about repeated blood works. Patient overall feels better. No reported temperature spikes, respiratory distress, nausea or vomiting. Patient has an ileostomy, colostomy, and feeding check. Speech therapy reevaluated the patient's swallowing and did well. Physical Exam Vital Signs: Temp Pulse Resp BP Pulse Ox 97.6 F 85 20 123/71 96 09/17/16 12:05 09/17/16 12:05 09/17/16 12:05 09/17/16 12:05 09/17/16 12:05 Intake & Output 09/16/16 09/17/16 09/18/16 06:59 06:59 06:59 Intake Total 778 657 Output Total 2070 1600 Balance -1292 -943 Weight 89.2 kg 95.1 kg General appearance: PRESENT: no acute distress, cooperative Head exam: PRESENT: normocephalic Eye exam: PRESENT: EOMI Mouth exam: PRESENT: moist, neck supple Neck exam: ABSENT: JVD Respiratory exam: PRESENT: clear to auscultation shelly. ABSENT: rhonchi, wheezes Cardiovascular exam: PRESENT: RRR. ABSENT: gallop GI/Abdominal exam: PRESENT: soft, other - Ileostomy tube and colostomy tube in place Extremities exam: ABSENT: pedal edema Neurological exam: PRESENT: alert, awake, oriented to situation Skin exam: PRESENT: dry, warm. ABSENT: cyanosis Results Laboratory Results: 09/17/16 05:45 09/17/16 05:45 09/17/16 09/17/16 05:45 05:45 WBC 15.9 H RBC 3.59 L Hgb 8.8 L Hct 26.6 L MCV 74 L MCH 24.6 L MCHC 33.2 RDW 19.3 H Plt Count 814 H Seg Neutrophils % 71.0 Lymphocytes % 12.5 L Monocytes % 13.1 H Eosinophils % 2.7 Basophils % 0.7 Absolute Neutrophils 11.3 H Absolute Lymphocytes 2.0 Absolute Monocytes 2.1 H Absolute Eosinophils 0.4 Absolute Basophils 0.1 Sodium 142.8 Potassium 4.3 Chloride 106 Carbon Dioxide 28 Anion Gap 9 BUN 7 Creatinine 0.67 Est GFR ( Amer) > 60 Est GFR (Non-Af Amer) > 60 Glucose 102 Calcium 8.3 L 0309/03/16 09/04/16 16:15 16:15 07:00 Creatine Kinase 39 L CK-MB (CK-2) 0.33 Troponin I < 0.012 < 0.012 09/05/16 04:17 Creatine Kinase CK-MB (CK-2) Troponin I 0.013 Impressions: KUB X-Ray 09/05/16 00:00 IMPRESSION: Patent gastrostomy. Abdomen/Pelvis CT 09/09/16 00:00 IMPRESSION: Postsurgical changes without evidence of abscess or bowel obstruction. Guidance Fluoroscopy 09/09/16 00:00 IMPRESSION: SUCCESSFUL PLACEMENT OF A 5 FR DUAL LUMEN 39 CM PICC IN THE basilic VEIN. Interventional Vascular Procedure 09/09/16 00:00 IMPRESSION: SUCCESSFUL PLACEMENT OF A 5 FR DUAL LUMEN 39 CM PICC IN THE basilic VEIN. PICC Line Insertion 09/09/16 00:00 IMPRESSION: SUCCESSFUL PLACEMENT OF A 5 FR DUAL LUMEN 39 CM PICC IN THE basilic VEIN. Chest X-Ray 09/10/16 00:00 IMPRESSION: Trace bilateral pleural effusions in the posterior costophrenic sulci Minimal bibasilar airspace disease in the posterior costophrenic sulci atelectasis versus pneumonia Venous Doppler Study 09/12/16 00:00 IMPRESSION: NO EVIDENCE DVT OR SVT IN EITHER LEG. Assessment & Plan - Diagnosis (1) Paralytic ileus Is this a current diagnosis for this admission?: Yes (2) Acute respiratory failure with hypoxemia Is this a current diagnosis for this admission?: No (3) Leukocytosis Qualifiers: Leukocytosis type: bandemia Qualified Code(s): D72.825 - Bandemia Is this a current diagnosis for this admission?: Yes (4) Ventricular tachycardia Is this a current diagnosis for this admission?: Yes (5) Anemia, blood loss Is this a current diagnosis for this admission?: Yes (6) Hyperkalemia Is this a current diagnosis for this admission?: No (7) Hypocalcemia Is this a current diagnosis for this admission?: No (8) Hypoalbuminemia Is this a current diagnosis for this admission?: Yes (9) Colonic mass Is this a current diagnosis for this admission?: Yes (10) Coronary artery disease Qualifiers: Coronary Disease-Associated Artery/Lesion type: [place] artery [place] vs. transplanted heart: [place] heart Associated angina: angina presence unspecified Qualified Code(s): I25.10 - Atherosclerotic heart disease of [place] coronary artery without angina pectoris Is this a current diagnosis for this admission?: Yes (11) Hyperlipidemia Qualifiers: Hyperlipidemia type: other hyperlipidemia Qualified Code(s): E78.4 - Other hyperlipidemia Is this a current diagnosis for this admission?: Yes (12) Hypertension Qualifiers: Hypertension type: essential hypertension Qualified Code(s): I10 - Essential (primary) hypertension Is this a current diagnosis for this admission?: Yes (13) Panlobular emphysema Is this a current diagnosis for this admission?: Yes (14) Type 2 diabetes mellitus without complications Qualifiers: Diabetes mellitus [place] terminal agent insulin use: without half-way use Qualified Code(s): E11.9 - Type 2 diabetes mellitus without complications Is this a current diagnosis for this admission?: Yes - Time Time Spent with patient: 15-24 minutes - Plan Summary Plan Summary: We will recheck the patient's WBC. We will check stool for Clostridium difficile toxin. Continue other medications and supportive care. Advance his diet as per speech therapy recommendation. We will continue to follow.
[2016-09-17] MEDS: TAMSULOSIN HCL 0.4 MG CAP.SR.24H PO SCH (17:20)
--- NOTE | 2016-09-17 17:43 | PROGRESS NOTE E ---
Progress Note NAME: AMI YOUSIF : 1950 AGE: 66Y DATE: 09/17/2016 ROOM: 303 SUBJECTIVE: The patient is without complaint. OBJECTIVE: VITAL SIGNS: Blood pressure 123/71. Temperature 97.6. Pulse 76. Respirations 20. Saturation 95%. LUNGS: Clear. ABDOMEN: Soft, nontender. Bowel sounds are present. Packing in the upper part of the wound is noted and has been changed. Patient's *------* fistula and transverse colostomy are functioning well. The patient's appetite is poor, however. Patient's urine output is adequate at this time. LABORATORY DATA: No labs reported for today. ASSESSMENT: STATUS POST LEFT COLON RESECTION WITH BOWEL OBSTRUCTION. PLAN: We will continue supportive therapy with IV fluids, antibiotics, and wound care. DICTATING PHYSICIAN: MOHIT DURON M.D. [id number] [id number] ID: [id number] JOB#: [id number] ACCT: [id number] cc: >
--- NOTE | 2016-09-17 18:58 | PDOC PROGRESS REPORT ---
Subjective Progress Note for:: 09/17/16 Subjective:: Feels well. No complaints. Tolerating solid diet but not great appetite. Physical Exam Vital Signs: Temp Pulse Resp BP Pulse Ox 98.2 F 81 20 136/69 H 95 09/17/16 16:19 09/17/16 16:19 09/17/16 16:19 09/17/16 16:19 09/17/16 16:53 Intake & Output 09/16/16 09/17/16 09/18/16 06:59 06:59 06:59 Intake Total 778 657 900 Output Total 2070 1600 400 Balance -1292 -943 500 Weight 89.2 kg 95.1 kg General appearance: PRESENT: no acute distress, cooperative Respiratory exam: PRESENT: clear to auscultation shelly Cardiovascular exam: PRESENT: RRR GI/Abdominal exam: PRESENT: other - Soft, minimal tenderness. Upper abdominal wound open a little bit more digitally to allow easier packing. Fascial sutures are exposed but the fascia appears intact. Slight drainage around the G -tube. Colostomy functioning well. Mucus fistula with minimal output. Extremities exam: PRESENT: other - No leg swelling. Results Laboratory Results: 09/17/16 05:45 09/17/16 05:45 09/17/16 09/17/16 05:45 05:45 WBC 15.9 H RBC 3.59 L Hgb 8.8 L Hct 26.6 L MCV 74 L MCH 24.6 L MCHC 33.2 RDW 19.3 H Plt Count 814 H Seg Neutrophils % 71.0 Lymphocytes % 12.5 L Monocytes % 13.1 H Eosinophils % 2.7 Basophils % 0.7 Absolute Neutrophils 11.3 H Absolute Lymphocytes 2.0 Absolute Monocytes 2.1 H Absolute Eosinophils 0.4 Absolute Basophils 0.1 Sodium 142.8 Potassium 4.3 Chloride 106 Carbon Dioxide 28 Anion Gap 9 BUN 7 Creatinine 0.67 Est GFR ( Amer) > 60 Est GFR (Non-Af Amer) > 60 Glucose 102 Calcium 8.3 L 09/03/16 09/03/16 09/04/16 16:15 16:15 07:00 Creatine Kinase 39 L CK-MB (CK-2) 0.33 Troponin I < 0.012 < 0.012 09/05/16 04:17 Creatine Kinase CK-MB (CK-2) Troponin I 0.013 Impressions: KUB X-Ray 09/05/16 00:00 IMPRESSION: Patent gastrostomy. Abdomen/Pelvis CT 09/09/16 00:00 IMPRESSION: Postsurgical changes without evidence of abscess or bowel obstruction. Guidance Fluoroscopy 09/09/16 00:00 IMPRESSION: SUCCESSFUL PLACEMENT OF A 5 FR DUAL LUMEN 39 CM PICC IN THE basilic VEIN. Interventional Vascular Procedure 09/09/16 00:00 IMPRESSION: SUCCESSFUL PLACEMENT OF A 5 FR DUAL LUMEN 39 CM PICC IN THE basilic VEIN. PICC Line Insertion 09/09/16 00:00 IMPRESSION: SUCCESSFUL PLACEMENT OF A 5 FR DUAL LUMEN 39 CM PICC IN THE basilic VEIN. Chest X-Ray 09/10/16 00:00 IMPRESSION: Trace bilateral pleural effusions in the posterior costophrenic sulci Minimal bibasilar airspace disease in the posterior costophrenic sulci atelectasis versus pneumonia Venous Doppler Study 09/12/16 00:00 IMPRESSION: NO EVIDENCE DVT OR SVT IN EITHER LEG. Assessment & Plan - Diagnosis (1) Colonic mass Is this a current diagnosis for this admission?: Yes (2) Ileus, postoperative Is this a current diagnosis for this admission?: YesPlan: with cecal ischemia due to distension. s/p xlap, decompression and end tx colostomy and mucous fistula and gtube.appears reasonably well. But not great appetite. Will ask nutrition for calorie count. May need the G-tube feeding to augment his nutrition. Wound infection in the upper portion of the wound. Will do twice a day normal saline wet-to-dry packings. Continue to work with physical therapy. Patient with very limited mobility unfortunately. Able to take a couple of steps in the room only at this time. Possible placement to senior care by the end of the week.
[2016-09-17] MEDS: ATORVASTATIN CALCIUM 40 MG TABLET PO SCH (21:07)
[2016-09-18 04:16] LABS: HEMATOCRIT 29.2 % (37.9-51.0); HEMOGLOBIN 9.2 g/dL (13.5-17.0); HGB HCT DIFFERENCE -1.6; MEAN CORPUSCULAR HEMOGLOBIN 23.5 pg (27.0-33.4); MEAN CORPUSCULAR HGB CONC 31.6 g/dL (32.0-36.0); MEAN CORPUSCULAR VOLUME 74 fl (80-97); RED BLOOD COUNT 3.94 10^6/uL (4.35-5.55); RED CELL DISTRIBUTION WIDTH 18.9 % (11.5-14.0); WHITE BLOOD COUNT 18.3 10^3/uL (4.0-10.5)
[2016-09-18 04:30] LABS: APPEARANCE,URINE CLEAR; BILIRUBIN,URINE NEGATIVE (NEGATIVE); GLUCOSE, URINE NEGATIVE (NEGATIVE); KETONES,URINE NEGATIVE (NEGATIVE); LEUKOCYTE ESTERASE,URINE TRACE (NEGATIVE); NITRITE,URINE NEGATIVE (NEGATIVE); PROTEIN,URINE NEGATIVE (NEGATIVE); URINE SPECIFIC GRAVITY 1.003; UROBILINOGEN,URINE NEGATIVE mg/dL (<2.0)
[2016-09-18] MEDS: CARBIDOPA/LEVODOPA 25-100 MG TABLET PO SCH ×3 (06:09→21:58)
[2016-09-18] MEDS: ENOXAPARIN SODIUM INJ 40 MG/0.4 ML DISP.SYRIN SUBCUT SCH (08:50)
[2016-09-18] MEDS: FINASTERIDE 5 MG TABLET PO SCH (08:50)
[2016-09-18] MEDS: NORMAL SALINE 10 ML SDV (SCHEDULED) IV SCH ×2 (10:49→21:59)
[2016-09-18] MEDS: POTASSIUM CHLORIDE 20 MEQ/15 ML UDCUP PO SCH ×2 (10:50→21:57)
[2016-09-18] MEDS: LACTOBACILLUS ACIDOPHILUS 250 MG TAB PEG SCH ×2 (10:50→17:43)
[2016-09-18] MEDS: METOPROLOL TARTRATE 25 MG TABLET GT SCH ×2 (10:51→21:58)
[2016-09-18] MEDS: INSULIN GLARGINE,HUM.REC.ANLOG 300 UNIT/3 ML INSULN.PEN SUBCUT SCH (10:52)
--- NOTE | 2016-09-18 11:28 | PDOC PROGRESS REPORT ---
Subjective Progress Note for:: 09/18/16 Subjective:: Feels well. No complaints. Tolerating solid diet better appetite Physical Exam Vital Signs: Temp Pulse Resp BP Pulse Ox 98.4 F 90 16 140/74 H 96 09/18/16 09:41 09/18/16 09:41 09/18/16 09:41 09/18/16 09:41 09/18/16 09:41 Intake & Output 09/17/16 09/18/16 09/19/16 06:59 06:59 06:59 Intake Total 657 940 Output Total 1600 1800 Balance -943 -860 Weight 95.1 kg 94.3 kg General appearance: PRESENT: no acute distress, cooperative Respiratory exam: PRESENT: clear to auscultation shelly Cardiovascular exam: PRESENT: RRR GI/Abdominal exam: PRESENT: other - soft, nd, ntp. wound upper with some granulation tissue/ no drainage. fascia intact Extremities exam: PRESENT: other - no swelling Results Laboratory Results: 09/18/16 03:44 09/17/16 05:45 09/18/16 09/18/16 09/18/16 03:44 03:56 10:02 WBC 18.3 H RBC 3.94 L Hgb 9.2 L Hct 29.2 L MCV 74 L MCH 23.5 L MCHC 31.6 L RDW 18.9 H Plt Count 886 H Urine Color YELLOW Urine Appearance CLEAR Urine pH 8.0 Ur Specific [place] 1.003 Urine Protein NEGATIVE Urine Glucose (UA) NEGATIVE Urine Ketones NEGATIVE Urine Blood SMALL H Urine Nitrite NEGATIVE Ur Leukocyte Esterase TRACE H Urine WBC (Auto) 13 Urine RBC (Auto) 2 Stool Occult Blood NEGATIVE 09/12/16 20:25 Blood Blood Culture - Final NO GROWTH IN 5 DAYS 09/12/16 19:50 Blood Blood Culture - Final NO GROWTH IN 5 DAYS 09/03/16 09/03/16 09/04/16 16:15 16:15 07:00 Creatine Kinase 39 L CK-MB (CK-2) 0.33 Troponin I < 0.012 < 0.012 09/05/16 04:17 Creatine Kinase CK-MB (CK-2) Troponin I 0.013 Impressions: KUB X-Ray 09/05/16 00:00 IMPRESSION: Patent gastrostomy. Abdomen/Pelvis CT 09/09/16 00:00 IMPRESSION: Postsurgical changes without evidence of abscess or bowel obstruction. Guidance Fluoroscopy 09/09/16 00:00 IMPRESSION: SUCCESSFUL PLACEMENT OF A 5 FR DUAL LUMEN 39 CM PICC IN THE basilic VEIN. Interventional Vascular Procedure 09/09/16 00:00 IMPRESSION: SUCCESSFUL PLACEMENT OF A 5 FR DUAL LUMEN 39 CM PICC IN THE basilic VEIN. PICC Line Insertion 09/09/16 00:00 IMPRESSION: SUCCESSFUL PLACEMENT OF A 5 FR DUAL LUMEN 39 CM PICC IN THE basilic VEIN. Chest X-Ray 09/10/16 00:00 IMPRESSION: Trace bilateral pleural effusions in the posterior costophrenic sulci Minimal bibasilar airspace disease in the posterior costophrenic sulci atelectasis versus pneumonia Venous Doppler Study 09/12/16 00:00 IMPRESSION: NO EVIDENCE DVT OR SVT IN EITHER LEG. Assessment & Plan - Diagnosis (1) Colonic mass Is this a current diagnosis for this admission?: Yes (2) Ileus, postoperative Is this a current diagnosis for this admission?: YesPlan: with cecal ischemia due to distension. s/p xlap, decompression and end tx colostomy and mucous fistula and gtube.appears reasonably well. appetite better. May need the G-tube feeding to augment his nutrition. Wound infection in the upper portion of the wound, looks better. Will do twice a day normal saline wet-to-dry packings. Continue to work with physical therapy. Patient with very limited mobility unfortunately. Able to take a couple of steps in the room only at this time. Possible placement to long-term by the end of the week.
[2016-09-18] MEDS: INSULIN REG, HUMAN 100 UNIT/ML 3 ML VIAL (PYX) SUBCUT PRN ×2 (12:36→17:42)
[2016-09-18] MEDS ORDERED: AZTREONAM INJ 1 GM VIAL IV SCH (14:15)
[2016-09-18] MEDS ORDERED: VANCOMYCIN HCL INJ 1000 MG VIAL IV SCH (14:15)
--- NOTE | 2016-09-18 14:25 | PDOC PROGRESS REPORT ---
Subjective Progress Note for:: 09/18/16 Subjective:: Patient somnolent when seen. Patient apparently without any altered mental status as reported by the staff. Patient did not rest well last night as reported. He did have a low-grade fever earlier according to the staff. Patient had an indwelling Miranda catheter, this was tried to be discontinued last week but the patient did not tolerate and had urinary retention and therefore it was placed back. There is noted. Drainage on the meatus. Physical Exam Vital Signs: Temp Pulse Resp BP Pulse Ox 98.4 F 90 16 140/74 H 96 09/18/16 09:41 09/18/16 09:41 09/18/16 09:41 09/18/16 09:41 09/18/16 09:41 Intake & Output 09/17/16 09/18/16 09/19/16 06:59 06:59 06:59 Intake Total 657 940 360 Output Total 1600 1800 320 Balance -943 -860 40 Weight 95.1 kg 94.3 kg General appearance: PRESENT: no acute distress, other - Somnolent but arousable Head exam: PRESENT: normocephalic Eye exam: PRESENT: EOMI Mouth exam: PRESENT: moist, neck supple Neck exam: ABSENT: JVD Respiratory exam: PRESENT: clear to auscultation shelly Cardiovascular exam: PRESENT: RRR. ABSENT: gallop GI/Abdominal exam: PRESENT: soft, other. ABSENT: distended Extremities exam: ABSENT: pedal edema Skin exam: PRESENT: dry, warm. ABSENT: cyanosis Results Laboratory Results: 09/18/16 03:44 09/17/16 05:45 09/18/16 09/18/16 09/18/16 03:44 03:56 10:02 WBC 18.3 H RBC 3.94 L Hgb 9.2 L Hct 29.2 L MCV 74 L MCH 23.5 L MCHC 31.6 L RDW 18.9 H Plt Count 886 H Urine Color YELLOW Urine Appearance CLEAR Urine pH 8.0 Ur Specific [place] 1.003 Urine Protein NEGATIVE Urine Glucose (UA) NEGATIVE Urine Ketones NEGATIVE Urine Blood SMALL H Urine Nitrite NEGATIVE Ur Leukocyte Esterase TRACE H Urine WBC (Auto) 13 Urine RBC (Auto) 2 Stool Occult Blood NEGATIVE 09/12/16 20:25 Blood Blood Culture - Final NO GROWTH IN 5 DAYS 09/12/16 19:50 Blood Blood Culture - Final NO GROWTH IN 5 DAYS 09/03/16 09/03/16 09/04/16 16:15 16:15 07:00 Creatine Kinase 39 L CK-MB (CK-2) 0.33 Troponin I < 0.012 < 0.012 09/05/16 04:17 Creatine Kinase CK-MB (CK-2) Troponin I 0.013 Impressions: KUB X-Ray 09/05/16 00:00 IMPRESSION: Patent gastrostomy. Abdomen/Pelvis CT 09/09/16 00:00 IMPRESSION: Postsurgical changes without evidence of abscess or bowel obstruction. Guidance Fluoroscopy 09/09/16 00:00 IMPRESSION: SUCCESSFUL PLACEMENT OF A 5 FR DUAL LUMEN 39 CM PICC IN THE basilic VEIN. Interventional Vascular Procedure 09/09/16 00:00 IMPRESSION: SUCCESSFUL PLACEMENT OF A 5 FR DUAL LUMEN 39 CM PICC IN THE basilic VEIN. PICC Line Insertion 09/09/16 00:00 IMPRESSION: SUCCESSFUL PLACEMENT OF A 5 FR DUAL LUMEN 39 CM PICC IN THE basilic VEIN. Chest X-Ray 09/10/16 00:00 IMPRESSION: Trace bilateral pleural effusions in the posterior costophrenic sulci Minimal bibasilar airspace disease in the posterior costophrenic sulci atelectasis versus pneumonia Venous Doppler Study 09/12/16 00:00 IMPRESSION: NO EVIDENCE DVT OR SVT IN EITHER LEG. Assessment & Plan - Diagnosis (1) Paralytic ileus Is this a current diagnosis for this admission?: Yes (2) Acute respiratory failure with hypoxemia Is this a current diagnosis for this admission?: No (3) Leukocytosis Qualifiers: Leukocytosis type: bandemia Qualified Code(s): D72.825 - Bandemia Is this a current diagnosis for this admission?: Yes (4) Ventricular tachycardia Is this a current diagnosis for this admission?: Yes (5) Anemia, blood loss Is this a current diagnosis for this admission?: Yes (6) Hyperkalemia Is this a current diagnosis for this admission?: No (7) Hypocalcemia Is this a current diagnosis for this admission?: No (8) Hypoalbuminemia Is this a current diagnosis for this admission?: Yes (9) Colonic mass Is this a current diagnosis for this admission?: Yes (10) Coronary artery disease Qualifiers: Coronary Disease-Associated Artery/Lesion type: [place] artery [place] vs. transplanted heart: [place] heart Associated angina: angina presence unspecified Qualified Code(s): I25.10 - Atherosclerotic heart disease of [place] coronary artery without angina pectoris Is this a current diagnosis for this admission?: Yes (11) Hyperlipidemia Qualifiers: Hyperlipidemia type: other hyperlipidemia Qualified Code(s): E78.4 - Other hyperlipidemia Is this a current diagnosis for this admission?: Yes (12) Hypertension Qualifiers: Hypertension type: essential hypertension Qualified Code(s): I10 - Essential (primary) hypertension Is this a current diagnosis for this admission?: Yes (13) Panlobular emphysema Is this a current diagnosis for this admission?: Yes (14) Type 2 diabetes mellitus without complications Qualifiers: Diabetes mellitus long term care pharmacist insulin use: without alf use Qualified Code(s): E11.9 - Type 2 diabetes mellitus without complications Is this a current diagnosis for this admission?: Yes - Time Time Spent with patient: 25-34 minutes - Plan Summary Plan Summary: We will culture the urine, obtain culture and Gram stain of the meatal drainage and begin intravenous vancomycin and Azactam. Discontinue Miranda catheter. Continue other medications, patient reportedly has a bed offer for rehabilitation that is available. Anticipate discharge probably in 48 hours once cultures are back, and patient able to void. We will continue to follow.
[2016-09-18] MEDS: OXYCODONE-ACETAMINOPHEN 5-325 MG TABLET PO PRN (14:45)
[2016-09-18] MEDS: TAMSULOSIN HCL 0.4 MG CAP.SR.24H PO SCH (17:43)
[2016-09-18] MEDS: AZTREONAM 1 GM in DEXTROSE 5%-WATER 50 ML IV SCH (17:44)
[2016-09-18] MEDS: VANCOMYCIN HCL 1,000 MG in DEXTROSE 5%-WATER 250 ML IV SCH (21:58)
[2016-09-18] MEDS: ATORVASTATIN CALCIUM 40 MG TABLET PO SCH (22:01)
[2016-09-19] MEDS: AZTREONAM 1 GM in DEXTROSE 5%-WATER 50 ML IV SCH ×3 (02:21→17:30)
[2016-09-19] MEDS: CARBIDOPA/LEVODOPA 25-100 MG TABLET PO SCH ×3 (05:46→22:47)
[2016-09-19] MEDS: VANCOMYCIN HCL 1,000 MG in DEXTROSE 5%-WATER 250 ML IV SCH ×3 (05:46→22:46)
[2016-09-19 06:44] LABS: HEMATOCRIT 30.7 % (37.9-51.0); HEMOGLOBIN 9.8 g/dL (13.5-17.0); HGB HCT DIFFERENCE -1.3; MEAN CORPUSCULAR HEMOGLOBIN 23.6 pg (27.0-33.4); MEAN CORPUSCULAR HGB CONC 31.8 g/dL (32.0-36.0); MEAN CORPUSCULAR VOLUME 74 fl (80-97); RED BLOOD COUNT 4.13 10^6/uL (4.35-5.55); RED CELL DISTRIBUTION WIDTH 18.7 % (11.5-14.0); WHITE BLOOD COUNT 15.6 10^3/uL (4.0-10.5)
[2016-09-19] MEDS: FINASTERIDE 5 MG TABLET PO SCH (08:51)
[2016-09-19] MEDS: ENOXAPARIN SODIUM INJ 40 MG/0.4 ML DISP.SYRIN SUBCUT SCH (08:51)
[2016-09-19] MEDS: LACTOBACILLUS ACIDOPHILUS 250 MG TAB PEG SCH ×2 (09:13→17:29)
[2016-09-19] MEDS: NORMAL SALINE 10 ML SDV (SCHEDULED) IV SCH ×2 (09:14→22:47)
[2016-09-19] MEDS: POTASSIUM CHLORIDE 20 MEQ/15 ML UDCUP PO SCH ×2 (09:14→22:47)
[2016-09-19] MEDS: INSULIN GLARGINE,HUM.REC.ANLOG 300 UNIT/3 ML INSULN.PEN SUBCUT SCH (09:17)
[2016-09-19] MEDS: METOPROLOL TARTRATE 25 MG TABLET GT SCH ×2 (09:17→22:47)
--- NOTE | 2016-09-19 10:10 | PDOC PROGRESS REPORT ---
Subjective Progress Note for:: 09/19/16 Subjective:: Feels well. No complaints. Tolerating solid diet better appetite Physical Exam Vital Signs: Temp Pulse Resp BP Pulse Ox 98.1 F 84 19 143/79 H 98 09/19/16 07:35 09/19/16 07:35 09/19/16 07:35 09/19/16 07:35 09/19/16 07:35 Intake & Output 09/18/16 09/19/16 09/20/16 06:59 06:59 06:59 Intake Total 940 1286 Output Total 1800 397 Balance -860 889 Weight 94.3 kg 93.8 kg General appearance: PRESENT: no acute distress, cooperative Respiratory exam: PRESENT: clear to auscultation shelly Cardiovascular exam: PRESENT: RRR GI/Abdominal exam: PRESENT: other - Soft, nondistended, nontender to palpation. Upper abdominal wound is granulating in well. Ostomy functioning well. Minimal drainage around the G-tube site. Extremities exam: PRESENT: other - No swelling. No Tenderness. Results Laboratory Results: 09/19/16 06:15 09/17/16 05:45 09/18/16 09/19/16 10:02 06:15 WBC 15.6 H RBC 4.13 L Hgb 9.8 L Hct 30.7 L MCV 74 L MCH 23.6 L MCHC 31.8 L RDW 18.7 H Plt Count 796 H Stool Occult Blood NEGATIVE 09/03/16 09/03/16 09/04/16 16:15 16:15 07:00 Creatine Kinase 39 L CK-MB (CK-2) 0.33 Troponin I < 0.012 < 0.012 09/05/16 04:17 Creatine Kinase CK-MB (CK-2) Troponin I 0.013 Impressions: KUB X-Ray 09/05/16 00:00 IMPRESSION: Patent gastrostomy. Abdomen/Pelvis CT 09/09/16 00:00 IMPRESSION: Postsurgical changes without evidence of abscess or bowel obstruction. Guidance Fluoroscopy 09/09/16 00:00 IMPRESSION: SUCCESSFUL PLACEMENT OF A 5 FR DUAL LUMEN 39 CM PICC IN THE basilic VEIN. Interventional Vascular Procedure 09/09/16 00:00 IMPRESSION: SUCCESSFUL PLACEMENT OF A 5 FR DUAL LUMEN 39 CM PICC IN THE basilic VEIN. PICC Line Insertion 09/09/16 00:00 IMPRESSION: SUCCESSFUL PLACEMENT OF A 5 FR DUAL LUMEN 39 CM PICC IN THE basilic VEIN. Chest X-Ray 09/10/16 00:00 IMPRESSION: Trace bilateral pleural effusions in the posterior costophrenic sulci Minimal bibasilar airspace disease in the posterior costophrenic sulci atelectasis versus pneumonia Venous Doppler Study 09/12/16 00:00 IMPRESSION: NO EVIDENCE DVT OR SVT IN EITHER LEG. Assessment & Plan - Diagnosis (1) Colonic mass Is this a current diagnosis for this admission?: Yes (2) Ileus, postoperative Is this a current diagnosis for this admission?: YesPlan: with cecal ischemia due to distension. s/p xlap, decompression and end tx colostomy and mucous fistula and gtube.appears reasonably well. appetite better. Awaiting dietary and nutrition consultation to evaluate for need for gastrostomy tube feedings. Continuing to work with physical therapy. Once nutritional needs are addressed will plan to transfer the patient to snf.
--- NOTE | 2016-09-19 11:41 | PDOC PROGRESS REPORT ---
Subjective Progress Note for:: 09/19/16 Subjective:: Patient is awake and alert, voiced no complaints at this time. All Miranda catheter, no reported urinary retention. Patient reports no abdominal pain. No reported temperature spikes. Physical Exam Vital Signs: Temp Pulse Resp BP Pulse Ox 98.1 F 84 19 143/79 H 98 09/19/16 07:35 09/19/16 07:35 09/19/16 07:35 09/19/16 07:35 09/19/16 07:35 Intake & Output 09/18/16 09/19/16 09/20/16 06:59 06:59 06:59 Intake Total 940 1286 Output Total 1800 397 Balance -860 889 Weight 94.3 kg 93.8 kg General appearance: PRESENT: no acute distress, cooperative Head exam: PRESENT: normocephalic Eye exam: PRESENT: EOMI Mouth exam: PRESENT: moist, neck supple Neck exam: ABSENT: JVD Respiratory exam: PRESENT: clear to auscultation shelly. ABSENT: rhonchi, wheezes Cardiovascular exam: PRESENT: RRR GI/Abdominal exam: PRESENT: hypoactive bowel sounds, soft. ABSENT: distended Extremities exam: ABSENT: pedal edema Neurological exam: PRESENT: alert, awake Psychiatric exam: ABSENT: agitated Focused psych exam: ABSENT: restlessness Skin exam: PRESENT: dry, warm. ABSENT: cyanosis Results Laboratory Results: 09/19/16 06:15 09/17/16 05:45 09/19/16 06:15 WBC 15.6 H RBC 4.13 L Hgb 9.8 L Hct 30.7 L MCV 74 L MCH 23.6 L MCHC 31.8 L RDW 18.7 H Plt Count 796 H 09/03/16 09/03/16 09/04/16 16:15 16:15 07:00 Creatine Kinase 39 L CK-MB (CK-2) 0.33 Troponin I < 0.012 < 0.012 09/05/16 04:17 Creatine Kinase CK-MB (CK-2) Troponin I 0.013 Impressions: KUB X-Ray 09/05/16 00:00 IMPRESSION: Patent gastrostomy. Abdomen/Pelvis CT 09/09/16 00:00 IMPRESSION: Postsurgical changes without evidence of abscess or bowel obstruction. Guidance Fluoroscopy 09/09/16 00:00 IMPRESSION: SUCCESSFUL PLACEMENT OF A 5 FR DUAL LUMEN 39 CM PICC IN THE basilic VEIN. Interventional Vascular Procedure 09/09/16 00:00 IMPRESSION: SUCCESSFUL PLACEMENT OF A 5 FR DUAL LUMEN 39 CM PICC IN THE basilic VEIN. PICC Line Insertion 09/09/16 00:00 IMPRESSION: SUCCESSFUL PLACEMENT OF A 5 FR DUAL LUMEN 39 CM PICC IN THE basilic VEIN. Chest X-Ray 09/10/16 00:00 IMPRESSION: Trace bilateral pleural effusions in the posterior costophrenic sulci Minimal bibasilar airspace disease in the posterior costophrenic sulci atelectasis versus pneumonia Venous Doppler Study 09/12/16 00:00 IMPRESSION: NO EVIDENCE DVT OR SVT IN EITHER LEG. Assessment & Plan - Diagnosis (1) Paralytic ileus Is this a current diagnosis for this admission?: Yes (2) Acute respiratory failure with hypoxemia Is this a current diagnosis for this admission?: No (3) Leukocytosis Qualifiers: Leukocytosis type: bandemia Qualified Code(s): D72.825 - Bandemia Is this a current diagnosis for this admission?: Yes (4) Ventricular tachycardia Is this a current diagnosis for this admission?: Yes (5) Anemia, blood loss Is this a current diagnosis for this admission?: Yes (6) Hyperkalemia Is this a current diagnosis for this admission?: No (7) Hypocalcemia Is this a current diagnosis for this admission?: No (8) Hypoalbuminemia Is this a current diagnosis for this admission?: Yes (9) Colonic mass Is this a current diagnosis for this admission?: Yes (10) Coronary artery disease Qualifiers: Coronary Disease-Associated Artery/Lesion type: [place] artery [place] vs. transplanted heart: [place] heart Associated angina: angina presence unspecified Qualified Code(s): I25.10 - Atherosclerotic heart disease of [place] coronary artery without angina pectoris Is this a current diagnosis for this admission?: Yes (11) Hyperlipidemia Qualifiers: Hyperlipidemia type: other hyperlipidemia Qualified Code(s): E78.4 - Other hyperlipidemia Is this a current diagnosis for this admission?: Yes (12) Hypertension Qualifiers: Hypertension type: essential hypertension Qualified Code(s): I10 - Essential (primary) hypertension Is this a current diagnosis for this admission?: Yes (13) Panlobular emphysema Is this a current diagnosis for this admission?: Yes (14) Type 2 diabetes mellitus without complications 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 Continue to monitor for urinary retention. Continue supportive care. 40 the patient can be transferred to subacute rehabilitation in the morning.
[2016-09-19] MEDS: INSULIN REG, HUMAN 100 UNIT/ML 3 ML VIAL (PYX) SUBCUT PRN ×2 (12:17→16:40)
[2016-09-19] MEDS: OXYCODONE-ACETAMINOPHEN 5-325 MG TABLET PO PRN (14:44)
[2016-09-19] MEDS: TAMSULOSIN HCL 0.4 MG CAP.SR.24H PO SCH (17:29)
[2016-09-19] MEDS: ATORVASTATIN CALCIUM 40 MG TABLET PO SCH (20:17)
[2016-09-20] MEDS: AZTREONAM 1 GM in DEXTROSE 5%-WATER 50 ML IV SCH (01:19)
[2016-09-20] MEDS: VANCOMYCIN HCL 1,000 MG in DEXTROSE 5%-WATER 250 ML IV SCH (05:52)
[2016-09-20] MEDS: CARBIDOPA/LEVODOPA 25-100 MG TABLET PO SCH ×3 (05:52→23:20)
[2016-09-20 06:16] LABS: HEMATOCRIT 31.9 % (37.9-51.0); HEMOGLOBIN 10.2 g/dL (13.5-17.0); HGB HCT DIFFERENCE -1.3; MEAN CORPUSCULAR HEMOGLOBIN 23.8 pg (27.0-33.4); MEAN CORPUSCULAR VOLUME 74 fl (80-97); RED CELL DISTRIBUTION WIDTH 18.7 % (11.5-14.0)
[2016-09-20 06:45] LABS: CREATININE RESULT 0.67 mg/dL (0.52-1.25)
[2016-09-20] MEDS: FINASTERIDE 5 MG TABLET PO SCH (08:54)
[2016-09-20] MEDS: ENOXAPARIN SODIUM INJ 40 MG/0.4 ML DISP.SYRIN SUBCUT SCH (08:54)
[2016-09-20] MEDS: FENTANYL 25 MCG/HR PATCH.TD72 TD SCH (11:37)
[2016-09-20] MEDS: LACTOBACILLUS ACIDOPHILUS 250 MG TAB PEG SCH ×2 (11:38→18:33)
[2016-09-20] MEDS: INSULIN GLARGINE,HUM.REC.ANLOG 300 UNIT/3 ML INSULN.PEN SUBCUT SCH (11:38)
[2016-09-20] MEDS: METOPROLOL TARTRATE 25 MG TABLET GT SCH ×2 (11:39→23:20)
[2016-09-20] MEDS: POTASSIUM CHLORIDE 20 MEQ/15 ML UDCUP PO SCH ×2 (11:39→23:19)
[2016-09-20] MEDS: NORMAL SALINE 10 ML SDV (SCHEDULED) IV SCH ×2 (11:40→23:20)
--- NOTE | 2016-09-20 12:50 | PDOC PROGRESS REPORT ---
Subjective Progress Note for:: 09/20/16 Subjective:: Patient is awake and alert, voiced no complaints at this time. Reportedly doing well by the staff . Miranda catheter has been discontinued 2 days ago, no reported urinary retention. Patient reports no abdominal pain. No reported temperature spikes. Urine culture growing used. Physical Exam Vital Signs: Temp Pulse Resp BP Pulse Ox 98.3 F 96 18 123/77 97 09/20/16 08:04 09/20/16 08:04 09/20/16 08:04 09/20/16 08:04 09/20/16 08:04 Intake & Output 09/19/16 09/20/16 09/21/16 06:59 06:59 06:59 Intake Total 1286 1346 Output Total 397 100 Balance 889 1246 Weight 93.8 kg 89.8 kg General appearance: PRESENT: no acute distress, cooperative Head exam: PRESENT: normocephalic Eye exam: PRESENT: EOMI Mouth exam: PRESENT: moist, neck supple Neck exam: ABSENT: JVD Respiratory exam: PRESENT: clear to auscultation shelly. ABSENT: rhonchi, wheezes Cardiovascular exam: PRESENT: RRR. ABSENT: gallop GI/Abdominal exam: PRESENT: soft, other - Feeding tube is in place, ostomy bags in place Extremities exam: PRESENT: other - Trace lower extremity edema Neurological exam: PRESENT: alert, awake Skin exam: PRESENT: dry, warm. ABSENT: cyanosis Results Laboratory Results: 09/20/16 05:49 09/20/16 05:49 09/20/16 09/20/16 05:49 05:49 WBC 16.0 H RBC 4.30 L Hgb 10.2 L Hct 31.9 L MCV 74 L MCH 23.8 L MCHC 32.0 RDW 18.7 H Plt Count 777 H Creatinine 0.67 Est GFR ( Amer) > 60 Est GFR (Non-Af Amer) > 60 09/18/16 12:00 Catheterized Urine Urine Culture - Final C.albicans/C.dubliniensis 09/03/16 09/03/16 09/04/16 16:15 16:15 07:00 Creatine Kinase 39 L CK-MB (CK-2) 0.33 Troponin I < 0.012 < 0.012 09/05/16 04:17 Creatine Kinase CK-MB (CK-2) Troponin I 0.013 Impressions: KUB X-Ray 09/05/16 00:00 IMPRESSION: Patent gastrostomy. Abdomen/Pelvis CT 09/09/16 00:00 IMPRESSION: Postsurgical changes without evidence of abscess or bowel obstruction. Guidance Fluoroscopy 09/09/16 00:00 IMPRESSION: SUCCESSFUL PLACEMENT OF A 5 FR DUAL LUMEN 39 CM PICC IN THE basilic VEIN. Interventional Vascular Procedure 09/09/16 00:00 IMPRESSION: SUCCESSFUL PLACEMENT OF A 5 FR DUAL LUMEN 39 CM PICC IN THE basilic VEIN. PICC Line Insertion 09/09/16 00:00 IMPRESSION: SUCCESSFUL PLACEMENT OF A 5 FR DUAL LUMEN 39 CM PICC IN THE basilic VEIN. Chest X-Ray 09/10/16 00:00 IMPRESSION: Trace bilateral pleural effusions in the posterior costophrenic sulci Minimal bibasilar airspace disease in the posterior costophrenic sulci atelectasis versus pneumonia Venous Doppler Study 09/12/16 00:00 IMPRESSION: NO EVIDENCE DVT OR SVT IN EITHER LEG. Assessment & Plan - Diagnosis (1) Paralytic ileus Is this a current diagnosis for this admission?: Yes (2) Acute respiratory failure with hypoxemia Is this a current diagnosis for this admission?: No (3) Leukocytosis Qualifiers: Leukocytosis type: bandemia Qualified Code(s): D72.825 - Bandemia Is this a current diagnosis for this admission?: Yes (4) Ventricular tachycardia Is this a current diagnosis for this admission?: Yes (5) Anemia, blood loss Is this a current diagnosis for this admission?: Yes (6) Hyperkalemia Is this a current diagnosis for this admission?: No (7) Hypocalcemia Is this a current diagnosis for this admission?: No (8) Hypoalbuminemia Is this a current diagnosis for this admission?: Yes (9) Colonic mass Is this a current diagnosis for this admission?: Yes (10) Coronary artery disease Qualifiers: Coronary Disease-Associated Artery/Lesion type: [place] artery [place] vs. transplanted heart: [place] heart Associated angina: angina presence unspecified Qualified Code(s): I25.10 - Atherosclerotic heart disease of [place] coronary artery without angina pectoris Is this a current diagnosis for this admission?: Yes (11) Hyperlipidemia Qualifiers: Hyperlipidemia type: other hyperlipidemia Qualified Code(s): E78.4 - Other hyperlipidemia Is this a current diagnosis for this admission?: Yes (12) Hypertension Qualifiers: Hypertension type: essential hypertension Qualified Code(s): I10 - Essential (primary) hypertension Is this a current diagnosis for this admission?: Yes (13) Panlobular emphysema Is this a current diagnosis for this admission?: Yes (14) Type 2 diabetes mellitus without complications Qualifiers: Diabetes mellitus prison insulin use: without terminologist use Qualified Code(s): E11.9 - Type 2 diabetes mellitus without complications Is this a current diagnosis for this admission?: Yes - Time Time Spent with patient: 25-34 minutes - Plan Summary Plan Summary: We are going to discontinue the antibiotics, put the patient on Diflucan, follow final cultures of the urine. We will consult hematology for persistent leukocytosis. Continue supportive care. Likely to be transferred to subacute rehabilitation early next week.
[2016-09-20] MEDS ORDERED: FLUCONAZOLE 100 MG TABLET PO ONE (14:00)
[2016-09-20] MEDS: TAMSULOSIN HCL 0.4 MG CAP.SR.24H PO SCH (18:36)
[2016-09-20] MEDS: ATORVASTATIN CALCIUM 40 MG TABLET PO SCH (23:20)
[2016-09-21] MEDS: CARBIDOPA/LEVODOPA 25-100 MG TABLET PO SCH ×3 (05:47→22:09)
[2016-09-21] MEDS: FINASTERIDE 5 MG TABLET PO SCH (08:59)
[2016-09-21] MEDS: ENOXAPARIN SODIUM INJ 40 MG/0.4 ML DISP.SYRIN SUBCUT SCH (08:59)
[2016-09-21] MEDS: OXYCODONE-ACETAMINOPHEN 5-325 MG TABLET PO PRN ×2 (09:01→14:49)
[2016-09-21] MEDS: LACTOBACILLUS ACIDOPHILUS 250 MG TAB PEG SCH ×2 (11:27→17:51)
[2016-09-21] MEDS: POTASSIUM CHLORIDE 20 MEQ/15 ML UDCUP PO SCH ×2 (11:27→22:10)
[2016-09-21] MEDS: METOPROLOL TARTRATE 25 MG TABLET GT SCH ×2 (11:28→22:09)
[2016-09-21] MEDS: FLUCONAZOLE 100 MG TABLET PO SCH (11:28)
--- NOTE | 2016-09-21 11:29 | PDOC PROGRESS REPORT ---
Subjective Progress Note for:: 09/21/16 Subjective:: no pain tolearating diet Physical Exam Vital Signs: Temp Pulse Resp BP Pulse Ox 97.7 F 91 16 135/79 H 97 09/21/16 07:50 09/21/16 07:50 09/21/16 07:50 09/21/16 07:50 09/21/16 07:50 Intake & Output 09/20/16 09/21/16 09/22/16 06:59 06:59 06:59 Intake Total 1346 606 Output Total 100 700 Balance 1246 -94 Weight 89.8 kg 92.4 kg GI/Abdominal exam: PRESENT: other - SOFT ABDOMEN COLOSTOMY FUNCTIONING Results Laboratory Results: 09/20/16 05:49 09/20/16 05:49 09/21/16 04:12 Stool Occult Blood NEGATIVE 09/03/16 09/03/16 09/04/16 16:15 16:15 07:00 Creatine Kinase 39 L CK-MB (CK-2) 0.33 Troponin I < 0.012 < 0.012 09/05/16 04:17 Creatine Kinase CK-MB (CK-2) Troponin I 0.013 Impressions: KUB X-Ray 09/05/16 00:00 IMPRESSION: Patent gastrostomy. Abdomen/Pelvis CT 09/09/16 00:00 IMPRESSION: Postsurgical changes without evidence of abscess or bowel obstruction. Guidance Fluoroscopy 09/09/16 00:00 IMPRESSION: SUCCESSFUL PLACEMENT OF A 5 FR DUAL LUMEN 39 CM PICC IN THE basilic VEIN. Interventional Vascular Procedure 09/09/16 00:00 IMPRESSION: SUCCESSFUL PLACEMENT OF A 5 FR DUAL LUMEN 39 CM PICC IN THE basilic VEIN. PICC Line Insertion 09/09/16 00:00 IMPRESSION: SUCCESSFUL PLACEMENT OF A 5 FR DUAL LUMEN 39 CM PICC IN THE basilic VEIN. Chest X-Ray 09/10/16 00:00 IMPRESSION: Trace bilateral pleural effusions in the posterior costophrenic sulci Minimal bibasilar airspace disease in the posterior costophrenic sulci atelectasis versus pneumonia Venous Doppler Study 09/12/16 00:00 IMPRESSION: NO EVIDENCE DVT OR SVT IN EITHER LEG. Assessment & Plan - Plan Summary Plan Summary: Doing fairly well DC / placement plan
[2016-09-21] MEDS: NORMAL SALINE 10 ML SDV (SCHEDULED) IV SCH ×2 (11:31→22:11)
[2016-09-21] MEDS: INSULIN GLARGINE,HUM.REC.ANLOG 300 UNIT/3 ML INSULN.PEN SUBCUT SCH (11:32)
--- NOTE | 2016-09-21 11:44 | PDOC CONSULTATION ---
Consultation Consult Date: 09/21/16 Consult reason:: Leukocytosis History of Present Illness Admission Date/PCP: 08/27/16 08:39 YOSEF DEL REAL MD History of Present Illness: Mr. Johnson is a delightful 66 YO WM who is a resident of [facility] with multiple comorbid conditions s/p multiple surgigal interventions for obstruction ,poor nutritional status as well as a history of coronary artery disease, history of prior myocardial infarction, s/p stenting with anticoagulation, cerebrovascular accident, who was admitted for a colon mass surgery. Patient has a complicated cardiac history. He underwent a heart catheterization and stent placement with bare metal approximately 2-3 months ago. He has had a long and complicated post op course with colostomy and ileostomy, wound infection requiring drainage and antibiotics with persistent Leukocytosis and thrombocytosis. Past Medical History Cardiac Medical History: Reports: Myocardial Infarction - 1988, Hyperlipidema, Hypertension Denies: Atrial Fibrillation, Congestive Heart Failure, Coronary Artery Disease, Peripheral Vascular Disease, Heart Murmur Neurological Medical History: Denies: Seizures Endocrine Medical History: Reports: Diabetes Mellitus Type 2 Renal/ Medical History: Denies: End Stage Renal Disease GI Medical History: Reports: Gastroesophageal Reflux Disease - HX PEPCID Denies: Crohn's Disease, Hiatal Hernia Musculoskeltal Medical History: Denies: Arthritis, Fibromyalgia Psychiatric Medical History: Reports: Depression Denies: Dementia Past Surgical History Past Surgical History: Reports: Cardiac Catheterization, Coronary Stent, Tonsillectomy Denies: Appendectomy, Cholecystectomy, Colostomy, Coronary Artery Bypass Graft, Gastric Bypass Surgery, Herniorrhaphy, Pacemaker Social History Smoking Status: Former Smoker Frequency of Alcohol Use: Rare Hx Recreational Drug Use: No Hx Prescription Drug Abuse: No - Advance Directive Resuscitation Status: Full Code Family History Family History: Reviewed & Not Pertinent Parental Family History Reviewed: Yes Children Family History Reviewed: Yes Sibling(s) Family History Reviewed.: Yes Medication/Allergy Home Medications: Acetaminophen [Tylenol Extra Strength 500 mg Tablet] 1 tab PO Q4HP PRN 09/10/16 Alfuzosin HCl [Alfuzosin HCl ER] 10 mg PO QAM 09/10/16 Amlodipine Besylate [Norvasc 2.5 mg Tablet] 2.5 mg PO QAM 09/10/16 Aspirin [Aspirin EC] 81 mg PO QAM 09/10/16 Atorvastatin Calcium [Lipitor 40 mg Tablet] 40 mg PO DAILY@199909/10/16 Carbidopa/Levodopa [Sinemet 25-100 mg Tablet] 1 tab PO TID@0800,1200,1999 Finasteride [Proscar 5 mg Tablet] 5 mg PO QAM 09/10/16 Guaifenesin [Robitussin Syrup 200 mg/10 ml Ud Cup] 200 mg PO Q6HP PRN MDD 4 Loperamide HCl [Loperamide] 2 mg PO ASDIR PRN MDD 8 09/10/16 Mag Hydrox/Al Hydrox/Simeth [Maalox Suspension] 30 ml PO ASDIR PRN MDD 4 Magnesium Hydroxide [Milk of Magnesia] 30 ml PO HSP PRN 09/10/16 Metoprolol Succinate [Toprol Xl 25 mg Tab.sr] 25 mg PO QAM 09/10/16 Neomy Sulf/Bacitrac Zn/Poly [Neosporin Ointment 15 Gm Tube] 1 applic TP ASDIR PRN 09/10/16 Ranitidine HCl [Zantac] 300 mg PO DAILY@0630 09/10/16 Allergies/Adverse Reactions: No Known Allergies Allergy (Verified 08/20/16 08:55) Review of Systems All systems: reviewed and no additional remarkable complaints except as stated - Very weak Physical Exam Vital Signs: Temp Pulse Resp BP Pulse Ox 97.7 F 91 16 135/79 H 97 09/21/16 07:50 09/21/16 07:50 09/21/16 07:50 09/21/16 07:50 09/21/16 07:50 Intake & Output 09/20/16 09/21/16 09/22/16 06:59 06:59 06:59 Intake Total 1346 606 Output Total 100 700 Balance 1246 -94 Weight 89.8 kg 92.4 kg General appearance: PRESENT: no acute distress, well-nourished Head exam: PRESENT: normocephalic Eye exam: PRESENT: conjunctiva pale, EOMI, PERRLA Ear exam: PRESENT: normal external ear exam Respiratory exam: PRESENT: clear to auscultation shelly - Diminished at the bases Cardiovascular exam: PRESENT: RRR GI/Abdominal exam: PRESENT: other - 2 Stomas, midline wound, occ'l BS Rectal exam: PRESENT: deferred Neurological exam: PRESENT: alert, awake, oriented to person, oriented to situation, CN II-XII grossly intact Results Laboratory Results: 09/20/16 05:49 09/20/16 05:49 09/21/16 04:12 Stool Occult Blood NEGATIVE 09/03/16 09/03/16 09/04/16 16:15 16:15 07:00 Creatine Kinase 39 L CK-MB (CK-2) 0.33 Troponin I < 0.012 < 0.012 09/05/16 04:17 Creatine Kinase CK-MB (CK-2) Troponin I 0.013 Impressions: KUB X-Ray 09/05/16 00:00 IMPRESSION: Patent gastrostomy. Abdomen/Pelvis CT 09/09/16 00:00 IMPRESSION: Postsurgical changes without evidence of abscess or bowel obstruction. Guidance Fluoroscopy 09/09/16 00:00 IMPRESSION: SUCCESSFUL PLACEMENT OF A 5 FR DUAL LUMEN 39 CM PICC IN THE basilic VEIN. Interventional Vascular Procedure 09/09/16 00:00 IMPRESSION: SUCCESSFUL PLACEMENT OF A 5 FR DUAL LUMEN 39 CM PICC IN THE basilic VEIN. PICC Line Insertion 09/09/16 00:00 IMPRESSION: SUCCESSFUL PLACEMENT OF A 5 FR DUAL LUMEN 39 CM PICC IN THE basilic VEIN. Chest X-Ray 09/10/16 00:00 IMPRESSION: Trace bilateral pleural effusions in the posterior costophrenic sulci Minimal bibasilar airspace disease in the posterior costophrenic sulci atelectasis versus pneumonia Venous Doppler Study 09/12/16 00:00 IMPRESSION: NO EVIDENCE DVT OR SVT IN EITHER LEG. Assessment & Plan - Diagnosis (1) Anemia, blood loss Is this a current diagnosis for this admission?: YesPlan: Suspect iron deficiency and will infuse pending results (2) Colonic mass Is this a current diagnosis for this admission?: YesPlan: s/p resection with surgery managing (3) Coronary artery disease Qualifiers: Coronary Disease-Associated Artery/Lesion type: [place] artery [place] vs. transplanted heart: [place] heart Associated angina: angina presence unspecified Qualified Code(s): I25.10 - Atherosclerotic heart disease of [place] coronary artery without angina pectoris Is this a current diagnosis for this admission?: YesPlan: Continue care per primary team (4) Leukocytosis Qualifiers: Leukocytosis type: bandemia Qualified Code(s): D72.825 - Bandemia Is this a current diagnosis for this admission?: YesPlan: Suspect partially related to an iron deficiency which I will treat but then send flow and Horacio 2 gene mutation on Friday as well - Time Time Spent: 50 to 70 Minutes Critical Time spent with patient: 15-24 minutes Medications reviewed and adjusted accordingly: Yes Anticipated discharge: SNF
[2016-09-21 14:30] LABS: FOLATE 8.53 ng/mL (>2.76)
[2016-09-21] MEDS: TAMSULOSIN HCL 0.4 MG CAP.SR.24H PO SCH (17:50)
--- NOTE | 2016-09-21 18:17 | PDOC PROGRESS REPORT ---
Subjective Progress Note for:: 09/21/16 Subjective:: Patient is awake and alert, voiced no complaints at this time. Reportedly doing well by the staff . Miranda catheter has been discontinued 3 days ago, no reported urinary retention. Patient reports no abdominal pain. No reported temperature spikes. Yeast noted on urine culture. Hematology evaluated the patient today. Physical Exam Vital Signs: Temp Pulse Resp BP Pulse Ox 97.5 F 91 16 137/75 H 98 09/21/16 15:04 09/21/16 15:04 09/21/16 15:04 09/21/16 15:04 09/21/16 15:04 Intake & Output 09/20/16 09/21/16 09/22/16 06:59 06:59 06:59 Intake Total 1346 606 Output Total 100 700 Balance 1246 -94 Weight 89.8 kg 92.4 kg General appearance: PRESENT: no acute distress, cooperative Head exam: PRESENT: normocephalic Eye exam: PRESENT: conjunctiva pale Mouth exam: PRESENT: moist, neck supple Neck exam: ABSENT: JVD Respiratory exam: PRESENT: clear to auscultation shelly Cardiovascular exam: PRESENT: RRR. ABSENT: gallop GI/Abdominal exam: PRESENT: soft. ABSENT: distended, tenderness Extremities exam: PRESENT: other - Trace lower extremity edema Neurological exam: PRESENT: alert, awake Skin exam: PRESENT: dry, warm. ABSENT: cyanosis Results Laboratory Results: 09/20/16 05:49 09/20/16 05:49 09/21/16 09/21/16 09/21/16 04:12 12:43 12:43 Retic Count (auto) 3.02 H Absolute Retic 0.136 H Iron 23.3 L TIBC 259 % Saturation 9 Ferritin 275.00 Vitamin B12 494.0 Folate 8.53 Stool Occult Blood NEGATIVE 09/18/16 12:00 Penis Gram Stain - Final 09/18/16 12:00 Penis Urethral Culture - Final Skin Love No Neisseria Gonorrhoeae 09/03/16 09/03/16 09/04/16 16:15 16:15 07:00 Creatine Kinase 39 L CK-MB (CK-2) 0.33 Troponin I < 0.012 < 0.012 09/05/16 04:17 Creatine Kinase CK-MB (CK-2) Troponin I 0.013 Impressions: KUB X-Ray 09/05/16 00:00 IMPRESSION: Patent gastrostomy. Abdomen/Pelvis CT 09/09/16 00:00 IMPRESSION: Postsurgical changes without evidence of abscess or bowel obstruction. Guidance Fluoroscopy 09/09/16 00:00 IMPRESSION: SUCCESSFUL PLACEMENT OF A 5 FR DUAL LUMEN 39 CM PICC IN THE basilic VEIN. Interventional Vascular Procedure 09/09/16 00:00 IMPRESSION: SUCCESSFUL PLACEMENT OF A 5 FR DUAL LUMEN 39 CM PICC IN THE basilic VEIN. PICC Line Insertion 09/09/16 00:00 IMPRESSION: SUCCESSFUL PLACEMENT OF A 5 FR DUAL LUMEN 39 CM PICC IN THE basilic VEIN. Chest X-Ray 09/10/16 00:00 IMPRESSION: Trace bilateral pleural effusions in the posterior costophrenic sulci Minimal bibasilar airspace disease in the posterior costophrenic sulci atelectasis versus pneumonia Venous Doppler Study 09/12/16 00:00 IMPRESSION: NO EVIDENCE DVT OR SVT IN EITHER LEG. Assessment & Plan - Diagnosis (1) Paralytic ileus Is this a current diagnosis for this admission?: Yes (2) Acute respiratory failure with hypoxemia Is this a current diagnosis for this admission?: No (3) Leukocytosis Qualifiers: Leukocytosis type: bandemia Qualified Code(s): D72.825 - Bandemia Is this a current diagnosis for this admission?: Yes (4) Ventricular tachycardia Is this a current diagnosis for this admission?: Yes (5) Anemia, blood loss Is this a current diagnosis for this admission?: Yes (6) Hyperkalemia Is this a current diagnosis for this admission?: No (7) Hypocalcemia Is this a current diagnosis for this admission?: No (8) Hypoalbuminemia Is this a current diagnosis for this admission?: Yes (9) Colonic mass Is this a current diagnosis for this admission?: Yes (10) Coronary artery disease Qualifiers: Coronary Disease-Associated Artery/Lesion type: [place] artery [place] vs. transplanted heart: [place] heart Associated angina: angina presence unspecified Qualified Code(s): I25.10 - Atherosclerotic heart disease of [place] coronary artery without angina pectoris Is this a current diagnosis for this admission?: Yes (11) Hyperlipidemia Qualifiers: Hyperlipidemia type: other hyperlipidemia Qualified Code(s): E78.4 - Other hyperlipidemia Is this a current diagnosis for this admission?: Yes (12) Hypertension Qualifiers: Hypertension type: essential hypertension Qualified Code(s): I10 - Essential (primary) hypertension Is this a current diagnosis for this admission?: Yes (13) Panlobular emphysema Is this a current diagnosis for this admission?: Yes (14) Type 2 diabetes mellitus without complications Qualifiers: Diabetes mellitus care home insulin use: without care home use Qualified Code(s): E11.9 - Type 2 diabetes mellitus without complications Is this a current diagnosis for this admission?: Yes - Time Time Spent with patient: Less than 15 minutes - Plan Summary Plan Summary: Continue current medications and supportive care. Awaiting transfer to rehabilitation. Hematology workup pending.
[2016-09-21] MEDS: ATORVASTATIN CALCIUM 40 MG TABLET PO SCH (20:06)
[2016-09-21] MEDS: INSULIN REG, HUMAN 100 UNIT/ML 3 ML VIAL (PYX) SUBCUT PRN (22:41)
--- NOTE | 2016-09-21 23:48 | PROGRESS NOTE E ---
Progress Note NAME: AMI YOUSIF : 1950 AGE: 66Y DATE: 09/09/2016 ROOM: 303 Note, this is a re-dictation since they cannot find the original dictation, lost in the system; hence, dictating it from the notes that I have. SUBJECTIVE: The patient seems more awake and does talk a little bit. Denies any chest pain or discomfort. There is no shortness of breath. There is no PND or orthopnea. There is no further wide complex tachycardia but the patient has APC's and PVCs. There is no leg edema. There is no shortness of breath. The patient's gastrostomy tube feedings started. The patient is off amiodarone and the patient has been started on metoprolol by gastrostomy feeding tube. OBJECTIVE: GENERAL: The patient is slightly overweight, at present in no acute distress, is afebrile. VITAL SIGNS: Temperature is 98.3 degrees Fahrenheit, pulse is 77 beats per minute, blood pressure is 135/75, respirations are 19 per minute, O2 sats are 2 L on nasal cannula of 95%. HEENT: Head is normocephalic, atraumatic. Eyes: Pupils are equal, round, and reactive to light and accommodation. Extraocular movements are normal. There is no conjunctival pallor. There is no scleral icterus. ENT is negative. NECK: Supple. There is JVD. Carotids are equal. There is no bruit. There is no goiter. There is no lymphadenopathy. LUNGS: Clear to auscultation and percussion. HEART: S1 and S2 are heard. There is no S3 gallop. There is no S4 gallop. There is a systolic murmur in the left sternal border and apex. There is no rub. ABDOMEN: Soft, nontender. There is no hepatosplenomegaly. Bowel sounds are heard. There is a dressing at the site of surgery which is clean and dry. EXTREMITIES: Femorals are diminished. There are no femoral bruits. Leg pulses are diminished. There is no pedal edema. There is no DVT or cellulitis. There is no calf tenderness. CENTRAL NERVOUS SYSTEM: The patient is conscious, awake, alert and does talk a little bit. Seems to be oriented x3. There are no focal deficits. PSYCHIATRIC: The patient's affect today is normal, and the patient does not appear to be agitated or depressed. DIAGNOSTIC DATA: The patient's white count is 20,400, hemoglobin is 9.5, hematocrit is 29.9, and platelet count is 388,000. The patient's sodium is 145, potassium is now normal at 4.1, chloride is 108, CO2 is 32, the patient's BUN is 17, creatinine is 0.70, GFR is greater than 60, his glucose is 237, his calcium is 7.9, magnesium is 2.1. The patient's total intake is 2234; output is 2235. IMPRESSION: 1. STATUS POST SURGERY OF EXPLORATORY LAPAROTOMY AND REEXPLORATION. The patient has postoperative ileus. 2. STATUS POST EXTUBATION POST SURGERY. At present, stable. 3. STATUS POST GASTROSTOMY TUBE PLACEMENT. At present on gastrostomy tube feedings. 4. NO FURTHER EVIDENCE OF WIDE COMPLEX TACHYCARDIA. The patient is off IV amiodarone and the patient is on metoprolol. 5. HYPOKALEMIA. Corrected. 6. ABNORMAL EKG SUGGESTIVE OF OLD INFERIOR WALL MD. 7. LEFT-SIDED WEAKNESS. At present seems to have resolved. 8. HYPERTENSION. Blood pressure well controlled. 9. DIABETES MELLITUS TYPE 2 WITH NO COMPLICATIONS. 10. HYPERLIPIDEMIA. 11. DYSPHAGIA. The patient states is slightly better but the patient will have a swallow study. 12. CORONARY ARTERY DISEASE WITH NO ANGINAL SYMPTOMS. Would continue the patient on 25 mg of metoprolol q.12 h. while on the G-tube and will increase it. Note, that the patient had an echocardiogram which showed that the left ventricular size is normal. There is normal left ventricular wall thickness, LV ejection fraction is 60%, left ventricular systolic function is normal. Doppler measurements suggest impaired left ventricular relaxation, which is also grade I/IV or mild diastolic dysfunction. There is no thrombus. The left atrial size is normal. There is no evidence of mitral valve collapse. There is no mitral valve stenosis. There is trace to mild amount of mitral regurgitation. There is no aortic valve stenosis. There is no LVOT obstruction. There is aortic sclerosis without stenosis. There is mild amount of aortic regurgitation. There is no tricuspid stenosis. There is trace amount of tricuspid regurgitation. Right ventricular systolic pressure is normal at 29 mmHg with RA mean of 10. There is no pulmonic valvular stenosis. There is no pulmonic valvular regurgitation. There is no pericardial effusion. As mentioned earlier, the echo findings have been discussed and medications have been reviewed. The patient will get swallow study soon. Dr. Lindquist will follow from tomorrow. DICTATING PHYSICIAN: FREDDY ALEXIS M.D. [id number] PHY#: [id number] ID: [id number] JOB#: [id number] ACCT: [id number] cc: >
[2016-09-22] MEDS: CARBIDOPA/LEVODOPA 25-100 MG TABLET PO SCH ×3 (05:14→21:57)
[2016-09-22] MEDS: FINASTERIDE 5 MG TABLET PO SCH (07:43)
[2016-09-22] MEDS: OXYCODONE-ACETAMINOPHEN 5-325 MG TABLET PO PRN ×3 (07:44→18:06)
[2016-09-22] MEDS: ENOXAPARIN SODIUM INJ 40 MG/0.4 ML DISP.SYRIN SUBCUT SCH (07:44)
[2016-09-22] MEDS: POTASSIUM CHLORIDE 20 MEQ/15 ML UDCUP PO SCH ×2 (10:27→21:56)
[2016-09-22] MEDS: FLUCONAZOLE 100 MG TABLET PO SCH (10:27)
[2016-09-22] MEDS: LACTOBACILLUS ACIDOPHILUS 250 MG TAB PEG SCH ×2 (10:27→18:06)
[2016-09-22] MEDS: METOPROLOL TARTRATE 25 MG TABLET GT SCH ×2 (10:28→21:57)
[2016-09-22] MEDS: NORMAL SALINE 10 ML SDV (SCHEDULED) IV SCH ×2 (10:29→21:57)
[2016-09-22] MEDS: INSULIN GLARGINE,HUM.REC.ANLOG 300 UNIT/3 ML INSULN.PEN SUBCUT SCH (10:29)
--- NOTE | 2016-09-22 14:20 | PDOC PROGRESS REPORT ---
Subjective Progress Note for:: 09/22/16 Subjective:: Patient voices no complaints at this time. No reported temperature spikes, respiratory distress, patient able to void. Physical Exam Vital Signs: Temp Pulse Resp BP Pulse Ox 98.5 F 101 H 20 131/92 H 94 09/22/16 11:18 09/22/16 11:18 09/22/16 11:18 09/22/16 11:18 09/22/16 11:18 Intake & Output 09/21/16 09/22/16 09/23/16 06:59 06:59 06:59 Intake Total 606 629 Output Total 700 1800 Balance -94 -1171 Weight 92.4 kg 93.7 kg General appearance: PRESENT: no acute distress, cooperative Head exam: PRESENT: normocephalic Eye exam: PRESENT: EOMI Mouth exam: PRESENT: moist, neck supple Neck exam: ABSENT: JVD Respiratory exam: PRESENT: clear to auscultation shelly - Anteriorly bilateral. ABSENT: rhonchi, wheezes Cardiovascular exam: PRESENT: RRR. ABSENT: gallop GI/Abdominal exam: PRESENT: soft. ABSENT: distended, tenderness Extremities exam: ABSENT: pedal edema Neurological exam: PRESENT: alert, awake, oriented to situation Skin exam: PRESENT: dry, warm. ABSENT: cyanosis Results Laboratory Results: 09/20/16 05:49 09/20/16 05:49 09/21/16 12:43 Iron 23.3 L TIBC 259 % Saturation 9 Ferritin 275.00 Vitamin B12 494.0 Folate 8.53 09/18/16 12:00 Penis Gram Stain - Final 09/18/16 12:00 Penis Urethral Culture - Final Skin Love No Neisseria Gonorrhoeae 09/03/16 09/03/16 09/04/16 16:15 16:15 07:00 Creatine Kinase 39 L CK-MB (CK-2) 0.33 Troponin I < 0.012 < 0.012 09/05/16 04:17 Creatine Kinase CK-MB (CK-2) Troponin I 0.013 Impressions: KUB X-Ray 09/05/16 00:00 IMPRESSION: Patent gastrostomy. Abdomen/Pelvis CT 09/09/16 00:00 IMPRESSION: Postsurgical changes without evidence of abscess or bowel obstruction. Guidance Fluoroscopy 09/09/16 00:00 IMPRESSION: SUCCESSFUL PLACEMENT OF A 5 FR DUAL LUMEN 39 CM PICC IN THE basilic VEIN. Interventional Vascular Procedure 09/09/16 00:00 IMPRESSION: SUCCESSFUL PLACEMENT OF A 5 FR DUAL LUMEN 39 CM PICC IN THE basilic VEIN. PICC Line Insertion 09/09/16 00:00 IMPRESSION: SUCCESSFUL PLACEMENT OF A 5 FR DUAL LUMEN 39 CM PICC IN THE basilic VEIN. Chest X-Ray 09/10/16 00:00 IMPRESSION: Trace bilateral pleural effusions in the posterior costophrenic sulci Minimal bibasilar airspace disease in the posterior costophrenic sulci atelectasis versus pneumonia Venous Doppler Study 09/12/16 00:00 IMPRESSION: NO EVIDENCE DVT OR SVT IN EITHER LEG. Assessment & Plan - Diagnosis (1) Paralytic ileus Is this a current diagnosis for this admission?: Yes (2) Acute respiratory failure with hypoxemia Is this a current diagnosis for this admission?: No (3) Leukocytosis Qualifiers: Leukocytosis type: bandemia Qualified Code(s): D72.825 - Bandemia Is this a current diagnosis for this admission?: Yes (4) Ventricular tachycardia Is this a current diagnosis for this admission?: Yes (5) Anemia, blood loss Is this a current diagnosis for this admission?: Yes (6) Hyperkalemia Is this a current diagnosis for this admission?: No (7) Hypocalcemia Is this a current diagnosis for this admission?: No (8) Hypoalbuminemia Is this a current diagnosis for this admission?: Yes (9) Colonic mass Is this a current diagnosis for this admission?: Yes (10) Coronary artery disease Qualifiers: Coronary Disease-Associated Artery/Lesion type: [place] artery [place] vs. transplanted heart: [place] heart Associated angina: angina presence unspecified Qualified Code(s): I25.10 - Atherosclerotic heart disease of [place] coronary artery without angina pectoris Is this a current diagnosis for this admission?: Yes (11) Hyperlipidemia Qualifiers: Hyperlipidemia type: other hyperlipidemia Qualified Code(s): E78.4 - Other hyperlipidemia Is this a current diagnosis for this admission?: Yes (12) Hypertension Qualifiers: Hypertension type: essential hypertension Qualified Code(s): I10 - Essential (primary) hypertension Is this a current diagnosis for this admission?: Yes (13) Panlobular emphysema Is this a current diagnosis for this admission?: Yes (14) Type 2 diabetes mellitus without complications Qualifiers: Diabetes mellitus fci insulin use: without intermediate designer use Qualified Code(s): E11.9 - Type 2 diabetes mellitus without complications Is this a current diagnosis for this admission?: Yes - Time Time Spent with patient: 15-24 minutes - Plan Summary Plan Summary: Continue current medications and supportive care. Awaiting hematology workup for persistent leukocytosis. As discussed with Dr. Pérez, will be done in the morning, and results will be followed on an outpatient basis on follow-up with her. The patient remained stable and be transferred to rehabilitation in the morning.
--- NOTE | 2016-09-22 17:23 | PROGRESS NOTE E ---
Progress Note NAME: AMI YOUSIF : 1950 AGE: 66Y DATE: 09/22/2016 ROOM: 303 SUBJECTIVE: The patient is alert, cooperative. OBJECTIVE: VITAL SIGNS: Stable. ABDOMEN: Obese, nondistended, nontender. Colostomy on the left side of the abdomen is pink with a little bit of stool in the colostomy bag, and the mucous fistula appears to be healthy and pink. The midline abdominal wound is granulating. ASSESSMENT: 1. 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 2. COLOSTOMY PINK AND VIABLE. 3. ABDOMINAL WOUND GRANULATING. 4. NO ACUTE GENERAL SURGERY ISSUES PLANNED. PLAN: Patient to be transferred to long-term care facility. DICTATING PHYSICIAN: LESLIE CARTER M.D. [id number] PHY#: [id number] ID: [id number] JOB#: [id number] ACCT: [id number] cc: >
[2016-09-22] MEDS: TAMSULOSIN HCL 0.4 MG CAP.SR.24H PO SCH (18:06)
[2016-09-22] MEDS: ATORVASTATIN CALCIUM 40 MG TABLET PO SCH (19:55)
[2016-09-22] MEDS: INSULIN REG, HUMAN 100 UNIT/ML 3 ML VIAL (PYX) SUBCUT PRN (21:59)
[2016-09-23] MEDS: CARBIDOPA/LEVODOPA 25-100 MG TABLET PO SCH ×2 (05:03→13:25)
[2016-09-23] MEDS: NORMAL SALINE 10 ML SDV (AFTER EACH USE) IV PRN (05:03)
[2016-09-23] MEDS: OXYCODONE-ACETAMINOPHEN 5-325 MG TABLET PO PRN ×3 (08:16→17:41)
[2016-09-23] MEDS: ENOXAPARIN SODIUM INJ 40 MG/0.4 ML DISP.SYRIN SUBCUT SCH (08:17)
[2016-09-23] MEDS: FINASTERIDE 5 MG TABLET PO SCH (08:17)
--- NOTE | 2016-09-23 08:39 | PDOC PROGRESS REPORT ---
Subjective Progress Note for:: 09/23/16 Subjective:: No reported resp distress, temp spikes. No nausea/vomiting. Tolerating PO intake. Dr. Pérez will administer iron, deficiency likely causing leukocytosis. Physical Exam Vital Signs: Temp Pulse Resp BP Pulse Ox 97.9 F 107 H 20 134/86 H 97 09/23/16 07:22 09/23/16 07:22 09/23/16 07:22 09/23/16 07:22 09/23/16 07:22 Intake & Output 09/22/16 09/23/16 09/24/16 06:59 06:59 06:59 Intake Total 629 984 Output Total 1800 650 Balance -1171 334 Weight 93.7 kg 92.8 kg General appearance: PRESENT: no acute distress, cooperative Head exam: PRESENT: normocephalic Eye exam: PRESENT: EOMI Mouth exam: PRESENT: moist, neck supple Neck exam: ABSENT: JVD Respiratory exam: PRESENT: clear to auscultation shelly Cardiovascular exam: PRESENT: RRR GI/Abdominal exam: PRESENT: soft. ABSENT: distended Extremities exam: ABSENT: pedal edema Neurological exam: PRESENT: alert, awake Skin exam: PRESENT: dry, warm. ABSENT: cyanosis Results Laboratory Results: 09/20/16 05:49 09/20/16 05:49 09/03/16 09/03/16 09/04/16 16:15 16:15 07:00 Creatine Kinase 39 L CK-MB (CK-2) 0.33 Troponin I < 0.012 < 0.012 09/05/16 04:17 Creatine Kinase CK-MB (CK-2) Troponin I 0.013 Impressions: KUB X-Ray 09/05/16 00:00 IMPRESSION: Patent gastrostomy. Abdomen/Pelvis CT 09/09/16 00:00 IMPRESSION: Postsurgical changes without evidence of abscess or bowel obstruction. Guidance Fluoroscopy 09/09/16 00:00 IMPRESSION: SUCCESSFUL PLACEMENT OF A 5 FR DUAL LUMEN 39 CM PICC IN THE basilic VEIN. Interventional Vascular Procedure 09/09/16 00:00 IMPRESSION: SUCCESSFUL PLACEMENT OF A 5 FR DUAL LUMEN 39 CM PICC IN THE basilic VEIN. PICC Line Insertion 09/09/16 00:00 IMPRESSION: SUCCESSFUL PLACEMENT OF A 5 FR DUAL LUMEN 39 CM PICC IN THE basilic VEIN. Chest X-Ray 09/10/16 00:00 IMPRESSION: Trace bilateral pleural effusions in the posterior costophrenic sulci Minimal bibasilar airspace disease in the posterior costophrenic sulci atelectasis versus pneumonia Venous Doppler Study 09/12/16 00:00 IMPRESSION: NO EVIDENCE DVT OR SVT IN EITHER LEG. Assessment & Plan - Diagnosis (1) Paralytic ileus Is this a current diagnosis for this admission?: Yes (2) Acute respiratory failure with hypoxemia Is this a current diagnosis for this admission?: No (3) Leukocytosis Qualifiers: Leukocytosis type: bandemia Qualified Code(s): D72.825 - Bandemia Is this a current diagnosis for this admission?: Yes (4) Ventricular tachycardia Is this a current diagnosis for this admission?: Yes (5) Anemia, blood loss Is this a current diagnosis for this admission?: Yes (6) Hyperkalemia Is this a current diagnosis for this admission?: No (7) Hypocalcemia Is this a current diagnosis for this admission?: No (8) Hypoalbuminemia Is this a current diagnosis for this admission?: Yes (9) Colonic mass Is this a current diagnosis for this admission?: Yes (10) Coronary artery disease Qualifiers: Coronary Disease-Associated Artery/Lesion type: [place] artery [place] vs. transplanted heart: [place] heart Associated angina: angina presence unspecified Qualified Code(s): I25.10 - Atherosclerotic heart disease of [place] coronary artery without angina pectoris Is this a current diagnosis for this admission?: Yes (11) Hyperlipidemia Qualifiers: Hyperlipidemia type: other hyperlipidemia Qualified Code(s): E78.4 - Other hyperlipidemia Is this a current diagnosis for this admission?: Yes (12) Hypertension Qualifiers: Hypertension type: essential hypertension Qualified Code(s): I10 - Essential (primary) hypertension Is this a current diagnosis for this admission?: Yes (13) Panlobular emphysema Is this a current diagnosis for this admission?: Yes (14) Type 2 diabetes mellitus without complications Qualifiers: Diabetes mellitus alf insulin use: without terminal operator use Qualified Code(s): E11.9 - Type 2 diabetes mellitus without complications Is this a current diagnosis for this admission?: Yes - Time Time Spent with patient: 15-24 minutes - Plan Summary Plan Summary: Medication reviewed and transfer medication done. Needs to follow hematology work-up as outpatient with Dr. Pérez or Dinh. Thanks for letting us participate in his care. We will sign off. Call us PRN.
[2016-09-23 09:31] LABS: HEMATOCRIT 34.1 % (37.9-51.0); HEMOGLOBIN 11.1 g/dL (13.5-17.0); HGB HCT DIFFERENCE -0.8; MEAN CORPUSCULAR HEMOGLOBIN 24.2 pg (27.0-33.4); MEAN CORPUSCULAR HGB CONC 32.6 g/dL (32.0-36.0); MEAN CORPUSCULAR VOLUME 74 fl (80-97); RED CELL DISTRIBUTION WIDTH 18.9 % (11.5-14.0); WHITE BLOOD COUNT 15.9 10^3/uL (4.0-10.5)
[2016-09-23] MEDS ORDERED: FERUMOXYTOL (NON-ESRD) 510 MG/NS 100 ML IV PRN ×2 (10:00)
[2016-09-23] MEDS ORDERED: ACETAMINOPHEN 325 MG TABLET PO PRN (10:00)
[2016-09-23] MEDS ORDERED: FENTANYL 25 MCG/HR PATCH.TD72 TD SCH (10:00)
[2016-09-23] MEDS: FLUCONAZOLE 100 MG TABLET PO SCH (10:25)
[2016-09-23] MEDS: METOPROLOL TARTRATE 25 MG TABLET GT SCH (10:25)
[2016-09-23] MEDS: POTASSIUM CHLORIDE 20 MEQ/15 ML UDCUP PO SCH (10:26)
[2016-09-23] MEDS: LACTOBACILLUS ACIDOPHILUS 250 MG TAB PEG SCH ×2 (10:27→17:43)
[2016-09-23] MEDS: INSULIN GLARGINE,HUM.REC.ANLOG 300 UNIT/3 ML INSULN.PEN SUBCUT SCH (10:29)
[2016-09-23] MEDS: NORMAL SALINE 10 ML SDV (SCHEDULED) IV SCH (10:29)
--- NOTE | 2016-09-23 12:04 | PDOC PROGRESS REPORT ---
Subjective Progress Note for:: 09/23/16 Subjective:: Sitting up and eating breakfast. Going to [facility] Physical Exam Vital Signs: Temp Pulse Resp BP Pulse Ox 97.9 F 107 H 20 134/86 H 97 09/23/16 07:22 09/23/16 07:22 09/23/16 07:22 09/23/16 07:22 09/23/16 07:22 Intake & Output 09/22/16 09/23/16 09/24/16 06:59 06:59 06:59 Intake Total 629 984 Output Total 1800 650 Balance -1171 334 Weight 93.7 kg 92.8 kg General appearance: PRESENT: no acute distress Head exam: PRESENT: normocephalic Eye exam: PRESENT: EOMI Respiratory exam: PRESENT: symmetrical, unlabored Cardiovascular exam: PRESENT: RRR GI/Abdominal exam: PRESENT: soft, other - 2 stomas Extremities exam: PRESENT: other - No edema with SCD hose on B Results Laboratory Results: 09/23/16 08:55 09/20/16 05:49 09/23/16 08:55 WBC 15.9 H RBC 4.60 Hgb 11.1 L Hct 34.1 L MCV 74 L MCH 24.2 L MCHC 32.6 RDW 18.9 H Plt Count 644 H 09/03/16 09/03/16 09/04/16 16:15 16:15 07:00 Creatine Kinase 39 L CK-MB (CK-2) 0.33 Troponin I < 0.012 < 0.012 09/05/16 04:17 Creatine Kinase CK-MB (CK-2) Troponin I 0.013 Impressions: KUB X-Ray 09/05/16 00:00 IMPRESSION: Patent gastrostomy. Abdomen/Pelvis CT 09/09/16 00:00 IMPRESSION: Postsurgical changes without evidence of abscess or bowel obstruction. Guidance Fluoroscopy 09/09/16 00:00 IMPRESSION: SUCCESSFUL PLACEMENT OF A 5 FR DUAL LUMEN 39 CM PICC IN THE basilic VEIN. Interventional Vascular Procedure 09/09/16 00:00 IMPRESSION: SUCCESSFUL PLACEMENT OF A 5 FR DUAL LUMEN 39 CM PICC IN THE basilic VEIN. PICC Line Insertion 09/09/16 00:00 IMPRESSION: SUCCESSFUL PLACEMENT OF A 5 FR DUAL LUMEN 39 CM PICC IN THE basilic VEIN. Chest X-Ray 09/10/16 00:00 IMPRESSION: Trace bilateral pleural effusions in the posterior costophrenic sulci Minimal bibasilar airspace disease in the posterior costophrenic sulci atelectasis versus pneumonia Venous Doppler Study 09/12/16 00:00 IMPRESSION: NO EVIDENCE DVT OR SVT IN EITHER LEG. Assessment & Plan - Diagnosis (1) Anemia, blood loss Is this a current diagnosis for this admission?: YesPlan: Treat with IV iron before discharge and follow up in 2 weeks. (2) Colonic mass Is this a current diagnosis for this admission?: Yes (3) Coronary artery disease Qualifiers: Coronary Disease-Associated Artery/Lesion type: [place] artery [place] vs. transplanted heart: [place] heart Associated angina: angina presence unspecified Qualified Code(s): I25.10 - Atherosclerotic heart disease of [place] coronary artery without angina pectoris Is this a current diagnosis for this admission?: Yes (4) Leukocytosis Qualifiers: Leukocytosis type: bandemia Qualified Code(s): D72.825 - Bandemia Is this a current diagnosis for this admission?: YesPlan: [place] to be reactive but Flow cytometry and Horacio 2 gene mutation sent - Time Time Spent with patient: 25-34 minutes Critical Time spent with patient: 15-24 minutes Anticipated discharge: Acute Rehab Within: within 24 hours
--- NOTE | 2016-09-23 12:08 | PDOC PROGRESS REPORT ---
Subjective Progress Note for:: 09/23/16 Subjective:: Feels well. No complaints. Tolerating solid diet better appetite Physical Exam Vital Signs: Temp Pulse Resp BP Pulse Ox 97.9 F 107 H 20 134/86 H 97 09/23/16 07:22 09/23/16 07:22 09/23/16 07:22 09/23/16 07:22 09/23/16 07:22 Intake & Output 09/22/16 09/23/16 09/24/16 06:59 06:59 06:59 Intake Total 629 984 Output Total 1800 650 Balance -1171 334 Weight 93.7 kg 92.8 kg General appearance: PRESENT: no acute distress, cooperative Respiratory exam: PRESENT: clear to auscultation shelly Cardiovascular exam: PRESENT: RRR GI/Abdominal exam: PRESENT: other - soft, nd, ntp, wound granulating well. ostomy functioning well. Extremities exam: PRESENT: other - no swelling. Results Laboratory Results: 09/23/16 08:55 09/20/16 05:49 09/23/16 08:55 WBC 15.9 H RBC 4.60 Hgb 11.1 L Hct 34.1 L MCV 74 L MCH 24.2 L MCHC 32.6 RDW 18.9 H Plt Count 644 H 09/03/16 09/03/16 09/04/16 16:15 16:15 07:00 Creatine Kinase 39 L CK-MB (CK-2) 0.33 Troponin I < 0.012 < 0.012 09/05/16 04:17 Creatine Kinase CK-MB (CK-2) Troponin I 0.013 Impressions: KUB X-Ray 09/05/16 00:00 IMPRESSION: Patent gastrostomy. Abdomen/Pelvis CT 09/09/16 00:00 IMPRESSION: Postsurgical changes without evidence of abscess or bowel obstruction. Guidance Fluoroscopy 09/09/16 00:00 IMPRESSION: SUCCESSFUL PLACEMENT OF A 5 FR DUAL LUMEN 39 CM PICC IN THE basilic VEIN. Interventional Vascular Procedure 09/09/16 00:00 IMPRESSION: SUCCESSFUL PLACEMENT OF A 5 FR DUAL LUMEN 39 CM PICC IN THE basilic VEIN. PICC Line Insertion 09/09/16 00:00 IMPRESSION: SUCCESSFUL PLACEMENT OF A 5 FR DUAL LUMEN 39 CM PICC IN THE basilic VEIN. Chest X-Ray 09/10/16 00:00 IMPRESSION: Trace bilateral pleural effusions in the posterior costophrenic sulci Minimal bibasilar airspace disease in the posterior costophrenic sulci atelectasis versus pneumonia Venous Doppler Study 09/12/16 00:00 IMPRESSION: NO EVIDENCE DVT OR SVT IN EITHER LEG. Assessment & Plan - Diagnosis (1) Colonic mass Is this a current diagnosis for this admission?: Yes (2) Ileus, postoperative Is this a current diagnosis for this admission?: YesPlan: with cecal ischemia due to distension. s/p xlap, decompression and end tx colostomy and mucous fistula and gtube.appears well. appetite better. doing well. d/c to [facility] today.
--- NOTE | 2016-09-23 12:58 | TRANSFER SUMMARY E ---
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 SECONDARY DIAGNOSES: 1. Postoperative ileus. 2. Urinary retention. 3. [place] urinary tract infection. 4. Status post cerebrovascular accident in the remote past with poor mobility. 5. History of coronary artery disease. 6. History of cerebrovascular accident. 7. Diabetes. 8. Hypertension. 9. Wound Infection PROCEDURE PERFORMED DURING HOSPITALIZATION: 1. Distal transverse colon resection performed by Dr. Dakota Kuhn on 08/27/2016. 2. Exploratory laparotomy with Kayla gastrostomy tube placement, transverse colostomy and mucous fistula, decompressing colonoscopy performed on 09/03/2016. HOSPITAL COURSE: The patient underwent the above-mentioned first surgery. His postoperative course was noteworthy for prolonged postoperative ileus. On 09/03/2016 the patient was noted with increased abdominal distention with tachycardia and worsened tenderness, and he was subsequently taken to the operating room where he underwent an exploratory laparotomy. He was noted with marked distention of his small and large bowel, especially the large bowel, with the large bowel being distended all the way from the cecum to the sigmoid colon. The patient underwent a decompressing colonoscopy intraoperatively which demonstrated early ischemic changes to the cecum but no evidence of full-thickness injury. The tx colon anastomosis was intact. Patient underwent Kayla gastrostomy tube placement, transverse colon end colostomy, and mucous fistula. Postoperative course was remarkable for a gradual resumption of bowel function. Initially he was thought to be aspiration risk by bedside swallow evaluation but later in the hospital course patient was passing his swallow studies and he was started on a diet with nutritional supplementation. He had excellent ostomy function. He did develop an upper abdominal wound infection that was treated by reopening the wound. There was no evidence of fascial dehiscence. The wound was granulating well at the time of discharge. The patient was also noted with a [place] UTI related with his prolonged Miranda insertion due to immobility and the urinary retention, but by the end of the hospitalization he was able to void without the Miranda catheter and he was treated with Diflucan. Physical Therapy was working with the patient throughout his hospital stay, and although he still has very limited mobility he was able to stand with a few steps. Continued physical therapy is extremely important in his recovery [facility]. Patient is to follow a diabetic diet with Glucerna nutritional supplementation. He is to continue to undergo physical therapy with ambulation exercises at least once a day. He is to undergo colostomy teaching. If no one is available at prison to provide colostomy teaching to the patient, then a consultation with a colostomy nurse needs to be made. Patient will be followed by Dr. Ricardo Tao at the prison. Diet: diabetic diet with glucerna supplement with each meal Activity: aggressive physical therapy each day for ambulation assistance. Wound: daily NS wet to dry dressings to upper abdominal open wound Routine colostomy and gtube care. Teach patient colostomy care. TRANSFER MEDICATIONS: 1. Percocet 5 mg/325 mg 1 p.o. every 4 hours p.r.n. pain. 2. Lovenox 40 mg subcutaneous daily. 3. Atorvastatin calcium 40 mg p.o. daily. 4. Carbidopa/levodopa 25 mg/100 mg tablet 1 p.o. every 8 hours. Label comments: Fall precautions. 5. Fentanyl 25 mcg per hour transdermal patch apply every 3 days. Precaution: Fall precautions. 6. Diflucan 100 mg p.o. daily for 4 more days and then discontinue. 7. Proscar 5 mg p.o. every morning. May substitute finasteride. 8. Insulin Lantus 40 units subcutaneous daily. Patient also needs to be on a sliding-scale insulin regular before meals and at bedtime. 9. Flomax (tamsulosin) 0.4 mg p.o. after supper. 10. Toprol XL 25 mg daily. 11. Amlodipine 2.5 mg daily. 12. Aspirin 81 mg p.o. daily. FOLLOWUP: The patient is to follow up with Dr. Kuhn in 3 weeks. DICTATING PHYSICIAN: DAKOTA KUHN M.D. [id number] PHY#: [id number] ID: [id number] JOB#: [id number] ACCT: [id number] cc:DAKOTA KUHN M.D. > [facility]
[2016-09-23 16:35] VITALS: BP 123/85
[2016-09-23] MEDS: TAMSULOSIN HCL 0.4 MG CAP.SR.24H PO SCH (17:41)
== END 2016-09-23 18:23 | DRG 329 ==
LOC: INOR 08:39 → ICU 17:17 → 4W 08-30 18:40 → ICU 09-03 15:55 → 3N 09-10 04:45
PROVIDERS: ADMIT Surgery; ATTEND Surgery
PROC: 0DBL0ZZ Excision of Transverse Colon, Open Approach (ICD-10-PCS; 2016-08-27)
PROC: 0WJP0ZZ Inspection of Gastrointestinal Tract, Open Approach (ICD-10-PCS; 2016-09-03)
PROC: 0DH63UZ Insertion of Feeding Device into Stomach, Percutaneous Approach (ICD-10-PCS; 2016-09-03)
PROC: 0BH17EZ Insertion of Endotracheal Airway into Trachea, Via Natural or Artificial Opening (ICD-10-PCS; 2016-09-03)
PROC: 5A1945Z Respiratory Ventilation, 24-96 Consecutive Hours (ICD-10-PCS; 2016-09-03)
PROC: 0D1L0Z4 Bypass Transverse Colon to Cutaneous, Open Approach (ICD-10-PCS; principal; 2016-09-03 18:00)
PROC: 0D9E8ZZ Drainage of Large Intestine, Via Natural or Artificial Opening Endoscopic (ICD-10-PCS; 2016-09-03 18:00)
PROC: 05HM33Z Insertion of Infusion Device into Right Internal Jugular Vein, Percutaneous Approach (ICD-10-PCS; 2016-09-04)
PROC: B543ZZA Ultrasonography of Right Jugular Veins, Guidance (ICD-10-PCS; 2016-09-04)
PROC: 30233N1 Transfusion of Nonautologous Red Blood Cells into Peripheral Vein, Percutaneous Approach (ICD-10-PCS; 2016-09-04)
PROC: 02HV33Z Insertion of Infusion Device into Superior Vena Cava, Percutaneous Approach (ICD-10-PCS; 2016-09-09)
PROC: B5181ZA Fluoroscopy of Superior Vena Cava using Low Osmolar Contrast, Guidance (ICD-10-PCS; 2016-09-09)
PROC: B548ZZA Ultrasonography of Superior Vena Cava, Guidance (ICD-10-PCS; 2016-09-09)
PROC: 0JD80ZZ Extraction of Abdomen Subcutaneous Tissue and Fascia, Open Approach (ICD-10-PCS; 2016-09-14)
DX: D12.3 Benign neoplasm of transverse colon (principal); J96.01 Acute respiratory failure with hypoxia; K91.3 Postprocedural intestinal obstruction; T81.4XXA Infection following a procedure, initial encounter; D62 Acute posthemorrhagic anemia; I69.354 Hemiplegia and hemiparesis following cerebral infarction affecting left non-dominant side; T83.518A Infection and inflammatory reaction due to other urinary catheter, initial encounter; R33.9 Retention of urine, unspecified; E87.5 Hyperkalemia; E83.51 Hypocalcemia; E83.42 Hypomagnesemia; J43.1 Panlobular emphysema; I69.391 Dysphagia following cerebral infarction; R13.10 Dysphagia, unspecified; E86.0 Dehydration; R00.0 Tachycardia, unspecified; E11.9 Type 2 diabetes mellitus without complications; I10 Essential (primary) hypertension; I25.10 Atherosclerotic heart disease of native coronary artery without angina pectoris; E78.5 Hyperlipidemia, unspecified; K21.9 Gastro-esophageal reflux disease without esophagitis; F32.9 Major depressive disorder, single episode, unspecified; Z79.82 Long term (current) use of aspirin; Z79.899 Other long term (current) drug therapy; Z87.891 Personal history of nicotine dependence; I25.2 Old myocardial infarction; Z95.5 Presence of coronary angioplasty implant and graft; Z78.1 Physical restraint status
CPT/HCPCS: 00790; 36415; 36430; 36569; 71010; 71020; 74000; 74176; 74177; 76937; 77001; 80048; 80053; 80202; 81001; 81270; 82040; 82272; 82330; 82378; 82550; 82553; 82565; 82607; 82728; 82746; 82803; 82947; 82962; 83540; 83550; 83690; 83735; 84100; 84132; 84134; 84466; 84478; 84484; 85025; 85027; 85045; 85610; 85730; 86850; 86900; 86901; 86920; 87040; 87070; 87077; 87086; 87177; 87186; 87205; 87493; 88307; 93005; 93010; 93306; 93970; 94002; 94003; 94667; 94799; 88329; C1751; G8978-GP; G8979-GP; G8996-GN; G8997-GN; J0282; J0330; J1100; J1170; J1335; J1610; J1642; J1650; J1815; J1885; J1940; J1956; J2250; J2270; J2310; J2370; J2405; J2704; J2765; J3010; J3370; J3475; J3480; J3490; J7030; J7040; J7050; J7060; J7120; P9016; P9047; Q0138; S0028